=== PATIENT | female | born 1985 | race Caucasian/White ===

== ENCOUNTER 2019-12-29 05:48 | Emergency (ER) | payer SELFPAY ==
[2019-12-29] MEDS ORDERED: SUMAtriptan 6 MG/0.5 ML VIAL SUBQ STA (06:32)
[2019-12-29] MEDS ORDERED: PROMETHAZINE 25 MG/1 ML VIAL IM STA (06:32)
[2019-12-29] MEDS ORDERED: ACETAMINOPHEN/CODEINE 300 MG/30 MG TABLET PO STA (06:32)
--- NOTE | 2019-12-29 06:36 | ED Physician Documentation ---
History of Present Illness - Stated complaint Stated Complaint: SOA/COUGH/SORE THROAT - Chief complaint Chief Complaint: Resp - History obtained from History obtained from: Patient - Additonal information Additional information: Patient comes emergency department complaining of a cough for the last 3 days with a "lump like" soreness in her throat. Patient states she is also been sneezing a lot but she does have seasonal allergies. Patient states she does have a pain behind her right shoulder that is worse with cough and deep breath. Patient denies fevers. She states that she has had a throbbing headache for the last couple of days and has not been able to sleep very well. She states it involves her right eye and also her occipital area. She has had some mild photophobia and blurred vision.No other neurologic symptoms. No nausea or vomiting. No vertigo. Patient states she has not had the headache prior to 2 days ago. Patient does note some diarrhea which started yesterday. Patient is concerned that she may have coronavirus, and that she has children and a at home. She also states they had a friend of an aneurysm in the brain, and that he had an ongoing headache that he ignored. She states her was concerned about this and told her to come in. Patient states she has called the number for the acute respiratory clinic twice, and that she has not qualified for testing yet. She states she was thinking about trying again there. Patient does admit to smoking cigarettes and drinking alcohol regularly, but denies other underlying lung disorders. She states she is otherwise healthy. No other complaints at this time. Review of Systems Ten Systems: 10 systems reviewed and negative Constitutional: reports: Reviewed and negative Eyes: reports: Reviewed and negative Ears: reports: Reviewed and negative Nose: reports: Rhinorrhea / runny nose, Congestion Throat: reports: Sore throat Cardiac: reports: Reviewed and negative Respiratory: reports: Cough GI: reports: Diarrhea : reports: Reviewed and negative Skin: reports: Reviewed and negative Musculoskeletal: reports: Reviewed and negative Neurologic: reports: Headache Psychiatric: reports: Reviewed and negative Endocrine: reports: Reviewed and negative Immunocompromised: reports: Reviewed and negative PD PAST MEDICAL HISTORY - Past Medical History Past Medical History: Yes Cardiovascular: None Respiratory: None Endocrine/Autoimmune: None GI: None : None HEENT: None Psych: Anxiety, Other Musculoskeletal: Rheumatoid arthritis, Chronic back pain Derm: None - Past Surgical History Past Surgical History: Yes General: Other HEENT: Tonsil/Adenoidectomy - Present Medications Home Medications: Ambulatory Orders Medication Instructions Recorded Confirmed Carisoprodol [Soma] 06/10/15 06/10/15 traMADol [Ultram] 100 mg PO TID 06/10/15 06/10/15 Docusate Sodium 100Mg Capsule 100 mg PO BID PRN #30 capsule 09/11/15 [Colace] Oxycodone HCl/Acetaminophen 1 - 2 each PO Q6H PRN #20 tablet 09/11/15 [Percocet 5-325 mg Tablet] Acetaminophen/Cod 300/30 [Tylenol 1 each PO Q4-6H PRN 5 Days #20 12/29/19 #3] tablet - Allergies Allergies/Adverse Reactions: Allergies Allergy/AdvReac Type Severity Reaction Status Date / Time Sulfa (Sulfonamide Allergy Severe Edema Verified 12/29/19 06:00 Antibiotics) acetaminophen [From Vicodin] Allergy Intermediate Hives Verified 12/29/19 06:00 hydrocodone bitartrate * Allergy Intermediate Hives Verified 12/29/19 06:00 [From Vicodin] bupropion HCl * AdvReac Severe Unknown Verified 12/29/19 06:00 [From Wellbutrin] gabapentin AdvReac Severe seizure Verified 12/29/19 06:00 NSAIDS (Non-Steroidal AdvReac Intermediate Cramps Verified 12/29/19 06:00 Anti-Inflamma - Social History Does the pt smoke?: No Smoking Status: Current every day smoker Does the pt drink ETOH?: Yes ETOH Use: Liquor Does the pt have substance abuse?: No - Immunizations Immunizations are current?: Yes - POLST Patient has POLST: No PD ED PE NORMAL - Vitals Vital signs reviewed: Yes - General General: Alert and oriented X 3, No acute distress, Well developed/nourished, Other (Patient is bright, animated, and conversant.) - HEENT HEENT: Atraumatic, PERRL, EOMI, Moist mucous membranes, Pharynx benign - Neck Neck: Supple, no meningeal sign - Cardiac Cardiac: RRR, No murmur - Respiratory Respiratory: No respiratory distress, Clear bilaterally - Abdomen Abdomen: Soft, Non tender, Non distended - Back Back: Other (No limitation to range of motion.) - Derm Derm: Normal color, Warm and dry, No rash - Extremities Extremities: No deformity, Normal ROM s pain, No edema, No calf tenderness / cord - Neuro Neuro: Alert and oriented X 3, motor 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 I discussed with her that her symptoms are fairly mild at this point, and while this could represent a mild case of coronavirus, it could also very easily be any 1 of the many other viruses that go around this time of year and cause similar symptoms. Patient also has allergies and is a smoker, which further confounds the picture. I discussed with her that her family has already been exposed to what ever it is she has, and that quarantining from her family w ill not be helpful at this point. The patient does not meet criteria for testing at this time, as we are still under limited testing protocol, due to limited to number of tests available. I have explained this to the patient, and she does express understanding. We have obtained a chest x-ray due to the patient's cough and thoracic pain, and this is negative. I encouraged the patient to stop smoking. I have treated her headache today with Tylenol 3, Phenergan, and Imitrex. I have discussed with her that most likely, the headache is caused by combination of tension from coughing and lack of sleep. We have discussed that if the headache is ongoing after the illness subsides, then she may need to follow-up with her primary care physician to explore other potential causes. However, at this point in time, I feel that aneurysm or other serious pathology as a cause of her headache is unlikely.We have discussed home management of the symptoms, as well as the usual indications for return. In particular, should the patient develop fever, she should seek immediate reevaluation medically. Departure - Departure Disposition: 01 Home, Self Care Clinical Impression: Seasonal allergies Upper respiratory tract infection Qualifiers: URI type: unspecified viral URI Qualified Code(s): J06.9 - Acute upper respiratory infection, unspecified Condition: Fair Instructions: ED Viral Syndrome Prescriptions: Acetaminophen/Cod 300/30 [Tylenol #3] 1 each PO Q4-6H PRN 5 Days #20 tablet PRN Reason: Cough Comments: Your lungs are clear, your oxygen levels are good, and your chest x-ray is normal. Additionally, you do not have a fever at this time. You most likely have 1 of the many viral illnesses that go around this time of year. There is a possibility that you could have the coronavirus, but if this is the case, it is mild at this time. Please continue to follow the quarantine guidelines, at least until you are feeling better. Your family has certainly been exposed to what ever viruses causing your illness.They may or may not develop symptoms, but exposure will prompt an immune system response, causing immunity to future exposures to the virus. Please be sure to drink plenty of fluids and get plenty of rest. Please follow-up with your primary care physician if your symptoms are not improving in the next week, or if your headaches persist. You may always return for reevaluation, should your symptoms worsen. If you develop fever along with this illness, please contact our accessory Acute [facility] to discuss whether you are a candidate for testing for coronavirus.
[2019-12-29 07:49] VITALS: BP 116/97
--- NOTE | 2019-12-29 07:50 | XRAY Report ---
Reason: cough, SOA, dyspnea Procedure Date: 12/29/2019 Accession Number: [id number] / [id number] Procedure: XR - Chest 2 View X-Ray CPT Code: 33481 Final Report FULL RESULT: EXAM: CHEST RADIOGRAPHY EXAM DATE: 12/29/2019 07:16 AM. CLINICAL HISTORY: Cough, SOA, dyspnea. COMPARISON: None. TECHNIQUE: 2 views. FINDINGS: Lungs/Pleura: No focal opacities. Calcified pulmonary nodule over the right upper lobe, suspect sequela of prior granulomatous infection. No effusions. Mediastinum: Heart and mediastinal contours are unremarkable. Other: None. IMPRESSION: No acute radiographic cardiopulmonary process RADIA
== END 2019-12-29 07:50 | disposition home or self-care (01) ==
LOC: ED 05:48
DX: J06.9 Acute upper respiratory infection, unspecified (principal); J30.2 Other seasonal allergic rhinitis; F17.200 Nicotine dependence, unspecified, uncomplicated
CPT/HCPCS: 71046; 96372; 99283; 99284; A9270

== ENCOUNTER 2020-01-04 19:05 | Emergency (ER) | payer BC ==
[2020-01-04] MEDS ORDERED: cefTRIAXone 1 GM VIAL IM STA (19:51)
[2020-01-04] MEDS ORDERED: LIDOCAINE 1% 2 ML VIAL MC ONE (19:51)
[2020-01-04] MEDS ORDERED: oxyCODONE 5 MG TABLET PO STA (19:52)
--- NOTE | 2020-01-04 19:57 | ED Physician Documentation ---
History of Present Illness - Stated complaint Stated Complaint: DENTAL PX - Chief complaint Chief Complaint: Heent - History obtained from History obtained from: Patient - History of Present Illness Pain level max: 10 Pain level now: 10 - Additonal information Additional information: 34-year-old female states she has been having dental pain for the past year, and is slowly worsened over the past several weeks. She states she is scared to go the dentist. She has been chills. Recently seen with a negative chest x-ray. She states that her pain is not well controlled at home. No vomiting. Occasionally has diarrhea. Denies any blood in the stool. Worse with eating and drinking, nothing makes it better. Review of Systems Constitutional: reports: Chills Respiratory: denies: Cough GI: denies: Vomiting, Hematemesis, Bloody / black stool : denies: Dysuria Skin: denies: Rash Musculoskeletal: denies: Neck pain, Back pain Neurologic: denies: Headache PD PAST MEDICAL HISTORY - Past Medical History Past Medical History: Yes Cardiovascular: None Respiratory: None Endocrine/Autoimmune: None GI: None : None HEENT: None Psych: Anxiety, Other Musculoskeletal: Rheumatoid arthritis, Chronic back pain Derm: None - Past Surgical History Past Surgical History: Yes General: Other HEENT: Tonsil/Adenoidectomy - Present Medications Home Medications: Ambulatory Orders Medication Instructions Recorded Confirmed Carisoprodol [Soma] 06/10/15 06/10/15 traMADol [Ultram] 100 mg PO TID 06/10/15 06/10/15 Docusate Sodium 100Mg Capsule 100 mg PO BID PRN #30 capsule 09/11/15 [Colace] Oxycodone HCl/Acetaminophen 1 - 2 each PO Q6H PRN #20 tablet 09/11/15 [Percocet 5-325 mg Tablet] Acetaminophen/Cod 300/30 [Tylenol 1 each PO Q4-6H PRN 5 Days #20 12/29/19 #3] tablet Lisinopril/Hydrochlorothiazide 1 each PO DAILY #30 tablet 01/04/20 [Lisinopril-Hctz 20-12.5 mg Tab] Oxycodone HCl 5 mg PO Q6H PRN #7 tablet 01/04/20 Penicillin V Potassium 500 mg PO Q6HR #40 tablet 01/04/20 - Allergies Allergies/Adverse Reactions: Allergies Allergy/AdvReac Type Severity Reaction Status Date / Time Sulfa (Sulfonamide Allergy Severe Edema Verified 12/29/19 06:00 Antibiotics) acetaminophen [From Vicodin] Allergy Intermediate Hives Verified 12/29/19 06:00 hydrocodone bitartrate * Allergy Intermediate Hives Verified 12/29/19 06:00 [From Vicodin] bupropion HCl * AdvReac Severe Unknown Verified 12/29/19 06:00 [From Wellbutrin] gabapentin AdvReac Severe seizure Verified 12/29/19 06:00 NSAIDS (Non-Steroidal AdvReac Intermediate Cramps Verified 12/29/19 06:00 Anti-Inflamma - Social History Does the pt smoke?: No Smoking Status: Never smoker Does the pt drink ETOH?: Yes Does the pt have substance abuse?: No - Immunizations Immunizations are current?: Yes - POLST Patient has POLST: No PD ED PE NORMAL - Vitals Vital signs reviewed: Yes - General General: Alert and oriented X 3, No acute distress, Well developed/nourished - HEENT HEENT: PERRL, Moist mucous membranes, Other (Tender to palpation right upper molar, no drainage. No drainable abscess) - Neck Neck: Supple, no meningeal sign - Cardiac Cardiac: RRR, Strong equal pulses - Respiratory Respiratory: No respiratory distress, Clear bilaterally - Abdomen Abdomen: Soft, Non tender, Non distended - Derm Derm: Warm and dry - Neuro Neuro: Alert and oriented X 3 - Psych Psych: Normal mood, Normal affect Results - Vitals Vitals: Vital Signs - 24 hr 01/04/20 01/04/20 19:14 20:21 Temperature 37.1 C Heart Rate 91 86 Respiratory 18 16 Rate Blood Pressure 119/95 H 138/82 H O2 Saturation 96 99 Oxygen O2 Source Room air PD MEDICAL DECISION MAKING - ED course Complexity details: considered differential, d/w patient ED course: Patient with dental caries. Will place on antibiotics for home, she is well- appearing, nontoxic. No facial swelling. No cellulitis. No sepsis. Patient counseled regarding signs and symptoms for which I believe and urgent re-evaluation would be necessary. Patient with good understanding of and agreement to plan and is comfortable going home at this time This document was made in part using voice recognition software. While efforts are made to proofread this document, sound alike and grammatical errors may occur. No abscess Departure - Departure Disposition: 01 Home, Self Care Clinical Impression: Pain, dental Condition: Good Instructions: ED Tooth Pain Follow-Up: your,dentist within 1 week [Other] Prescriptions: Penicillin V Potassium 500 mg PO Q6HR #40 tablet Lisinopril/Hydrochlorothiazide [Lisinopril-Hctz 20-12.5 mg Tab] 1 each PO DAILY #30 tablet Oxycodone HCl 5 mg PO Q6H PRN #7 tablet PRN Reason: pain Comments: Take all antibiotics until gone. Return if you worsen. Do not drink alcohol or drive while on narcotic pain medicine. Note that many narcotic pain relievers also contain tylenol/acetaminophen. Please ensure that your total dose of acetaminophen from all sources does not exceed 3 grams (3000mg) per day. You may constipated on this medication, take a stool softener such as "Colace" twice a day while you are on it. Also recommend a [id number] laxative such as senna or MiraLAX any day that you do not have a bowel movement. If you received narcotic pain medication in the emergency department, do not drive or operate machinery for the next 24 hours. Discharge Date/Time: 01/04/20 20:19
[2020-01-04 20:22] VITALS: BP 138/82
== END 2020-01-04 20:19 | disposition home or self-care (01) ==
LOC: ED 19:05
DX: K02.9 Dental caries, unspecified (principal)
CPT/HCPCS: 96372; 99283; 99284; A9270

== ENCOUNTER 2020-01-05 10:29 | Observation (INO) | payer BC ==
--- NOTE | 2020-01-05 10:39 | ED Physician Documentation ---
PD HPI ABD PAIN - Stated complaint Stated Complaint: ABD PX - Chief complaint Chief Complaint: Abd Pain - History obtained from History obtained from: Patient - History of Present Illness Timing - onset: How many days ago (2) Timing - duration: Days (2) Timing - details: Abrupt onset (only mild pain the past 2 days and had considerable escalation of pain since yesterday.) Quality: Aching, Sharp, Pain Location: RUQ, Epigastric Radiation: Lower back Improved by: No: Laying still, Vomiting Worsened by: Eating, Breathing, Palpation Associated symptoms: Nausea, Vomiting, Diarrhea (some loose stool the past couple of days, with dark color 2 days ago (but had taken Pepto for stomach pain). No hematemesis.). No: Fever, Hematemesis Similar symptoms before: Diagnosis (pancreatitis at least once before.) Recently seen: Emergency Dept (Seen couple of days ago for dental pain and prescribed penicillin and ibuprofen. She had only had mild abd pain at that time.) Review of Systems Constitutional: reports: Myalgias. denies: Fever, Chills Nose: denies: Rhinorrhea / runny nose, Congestion Throat: denies: Sore throat Respiratory: denies: Cough GI: reports: Abdominal Pain, Nausea, Vomiting, Diarrhea, Bloody / black stool (dark colored after Pepto). denies: Constipation, Hematemesis : denies: Dysuria, Frequency Neurologic: reports: Generalized weakness. denies: Near syncope PD PAST MEDICAL HISTORY - Past Medical History Cardiovascular: None Respiratory: None Endocrine/Autoimmune: None GI: None : None HEENT: None Psych: Anxiety, Other Musculoskeletal: Rheumatoid arthritis, Chronic back pain Derm: None - Past Surgical History Past Surgical History: Yes General: Other HEENT: Tonsil/Adenoidectomy - Present Medications Home Medications: Ambulatory Orders Medication Instructions Recorded Confirmed Carisoprodol [Soma] 06/10/15 06/10/15 traMADol [Ultram] 100 mg PO TID 06/10/15 06/10/15 Docusate Sodium 100Mg Capsule 100 mg PO BID PRN #30 capsule 09/11/15 [Colace] Oxycodone HCl/Acetaminophen 1 - 2 each PO Q6H PRN #20 tablet 09/11/15 [Percocet 5-325 mg Tablet] Acetaminophen/Cod 300/30 [Tylenol 1 each PO Q4-6H PRN 5 Days #20 12/29/19 #3] tablet Lisinopril/Hydrochlorothiazide 1 each PO DAILY #30 tablet 01/04/20 [Lisinopril-Hctz 20-12.5 mg Tab] Oxycodone HCl 5 mg PO Q6H PRN #7 tablet 01/04/20 Penicillin V Potassium 500 mg PO Q6HR #40 tablet 01/04/20 - Allergies Allergies/Adverse Reactions: Allergies Allergy/AdvReac Type Severity Reaction Status Date / Time Sulfa (Sulfonamide Allergy Severe Edema Verified 12/29/19 06:00 Antibiotics) acetaminophen [From Vicodin] Allergy Intermediate Hives Verified 12/29/19 06:00 hydrocodone bitartrate * Allergy Intermediate Hives Verified 12/29/19 06:00 [From Vicodin] bupropion HCl * AdvReac Severe Unknown Verified 12/29/19 06:00 [From Wellbutrin] gabapentin AdvReac Severe seizure Verified 12/29/19 06:00 NSAIDS (Non-Steroidal AdvReac Intermediate Cramps Verified 12/29/19 06:00 Anti-Inflamma - Social History Does the pt smoke?: No Smoking Status: Never smoker Does the pt drink ETOH?: Yes Does the pt have substance abuse?: No - Immunizations Immunizations are current?: Yes - POLST Patient has POLST: No PD ED PE NORMAL - Vitals Vital signs reviewed: Yes - General General: Alert and oriented X 3, Well developed/nourished, Other (Appears in considerable distress both shaky nauseated and in pain.) - HEENT HEENT: PERRL (nonicteric), Pharynx benign - Neck Neck: Supple, no meningeal sign, No adenopathy - Cardiac Cardiac: RRR, No murmur - Respiratory Respiratory: Clear bilaterally - Abdomen Abdomen: Soft, No organomegaly, Other (Considerable tenderness in the epigastric area with guarding and percussion tenderness. Lower abdomen is minimally tender. There is no rebound in the lower abdomen. There is no CVA tenderness.). No: Normal bowel sounds (diminished) - Back Back: No CVA TTP - Derm Derm: Normal color, Warm and dry - Extremities Extremities: No deformity, No tenderness to palpate, Normal ROM s pain, No edema, No calf tenderness / cord - Neuro Neuro: Alert and oriented X 3, No motor deficit, Normal speech, Other (general shakiness/tremors) Eye Opening: Spontaneous Motor: Obeys Commands Verbal: Oriented GCS Score: 15 Results - Vitals Vitals: Vital Signs - 24 hr 01/05/20 01/05/20 01/05/20 10:35 11:19 11:30 Temperature 36.3 C L Heart Rate 78 67 66 Respiratory 16 19 18 Rate Blood Pressure 136/101 H 106/82 H 126/95 H O2 Saturation 97 100 97 01/05/20 01/05/20 12:00 12:30 Temperature Heart Rate 74 79 Respiratory 13 16 Rate Blood Pressure 132/104 H 143/101 H O2 Saturation 100 99 Oxygen O2 Source Room air - Labs Labs: Laboratory Tests 01/05/20 01/05/20 01/05/20 10:45 11:10 11:10 WBC 9.1 RBC 4.79 Hgb 15.7 Hct 45.9 MCV 95.8 MCH 32.8 H MCHC 34.2 RDW 12.7 Plt Count 290 MPV 8.5 Neut # (Auto) 3.7 Lymph # (Auto) 4.2 H [place] # (Auto) 1.0 Eos # (Auto) 0.1 Baso # (Auto) 0.1 Absolute Nucleated RBC 0.00 Nucleated RBC % 0.0 Sodium 136 Potassium 3.4 L Chloride 99 L Carbon Dioxide 22 Anion Gap 15.0 H BUN 8 Creatinine 0.8 Estimated GFR (MDRD) 82 L Glucose 115 H Calcium 8.5 Magnesium 2.0 Total Bilirubin 1.2 H AST 164 H ALT 125 H Alkaline Phosphatase 98 Total Protein 7.2 Albumin 4.0 Globulin 3.2 Albumin/Globulin Ratio 1.3 Lipase 693 H Salicylates < 6.0 Acetaminophen < 10 L Ethyl Alcohol 127.4 Blood Type O NEGATIVE Antibody Screen NEGATIVE PD MEDICAL DECISION MAKING - ED course Complexity details: re-evaluated patient (Taking repeated doses of medicines for both withdrawal and pain to have her more comfortable. Her lipase is quite elevated. I do not see her manageable outpatient.), considered differential (Likely pancreatitis versus ulcer versus gallbladder. Also having alcohol withdrawal.), d/w patient Departure - Departure Disposition: 66 [facility] DC/Xfer Clinical Impression: Upper abdominal pain, Alcoholism Acute pancreatitis Qualifiers: Pancreatitis type: alcohol induced Acute pancreatitis complication: unspecified Qualified Code(s): K85.20 - Alcohol induced acute pancreatitis without necrosis or infection Alcohol withdrawal Qualifiers: Complication of substance-induced condition: uncomplicated Qualified Code(s): F10.230 - Alcohol dependence with withdrawal, uncomplicated Condition: Stable Record reviewed to determine appropriate education?: Yes
[2020-01-05] MEDS ORDERED: LORazepam 2 MG/ML VIAL IVP STA ×3 (10:57→12:46)
[2020-01-05] MEDS ORDERED: FAMOTIDINE 20 MG/2 ML VIAL IVP STA (10:57)
[2020-01-05] MEDS ORDERED: SODIUM CHLORIDE 0.9% 1,000 ML IV ONE ×2 (10:57→13:29)
[2020-01-05] MEDS ORDERED: ONDANSETRON 4 MG/2 ML VIAL IVP STA (10:57)
[2020-01-05] MEDS ORDERED: HYDROmorphone 1 MG/ML CARPUJECT IVP STA ×4 (10:57→13:29)
[2020-01-05 11:03] LABS: BASOPHILS # (AUTO) 0.1 10^3/uL (0.0-0.1); BASOPHILS % (AUTO) 0.7 %; EOSINOPHILS # (AUTO) 0.1 10^3/uL (0.0-0.7); EOSINOPHILS % (AUTO) 1.2 %; HGB - HEMOGLOBIN 15.7 g/dL (12.0-16.0); LYMPHOCYTES # (AUTO) 4.2 10^3/uL (1.5-3.5); LYMPHOCYTES % (AUTO) 46.5 %; MEAN CORPUSCULAR HEMOGLOBIN 32.8 pg (27.0-31.0); MEAN CORPUSCULAR HGB CONC 34.2 g/dL (32.0-36.0); MEAN CORPUSCULAR VOLUME 95.8 fL (81.0-99.0); MEAN PLATELET VOLUME 8.5 fL (7.9-10.8); MONOCYTES % (AUTO) 10.6 %; NEUTROPHILS # (AUTO) 3.7 10^3/uL (1.5-6.6); NEUTROPHILS % (AUTO) 40.6 %; PLT - PLATELET COUNT 290 10^3/uL (130-450); RED BLOOD COUNT 4.79 10^6/uL (4.20-5.40); RED CELL DISTRIBUTION WIDTH 12.7 % (12.0-15.0); WHITE BLOOD COUNT 9.1 x10^3/uL (4.8-10.8)
[2020-01-05 11:53] LABS: ACETAMINOPHEN < 10 ug/mL (10-30); ALBUMIN/GLOBULIN RATIO 1.3 (1.0-2.2); ALKALINE PHOSPHATASE 98 IU/L (42-121); ALT ALANINE AMINOTRANSFERASE 125 IU/L (10-60); AST ASPARTATE AMINOTRANSFERASE 164 IU/L (10-42); BILIRUBIN,TOTAL 1.2 mg/dL (0.2-1.0); BUN - BLOOD UREA NITROGEN 8 mg/dL (6-20); CALCIUM 8.5 mg/dL (8.5-10.3); CARBON DIOXIDE - CO2 22 mmol/L (21-32); CHLORIDE 99 mmol/L (101-111); CREATININE 0.8 mg/dL (0.4-1.0); GLUCOSE 115 mg/dL (70-100); LIPASE 693 U/L (22-51); SALICYLATE < 6.0 mg/dL; SODIUM 136 mmol/L (135-145); TOTAL PROTEIN 7.2 g/dL (6.7-8.2)
[2020-01-05] MEDS ORDERED: cefTRIAXone 1 GM VIAL IVP STA (12:30)
[2020-01-05] MEDS ORDERED: LORazepam 2 MG/ML VIAL IVP PRN (13:24)
[2020-01-05] MEDS ORDERED: HYDROmorphone 0.5 MG/0.5 ML SYRINGE IVP PRN (13:24)
[2020-01-05] MEDS ORDERED: IBUPROFEN 400 MG TABLET PO PRN (13:24)
[2020-01-05] MEDS ORDERED: traMADol 50 MG TABLET PO SCH (14:00)
--- NOTE | 2020-01-05 14:11 | HISTORY & PHYSICAL EXAMINATION ---
Chief Complaint - Chief Complaint Chief Complaint: Abdoominal Pain History of Present Illness - Admitted From Admitted From:: ED - History Obtained From Records Reviewed: Current ED visit History obtained from: Patient and Dr Mason Exam Limitations: None - History of Present Illness HPI Comment/Other: Pt is a 34 yo female with past medical hx of fibromyalgia, chronic pain, and arthritis "in her ribs" who presents to ED with abdominal pain present since past few days, acutely worsening this am. She describes the pain as both LUQ and RUQ, sharp, constant, but worsens in a crampy nature. It's worsened with eating and drinking and not alleviated with anything. It was associated with few episodes of vomiting this am, and diarrhea a few days ago that has now resolved. She denies fever, sick contacts, recent travel, or hx of abdominal surgery. She is a recovering alcoholic who admits she has relapsed into drinking again for the past few months, no drinking every day, typically two vodka drinks and 2-4 beers per day, every day. Her last drink was last night. She recalls a similar episode of sx last year at which point she was admitted to [facility] and was diagnosed with pancreatitis. Per patient, she was evaluated and not found to have any biliary pathology at that time. In ED, U/S is pending. She self reports a hx of W/D during that same hospital stay, as well as at home with sx of "the shakes" when she wakes up after drinking less the day prior. In ED, her evaluation showed elevated LFT's, Lipase, and normal CBC. At time of admission, U/S has been ordered by Dr Mason, but not yet done. Of note, patient was in ED last night as well with CC of tooth pain, and started on PCN for tooth infection (has been needing to see dentist for known tooth problem) and reportedly had abdominal sx as well, but was not evaluated for this as sx were more mild. History - Past Medical History Cardiovascular: reports: None Respiratory: reports: None Neuro: reports: Other (Fibromyalgia) Endocrine/Autoimmune: reports: None GI: reports: None : reports: None HEENT: reports: None Psych: reports: Anxiety, Other Musculoskeletal: reports: Rheumatoid arthritis, Chronic back pain Derm: reports: None MRSA Hx?: No - Past Surgical History General: reports: Other HEENT: reports: Tonsil/Adenoidectomy - Family & Social History Family History Comment/Other: Family hx of alcoholism, mother has hx of poor tolerance to local anasthetics. Living arrangement: At home Living Situation: With spouse/s.o. Social History Notes: visiting from out of town, returning in a week or so - Substance History Use: Uses substance without health or social issues: Cannabis Abuse: Recurrent use of substance despite neg consequences: Alcohol - POLST Patient has POLST: No POLST Status: Full Code Meds/Allgy - Home Medications Home Medications: Ambulatory Orders Medication Instructions Recorded Confirmed Carisoprodol [Soma] 06/10/15 06/10/15 traMADol [Ultram] 100 mg PO TID 06/10/15 06/10/15 Docusate Sodium 100Mg Capsule 100 mg PO BID PRN #30 capsule 09/11/15 [Colace] Oxycodone HCl/Acetaminophen 1 - 2 each PO Q6H PRN #20 tablet 09/11/15 [Percocet 5-325 mg Tablet] Acetaminophen/Cod 300/30 [Tylenol 1 each PO Q4-6H PRN 5 Days #20 12/29/19 #3] tablet Lisinopril/Hydrochlorothiazide 1 each PO DAILY #30 tablet 01/04/20 [Lisinopril-Hctz 20-12.5 mg Tab] Oxycodone HCl 5 mg PO Q6H PRN #7 tablet 01/04/20 Penicillin V Potassium 500 mg PO Q6HR #40 tablet 01/04/20 - Allergies Allergies/Adverse Reactions: Allergies Allergy/AdvReac Type Severity Reaction Status Date / Time Sulfa (Sulfonamide Allergy Severe Edema Verified 12/29/19 06:00 Antibiotics) acetaminophen [From Vicodin] Allergy Intermediate Hives Verified 12/29/19 06:00 hydrocodone bitartrate * Allergy Intermediate Hives Verified 12/29/19 06:00 [From Vicodin] bupropion HCl * AdvReac Severe Unknown Verified 12/29/19 06:00 [From Wellbutrin] gabapentin AdvReac Severe seizure Verified 12/29/19 06:00 NSAIDS (Non-Steroidal AdvReac Intermediate Cramps Verified 12/29/19 06:00 Anti-Inflamma Review of Systems - Constitutional Constitutional: reports: Poor appetite. denies: Fatigue - Cardiovascular Cariovascular: denies: Chest pain - Respiratory Respiratory: denies: SOB at rest - Gastrointestinal Gastrointestinal: reports: Abdominal pain, Diarrhea, Change in bowel habits, Black stools (C/O dark tarry stools x 3 days, also has been using Pepto-bismol). denies: Constipation - Genitourinary Genitourinary: reports: Flank pain - Musculoskeletal Musculoskeletal: reports: Joint pain - Neurological Neurological: reports: General weakness Prior Level of Functionality: Fully ambulatory and healthy. Rasing 3 children. 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 Exam - Vital Signs Reviewed Vital Signs: Yes Vital Signs: Vital Signs x48h Temp Pulse Resp BP Pulse Ox 01/05/20 13:30 88 20 139/105 H 97 01/05/20 13:00 78 14 134/104 H 97 01/05/20 12:30 79 16 143/101 H 99 01/05/20 12:00 74 13 132/104 H 100 01/05/20 11:30 66 18 126/95 H 97 01/05/20 11:19 67 19 106/82 H 100 01/05/20 10:35 36.3 C L 78 16 136/101 H 97 - Physical Exam General Appearance: positive: Moderate distress, Anxious Eyes Bilateral: positive: Normal inspection, No scleral icterus Neck: positive: Nml inspection Respiratory: positive: Chest non-tender, No respiratory distress, Breath sounds nml Cardiovascular: positive: Regular rate & rhythm, No murmur, No gallop Abdomen: positive: Tenderness (RUQ, LUQ, Epigastric) Extremities: positive: Non-tender, Full ROM, Nml appearance Neurologic/Psychiatric: positive: Oriented x3 Conclusion/Plan - Problem List (1) Acute pancreatitis Conclusion/Plan: Elevated Lipase, abdominal pain, hx are c/w pancreatitis. Imaging is pending. Likely 2/2 to Etoh. Plan: * F/U U/S * IVF @ 150 ml/hr * Clearl liquid diet * Pain control * Dilaudid * PRN Zofran * Advance diet pending clinical Course Qualifiers: Pancreatitis type: alcohol induced Acute pancreatitis complication: unspecified Qualified Code(s): K85.20 - Alcohol induced acute pancreatitis without necrosis or infection (2) Alcohol withdrawal Conclusion/Plan: Pt showing signs of early EtOH W/D HR and BP are elevated Last drink was last night Plan: * CIWA protocol * Librium TID * Monitor for sx and increase as needed * Banana Bag * Consider adding gabapentin as this would help with fibromyalgia and w/d if improved in am * Fur Remodeler to quit etoh abuse * Social Work Consult Qualifiers: Complication of substance-induced condition: uncomplicated Qualified Code(s): F10.230 - Alcohol dependence with withdrawal, uncomplicated (3) Alcoholism Conclusion/Plan: As above, counseled to quit, social work consult for resourced (4) Pain, dental Conclusion/Plan: Cont PCN started in ED night prior. Monitor for signs of abscess (fever, wbc increase, worsening pain, exam findings, etc) and if appropriate consider sinus CT Otherwise, outpt f/u (5) Hypokalemia Conclusion/Plan: Likely 2/2 to GI loss, add to IVF - Lab Results Lab results reviewed: Yes Andrés Bones: 01/05/20 10:45 01/05/20 11:10 Core Measures - Anticipated LOS I expect patient to be DC'd or transferred within 96 hours.: Yes - DVT/VTE - Prophylaxis VTE/DVT Device ordered at admit?: Yes VTE/DVT Prophylaxis med ordered at admit?: Yes
[2020-01-05 14:30] LABS: BILIRUBIN,URINE NEGATIVE (NEGATIVE); CLARITY,URINE CLEAR (CLEAR); GLUCOSE, URINE (UA) NEGATIVE (NEGATIVE); KETONES,URINE (UA) NEGATIVE (NEGATIVE); LEUKOCYTE ESTERASE, URINE NEGATIVE (NEGATIVE); NITRITE,URINE NEGATIVE (NEGATIVE); OCCULT BLOOD,URINE NEGATIVE (NEGATIVE); PH,URINE 6.5 PH (5.0-7.5); PROTEIN,URINE NEGATIVE (NEGATIVE); UROBILINOGEN,URINE 0.2 (NORMAL) E.U./dL (NORMAL)
[2020-01-05] MEDS: NS W/20 MEQ KCL 1,000 ML IV SCH (14:32)
[2020-01-05] MEDS: ONDANSETRON 4 MG/2 ML VIAL IVP PRN ×2 (15:52→21:40)
[2020-01-05] MEDS: MULTIVITAMIN 10 ML, THIAMINE INJ 100 MG, FOLIC ACID INJ 1 MG in SODIUM CHLORIDE 0.9% 1,... IV SCH (15:52)
[2020-01-05] MEDS: PANTOPRAZOLE 40 MG VIAL IVP SCH (15:52)
[2020-01-05] MEDS: SODIUM CHLORIDE FLUSH 0.9% 10 ML SYRINGE IVP SCH (17:13)
--- NOTE | 2020-01-05 17:36 | PHARMACY PROGRESS NOTE ---
- Best Possible Medication History Admit Date and Time: 01/05/20 1324 Processed by: Pharmacy Medication History completed: Yes Patient Interview: Completed Secondary Source(s): Insurance records As the person ultimately responsible for medication therapy, providers are able to order a medication from an existing home medication list in [facility] via the "Reconcile Routine" prior to Confirmation of that medication by system support developer. Such practice is discouraged except when the physician, in their clinical judgment, deems that a medical need exists for a medication without regard to previous use.
[2020-01-05] MEDS: HYDROmorphone 0.5 MG/0.5 ML SYRINGE IVP PRN ×4 (17:40→23:47)
[2020-01-05] MEDS: METOCLOPRAMIDE 10 MG/2 ML VIAL IVP PRN ×2 (17:40→23:46)
[2020-01-05] MEDS: oxyCODONE 5 MG TABLET PO PRN (19:15)
[2020-01-05] MEDS ORDERED: POTASSIUM CHLOR 10 MEQ/100 ML 10 MEQ/100 ML BAG IV SCH (20:00)
[2020-01-05 21:02] LABS: HCG UR QUAL NEGATIVE
[2020-01-05] MEDS: chlordiazePOXIDE 25 MG CAPSULE PO SCH (21:41)
[2020-01-05] MEDS: PENICILLIN VK 250 MG TABLET PO SCH (21:41)
[2020-01-06] MEDS: SODIUM CHLORIDE FLUSH 0.9% 10 ML SYRINGE IVP SCH ×3 (00:15→22:32)
[2020-01-06] MEDS: oxyCODONE 5 MG TABLET PO PRN ×3 (01:03→20:54)
[2020-01-06] MEDS: SODIUM CHLORIDE FLUSH 0.9% 10 ML SYRINGE IVP PRN ×2 (02:09→06:21)
[2020-01-06] MEDS: HYDROmorphone 0.5 MG/0.5 ML SYRINGE IVP PRN ×3 (02:10→06:30)
--- NOTE | 2020-01-06 02:28 | Ultrasound Report ---
Reason: upper abd pain; elevated lipase/LFTs Procedure Date: 01/06/2020 Accession Number: [id number] / [id number] Procedure: US - Abdomen Limited CPT Code: Final Report FULL RESULT: EXAM: ABDOMEN ULTRASOUND LIMITED, RUQ EXAM DATE: 01/06/2020 01:48 AM CLINICAL HISTORY: Upper abdominal pain; elevated lipase/liver function tests. COMPARISON: None. TECHNIQUE: Real-time scanning was performed with static images obtained. FINDINGS: Liver: Echogenic without gross focal abnormality seen. Main portal vein flow: Hepatopetal. Gallbladder: No shadowing stones, wall thickening, or pericholecystic edema. Possible mild adenomyomatosis towards the fundus. Biliary System: CBD measures 5 mm. No intrahepatic or extrahepatic ductal dilatation. Other: No peripancreatic collection seen. IMPRESSION: 1. No cholelithiasis or evidence of cholecystitis. 2. Fatty liver. RADIA
[2020-01-06] MEDS: ONDANSETRON 4 MG/2 ML VIAL IVP PRN (04:04)
[2020-01-06 05:59] LABS: BASOPHILS % (AUTO) 0.1 %; HGB - HEMOGLOBIN 13.5 g/dL (12.0-16.0); LYMPHOCYTES # (AUTO) 0.7 10^3/uL (1.5-3.5); LYMPHOCYTES % (AUTO) 4.8 %; MEAN CORPUSCULAR HEMOGLOBIN 32.8 pg (27.0-31.0); MEAN CORPUSCULAR HGB CONC 34.4 g/dL (32.0-36.0); MEAN CORPUSCULAR VOLUME 95.4 fL (81.0-99.0); MEAN PLATELET VOLUME 8.5 fL (7.9-10.8); MONOCYTES # (AUTO) 0.7 10^3/uL (0.0-1.0); MONOCYTES % (AUTO) 5.3 %; NEUTROPHILS # (AUTO) 12.4 10^3/uL (1.5-6.6); NEUTROPHILS % (AUTO) 89.2 %; PLT - PLATELET COUNT 179 10^3/uL (130-450); RED BLOOD COUNT 4.12 10^6/uL (4.20-5.40); RED CELL DISTRIBUTION WIDTH 12.7 % (12.0-15.0); WHITE BLOOD COUNT 13.9 x10^3/uL (4.8-10.8)
[2020-01-06 06:12] LABS: ALBUMIN 3.6 g/dL (3.2-5.5); ALBUMIN/GLOBULIN RATIO 1.3 (1.0-2.2); BILIRUBIN,TOTAL 1.9 mg/dL (0.2-1.0); CALCIUM 7.7 mg/dL (8.5-10.3); CREATININE 0.6 mg/dL (0.4-1.0); TOTAL PROTEIN 6.4 g/dL (6.7-8.2)
[2020-01-06] MEDS: PANTOPRAZOLE 40 MG VIAL IVP SCH (06:21)
[2020-01-06] MEDS: METOCLOPRAMIDE 10 MG/2 ML VIAL IVP PRN (06:25)
[2020-01-06] MEDS: chlordiazePOXIDE 25 MG CAPSULE PO SCH ×3 (06:28→22:39)
[2020-01-06] MEDS: PENICILLIN VK 250 MG TABLET PO SCH ×3 (06:29→22:53)
[2020-01-06] MEDS ORDERED: HYDROmorphone 1 MG/ML CARPUJECT IVP PRN ×2 (06:45→09:12)
[2020-01-06] MEDS: ENOXAPARIN 40 MG/0.4 ML SYRINGE SUBQ SCH (08:35)
[2020-01-06] MEDS: NICOTINE 7 MG PATCH TOP SCH (08:35)
[2020-01-06] MEDS: DOCUSATE SODIUM 100 MG CAPSULE PO PRN (08:36)
[2020-01-06] MEDS ORDERED: hydroCHLOROthiazide 12.5 MG CAPSULE PO SCH (09:00)
[2020-01-06] MEDS ORDERED: THIAMINE 100 MG TABLET PO SCH (09:00)
[2020-01-06] MEDS ORDERED: lisinopriL 20 MG TABLET PO SCH (09:00)
[2020-01-06 09:24] LABS: MUDS CUTOFF CONCENTRATIONS CUTOFF CONC BELOW:
[2020-01-06 09:36] LABS: COCAINE SCREEN URINE NEGATIVE (NEGATIVE); METHAMPHETAMINES SCREEN, URINE NEGATIVE (NEGATIVE); OPIATE SCREEN, URINE POSITIVE (NEGATIVE)
[2020-01-06 09:37] LABS: AMPHETAMINE SCREEN,URINE NEGATIVE (NEGATIVE); BENZODIAZEPINES SCREEN, URINE NEGATIVE (NEGATIVE); METHADONE SCREEN, URINE NEGATIVE (NEGATIVE); OXYCODONE SCREEN, URINE POSITIVE (NEGATIVE); PROPOXYPHENE SCREEN, URINE NEGATIVE (NEGATIVE); TRICYCLIC ANTIDEPRESSANT,URINE NEGATIVE (NEGATIVE)
[2020-01-06] MEDS: NS W/20 MEQ KCL 1,000 ML IV SCH ×2 (10:49→22:32)
[2020-01-06] MEDS: HYDROmorphone PCA 20MG/100ML IV PRN (11:19)
--- NOTE | 2020-01-06 11:31 | PROVIDER PROGRESS NOTE ---
Subjective - Prog Note Date Prog Note Date: 01/06/20 Prog Note Time: 11:27 - Subjective Pt reports feeling: No change Subjective: Rosaura complains of epigastric pain in her bilateral upper abdomen and states that the pain wraps around to her bilateral flank areas. The pain is constant, sharp, stabbing and her IV dilaudid is wearing off too quickly. She states that leaning forward somewhat relieves the pain, denies chest pain, shortness of breath, or dizziness during this time. She is also found with belching while trying to speak during her exam, denies emesis. She states that after she has ice chips the pain becomes worse, so I advised that she completely avoid all PO intake. She state that is has been greater than 6 months since the last time she attempted to stop using alcohol on a daily basis and is rather forthcoming as to the details of her disease, but notes she has always been a "functional drinker". She states that she is finally thinking more seriously about rehabilitation, but since the COVID, some facilities have not been accepting new patients. Current Medications - Current Medications Current Medications: Active Medications: Chlordiazepoxide HCl (Librium) 25 mg PO TID SILVINA Docusate Sodium (Colace 100mg Capsule) 100 mg PO BID PRN Enoxaparin Sodium (Lovenox) 40 mg SUBQ DAILY SILVINA Hydromorphone HCl (Dilaudid Customer Services Supervisor 20mg/100ml) mg IV PRN PRN; Protocol Multivitamins 10 ml/ Thiamine HCl 100 mg/ Folic Acid 1 mg/Sodium Chloride 1,011.2 mls @ 100 mls/hr IV Q24H SILVINA Potassium Chloride/Sodium Chloride (Normal Saline 0.9% W/20 Meq Kcl) 1,000 mls @ 150 mls/hr IV .Q6H40M SILVINA Ibuprofen (Motrin) 400 mg PO Q4HR PRN Lorazepam (Ativan Inj (Vial)) 1 mg IVP Q30M PRN; Protocol Metoclopramide HCl (Reglan Inj) 5 mg IVP Q6HR PRN Nicotine (Nicoderm) 1 patch TOP DAILY SILVINA Ondansetron HCl (Zofran Inj) 4 mg IVP Q6HR PRN Oxycodone HCl (Roxicodone) 5 mg PO Q4HR PRN Pantoprazole Sodium (Protonix) 40 mg IVP QDAC SILVINA Penicillin V Potassium (Penicillin Vk) 500 mg PO TID [facility] Objective - Vital Signs/Intake & Output Reviewed Vital Signs: Yes Vital Signs: Vital Signs x48h Temp Pulse Resp BP Pulse Ox 01/06/20 11:16 37.8 C H 103 H 18 155/114 H 95 01/06/20 07:45 37.6 C H 119 H 18 163/127 H 95 01/06/20 04:00 37.4 C 110 H 16 141/112 H 98 Intake & Output: Intake & Output 01/03/20 01/04/20 01/05/20 01/06/20 23:59 23:59 23:59 23:59 Intake Total 2516.667 1194.533 Balance 2516.667 1194.533 - Objective General Appearance: positive: Alert, Moderate distress, Severe distress, Anxious Eyes Bilateral: positive: No lid inflammation Eyes: OU Conjunctivae pale ENT: positive: Pharyngeal erythema, Oral lesions (Right upper tooth, last one in the back of the oral cavity appears discolored with more erythema noted to the skin surrounding the tooth.), Dry mucous membranes Neck: positive: No JVD, Trachea midline, Stiff neck Respiratory: positive: Chest non-tender, No respiratory distress, Breath sounds nml Cardiovascular: positive: Regular rate & rhythm, Tachycardia, Systolic murmur (faint) Peripheral Pulses: 1+ Radial (R), 1+ Radial (L) Abdomen: positive: Tenderness, Guarding, Rebound, Hepatomegaly, Abnml bowel sounds (hyperactive) Back: positive: Nml inspection Skin: positive: No rash, Warm, Dry, Other (bronze toned skin) Extremities: positive: Non-tender, Full ROM, Nml appearance, No pedal edema Neurologic/Psychiatric: positive: Oriented x3, CN's nml (2-12), Motor nml, Sensation nml, Weakness, Other (baseline tremors, worse when extending arms) Reflexes: Bicep (R): 3+, Bicep (L): 3+ - Lab Results Fish Bones: 01/06/20 05:39 01/06/20 05:39 Other Labs: Lab Results x24hrs 01/06/20 01/06/20 01/05/20 Range/Units 05:39 05:39 14:22 WBC 13.9 H (4.8-10.8) x10^3/uL RBC 4.12 L (4.20-5.40) 10^6/uL Hgb 13.5 (12.0-16.0) g/dL Hct 39.3 (37.0-47.0) % MCV 95.4 (81.0-99.0) fL MCH 32.8 H (27.0-31.0) pg MCHC 34.4 (32.0-36.0) g/dL RDW 12.7 (12.0-15.0) % Plt Count 179 (130-450) 10^3/uL MPV 8.5 (7.9-10.8) fL Neut # (Auto) 12.4 H (1.5-6.6) 10^3/uL Lymph # (Auto) 0.7 L (1.5-3.5) 10^3/uL Maury # (Auto) 0.7 (0.0-1.0) 10^3/uL Eos # (Auto) 0.0 (0.0-0.7) 10^3/uL Baso # (Auto) 0.0 (0.0-0.1) 10^3/uL Absolute Nucleated RBC 0.00 x10^3/uL Nucleated RBC % 0.0 /100WBC Sodium 135 (135-145) mmol/L Potassium 3.2 L (3.5-5.0) mmol/L Chloride 105 (101-111) mmol/L Carbon Dioxide 23 (21-32) mmol/L Anion Gap 7.0 (6-13) BUN 6 (6-20) mg/dL Creatinine 0.6 (0.4-1.0) mg/dL Estimated GFR (MDRD) 114 (>89) Glucose 107 H (70-100) mg/dL Calcium 7.7 L (8.5-10.3) mg/dL Magnesium (1.7-2.8) mg/dL Total Bilirubin 1.9 H (0.2-1.0) mg/dL AST 94 H (10-42) IU/L ALT 84 H (10-60) IU/L Alkaline Phosphatase 85 (42-121) IU/L Total Protein 6.4 L (6.7-8.2) g/dL Albumin 3.6 (3.2-5.5) g/dL Globulin 2.8 (2.1-4.2) g/dL Albumin/Globulin Ratio 1.3 (1.0-2.2) Lipase (22-51) U/L Urine Color Urine Clarity (CLEAR) Urine pH (5.0-7.5) PH Ur Specific [place] 1.020 (1.002-1.030) Urine Protein (NEGATIVE) mg/dL Urine Glucose (UA) (NEGATIVE) mg/dL Urine Ketones (NEGATIVE) mg/dL Urine Occult Blood (NEGATIVE) Urine Nitrite (NEGATIVE) Urine Bilirubin (NEGATIVE) Urine Urobilinogen (NORMAL) E.U./dL Ur Leukocyte Esterase (NEGATIVE) Ur Microscopic Review Urine Culture Comments Urine HCG, Qual NEGATIVE Salicylates mg/dL Urine Opiates Screen (NEGATIVE) Ur Oxycodone Screen (NEGATIVE) Urine Methadone Screen (NEGATIVE) Ur Propoxyphene Screen (NEGATIVE) Acetaminophen (10-30) ug/mL Ur Barbiturates Screen (NEGATIVE) Ur Tricyclics Screen (NEGATIVE) Ur Phencyclidine Scrn (NEGATIVE) Ur Amphetamine Screen (NEGATIVE) U Methamphetamines Scrn (NEGATIVE) U Benzodiazepines Scrn (NEGATIVE) Urine Cocaine Screen (NEGATIVE) U Cannabinoids Screen (NEGATIVE) Ethyl Alcohol mg/dL Blood Type Antibody Screen 01/05/20 01/05/20 01/05/20 Range/Units 14:22 11:10 11:10 WBC (4.8-10.8) x10^3/uL RBC (4.20-5.40) 10^6/uL Hgb (12.0-16.0) g/dL Hct (37.0-47.0) % MCV (81.0-99.0) fL MCH (27.0-31.0) pg MCHC (32.0-36.0) g/dL RDW (12.0-15.0) % Plt Count (130-450) 10^3/uL MPV (7.9-10.8) fL Neut # (Auto) (1.5-6.6) 10^3/uL Lymph # (Auto) (1.5-3.5) 10^3/uL Maury # (Auto) (0.0-1.0) 10^3/uL Eos # (Auto) (0.0-0.7) 10^3/uL Baso # (Auto) (0.0-0.1) 10^3/uL Absolute Nucleated RBC x10^3/uL Nucleated RBC % /100WBC Sodium 136 (135-145) mmol/L Potassium 3.4 L (3.5-5.0) mmol/L Chloride 99 L (101-111) mmol/L Carbon Dioxide 22 (21-32) mmol/L Anion Gap 15.0 H (6-13) BUN 8 (6-20) mg/dL Creatinine 0.8 (0.4-1.0) mg/dL Estimated GFR (MDRD) 82 L (>89) Glucose 115 H (70-100) mg/dL Calcium 8.5 (8.5-10.3) mg/dL Magnesium 2.0 (1.7-2.8) mg/dL Total Bilirubin 1.2 H (0.2-1.0) mg/dL AST 164 H (10-42) IU/L ALT 125 H (10-60) IU/L Alkaline Phosphatase 98 (42-121) IU/L Total Protein 7.2 (6.7-8.2) g/dL Albumin 4.0 (3.2-5.5) g/dL Globulin 3.2 (2.1-4.2) g/dL Albumin/Globulin Ratio 1.3 (1.0-2.2) Lipase 693 H (22-51) U/L Urine Color DARK YELLOW Urine Clarity CLEAR (CLEAR) Urine pH 6.5 (5.0-7.5) PH Ur Specific [place] 1.020 (1.002-1.030) Urine Protein NEGATIVE (NEGATIVE) mg/dL Urine Glucose (UA) NEGATIVE (NEGATIVE) mg/dL Urine Ketones NEGATIVE (NEGATIVE) mg/dL Urine Occult Blood NEGATIVE (NEGATIVE) Urine Nitrite NEGATIVE (NEGATIVE) Urine Bilirubin NEGATIVE (NEGATIVE) Urine Urobilinogen 0.2 (NORMAL) (NORMAL) E.U./dL Ur Leukocyte Esterase NEGATIVE (NEGATIVE) Ur Microscopic Review NOT INDICATED Urine Culture Comments NOT INDICATED Urine HCG, Qual Salicylates < 6.0 mg/dL Urine Opiates Screen (NEGATIVE) Ur Oxycodone Screen (NEGATIVE) Urine Methadone Screen (NEGATIVE) Ur Propoxyphene Screen (NEGATIVE) Acetaminophen < 10 L (10-30) ug/mL Ur Barbiturates Screen (NEGATIVE) Ur Tricyclics Screen (NEGATIVE) Ur Phencyclidine Scrn (NEGATIVE) Ur Amphetamine Screen (NEGATIVE) U Methamphetamines Scrn (NEGATIVE) U Benzodiazepines Scrn (NEGATIVE) Urine Cocaine Screen (NEGATIVE) U Cannabinoids Screen (NEGATIVE) Ethyl Alcohol 127.4 mg/dL Blood Type O NEGATIVE Antibody Screen NEGATIVE 01/05/20 Range/Units 10:20 WBC (4.8-10.8) x10^3/uL RBC (4.20-5.40) 10^6/uL Hgb (12.0-16.0) g/dL Hct (37.0-47.0) % MCV (81.0-99.0) fL MCH (27.0-31.0) pg MCHC (32.0-36.0) g/dL RDW (12.0-15.0) % Plt Count (130-450) 10^3/uL MPV (7.9-10.8) fL Neut # (Auto) (1.5-6.6) 10^3/uL Lymph # (Auto) (1.5-3.5) 10^3/uL Maury # (Auto) (0.0-1.0) 10^3/uL Eos # (Auto) (0.0-0.7) 10^3/uL Baso # (Auto) (0.0-0.1) 10^3/uL Absolute Nucleated RBC x10^3/uL Nucleated RBC % /100WBC Sodium (135-145) mmol/L Potassium (3.5-5.0) mmol/L Chloride (101-111) mmol/L Carbon Dioxide (21-32) mmol/L Anion Gap (6-13) BUN (6-20) mg/dL Creatinine (0.4-1.0) mg/dL Estimated GFR (MDRD) (>89) Glucose (70-100) mg/dL Calcium (8.5-10.3) mg/dL Magnesium (1.7-2.8) mg/dL Total Bilirubin (0.2-1.0) mg/dL AST (10-42) IU/L ALT (10-60) IU/L Alkaline Phosphatase (42-121) IU/L Total Protein (6.7-8.2) g/dL Albumin (3.2-5.5) g/dL Globulin (2.1-4.2) g/dL Albumin/Globulin Ratio (1.0-2.2) Lipase (22-51) U/L Urine Color Urine Clarity (CLEAR) Urine pH (5.0-7.5) PH Ur Specific [place] (1.002-1.030) Urine Protein (NEGATIVE) mg/dL Urine Glucose (UA) (NEGATIVE) mg/dL Urine Ketones (NEGATIVE) mg/dL Urine Occult Blood (NEGATIVE) Urine Nitrite (NEGATIVE) Urine Bilirubin (NEGATIVE) Urine Urobilinogen (NORMAL) E.U./dL Ur Leukocyte Esterase (NEGATIVE) Ur Microscopic Review Urine Culture Comments Urine HCG, Qual Salicylates mg/dL Urine Opiates Screen POSITIVE H (NEGATIVE) Ur Oxycodone Screen POSITIVE H (NEGATIVE) Urine Methadone Screen NEGATIVE (NEGATIVE) Ur Propoxyphene Screen NEGATIVE (NEGATIVE) Acetaminophen (10-30) ug/mL Ur Barbiturates Screen NEGATIVE (NEGATIVE) Ur Tricyclics Screen NEGATIVE (NEGATIVE) Ur Phencyclidine Scrn NEGATIVE (NEGATIVE) Ur Amphetamine Screen NEGATIVE (NEGATIVE) U Methamphetamines Scrn NEGATIVE (NEGATIVE) U Benzodiazepines Scrn NEGATIVE (NEGATIVE) Urine Cocaine Screen NEGATIVE (NEGATIVE) U Cannabinoids Screen POSITIVE H (NEGATIVE) Ethyl Alcohol mg/dL Blood Type Antibody Screen ABX Reporting Has patient been on IV antibiotics over the past 48 hours?: Yes Assessment/Plan - Problem List (1) Acute pancreatitis Impression: -Elevated Lipase, abdominal pain, hx are c/w pancreatitis. -Imaging ruled out gallstones or common bile duct dysfunction -Etiology is due to heavy alcohol use -IVF @ 150 ml/hr -NPO -Pain control, changing from IV diluidid to EXPANDER MACHINE OPERATOR without a basal -PRN Zofran -Advance diet pending clinical Course Intractable abdominal pain -Epigastric, wraps around to her back, bilateral flank region -Slight improvement when leaning forward -Echo to rule out pericardial effusion, no rub noted on exam, but concerning position which slightly helps the pain -Starting dilaudid EXPANDER MACHINE OPERATOR, no basal rate, in addition to CIWA -Starting empiric colchicine as this is the alternate treatment in an effusion, since she has a hx of gastric ulcers and NSAIDs should be avoided -Offer tylenol PRN -Monitor for improvement Alcohol withdrawal -Pt showing signs of early EtOH W/D -HR and BP are remain elevated -Last drink was on 01/04, prior to admit, +ETOH level on tox screen -CIWA protocol to continue -Librium TID -Monitor for sx and increase as needed -Banana Bag -Consider adding gabapentin as this would help with fibromyalgia and w/d, but not tolerating much PO today -Gluing Machine Feeder to quit etoh abuse -Social Work is following to provide resources Alcoholism -As above, counseled to quit, social work consult for resourced -Patient explains that she is open to rehab Pain, dental -Cont PCN started in ED IV -Monitor for signs of abscess (fever, wbc increase, worsening pain, exam findings, etc) and if appropriate consider sinus CT -Otherwise, outpt f/u Hypokalemia -Likely due to GI loss -Continues on IVF with 20 Kcl -Monitor labs
[2020-01-06] MEDS ORDERED: LABETALOL 20 MG/4 ML SYRINGE IVP PRN (11:44)
[2020-01-06] MEDS ORDERED: hydrALAZINE INJ 20 MG/ML VIAL IVP PRN (11:46)
[2020-01-06] MEDS ORDERED: COLCHICINE 0.6 MG TABLET PO ONE (12:19)
[2020-01-06] MEDS: METOPROLOL SUCCINATE 25 MG TABLET PO SCH ×2 (12:27→16:28)
[2020-01-06] MEDS: MULTIVITAMIN 10 ML, THIAMINE INJ 100 MG, FOLIC ACID INJ 1 MG in SODIUM CHLORIDE 0.9% 1,... IV SCH (16:37)
[2020-01-07] MEDS: oxyCODONE 5 MG TABLET PO PRN ×5 (01:17→20:18)
[2020-01-07] MEDS: SODIUM CHLORIDE FLUSH 0.9% 10 ML SYRINGE IVP SCH ×3 (03:25→17:39)
[2020-01-07] MEDS: chlordiazePOXIDE 25 MG CAPSULE PO SCH ×3 (05:27→21:36)
[2020-01-07] MEDS: PENICILLIN VK 250 MG TABLET PO SCH (05:32)
[2020-01-07 05:42] LABS: BASOPHILS % (AUTO) 0.2 %; EOSINOPHILS % (AUTO) 0.2 %; HGB - HEMOGLOBIN 13.4 g/dL (12.0-16.0); MEAN CORPUSCULAR HEMOGLOBIN 32.1 pg (27.0-31.0); MEAN CORPUSCULAR HGB CONC 33.9 g/dL (32.0-36.0); MEAN CORPUSCULAR VOLUME 94.7 fL (81.0-99.0); MEAN PLATELET VOLUME 9.3 fL (7.9-10.8); MONOCYTES % (AUTO) 5.1 %; NEUTROPHILS % (AUTO) 88.6 %; PLT - PLATELET COUNT 145 10^3/uL (130-450); RED BLOOD COUNT 4.17 10^6/uL (4.20-5.40); RED CELL DISTRIBUTION WIDTH 12.6 % (12.0-15.0); WHITE BLOOD COUNT 21.5 x10^3/uL (4.8-10.8)
[2020-01-07 05:45] LABS: INR 1.2 (0.8-1.2); PT - PROTHROMBIN TIME 13.9 secs (9.9-12.6)
[2020-01-07 05:46] LABS: ABNORMAL LYMPHS % (MANUAL) 0 %
[2020-01-07 05:57] LABS: HB2 TOTAL 13.9 g/dL; HEMOGLOBIN A1C 0.41 g/dL; HEMOGLOBIN A1C % 4.9 % (4.6-6.2)
[2020-01-07 05:58] LABS: ALBUMIN 3.6 g/dL (3.2-5.5); ALBUMIN/GLOBULIN RATIO 1.2 (1.0-2.2); ALKALINE PHOSPHATASE 78 IU/L (42-121); ALT ALANINE AMINOTRANSFERASE 61 IU/L (10-60); AST ASPARTATE AMINOTRANSFERASE 57 IU/L (10-42); BILIRUBIN,TOTAL 2.4 mg/dL (0.2-1.0); BUN - BLOOD UREA NITROGEN < 5 mg/dL (6-20); CALCIUM 7.6 mg/dL (8.5-10.3); CARBON DIOXIDE - CO2 20 mmol/L (21-32); CHLORIDE 102 mmol/L (101-111); CREATININE 0.6 mg/dL (0.4-1.0); GAMMA GLUTAMYL TRANSPEPTIDASE 230 IU/L (8-38); GLUCOSE 77 mg/dL (70-100); LIPASE 182 U/L (22-51); MAGNESIUM 1.5 mg/dL (1.7-2.8); PHOSPHORUS 1.6 mg/dL (2.5-4.6); SODIUM 135 mmol/L (135-145); TOTAL PROTEIN 6.7 g/dL (6.7-8.2)
[2020-01-07 06:26] LABS: BAND NEUTROPHILS % (MANUAL) 1 %; DIFFERENTIAL COMMENT MANUAL DIFFERENTIAL; LYMPHOCYTES # (MANUAL) 0.9 10^3/uL (1.5-3.5); LYMPHOCYTES % (MANUAL) 4 %; MONOCYTES # (MANUAL) 0.9 10^3/uL (0.0-1.0); PLATELET ESTIMATE, MANUAL NORMAL (130-450,000) (NORMAL); RBC MORPHOLOGY (MULTIPLE) NORMAL APPEARANCE (NORMAL)
[2020-01-07] MEDS: PANTOPRAZOLE 40 MG VIAL IVP SCH (06:38)
[2020-01-07] MEDS: SODIUM CHLORIDE FLUSH 0.9% 10 ML SYRINGE IVP PRN (06:38)
[2020-01-07] MEDS: NS W/20 MEQ KCL 1,000 ML IV SCH ×3 (07:44→22:11)
[2020-01-07] MEDS: HYDROmorphone PCA 20MG/100ML IV PRN (08:00)
[2020-01-07] MEDS: ENOXAPARIN 40 MG/0.4 ML SYRINGE SUBQ SCH (08:12)
[2020-01-07] MEDS: polyethylene glycoL 3350 17 GM PACKET PO SCH (08:13)
[2020-01-07] MEDS: METOPROLOL SUCCINATE 25 MG TABLET PO SCH ×2 (08:14→16:04)
[2020-01-07] MEDS: DOCUSATE SODIUM 100 MG CAPSULE PO PRN ×2 (08:15→20:28)
[2020-01-07] MEDS ORDERED: COLCHICINE 0.6 MG TABLET PO SCH (09:00)
[2020-01-07] MEDS ORDERED: HYDROmorphone PCA 20MG/100ML IV PRN (09:41)
[2020-01-07] MEDS ORDERED: IOVERSOL 320 100 ML VIAL IVP ONE ×2 (09:44→14:16)
[2020-01-07] MEDS ORDERED: IOVERSOL 320 50 ML VIAL ONE (09:44)
--- NOTE | 2020-01-07 10:35 | PROVIDER PROGRESS NOTE ---
Subjective - Prog Note Date Prog Note Date: 01/07/20 Prog Note Time: 10:32 - Subjective Pt reports feeling: Improved Subjective: Rosaura complains of fevers, continued abdominal pain. She states that her tooth pain is gone. She denies bleeding, diarrhea, vomiting, dizziness, withdrawal symptoms, or a new rash. She continues to have unrelieved pain which wakes her up, so updated that a basal rate will be added. She is considered high risk given her RA and alcoholism, so abdominal imaging will be obtained to find the source of her fevers. Current Medications - Current Medications Current Medications: Active Medications: Chlordiazepoxide HCl (Librium) 25 mg PO TID SILVINA Docusate Sodium (Colace 100mg Capsule) 100 mg PO BID PRN Enoxaparin Sodium (Lovenox) 40 mg SUBQ DAILY SILVINA Hydralazine HCl (Apresoline Inj) 10 mg IVP Q6H PRN Hydromorphone HCl (Dilaudid Shipping Support 20mg/100ml) 1 mg IV Q6HR PRN; Taper; Protocol Multivitamins 10 ml/ Thiamine HCl 100 mg/ Folic Acid 1 mg/Sodium Chloride 1,011.2 mls @ 100 mls/hr IV Q24H SILIVNA Magnesium Sulfate (Magnesium Sulfate) 2 gm in 50 mls @ 50 mls/hr IV ONCE ONE Piperacillin Sod/Tazobactam (Sod 3.375 gm/ Sodium Chloride) 100 mls @ 200 mls/hr IV Q6H SILVINA Potassium Chloride/Sodium Chloride (Normal Saline 0.9% W/20 Meq Kcl) 1,000 mls @ 75 mls/hr IV .[id number] SILVINA Ibuprofen (Motrin) 400 mg PO Q4HR PRN Labetalol HCl (Trandate Syringe) 20 mg IVP Q3H PRN Lorazepam (Ativan Inj (Vial)) 1 mg IVP Q30M PRN; Protocol Metoclopramide HCl (Reglan Inj) 5 mg IVP Q6HR PRN Metoprolol Succinate (Toprol Xl) 25 mg PO BIDWM SILVINA Nicotine (Nicoderm) 1 patch TOP DAILY SILVINA Ondansetron HCl (Zofran Inj) 4 mg IVP Q6HR PRN Oxycodone HCl (Roxicodone) 5 mg PO Q4HR PRN Pantoprazole Sodium (Protonix) 40 mg IVP QDAC SILVINA Polyethylene Glycol (Miralax) 17 gm PO DAILY SILVINA Objective - Vital Signs/Intake & Output Reviewed Vital Signs: Yes Vital Signs: Vital Signs x48h Temp Pulse Resp BP Pulse Ox 01/07/20 07:55 37.5 C 117 H 16 125/95 H 94 01/07/20 06:49 18 01/07/20 06:40 38.0 C H 01/07/20 05:00 37.9 C H 107 H 18 139/99 H 94 Intake & Output: Intake & Output 01/04/20 01/05/20 01/06/20 01/07/20 23:59 23:59 23:59 23:59 Intake Total 2516.667 2194.533 1902.867 Balance 0866.667 2194.533 1902.867 - Objective General Appearance: positive: Alert, Moderate distress, Anxious Eyes Bilateral: positive: No lid inflammation Eyes: OU Conjunctivae pale ENT: positive: Pharynx nml, No signs of dehydration Neck: positive: No JVD, Trachea midline Respiratory: positive: Chest non-tender, No respiratory distress, Breath sounds nml Cardiovascular: positive: Regular rate & rhythm, No gallop, Tachycardia, Systol ic murmur Peripheral Pulses: 1+ Radial (R), 1+ Radial (L) Abdomen: positive: Tenderness, Guarding, Rebound (slight to RUQ), Hepatomegaly, Abnml bowel sounds Back: positive: Nml inspection Skin: positive: No rash, Warm, Dry, Other (slightly bronze, no jaundice) Extremities: positive: Non-tender, Full ROM, Nml appearance, No pedal edema Neurologic/Psychiatric: positive: Oriented x3, CN's nml (2-12), Motor nml, Sensation nml, Depressed mood/affect (flat, restless) Reflexes: Bicep (R): 3+ (scant tremors today), Bicep (L): 3+ - Lab Results Fish Bones: 01/07/20 05:15 01/07/20 05:15 Other Labs: Lab Results x24hrs 01/07/20 01/07/20 01/07/20 Range/Units 05:15 05:15 05:15 WBC (4.8-10.8) x10^3/uL RBC (4.20-5.40) 10^6/uL Hgb (12.0-16.0) g/dL Hct (37.0-47.0) % MCV (81.0-99.0) fL MCH (27.0-31.0) pg MCHC (32.0-36.0) g/dL RDW (12.0-15.0) % Plt Count (130-450) 10^3/uL MPV (7.9-10.8) fL Neut # (Auto) Lymph # (Auto) [place] # (Auto) Eos # (Auto) Baso # (Auto) Absolute Nucleated RBC Total Counted Band Neuts % (Manual) (0 - 10) % Abnorm Lymph % (Manual) % Nucleated RBC % Neutrophils # (Manual) (1.5-6.6) 10^3/uL Lymphocytes # (Manual) (1.5-3.5) 10^3/uL Monocytes # (Manual) (0.0-1.0) 10^3/uL Eosinophils # (Manual) (0-0.7) 10^3/uL Basophils # (Manual) (0-0.1) 10^3/uL Differential Comment Platelet Estimate (NORMAL) RBC Morph Micro Appear (NORMAL) PT 13.9 H (9.9-12.6) secs INR 1.2 (0.8-1.2) Sodium (135-145) mmol/L Potassium (3.5-5.0) mmol/L Chloride (101-111) mmol/L Carbon Dioxide (21-32) mmol/L Anion Gap (6-13) BUN (6-20) mg/dL Creatinine (0.4-1.0) mg/dL Estimated GFR (MDRD) (>89) Glucose (70-100) mg/dL Glycated Hemoglobin 4.9 (4.6-6.2) % Estim Average Glucose 94 (70-100) Calcium (8.5-10.3) mg/dL Phosphorus (2.5-4.6) mg/dL Magnesium (1.7-2.8) mg/dL Total Bilirubin (0.2-1.0) mg/dL GGT (8-38) IU/L AST (10-42) IU/L ALT (10-60) IU/L Alkaline Phosphatase (42-121) IU/L Total Protein (6.7-8.2) g/dL Albumin (3.2-5.5) g/dL Globulin (2.1-4.2) g/dL Albumin/Globulin Ratio (1.0-2.2) Lipase (22-51) U/L TSH 1.33 (0.34-5.60) uIU/mL 01/07/20 01/07/20 Range/Units 05:15 05:15 WBC 21.5 H (4.8-10.8) x10^3/uL RBC 4.17 L (4.20-5.40) 10^6/uL Hgb 13.4 (12.0-16.0) g/dL Hct 39.5 (37.0-47.0) % MCV 94.7 (81.0-99.0) fL MCH 32.1 H (27.0-31.0) pg MCHC 33.9 (32.0-36.0) g/dL RDW 12.6 (12.0-15.0) % Plt Count 145 (130-450) 10^3/uL MPV 9.3 (7.9-10.8) fL Neut # (Auto) Not Reportable Lymph # (Auto) Not Reportable [place] # (Auto) Not Reportable Eos # (Auto) Not Reportable Baso # (Auto) Not Reportable Absolute Nucleated RBC Not Reportable Total Counted 100 Band Neuts % (Manual) 1 (0 - 10) % Abnorm Lymph % (Manual) 0 % Nucleated RBC % Not Reportable Neutrophils # (Manual) 19.8 H (1.5-6.6) 10^3/uL Lymphocytes # (Manual) 0.9 L (1.5-3.5) 10^3/uL Monocytes # (Manual) 0.9 (0.0-1.0) 10^3/uL Eosinophils # (Manual) 0.0 (0-0.7) 10^3/uL Basophils # (Manual) 0.0 (0-0.1) 10^3/uL Differential Comment MANUAL DIFFERENTIAL Platelet Estimate NORMAL (130-450,000) (NORMAL) RBC Morph Micro Appear NORMAL APPEARANCE (NORMAL) PT (9.9-12.6) secs INR (0.8-1.2) Sodium 135 (135-145) mmol/L Potassium 3.3 L (3.5-5.0) mmol/L Chloride 102 (101-111) mmol/L Carbon Dioxide 20 L (21-32) mmol/L Anion Gap 13.0 (6-13) BUN < 5 L (6-20) mg/dL Creatinine 0.6 (0.4-1.0) mg/dL Estimated GFR (MDRD) 114 (>89) Glucose 77 (70-100) mg/dL Glycated Hemoglobin (4.6-6.2) % Estim Average Glucose (70-100) Calcium 7.6 L (8.5-10.3) mg/dL Phosphorus 1.6 L (2.5-4.6) mg/dL Magnesium 1.5 L (1.7-2.8) mg/dL Total Bilirubin 2.4 H (0.2-1.0) mg/dL GGT 230 H (8-38) IU/L AST 57 H (10-42) IU/L ALT 61 H (10-60) IU/L Alkaline Phosphatase 78 (42-121) IU/L Total Protein 6.7 (6.7-8.2) g/dL Albumin 3.6 (3.2-5.5) g/dL Globulin 3.1 (2.1-4.2) g/dL Albumin/Globulin Ratio 1.2 (1.0-2.2) Lipase 182 H (22-51) U/L TSH (0.34-5.60) uIU/mL ABX Reporting Has patient been on IV antibiotics over the past 48 hours?: Yes Assessment/Plan - Problem List (1) Acute pancreatitis Impression: -Elevated Lipase, abdominal pain, hx are c/w pancreatitis. -Imaging ruled out gallstones or common bile duct dysfunction -Etiology is due to heavy alcohol use -IVF @ 150 ml/hr -NPO -Pain control, changing from IV diluidid to NON DESTRUCTIVE TESTING SUPERVISOR without a basal -PRN Zofran -Advance diet pending clinical Course Fever -Continues with abdominal pain, no cough, no increased dental pain -100.4 F temp max this morning -WBC now up to 21.9 from 13 -IV PCN changed to IV Zosyn -Echo preliminary results exclude pericadial effusion, no noted vegetation -Abdominal tenderness with palpation -Also constipated -Abdominal/pelvis CT stat with oral and IV contrast today -Draw blood cultures for fever greater than 101.5 F -Monitor vital signs, treat acute illness -Routine labs Intractable abdominal pain -Epigastric, wraps around to her back, bilateral flank region, somewhat improved after starting NON DESTRUCTIVE TESTING SUPERVISOR -Echo to ruled out pericardial effusion, no rub noted on exam -EKG showed no evidence of pericardial effusion -Continues on dilaudid NON DESTRUCTIVE TESTING SUPERVISOR, added basal rate today, in addition to CIWA -Starting empiric colchicine, now stopped -Offer tylenol PRN, or oxycodone, PRN -CT abdomen/pelvis to find the source of infection today w/contrast -Monitor for improvement Alcohol withdrawal -Pt showing signs of early EtOH W/D -HR and BP are remain elevated -Last drink was on 01/04, prior to admit, +ETOH level on tox screen -CIWA protocol to continue -Librium TID -Monitor for sx and increase as needed -Banana Bag -Allergy to gabapentin, so this will not be added -Human Resources Technician to quit etoh abuse -Social Work is following to provide resources Alcoholism -As above, counseled to quit, social work consult for resourced -Patient explains that she is open to rehab Pain, dental -PCN started in ED IV, now changing to IV Zosyn due to fevers, pain, imaging is pending -Monitor for signs of abscess (fever, wbc increase, worsening pain, exam findings, etc) and if appropriate consider sinus CT -Otherwise, outpt f/u Hypokalemia -Likely due to GI loss, still low at 3.3 -Continues on IVF with 20 Kcl -K riders as tolerated -Monitor labs Hypertension -Prescribed lisinopril and HTCZ at home, contraindicated in pancreatitis -Started on metoprolol succinate yesterday, now increased for ongoing tachycardia and hypertension -Monitor VS, adjust as needed, will be starting spironolactone after IV fluids and prior to discharge to treat her pulmonary HTN Pulmonary HTN -Preliminary echo shows elevated RVSP at rest of 30 mmHg, tricuspid regurg -Long history of smoking -Recommend PCP to order a sleep study to rule out LOUISA as the cause, but likely due to smoking -Starting spironolactone prior to DC LVH -Preliminary echo shows a thickened left ventricle, likely due to long standing poor B/P control -EF normal -Continue with BB, will be her new B/P med at home to reduce the chance of this worsening -Also encouraged to stop smoking, which causes tachycardia Tobacco dependence -Longstanding history of this -Nicotine patch daily -Patient is encouraged that she will be able to stop smoking if she also stops drinking
[2020-01-07] MEDS ORDERED: PIPERACILLIN/TAZOBACTAM 3.375 GM in SODIUM CHLORIDE 0.9% MINIBAG 100 ML IV ONE (11:00)
[2020-01-07] MEDS ORDERED: MAGNESIUM SULFATE 2 GRAM 2 GM/50 ML BAG IV ONE (11:15)
--- NOTE | 2020-01-07 12:52 | CT Report ---
Reason: abdominal pain, fever, pancreatitis Procedure Date: 01/07/2020 Accession Number: [id number] / [id number] Procedure: CT - Abdomen/Pelvis W CPT Code: Final Report FULL RESULT: EXAM: CT ABDOMEN AND PELVIS EXAM DATE: 01/07/2020 11:43 AM. CLINICAL HISTORY: Abdominal pain, fever, pancreatitis. COMPARISONS: ABDOMEN LIMITED 01/06/2020 1:13 AM. TECHNIQUE: Routine helical CT imaging was performed through the abdomen and pelvis. IV contrast: 100 cc Optiray 320. Enteric contrast: Yes. Reconstructions: Coronal and sagittal. In accordance with CT protocol optimization, one or more of the following dose reduction techniques were utilized for this exam: automated exposure control, adjustment of mA and/or KV based on patient size, or use of iterative reconstructive technique. FINDINGS: Lung Bases: Unremarkable. Liver: There is diffuse low-attenuation of the liver. No masses. Gallbladder/Bile Ducts: Unremarkable. Spleen: Normal. Pancreas: There is diffuse pancreatic and peripancreatic edema. There is an ill-defined area of hypoattenuation within the body of the pancreas (series 3 image 31), which could represent an area of parenchymal necrosis. No pancreatic duct dilatation, calcification, or mass identified. Adrenal Glands: Normal. Kidneys: Normal. No masses or hydronephrosis. Peritoneal Cavity/Bowel: There is a small amount of free fluid in the upper abdomen adjacent to the pancreas, in the left paracolic gutter, and in the pelvis. No free air. No adenopathy. No dilated loops of bowel or abnormal colonic stool burden. The appendix is well visualized and normal. Pelvic Organs: Normal. The bladder and visualized pelvic organs are within normal limits. There is an IUD within the uterus. Vasculature: No aneurysms or other significant abnormality. Bones: No significant abnormality. Other: None. IMPRESSION: 1. There is diffuse pancreatic and peripancreatic edema, consistent with acute pancreatitis. There is an ill-defined area of hypoenhancement in the body of the pancreas, which may be a sign of parenchymal necrosis. 2. Small amount of free fluid in the abdomen and pelvis. No rim-enhancing contained fluid collection. 3. Diffuse hepatic steatosis. RADIA
[2020-01-07] MEDS: NICOTINE 7 MG PATCH TOP SCH (13:07)
[2020-01-07] MEDS ORDERED: LORazepam 2 MG/ML VIAL IVP PRN (13:45)
[2020-01-07] MEDS ORDERED: PIPERACILLIN/TAZOBACTAM 3.375 GM in SODIUM CHLORIDE 0.9% MINIBAG 100 ML IV SCH (14:00)
[2020-01-07] MEDS: CEFEPIME 2 GM in SODIUM CHLORIDE 0.9% MINIBAG 100 ML IV SCH ×2 (14:59→21:36)
[2020-01-07] MEDS: metroNIDAZOLE 500 MG/100 ML 500 MG/100 ML BAG IV SCH ×2 (15:00→22:07)
[2020-01-07] MEDS: PRENATAL VITAMIN TABLET PO SCH (16:04)
[2020-01-08] MEDS: oxyCODONE 5 MG TABLET PO PRN ×6 (00:23→20:02)
[2020-01-08] MEDS: chlordiazePOXIDE 25 MG CAPSULE PO SCH ×3 (05:45→21:47)
[2020-01-08] MEDS: PANTOPRAZOLE 40 MG VIAL IVP SCH (05:49)
[2020-01-08] MEDS: SODIUM CHLORIDE FLUSH 0.9% 10 ML SYRINGE IVP SCH ×3 (05:49→15:54)
[2020-01-08] MEDS: SODIUM CHLORIDE FLUSH 0.9% 10 ML SYRINGE IVP PRN (05:49)
[2020-01-08] MEDS: metroNIDAZOLE 500 MG/100 ML 500 MG/100 ML BAG IV SCH ×3 (05:56→21:45)
[2020-01-08] MEDS: PRENATAL VITAMIN TABLET PO SCH (08:11)
[2020-01-08] MEDS: SENNA 8.6 MG TABLET PO SCH (08:11)
[2020-01-08] MEDS: ENOXAPARIN 40 MG/0.4 ML SYRINGE SUBQ SCH (08:11)
[2020-01-08] MEDS: METOPROLOL SUCCINATE 25 MG TABLET PO SCH (08:11)
[2020-01-08] MEDS: NICOTINE 7 MG PATCH TOP SCH (08:12)
[2020-01-08] MEDS: CEFEPIME 2 GM in SODIUM CHLORIDE 0.9% MINIBAG 100 ML IV SCH ×2 (08:12→20:42)
[2020-01-08] MEDS: polyethylene glycoL 3350 17 GM PACKET PO SCH (08:13)
[2020-01-08] MEDS ORDERED: HYDROmorphone PCA 20MG/100ML IV PRN (08:48)
[2020-01-08] MEDS: SPIRONOLACTONE 25 MG TABLET PO SCH (11:20)
[2020-01-08] MEDS: SIMETHICONE CHEW 80 MG TABLET PO SCH ×4 (11:20→21:47)
--- NOTE | 2020-01-08 11:29 | PROVIDER PROGRESS NOTE ---
Subjective - Prog Note Date Prog Note Date: 01/08/20 Prog Note Time: 11:22 - Subjective Pt reports feeling: Improved Subjective: Rosaura complains of pain, but much less than when she first came to the hospital. She complains about not getting any sleep related to "bloating and gas" in her upper abdomen. Imaging did not show excessive stool burden. She is agreeable to simethacone scheduled. She denies any concerning symptoms of alcohol withdrawal and agrees that she is still not at her baseline with her abdominal pain, so will need to stay in the hospital one more night. Current Medications - Current Medications Current Medications: Active Medications: Chlordiazepoxide HCl (Librium) 25 mg PO TID SILVINA Docusate Sodium (Colace 100mg Capsule) 100 mg PO BID PRN Enoxaparin Sodium (Lovenox) 40 mg SUBQ DAILY SILVINA Hydromorphone HCl (Dilaudid Assembly Machine Feeder 20mg/100ml) 20 mg IV PRN PRN; Protocol Cefepime HCl 2 gm/ Sodium (Chloride) 100 mls @ 200 mls/hr IV BID SILVINA Metronidazole (Flagyl 500 Mg/100 Ml) 500 mg in 100 mls @ 100 mls/hr IV Q8H SILVINA Ibuprofen (Motrin) 400 mg PO Q4HR PRN Labetalol HCl (Trandate Syringe) 20 mg IVP Q3H PRN Lorazepam (Ativan Inj (Vial)) 1 mg IVP Q4H PRN Metoclopramide HCl (Reglan Inj) 5 mg IVP Q6HR PRN Metoprolol Succinate (Toprol Xl) 50 mg PO BIDWM [facility] Nicotine (Nicoderm) 1 patch TOP DAILY [facility] Ondansetron HCl (Zofran Inj) 4 mg IVP Q6HR PRN Oxycodone HCl (Roxicodone) 5 mg PO Q4HR PRN Pantoprazole Sodium (Protonix) 40 mg IVP QDAC [facility] Polyethylene Glycol (Miralax) 17 gm PO DAILY [facility] Multivit/Folic Acid/Iron (Trinatal Rx 1) 1 tab PO DAILYWM [facility] Senna (Senokot) 8.6 - 17.2 mg PO DAILY SILVINA Simethicone (Mylicon) 80 mg PO 0900,1300,1800,2100 SILVINA Spironolactone (Aldactone) 25 mg PO DAILY SILVINA Objective - Vital Signs/Intake & Output Reviewed Vital Signs: Yes Vital Signs: Vital Signs x48h Temp Pulse Resp BP Pulse Ox 01/08/20 08:02 37.2 C 99 16 129/97 H 98 01/08/20 05:00 37.5 C 95 16 128/95 H 96 Intake & Output: Intake & Output 01/05/20 01/06/20 01/07/20 01/08/20 23:59 23:59 23:59 23:59 Intake Total 2516.667 2194.533 4531.617 920 Balance 0196.667 2194.533 4531.617 920 - Objective General Appearance: positive: No acute distress, Alert, Anxious Eyes Bilateral: positive: PERRL, No lid inflammation Eyes: OU Conjunctivae pale ENT: positive: Pharynx nml, No signs of dehydration Neck: positive: Thyroid nml, No JVD, Trachea midline Respiratory: positive: Chest non-tender, No respiratory distress, Breath sounds nml Cardiovascular: positive: Regular rate & rhythm, No gallop, Tachycardia, Systolic murmur Peripheral Pulses: 1+ Radial (R), 1+ Radial (L) Abdomen: positive: Nml bowel sounds, Tenderness, Guarding, Other (rounded, full, soft) Back: positive: Nml inspection Skin: positive: No rash, Warm, Dry, Other (bronze toned skin) Extremities: positive: Non-tender, Pedal edema (trace, dependent to BLEs) Neurologic/Psychiatric: positive: Oriented x3, CN's nml (2-12), Motor nml, Sensation nml, Mood/affect nml Reflexes: Bicep (R): 3+, Bicep (L): 3+ - Lab Results Fish Bones: 01/07/20 05:15 01/07/20 05:15 Other Labs: Lab Results x24hrs 01/08/20 Range/Units 05:15 Lipase 53 H (22-51) U/L ABX Reporting Has patient been on IV antibiotics over the past 48 hours?: Yes Assessment/Plan - Problem List (1) Acute pancreatitis Impression: -Elevated Lipase, abdominal pain, hx are c/w pancreatitis. -Imaging ruled out gallstones or common bile duct dysfunction -Abdominal CT showed possible nectrotizing pancreatitis, but without free air, expected edema surrounding pancreas -Etiology is due to heavy alcohol use -IVF stopped since tolerating -Pain control, with diluidid AUDITING CLERK with a basal, AND requesting oxycodone Q4H, PRN -No nausea today -Tolerating a soft diet since last PM Fever -Continues with abdominal pain, but much improved, no cough, no increased dental pain -100.4 F temp max, last on 01/07/2020 -WBC up to 21.9 from 13 -IV Flagyl and Cefepime continue -Echo preliminary results exclude pericadial effusion, no noted vegetation -Abdominal tenderness with palpation -Also feeling increased bowel gas -Abdominal/pelvis CT showed possible early nectrotizing pancreatitis -Draw blood cultures for fever greater than 101.5 F -Monitor vital signs, treat acute illness -Routine labs Intractable abdominal pain -Epigastric, wraps around to her back, bilateral flank region, somewhat improved after starting AUDITING CLERK -Echo ruled out pericardial effusion, no rub noted on exam -EKG showed no evidence of pericardial effusion -Continues on dilaudid AUDITING CLERK, added basal rate, in addition to oxycodone PRN -Monitor for improvement Alcohol withdrawal -Pt showing signs of early EtOH W/D -HR and BP are remain elevated -Last drink was on 01/04, prior to admit, +ETOH level on tox screen -CIWA protocol to continue -Librium TID -Monitor for sx and increase as needed -Banana Bag, changed to vitamins -Allergy to gabapentin, so this will not be added -Operations Supervisor to quit etoh abuse -Social Work is following to provide resources Alcoholism -As above, counseled to quit, social work consult for resourced -Patient explains that she is open to rehab Pain, dental -PCN started in ED, now continues on IV flagyl with IV cefepime -Monitor for signs of abscess (fever, wbc increase, worsening pain, exam findings, etc) -Otherwise, outpatient f/u Hypokalemia -Likely due to GI loss -Now eating well, no diarrhea -Monitor labs Hypertension -Prescribed lisinopril and HTCZ at home, contraindicated in pancreatitis -Started on metoprolol succinate, now increased for ongoing tachycardia and hypertension -Monitor VS, adjust as needed, started on spironolactone, stopped IV fluids to treat her pulmonary HTN Pulmonary HTN -Preliminary echo shows elevated RVSP at rest of 30 mmHg, tricuspid regurg -Long history of smoking -Recommend PCP to order a sleep study to rule out LOUISA as the cause, but likely due to smoking -Starting spironolactone today LVH -Preliminary echo shows a thickened left ventricle, likely due to long standing poor B/P control -EF normal -Continue with BB, will be her new B/P med at home to reduce the chance of this worsening -Also encouraged to stop smoking, which causes tachycardia Tobacco dependence -Longstanding history of this -Nicotine patch daily -Patient is encouraged that she will be able to stop smoking if she also stops drinking
[2020-01-08] MEDS ORDERED: HYDROmorphone 2 MG/ML VIAL IVP ONE (14:46)
[2020-01-08] MEDS: DOCUSATE SODIUM 100 MG CAPSULE PO PRN (15:54)
[2020-01-08] MEDS: METOPROLOL SUCCINATE 50 MG TABLET PO SCH (17:45)
[2020-01-08] MEDS: FAMOTIDINE 20 MG TABLET PO SCH (20:02)
[2020-01-08] MEDS ORDERED: MAGNESIUM HYDROXIDE 2,400 MG/30 ML UDC PO ONE (20:56)
[2020-01-09] MEDS: oxyCODONE 5 MG TABLET PO PRN ×3 (00:06→08:49)
[2020-01-09] MEDS: SODIUM CHLORIDE FLUSH 0.9% 10 ML SYRINGE IVP SCH ×2 (00:07→08:50)
[2020-01-09] MEDS ORDERED: MORPHINE 2 MG/ML CARPUJECT IVP PRN (03:25)
[2020-01-09] MEDS: chlordiazePOXIDE 25 MG CAPSULE PO SCH (06:23)
[2020-01-09] MEDS: metroNIDAZOLE 500 MG/100 ML 500 MG/100 ML BAG IV SCH (06:23)
[2020-01-09 07:23] LABS: BASOPHILS % (AUTO) 0.4 %; EOSINOPHILS # (AUTO) 0.1 10^3/uL (0.0-0.7); EOSINOPHILS % (AUTO) 1.3 %; HGB - HEMOGLOBIN 10.8 g/dL (12.0-16.0); LYMPHOCYTES # (AUTO) 0.8 10^3/uL (1.5-3.5); LYMPHOCYTES % (AUTO) 14.2 %; MEAN CORPUSCULAR HEMOGLOBIN 33.2 pg (27.0-31.0); MEAN CORPUSCULAR HGB CONC 34.5 g/dL (32.0-36.0); MEAN CORPUSCULAR VOLUME 96.3 fL (81.0-99.0); MONOCYTES # (AUTO) 0.8 10^3/uL (0.0-1.0); NEUTROPHILS # (AUTO) 3.8 10^3/uL (1.5-6.6); NEUTROPHILS % (AUTO) 69.7 %; PLT - PLATELET COUNT 128 10^3/uL (130-450); RED BLOOD COUNT 3.25 10^6/uL (4.20-5.40); RED CELL DISTRIBUTION WIDTH 12.8 % (12.0-15.0); WHITE BLOOD COUNT 5.4 x10^3/uL (4.8-10.8)
[2020-01-09 07:43] LABS: ALKALINE PHOSPHATASE 81 IU/L (42-121); ALT ALANINE AMINOTRANSFERASE 39 IU/L (10-60); AST ASPARTATE AMINOTRANSFERASE 37 IU/L (10-42); BILIRUBIN,DIRECT 0.3 mg/dL (0.1-0.5); BILIRUBIN,TOTAL 1.1 mg/dL (0.2-1.0); BUN - BLOOD UREA NITROGEN < 5 mg/dL (6-20); CARBON DIOXIDE - CO2 24 mmol/L (21-32); CHLORIDE 109 mmol/L (101-111); CREATININE 0.4 mg/dL (0.4-1.0); GLUCOSE 123 mg/dL (70-100); MAGNESIUM 2.3 mg/dL (1.7-2.8); PHOSPHORUS 1.8 mg/dL (2.5-4.6); SODIUM 138 mmol/L (135-145)
[2020-01-09 07:52] VITALS: BP 145/106
[2020-01-09] MEDS: NICOTINE 7 MG PATCH TOP SCH (08:50)
[2020-01-09] MEDS: FAMOTIDINE 20 MG TABLET PO SCH (08:50)
[2020-01-09] MEDS: SIMETHICONE CHEW 80 MG TABLET PO SCH (08:50)
[2020-01-09] MEDS: METOPROLOL SUCCINATE 50 MG TABLET PO SCH (08:50)
[2020-01-09] MEDS: SPIRONOLACTONE 25 MG TABLET PO SCH (08:50)
[2020-01-09] MEDS: PRENATAL VITAMIN TABLET PO SCH (08:50)
[2020-01-09] MEDS: SENNA 8.6 MG TABLET PO SCH (08:50)
[2020-01-09] MEDS: ENOXAPARIN 40 MG/0.4 ML SYRINGE SUBQ SCH (08:51)
[2020-01-09] MEDS: polyethylene glycoL 3350 17 GM PACKET PO SCH (08:51)
[2020-01-09] MEDS: CEFEPIME 2 GM in SODIUM CHLORIDE 0.9% MINIBAG 100 ML IV SCH (08:51)
--- NOTE | 2020-01-09 11:06 | Discharge Plan ---
Discharge Plan Problem Reviewed?: Yes Disposition: Home, Self Care Condition: Good Prescriptions: oxyCODONE [Roxicodone] 10 mg PO Q4HR PRN #21 tablet PRN Reason: Pain 5 to 7 chlordiazePOXIDE [Librium] 25 mg PO TID #90 capsule Ciprofloxacin [Cipro] 250 mg PO Q12H #10 tablet Famotidine [Pepcid] 20 mg PO BID #60 tablet Lipase/Protease/Amylase [Zenpep Dr 5,000 Unit Capsule] 1 each PO TID #90 capsule. Metoprolol Succinate [Toprol Xl] 50 mg PO BIDWM #60 tablet metroNIDAZOLE [Flagyl] 500 mg PO BID #10 tablet Spironolactone [Aldactone] 25 mg PO DAILY #30 tablet Diet: Soft Activity Restrictions: Activity as Tolerated Shower Restrictions: No Driving Restrictions: No (Avoid driving while taking the oxycodone, and Librium) Instruction Topics: Chlordiazepoxide capsules Health Concerns: Alcoholism Acute pancreatitis with a potential of necrotizing Abdominal pain Bloating Pulmonary HTN Hypertension Tobacco dependence Plan of Treatment: Continue the antibiotics for the next 5 days See your new PCP within one week Attend a alcohol rehab program Take Librium 3 times per day, to take the place of the alcohol Care Goals: Prevent a relapse of alcohol use Prevent ED visits or hospital stays Maintain your independence Control your blood pressure See your regular provider Assessment: You were admitted to the hospital for pancreatitis which progressed to early nectrotizing as imaging noted a few spots in your pancreas which could resemble this. An echocardiogram of your heart showed evidence of longstanding lung disorder called pulmonary hypertension, which is being treated with spironolactone but you will also need a sleep study after this pancreatitis resolves. On the echo, an enlarged left ventricle was also noted, likely due to longstanding fast heart rate or uncontrolled blood pressure. The primary treatment for this is with a beta keo, which you were started on. After getting IV fluids, IV antibiotics and pain control, you began to have an improvement of your symptoms. All of your hospital issues need prompt follow up with a primary provider, which social work is working on prior to you leaving today. You are medically stable to return home today, and I have continued the oxycodone to use for pain at home. No Smoking: If you smoke, Please STOP! Call for help.
--- NOTE | 2020-01-09 11:25 | DISCHARGE SUMMARY ---
Discharge Summary Admit Date: 01/05/20 Discharge Date: 01/09/20 Discharging Provider: ESCOBAR Gaytan Primary Care Provider: Renea Baugh Code Status: Attempt Resuscitation Condition at Discharge: Good Discharge Disposition: 01 Home, Self Care - DIAGNOSES Discharge Diagnoses with Status of Each Condition: Acute pancreatitis-Present on admit, symptoms improved, stable Fever-Resolved, may have been caused by early pancreatitis Intractable abdominal pain-Present on admit, improved, intermittent, pain medications prescribed for home use Alcohol withdrawal-No issues, stable Alcoholism-Chronic, patient was given several resources for home, stable Pain, dental-Present on exam, chronic, stable Hypokalemia-Resolved HTN (hypertension)-Chronic, new meds, stable Pulmonary hypertension-New on this admit, recommend an outpatient sleep study, continue spironolactone, stable, encourage smoking cessation LVH (left ventricular hypertrophy)-Found on echo, continue on BB, stable Tobacco abuse-Chronic, may or may not stop, stable - HPI History of Present Illness: HPI per Dr. Sanz: Rosaura Witt is a 34 yo female with past medical hx of fibromyalgia, chronic pain, and arthritis "in her ribs" who presents to ED with abdominal pain present since past few days, acutely worsening this am. She describes the pain as both LUQ and RUQ, sharp, constant, but worsens in a crampy nature. It's worsened with eating and drinking and not alleviated with anything. It was associated with few episodes of vomiting this am, and diarrhea a few days ago that has now resolved. She denies fever, sick contacts, recent travel, or hx of abdominal surgery. She is a recovering alcoholic who admits she has relapsed into drinking again for the past few months, no drinking every day, typically two vodka drinks and 2-4 beers per day, every day. Her last drink was last night. She recalls a similar episode of sx last year at which point she was admitted to [facility] and was diagnosed with pancreatitis. Per patient, she was evaluated and not found to have any biliary pathology at that time. In ED, U/S is pending. She self reports a hx of W/D during that same hospital stay, as well as at home with sx of "the shakes" when she wakes up after drinking less the day prior. In ED, her evaluation showed elevated LFT's, Lipase, and normal CBC. At time of admission, U/S has been ordered by Dr Mason, but not yet done. Of note, patient was in ED last night as well with CC of tooth pain, and started on PCN for tooth infection (has been needing to see dentist for known tooth problem) and reportedly had abdominal sx as well, but was not evaluated for this as sx were more mild. - HOSPITAL COURSE Hospital Course: The patient was admitted to the hospital for pancreatitis which progressed to early nectrotizing as imaging noted a few spots in the pancreas which could resemble this. An echocardiogram showed evidence of longstanding lung disorder with elevated RV pressures, pulmonary hypertension, which she was started on spironolactone, but will also need a sleep study after this pancreatitis resolves. On the echo, LVH was also noted, likely due to longstanding fast heart rate or uncontrolled blood pressure. The primary treatment for this is with a beta keo, which you were started on. After getting IV fluids, IV antibiotics and pain control, she began to have an improvement of her symptoms and was tolerating meals and PO intake. She continued to complain of abdominal pain and bloating which was initially treated with a diluadid CREDIT COUNSELOR. During the CREDIT COUNSELOR course, she still requested PO oxycodone so a basal rate was added. After adding the basal rate, she still continued to ask for PO oxycodone, so the CREDIT COUNSELOR was stopped. During this stay, she did not undergo any withdrawal symptoms, but was given scheduled Librium, which is continued for home use. Luckily, our social work team set up a PCP appointment to ensure prompt follow up. She is medically stable to return home today. The patient has been counseled on the importance of taking all medications the way they are prescribed, but stayed longer than neede d so she could have another oxycodone dose while in the hospital. - ALLERGIES Allergies/Adverse Reactions: Allergies Allergy/AdvReac Type Severity Reaction Status Date / Time Sulfa (Sulfonamide Allergy Severe Edema Verified 12/29/19 06:00 Antibiotics) hydrocodone bitartrate * Allergy Intermediate Hives Verified 12/29/19 06:00 [From Vicodin] bupropion HCl * AdvReac Severe Unknown Verified 12/29/19 06:00 [From Wellbutrin] gabapentin AdvReac Severe seizure Verified 12/29/19 06:00 NSAIDS (Non-Steroidal AdvReac Intermediate Cramps Verified 12/29/19 06:00 Anti-Inflamma - MEDICATIONS Home Medications: Ambulatory Orders Medication Instructions Recorded Confirmed Docusate Sodium 100Mg Capsule 100 mg PO BID PRN #30 capsule 09/11/15 01/05/20 [Colace] Ciprofloxacin [Cipro] 250 mg PO Q12H #10 tablet 01/09/20 Famotidine [Pepcid] 20 mg PO BID #60 tablet 01/09/20 Lipase/Protease/Amylase [Zenpep Dr 1 each PO TID #90 capsule. 01/09/20 5,000 Unit Capsule] Metoprolol Succinate [Toprol Xl] 50 mg PO BIDWM #60 tablet 01/09/20 Spironolactone [Aldactone] 25 mg PO DAILY #30 tablet 01/09/20 chlordiazePOXIDE [Librium] 25 mg PO TID #90 capsule 01/09/20 metroNIDAZOLE [Flagyl] 500 mg PO BID #10 tablet 01/09/20 oxyCODONE [Roxicodone] 10 mg PO Q4HR PRN #21 tablet 01/09/20 - PHYSICAL EXAM AT DISCHARGE General Appearance: positive: No acute distress, Alert Eyes Bilateral: positive: PERRL ENT: positive: Pharynx nml, No signs of dehydration Neck: positive: Thyroid nml, No JVD, Trachea midline Respiratory: positive: Chest non-tender, No respiratory distress, Breath sounds nml Cardiovascular: positive: Regular rate & rhythm, No gallop, Systolic murmur Peripheral Pulses: positive: 2+ Abdomen: positive: Nml bowel sounds, Guarding, Hepatomegaly (rounded, soft) Back: positive: Nml inspection Skin: positive: Color nml, No rash, Warm, Dry Extremities: positive: Non-tender, Full ROM, Nml appearance, No pedal edema Neurologic/Psychiatric: positive: Oriented x3, CN's nml (2-12), Motor nml, Sensation nml, Depressed mood/affect (flat affect, restless, anxious) Reflexes: Bicep (R): 3+, Bicep (L): 3+ - LABS Result Diagrams: 01/09/20 07:15 01/09/20 07:15 - FOLLOW UP Follow Up: Continue the antibiotics for the next 5 days See your new PCP within one week Attend a alcohol rehab program Take Librium 3 times per day, to take the place of the alcohol - TIME SPENT Time Spent in Discharge (Minutes): 60
[2020-01-09] MEDS ORDERED: LIPASE/PROTEASE/AMYLASE CAPSULE PO SCH (12:00)
[2020-01-09] MEDS ORDERED: NEUTRA-PHOS 250 MG TABLET PO SCH (12:00)
[2020-01-09] MEDS ORDERED: POTASSIUM CHLORIDE 20 MEQ TABLET PO ONE (12:00)
== END 2020-01-09 12:15 | disposition home or self-care (01) ==
LOC: ED 10:29 → MS2 13:24
PROVIDERS: ADMIT Family Medicine Sports Medicine; ATTEND Nurse Practitioner
DX: K85.20 Alcohol induced acute pancreatitis without necrosis or infection (principal); F10.239 Alcohol dependence with withdrawal, unspecified; K04.7 Periapical abscess without sinus; E87.6 Hypokalemia; I11.9 Hypertensive heart disease without heart failure; I27.20 Pulmonary hypertension, unspecified; M79.7 Fibromyalgia; M06.9 Rheumatoid arthritis, unspecified; K76.0 Fatty (change of) liver, not elsewhere classified; F17.200 Nicotine dependence, unspecified, uncomplicated
CPT/HCPCS: 36415; 74177; 76705; 80048; 80053; 80076; 80320; 80329; 81003; 81025; 82977; 83036; 83690; 83735; 84100; 85025; 85610; 86850; 86900; 86901; 93005; 93306; 96361; 96365; 96366; 96367; 96368; 96372; 96375; 96376; 99284; 99285; A9270; G0378; J1170; J1650; J2060; J2765; J3411; Q9967; 80306; 80307; 81001; 84443; 87086

== ENCOUNTER 2020-03-29 18:12 | Emergency (ER) | payer BC ==
[2020-03-29 18:49] LABS: BASOPHILS % (AUTO) 0.4 %; HGB - HEMOGLOBIN 14.5 g/dL (12.0-16.0); LYMPHOCYTES # (AUTO) 1.5 10^3/uL (1.5-3.5); LYMPHOCYTES % (AUTO) 18.8 %; MEAN CORPUSCULAR HEMOGLOBIN 31.2 pg (27.0-31.0); MEAN PLATELET VOLUME 8.9 fL (7.9-10.8); MONOCYTES # (AUTO) 0.5 10^3/uL (0.0-1.0); MONOCYTES % (AUTO) 6.6 %; NEUTROPHILS % (AUTO) 73.8 %; PLT - PLATELET COUNT 229 10^3/uL (130-450); RED BLOOD COUNT 4.65 10^6/uL (4.20-5.40); RED CELL DISTRIBUTION WIDTH 13.3 % (12.0-15.0); WHITE BLOOD COUNT 8.1 x10^3/uL (4.8-10.8)
--- NOTE | 2020-03-29 18:56 | XRAY Report ---
PROCEDURE: Chest 1 View X-Ray INDICATIONS: Chest pain TECHNIQUE: One view of the chest was acquired. COMPARISON: X-ray chest, 2 view, 12/29/2019 FINDINGS: Surgical changes and devices: None. Lungs and pleura: No pleural effusions or pneumothorax. Lungs are clear. Mediastinum: Mediastinal contours appear normal. Heart size is normal. Bones and chest wall: No suspicious bony lesions. Overlying soft tissues appear unremarkable. IMPRESSION: No acute cardiopulmonary disease. Reviewed by: Maryana Hugo MD on 03/29/2020 6:55 PM PDT Approved by: Maryana Hugo MD on 03/29/2020 6:55 PM PDT Station ID: [id number]
[2020-03-29 19:03] LABS: ALBUMIN 4.3 g/dL (3.2-5.5); ALBUMIN/GLOBULIN RATIO 1.3 (1.0-2.2); BILIRUBIN,TOTAL 0.9 mg/dL (0.2-1.0); CALCIUM 9.1 mg/dL (8.5-10.3); CREATININE 0.7 mg/dL (0.4-1.0); TOTAL PROTEIN 7.7 g/dL (6.7-8.2)
[2020-03-29] MEDS ORDERED: PROMETHAZINE INJ 12.5 MG in SODIUM CHLORIDE 0.9% 50 ML IV STA (19:54)
[2020-03-29] MEDS ORDERED: KETOROLAC 30 MG/ML VIAL IVP STA (19:54)
[2020-03-29] MEDS ORDERED: SODIUM CHLORIDE 0.9% 1,000 ML IV STA (19:54)
[2020-03-29] MEDS ORDERED: LORazepam 2 MG/ML VIAL IVP STA (19:54)
[2020-03-29] MEDS ORDERED: THIAMINE INJ 100 MG in SODIUM CHLORIDE 0.9% 50 ML IV STA (19:54)
--- NOTE | 2020-03-29 19:56 | ED Physician Documentation ---
History of Present Illness - Stated complaint Stated Complaint: ABD PX, DIARRHEA, ANGEL - Chief complaint Chief Complaint: Cardiac - History obtained from History obtained from: Patient - Additonal information Additional information: 34-year-old woman with history of alcoholism and pancreatitis related to same in the past. She was hanging out with family on Sunday and drank heavily that day. Subsequently the next day she felt very restless and developed vomiting and diarrhea. No blood from either end. She continues to feel ill with stomach turning, nausea, diarrhea, posterior headache, not the worst of her life nor sudden in onset. No fevers or chills. Initially admitted to having "1 bloody Gabi for the symptoms today but after confronted with her alcohol admits that it was more like 3. Review of Systems Ten Systems: 10 systems reviewed and negative Constitutional: denies: Fever, Chills Nose: reports: Rhinorrhea / runny nose (A few days ago, now gone) Cardiac: reports: Palpitations Respiratory: denies: Dyspnea, Cough PD PAST MEDICAL HISTORY - Past Medical History Past Medical History: Yes Cardiovascular: Hypertension Respiratory: None Neuro: Other Endocrine/Autoimmune: None GI: Pancreatitis : None HEENT: None Psych: Anxiety, Other Musculoskeletal: Rheumatoid arthritis, Chronic back pain Derm: None - Past Surgical History Past Surgical History: Yes General: Other HEENT: Tonsil/Adenoidectomy - Present Medications Home Medications: Ambulatory Orders Medication Instructions Recorded Confirmed Docusate Sodium 100Mg Capsule 100 mg PO BID PRN #30 capsule 09/11/15 01/05/20 [Colace] Ciprofloxacin [Cipro] 250 mg PO Q12H #10 tablet 01/09/20 Famotidine [Pepcid] 20 mg PO BID #60 tablet 01/09/20 Lipase/Protease/Amylase [Zenpep Dr 1 each PO TID #90 capsule. 01/09/20 5,000 Unit Capsule] Metoprolol Succinate [Toprol Xl] 50 mg PO BIDWM #60 tablet 01/09/20 Spironolactone [Aldactone] 25 mg PO DAILY #30 tablet 01/09/20 chlordiazePOXIDE [Librium] 25 mg PO TID #90 capsule 01/09/20 metroNIDAZOLE [Flagyl] 500 mg PO BID #10 tablet 01/09/20 oxyCODONE [Roxicodone] 5 mg PO Q4H PRN #21 tablet 01/09/20 oxyCODONE [Roxicodone] 10 mg PO Q4HR PRN #21 tablet 01/09/20 Famotidine [Pepcid] 20 mg PO BID #60 tablet 03/29/20 Ondansetron Odt [Zofran] 4 mg TL Q6H PRN #10 tablet 03/29/20 - Allergies Allergies/Adverse Reactions: Allergies Allergy/AdvReac Type Severity Reaction Status Date / Time Sulfa (Sulfonamide Allergy Severe Edema Verified 12/29/19 06:00 Antibiotics) hydrocodone bitartrate * Allergy Intermediate Hives Verified 12/29/19 06:00 [From Vicodin] bupropion HCl * AdvReac Severe Unknown Verified 12/29/19 06:00 [From Wellbutrin] gabapentin AdvReac Severe seizure Verified 12/29/19 06:00 NSAIDS (Non-Steroidal AdvReac Intermediate Cramps Verified 12/29/19 06:00 Anti-Inflamma - Social History Does the pt smoke?: No Smoking Status: Never smoker Does the pt drink ETOH?: Yes Does the pt have substance abuse?: No - Immunizations Immunizations are current?: Yes - POLST Patient has POLST: No POLST Status: Full Code PD ED PE NORMAL - Vitals Vital signs reviewed: Yes - General General: Alert and oriented X 3, No acute distress, Other (Somewhat tremulous) - HEENT HEENT: PERRL, EOMI - Neck Neck: Supple, no meningeal sign, No bony TTP - Cardiac Cardiac: Other (Mild tachycardia but regular without murmur) - Respiratory Respiratory: No respiratory distress, Clear bilaterally - Abdomen Abdomen: Non tender - Back Back: No CVA TTP, No spinal TTP - Derm Derm: Normal color, Warm and dry - Extremities Extremities: No edema, No calf tenderness / cord - Neuro Neuro: Alert and oriented X 3, Normal speech Results - Vitals Vitals: Vital Signs - 24 hr 03/29/20 03/29/20 03/29/20 18:19 19:40 20:38 Temperature 36.5 C Heart Rate 145 H 105 H 83 Respiratory 18 15 18 Rate Blood Pressure 154/104 H 139/110 H 173/126 H O2 Saturation 97 98 94 03/29/20 03/29/20 03/29/20 21:00 21:30 22:00 Temperature Heart Rate 69 70 68 Respiratory 16 16 16 Rate Blood Pressure 179/112 H 157/110 H 157/108 H O2 Saturation 100 98 98 Oxygen O2 Source Room air - EKG (time done) 1833 Rate: Rate (enter#) (116) Rhythm: Sinus tachycardia [place]: Normal Intervals: Normal MO Ischemia: Non specific changes Computer interpretation: Agree with computer - Labs Labs: Laboratory Tests 03/29/20 03/29/20 03/29/20 18:24 18:24 18:24 WBC 8.1 RBC 4.65 Hgb 14.5 Hct 41.4 MCV 89.0 MCH 31.2 H MCHC 35.0 RDW 13.3 Plt Count 229 MPV 8.9 Neut # (Auto) 6.0 Lymph # (Auto) 1.5 Parker # (Auto) 0.5 Eos # (Auto) 0.0 Baso # (Auto) 0.0 Absolute Nucleated RBC 0.00 Nucleated RBC % 0.0 Sodium 135 Potassium 2.8 L Chloride 101 Carbon Dioxide 21 Anion Gap 13.0 BUN 6 Creatinine 0.7 Estimated GFR (MDRD) 96 Glucose 134 H Calcium 9.1 Total Bilirubin 0.9 AST 56 H ALT 43 Alkaline Phosphatase 88 Troponin I High Sens 2.8 Total Protein 7.7 Albumin 4.3 Globulin 3.4 Albumin/Globulin Ratio 1.3 Lipase 24 Urine Color Urine Clarity Urine pH Ur Specific Golden Urine Protein Urine Glucose (UA) Urine Ketones Urine Occult Blood Urine Nitrite Urine Bilirubin Urine Urobilinogen Ur Leukocyte Esterase Ur Microscopic Review Urine Culture Comments Urine HCG, Qual Urine Opiates Screen Ur Oxycodone Screen Urine Methadone Screen Ur Propoxyphene Screen Ur Barbiturates Screen Ur Tricyclics Screen Ur Phencyclidine Scrn Ur Amphetamine Screen U Methamphetamines Scrn U Benzodiazepines Scrn Urine Cocaine Screen U Cannabinoids Screen Ethyl Alcohol 90.6 03/29/20 03/29/20 20:00 20:25 WBC RBC Hgb Hct MCV MCH MCHC RDW Plt Count MPV Neut # (Auto) Lymph # (Auto) Parker # (Auto) Eos # (Auto) Baso # (Auto) Absolute Nucleated RBC Nucleated RBC % Sodium Potassium Chloride Carbon Dioxide Anion Gap BUN Creatinine Estimated GFR (MDRD) Glucose Calcium Total Bilirubin AST ALT Alkaline Phosphatase Troponin I High Sens Total Protein Albumin Globulin Albumin/Globulin Ratio Lipase Urine Color YELLOW Urine Clarity CLEAR Urine pH 7.0 Ur Specific Golden <=1.005 <=1.005 Urine Protein NEGATIVE Urine Glucose (UA) NEGATIVE Urine Ketones NEGATIVE Urine Occult Blood TRACE-LYSE Urine Nitrite NEGATIVE Urine Bilirubin NEGATIVE Urine Urobilinogen 0.2 (NORMAL) Ur Leukocyte Esterase NEGATIVE Ur Microscopic Review NOT INDICATED Urine Culture Comments NOT INDICATED Urine HCG, Qual NEGATIVE Urine Opiates Screen NEGATIVE Ur Oxycodone Screen NEGATIVE Urine Methadone Screen NEGATIVE Ur Propoxyphene Screen NEGATIVE Ur Barbiturates Screen NEGATIVE Ur Tricyclics Screen NEGATIVE Ur Phencyclidine Scrn NEGATIVE Ur Amphetamine Screen NEGATIVE U Methamphetamines Scrn NEGATIVE U Benzodiazepines Scrn POSITIVE H Urine Cocaine Screen NEGATIVE U Cannabinoids Screen POSITIVE H Ethyl Alcohol PD MEDICAL DECISION MAKING - ED course ED course: 34-year-old woman presents with complaints of headache, abdominal pain and vomiting and diarrhea consistent with gastroenteritis/gastritis. She appears to be in very mild alcohol withdrawal despite still having a significantly elevated alcohol level. She was treated stepwise with medications and fluids with improvement and passed an oral challenge. Departure - Departure Disposition: 01 Home, Self Care Clinical Impression: Alcoholism Gastritis Qualifiers: Gastritis type: alcoholic Chronicity: acute Gastritis bleeding: without bleeding Qualified Code(s): K29.20 - Alcoholic gastritis without bleeding Condition: Good Record reviewed to determine appropriate education?: Yes Instructions: ED Gastritis Prescriptions: Famotidine [Pepcid] 20 mg PO BID #60 tablet Ondansetron Odt [Zofran] 4 mg TL Q6H PRN #10 tablet PRN Reason: Nausea / Vomiting Comments: You were seen today for headache, abdominal pain, vomiting and diarrhea. It seems like most of this is related to alcoholism, but she could have a viral infection known is gastroenteritis 2. You are given IV fluids, some potassium for a slightly low potassium and IV vitamins that are often low in alcoholics. Return for new or worsening symptoms and you need to abstain from alcohol completely. Follow-up with your doctor, next available appointment.
[2020-03-29 20:33] LABS: BILIRUBIN,URINE NEGATIVE (NEGATIVE); GLUCOSE, URINE (UA) NEGATIVE (NEGATIVE); KETONES,URINE (UA) NEGATIVE (NEGATIVE); LEUKOCYTE ESTERASE, URINE NEGATIVE (NEGATIVE); MUDS CUTOFF CONCENTRATIONS CUTOFF CONC BELOW:; NITRITE,URINE NEGATIVE (NEGATIVE); OCCULT BLOOD,URINE TRACE-LYSE (NEGATIVE); PROTEIN,URINE NEGATIVE (NEGATIVE); UROBILINOGEN,URINE 0.2 (NORMAL) E.U./dL (NORMAL)
[2020-03-29 20:35] LABS: CLARITY,URINE CLEAR (CLEAR)
[2020-03-29 20:44] LABS: AMPHETAMINE SCREEN,URINE NEGATIVE (NEGATIVE); BENZODIAZEPINES SCREEN, URINE POSITIVE (NEGATIVE); COCAINE SCREEN URINE NEGATIVE (NEGATIVE); METHADONE SCREEN, URINE NEGATIVE (NEGATIVE); METHAMPHETAMINES SCREEN, URINE NEGATIVE (NEGATIVE); OPIATE SCREEN, URINE NEGATIVE (NEGATIVE); OXYCODONE SCREEN, URINE NEGATIVE (NEGATIVE); PROPOXYPHENE SCREEN, URINE NEGATIVE (NEGATIVE); TRICYCLIC ANTIDEPRESSANT,URINE NEGATIVE (NEGATIVE)
[2020-03-29] MEDS ORDERED: MAG HYDROX/AL HYDROX/SIMETH 30 ML UDC PO STA (21:17)
[2020-03-29] MEDS ORDERED: LIDOCAINE VISCOUS 2% 15 ML UDC MM STA (21:17)
[2020-03-29] MEDS ORDERED: METOCLOPRAMIDE 10 MG/2 ML VIAL IVP STA (21:17)
[2020-03-29] MEDS ORDERED: LACTATED RINGERS 1,000 ML IV ONE (21:18)
[2020-03-29] MEDS ORDERED: POTASSIUM CHLOR 10 MEQ/100 ML 10 MEQ/100 ML BAG IV ONE (21:18)
[2020-03-29 21:43] LABS: HCG UR QUAL NEGATIVE
[2020-03-29 22:35] VITALS: BP 173/111
== END 2020-03-29 22:51 | disposition home or self-care (01) ==
LOC: ED 18:12
DX: K29.20 Alcoholic gastritis without bleeding (principal); F10.229 Alcohol dependence with intoxication, unspecified; R00.0 Tachycardia, unspecified; I10 Essential (primary) hypertension; Z87.19 Personal history of other diseases of the digestive system
CPT/HCPCS: 36415; 71045; 80053; 80306; 80320; 81003; 81025; 83690; 84484; 85025; 93005; 96365; 96367; 96368; 96375; 99284; A9270; J2060; J2765; J3411; J7040; J7120; 81001; 87086

== ENCOUNTER 2020-03-30 16:22 | Emergency (ER) | payer BC ==
[2020-03-30 17:16] LABS: BASOPHILS % (AUTO) 0.3 %; EOSINOPHILS % (AUTO) 0.2 %; HGB - HEMOGLOBIN 15.3 g/dL (12.0-16.0); LYMPHOCYTES # (AUTO) 1.4 10^3/uL (1.5-3.5); LYMPHOCYTES % (AUTO) 14.5 %; MEAN CORPUSCULAR HEMOGLOBIN 32.4 pg (27.0-31.0); MEAN CORPUSCULAR HGB CONC 36.1 g/dL (32.0-36.0); MEAN CORPUSCULAR VOLUME 89.8 fL (81.0-99.0); MEAN PLATELET VOLUME 9.1 fL (7.9-10.8); MONOCYTES # (AUTO) 0.7 10^3/uL (0.0-1.0); NEUTROPHILS # (AUTO) 7.6 10^3/uL (1.5-6.6); NEUTROPHILS % (AUTO) 77.5 %; PLT - PLATELET COUNT 255 10^3/uL (130-450); RED BLOOD COUNT 4.72 10^6/uL (4.20-5.40); RED CELL DISTRIBUTION WIDTH 13.3 % (12.0-15.0); WHITE BLOOD COUNT 9.8 x10^3/uL (4.8-10.8)
[2020-03-30 17:27] LABS: ALBUMIN 4.5 g/dL (3.2-5.5); ALBUMIN/GLOBULIN RATIO 1.3 (1.0-2.2); BILIRUBIN,TOTAL 1.2 mg/dL (0.2-1.0); CALCIUM 9.4 mg/dL (8.5-10.3); CREATININE 0.7 mg/dL (0.4-1.0)
[2020-03-30] MEDS ORDERED: FOLIC ACID INJ 1 MG, THIAMINE INJ 100 MG, MAGNESIUM SULFATE 2 GM, MULTIVITAMIN 10 ML in... IV STA ×5 (17:31)
[2020-03-30] MEDS ORDERED: DEXAMETHASONE 10 MG/ML VIAL IVP STA (17:31)
[2020-03-30] MEDS ORDERED: LORazepam 2 MG/ML VIAL IVP STA (17:32)
--- NOTE | 2020-03-30 17:34 | ED Physician Documentation ---
History of Present Illness - Stated complaint Stated Complaint: HIGH BP, HEART PALPITATIONS - Chief complaint Chief Complaint: Cardiac - History obtained from History obtained from: Patient - History of Present Illness Timing: How many days ago (4) - Additonal information Additional information: 34-year-old alcoholic female admits that she has been sober for more than a year and about 5 days ago she began to drink again and she is experienced withdrawal symptoms each day. She states that she has noted a rapid heart rate pounding in her chest and elevated blood pressure all have been improved by the use of alcohol. She has stopped each day and she is come to the emergency department last night for hydration she had some Ativan and felt much improved at the time she left when she got home her symptoms started up again and she had some beer last night and today to improve her symptoms. She wants to be able to stop drinking and she has called [facility]. She did not have any Ativan when she left the emergency department last night. Review of Systems Constitutional: denies: Fever Eyes: denies: Decreased vision Ears: denies: Ear pain Nose: denies: Rhinorrhea / runny nose, Congestion Throat: denies: Sore throat Cardiac: reports: Chest pain / pressure, Palpitations Respiratory: denies: Dyspnea, Cough GI: reports: Nausea, Diarrhea. denies: Abdominal Pain, Vomiting : denies: Dysuria, Frequency PD PAST MEDICAL HISTORY - Past Medical History Cardiovascular: Hypertension Respiratory: None Neuro: Other Endocrine/Autoimmune: None GI: Pancreatitis : None HEENT: None Psych: Anxiety, Other Musculoskeletal: Rheumatoid arthritis, Chronic back pain Derm: None - Past Surgical History Past Surgical History: Yes General: Other HEENT: Tonsil/Adenoidectomy - Present Medications Home Medications: Ambulatory Orders Medication Instructions Recorded Confirmed Docusate Sodium 100Mg Capsule 100 mg PO BID PRN #30 capsule 09/11/15 01/05/20 [Colace] Ciprofloxacin [Cipro] 250 mg PO Q12H #10 tablet 01/09/20 Famotidine [Pepcid] 20 mg PO BID #60 tablet 01/09/20 Lipase/Protease/Amylase [Zenpep Dr 1 each PO TID #90 capsule. 01/09/20 5,000 Unit Capsule] Metoprolol Succinate [Toprol Xl] 50 mg PO BIDWM #60 tablet 01/09/20 Spironolactone [Aldactone] 25 mg PO DAILY #30 tablet 01/09/20 chlordiazePOXIDE [Librium] 25 mg PO TID #90 capsule 01/09/20 metroNIDAZOLE [Flagyl] 500 mg PO BID #10 tablet 01/09/20 oxyCODONE [Roxicodone] 5 mg PO Q4H PRN #21 tablet 01/09/20 oxyCODONE [Roxicodone] 10 mg PO Q4HR PRN #21 tablet 01/09/20 Famotidine [Pepcid] 20 mg PO BID #60 tablet 03/29/20 Ondansetron Odt [Zofran] 4 mg TL Q6H PRN #10 tablet 03/29/20 Lorazepam [Ativan] 1 - 2 mg PO Q6HR PRN #20 tablet 03/30/20 - Allergies Allergies/Adverse Reactions: Allergies Allergy/AdvReac Type Severity Reaction Status Date / Time Sulfa (Sulfonamide Allergy Severe Edema Verified 03/30/20 16:47 Antibiotics) hydrocodone bitartrate * Allergy Intermediate Hives Verified 03/30/20 16:47 [From Vicodin] bupropion HCl * AdvReac Severe Unknown Verified 03/30/20 16:47 [From Wellbutrin] gabapentin AdvReac Severe seizure Verified 03/30/20 16:47 NSAIDS (Non-Steroidal AdvReac Intermediate Cramps Verified 03/30/20 16:47 Anti-Inflamma - Social History Does the pt smoke?: No Smoking Status: Never smoker Does the pt drink ETOH?: Yes Does the pt have substance abuse?: No - Immunizations Immunizations are current?: Yes - POLST Patient has POLST: No POLST Status: Full Code PD ED PE NORMAL - Vitals Vital signs reviewed: Yes (tachy and hypertensive ) - General General: Alert and oriented X 3, No acute distress, Well developed/nourished - HEENT HEENT: Atraumatic, PERRL, EOMI - Neck Neck: Supple, no meningeal sign, No bony TTP - Cardiac Cardiac: No murmur, Other (tachy to 100) - Respiratory Respiratory: No respiratory distress, Clear bilaterally - Abdomen Abdomen: Soft, Non tender - Back Back: No CVA TTP, No spinal TTP - Derm Derm: Normal color, Warm and dry, No rash - Extremities Extremities: No deformity, No edema, No calf tenderness / cord - Neuro Neuro: Alert and oriented X 3, chief engineer waterworks 2-12 intact, No motor deficit, No sensory deficit, Normal speech Eye Opening: Spontaneous Motor: Obeys Commands Verbal: Oriented GCS Score: 15 - Psych Psych: Normal mood, Normal affect Results - Vitals Vitals: Vital Signs - 24 hr 03/30/20 03/30/20 03/30/20 16:47 17:11 18:14 Temperature 36.6 C Heart Rate 112 H 89 76 Respiratory 20 18 21 Rate Blood Pressure 172/123 H 152/114 H 167/114 H O2 Saturation 97 98 99 Oxygen O2 Source Room air - EKG (time done) 1629 Rate: Rate (enter#) (110) Rhythm: Sinus tachycardia, LAE Ischemia: ST depression (borderline diffuse) Compare to prior EKG: Changed from prior EKG ([facility] 03-29-2020 no sig change) Computer interpretation: Agree with computer - Labs Labs: Laboratory Tests 03/30/20 03/30/20 03/30/20 16:05 16:05 16:05 WBC 9.8 RBC 4.72 Hgb 15.3 Hct 42.4 MCV 89.8 MCH 32.4 H MCHC 36.1 H RDW 13.3 Plt Count 255 MPV 9.1 Neut # (Auto) 7.6 H Lymph # (Auto) 1.4 L [place] # (Auto) 0.7 Eos # (Auto) 0.0 Baso # (Auto) 0.0 Absolute Nucleated RBC 0.00 Nucleated RBC % 0.0 Sodium 138 Potassium 3.0 L Chloride 102 Carbon Dioxide 22 Anion Gap 14.0 H BUN 5 L Creatinine 0.7 Estimated GFR (MDRD) 96 Glucose 113 H Calcium 9.4 Total Bilirubin 1.2 H AST 60 H ALT 42 Alkaline Phosphatase 91 Troponin I High Sens 5.2 Total Protein 8.0 Albumin 4.5 Globulin 3.5 Albumin/Globulin Ratio 1.3 Lipase 21 L Ethyl Alcohol 03/30/20 16:05 WBC RBC Hgb Hct MCV MCH MCHC RDW Plt Count MPV Neut # (Auto) Lymph # (Auto) [place] # (Auto) Eos # (Auto) Baso # (Auto) Absolute Nucleated RBC Nucleated RBC % Sodium Potassium Chloride Carbon Dioxide Anion Gap BUN Creatinine Estimated GFR (MDRD) Glucose Calcium Total Bilirubin AST ALT Alkaline Phosphatase Troponin I High Sens Total Protein Albumin Globulin Albumin/Globulin Ratio Lipase Ethyl Alcohol < 5.0 - Rads (name of study) chest Radiology: Prelim report reviewed (Pression: No acute cardiopulmonary process.), EMP read indepedently, See rad report PD MEDICAL DECISION MAKING - ED course Complexity details: reviewed old records, reviewed results, re-evaluated patient, considered differential, d/w patient ED course: 34-year-old alcoholic female is having trouble with alcohol withdrawal symptoms and she is medicating these with alcohol and continue to have symptoms of wi thdrawal. She wants to stop drinking. She is administered a banana bag intravenously as well as 10 mg of dexamethasone and 2 mg of Ativan intravenously. We will provide her some Ativan for detoxing from the alcohol and she will follow-up with [facility] as planned. Departure - Departure Disposition: 01 Home, Self Care Clinical Impression: Alcohol withdrawal Qualifiers: Complication of substance-induced condition: uncomplicated Qualified Code(s): F 10.230 - Alcohol dependence with withdrawal, uncomplicated Condition: Stable Instructions: ED Withdrawal Alcohol Follow-Up: [facility] [Provider Group] Prescriptions: Lorazepam [Ativan] 1 - 2 mg PO Q6HR PRN #20 tablet PRN Reason: withdrawal symptoms
--- NOTE | 2020-03-30 17:47 | XRAY Report ---
PROCEDURE: Chest 1 View X-Ray INDICATIONS: Chest Pain TECHNIQUE: One view of the chest was acquired. COMPARISON: 03/29/2020 FINDINGS: Surgical changes and devices: None. Lungs and pleura: No pleural effusions or pneumothorax. Lungs are clear. Mediastinum: Mediastinal contours appear normal. Heart size is normal. Bones and chest wall: No suspicious bony lesions. Overlying soft tissues appear unremarkable. IMPRESSION: No acute cardiopulmonary disease process. Reviewed by: Roxy Martinez MD, PhD on 03/30/2020 5:45 PM PDT Approved by: Roxy Martinez MD, PhD on 03/30/2020 5:45 PM PDT Station ID: [id number]
[2020-03-30] MEDS ORDERED: POTASSIUM CHLORIDE 20 MEQ TABLET PO STA (17:56)
[2020-03-30] MEDS ORDERED: KETOROLAC 30 MG/ML VIAL IVP STA (18:24)
[2020-03-30 19:25] VITALS: BP 158/112
== END 2020-03-30 19:33 | disposition home or self-care (01) ==
LOC: ED 16:22
DX: F10.230 Alcohol dependence with withdrawal, uncomplicated (principal); R00.0 Tachycardia, unspecified; I10 Essential (primary) hypertension
CPT/HCPCS: 36415; 71045; 80053; 80320; 83690; 84484; 85025; 93005; 96365; 96375; 99284; A9270; J2060; J3411

== ENCOUNTER 2020-10-31 13:52 | Emergency (ER) | payer SELFPAY ==
[2020-10-31] MEDS ORDERED: ONDANSETRON 4 MG/2 ML VIAL IVP STA ×2 (14:11→15:43)
[2020-10-31] MEDS ORDERED: SODIUM CHLORIDE 0.9% 1,000 ML IV STA (14:11)
--- NOTE | 2020-10-31 14:14 | ED Physician Documentation ---
History of Present Illness - Stated complaint Stated Complaint: CHEST PX - Chief complaint Chief Complaint: General - Additonal information Additional information: 35-year-old female presents to the emergency department for evaluation of abdo chuy and leg swelling, shortness of breath, vomiting and diarrhea. She reports that a few weeks ago she began to notice that her abdomen was bloated and since then she has noticed swelling from her mid abdomen to just above her knees. For the last 3 days she has been having intermittent vomiting throughout the day as well as diarrhea; all nonbloody. 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 She also has a history of alcohol abuse. She states that she had quit drinking for about 3 months before resuming drinking again a few months ago. Reports that she is typically drinking 2-3 beers only 2 or 3 times a week. Last drink yesterday evening. Review of Systems Constitutional: denies: Fever, Chills Eyes: reports: Reviewed and negative Ears: reports: Reviewed and negative Nose: reports: Reviewed and negative Throat: reports: Reviewed and negative Cardiac: reports: Chest pain / pressure, Palpitations, Pedal edema. denies: Calf pain Respiratory: reports: Dyspnea. denies: Cough, Hemoptysis, Wheezing GI: reports: Abdominal Pain, Abdominal Swelling, Nausea, Vomiting, Diarrhea. denies: Hematemesis, Bloody / black stool : denies: Dysuria, Frequency, Hesitancy Skin: denies: Rash, Lesions Musculoskeletal: denies: Neck pain, Back pain Neurologic: reports: Reviewed and negative Psychiatric: reports: Reviewed and negative Endocrine: reports: Reviewed and negative PD PAST MEDICAL HISTORY - Past Medical History Cardiovascular: Hypertension Respiratory: None Neuro: Other Endocrine/Autoimmune: None GI: Pancreatitis : None HEENT: None Psych: Anxiety, Other Musculoskeletal: Rheumatoid arthritis, Chronic back pain Derm: None - Past Surgical History Past Surgical History: Yes General: Other HEENT: Tonsil/Adenoidectomy - Present Medications Home Medications: Ambulatory Orders Medication Instructions Recorded Confirmed Docusate Sodium 100Mg Capsule 100 mg PO BID PRN #30 capsule 09/11/15 01/05/20 [Colace] Ciprofloxacin [Cipro] 250 mg PO Q12H #10 tablet 01/09/20 Famotidine [Pepcid] 20 mg PO BID #60 tablet 01/09/20 Lipase/Protease/Amylase [Zenpep Dr 1 each PO TID #90 capsule. 01/09/20 5,000 Unit Capsule] Metoprolol Succinate [Toprol Xl] 50 mg PO BIDWM #60 tablet 01/09/20 Spironolactone [Aldactone] 25 mg PO DAILY #30 tablet 01/09/20 chlordiazePOXIDE [Librium] 25 mg PO TID #90 capsule 01/09/20 metroNIDAZOLE [Flagyl] 500 mg PO BID #10 tablet 01/09/20 oxyCODONE [Roxicodone] 5 mg PO Q4H PRN #21 tablet 01/09/20 oxyCODONE [Roxicodone] 10 mg PO Q4HR PRN #21 tablet 01/09/20 Famotidine [Pepcid] 20 mg PO BID #60 tablet 03/29/20 Ondansetron Odt [Zofran] 4 mg TL Q6H PRN #10 tablet 03/29/20 Lorazepam [Ativan] 1 - 2 mg PO Q6HR PRN #20 tablet 03/30/20 Metoprolol Succinate 50 mg PO BID #40 tab.er.24h 03/30/20 Omeprazole 40 mg PO DAILY #30 capsule. 10/31/20 Spironolactone [Aldactone] 50 mg PO BID #14 tablet 10/31/20 - Allergies Allergies/Adverse Reactions: Allergies Allergy/AdvReac Type Severity Reaction Status Date / Time Sulfa (Sulfonamide Allergy Severe Edema Verified 10/31/20 14:01 Antibiotics) hydrocodone bitartrate * Allergy Intermediate Hives Verified 10/31/20 14:01 [From Vicodin] bupropion HCl * AdvReac Severe Unknown Verified 10/31/20 14:01 [From Wellbutrin] gabapentin AdvReac Severe seizure Verified 10/31/20 14:01 NSAIDS (Non-Steroidal AdvReac Intermediate Cramps Verified 10/31/20 14:01 Anti-Inflamma - Social History Does the pt smoke?: No Smoking Status: Never smoker Does the pt drink ETOH?: Yes Does the pt have substance abuse?: No - Immunizations Immunizations are current?: Yes - POLST Patient has POLST: No POLST Status: Full Code PD ED PE EXPANDED - General General: Alert, Well developed/nourished, Anxious - Neck Neck: Supple w/out meningeal sx. No: Adenopathy - Cardiac Cardiac: Tachy, Radial strong equal, Pedal strong equal, Cap refill < 2 sec. No: Murmur Present - Respiratory Respiratory: Clear to ausultation loco. No: Distress, Labored - Abdomen Abdomen: Normal Bowel sounds, Distended, Other (Palpable ascites). No: Tender to palpation - Extremities Extremities: Normal, Other (BLE swelling without pitting to mid thigh). No: Deformity, Tenderness - Neuro Neuro: Alert and Oriented X 3, CNII-XII intact. No: Confused, Disoriented - GCS Eye Opening: Spontaneous Motor: Obeys Commands Verbal: Oriented Total: 15 Results - Vitals Vitals: Vital Signs - 24 hr 10/31/20 10/31/20 10/31/20 13:58 15:30 16:43 Temperature 36.1 C L Heart Rate 132 H 91 96 Respiratory 20 16 18 Rate Blood Pressure 131/106 H 143/97 H 145/96 H O2 Saturation 98 99 98 Oxygen O2 Source Room air - EKG (time done) 1357 Rate: Rate (enter#) (123) Rhythm: Sinus tachycardia [place]: Normal Intervals: Normal [place] QRS: Normal Ischemia: Other (twave flattening diffuse) Compare to prior EKG: Changed from prior EKG Computer interpretation: Agree with computer - Labs Labs: Laboratory Tests 10/31/20 10/31/20 10/31/20 14:20 14:20 14:20 WBC 10.8 RBC 4.22 Hgb 14.7 Hct 42.3 MCV 100.2 H MCH 34.8 H MCHC 34.8 RDW 12.5 Plt Count 344 MPV 9.1 Neut # (Auto) 8.4 H Lymph # (Auto) 1.2 L [place] # (Auto) 1.0 Eos # (Auto) 0.1 Baso # (Auto) 0.0 Absolute Nucleated RBC 0.00 Nucleated RBC % 0.0 PT INR Sodium 137 Potassium Chloride 99 L Carbon Dioxide 20 L Anion Gap 18.0 H BUN < 5 L Creatinine 0.6 Estimated GFR (MDRD) 114 Glucose 106 H Calcium 9.0 Total Bilirubin 1.3 H AST 107 H ALT 35 Alkaline Phosphatase 254 H Troponin I High Sens 5.1 B-Natriuretic Peptide Total Protein 6.7 Albumin 3.3 Globulin 3.4 Albumin/Globulin Ratio 1.0 Lipase 30 HCG, Quant Urine Color Urine Clarity Urine pH Ur Specific [place] Urine Protein Urine Glucose (UA) Urine Ketones Urine Occult Blood Urine Nitrite Urine Bilirubin Urine Urobilinogen Ur Leukocyte Esterase Urine RBC Urine WBC Urine WBC Clumps Ur Epithelial Cells Ur Squamous Epith Cells Urine Bacteria Ur Microscopic Review Urine Culture Comments Ethyl Alcohol < 5.0 10/31/20 10/31/20 10/31/20 14:20 14:20 14:20 WBC RBC Hgb Hct MCV MCH MCHC RDW Plt Count MPV Neut # (Auto) Lymph # (Auto) [place] # (Auto) Eos # (Auto) Baso # (Auto) Absolute Nucleated RBC Nucleated RBC % PT 14.4 H INR 1.3 H Sodium Potassium Chloride Carbon Dioxide Anion Gap BUN Creatinine Estimated GFR (MDRD) Glucose Calcium Total Bilirubin AST ALT Alkaline Phosphatase Troponin I High Sens B-Natriuretic Peptide 201 H Total Protein Albumin Globulin Albumin/Globulin Ratio Lipase HCG, Quant < 0.60 Urine Color Urine Clarity Urine pH Ur Specific [place] Urine Protein Urine Glucose (UA) Urine Ketones Urine Occult Blood Urine Nitrite Urine Bilirubin Urine Urobilinogen Ur Leukocyte Esterase Urine RBC Urine WBC Urine WBC Clumps Ur Epithelial Cells Ur Squamous Epith Cells Urine Bacteria Ur Microscopic Review Urine Culture Comments Ethyl Alcohol 10/31/20 14:57 WBC RBC Hgb Hct MCV MCH MCHC RDW Plt Count MPV Neut # (Auto) Lymph # (Auto) [place] # (Auto) Eos # (Auto) Baso # (Auto) Absolute Nucleated RBC Nucleated RBC % PT INR Sodium Potassium Chloride Carbon Dioxide Anion Gap BUN Creatinine Estimated GFR (MDRD) Glucose Calcium Total Bilirubin AST ALT Alkaline Phosphatase Troponin I High Sens B-Natriuretic Peptide Total Protein Albumin Globulin Albumin/Globulin Ratio Lipase HCG, Quant Urine Color YELLOW Urine Clarity HAZY Urine pH 6.5 Ur Specific [place] 1.010 Urine Protein TRACE Urine Glucose (UA) NEGATIVE Urine Ketones NEGATIVE Urine Occult Blood TRACE-LYSE Urine Nitrite NEGATIVE Urine Bilirubin SMALL H Urine Urobilinogen 0.2 (NORMAL) Ur Leukocyte Esterase TRACE H Urine RBC 6-10 H Urine WBC 4-5 Urine WBC Clumps PRESENT Ur Epithelial Cells RARE Transitional Ur Squamous Epith Cells MANY Squamous H Urine Bacteria Few Ur Microscopic Review INDICATED Urine Culture Comments NOT INDICATED Ethyl Alcohol - Rads (name of study) CT abd Radiology: Final report received (Enlarged fatty liver.) CXR Radiology: Final report received (Normal portable chest. Stable from prior.) PD MEDICAL DECISION MAKING - ED course Complexity details: reviewed results, re-evaluated patient, considered differential, d/w patient ED course: 35-year-old female who has a history of heavy alcohol abuse presents to the emergency department with generalized abdominal bloating and swelling of her legs that has been progressively worse over the last 3 months. She also reported vomiting and diarrhea over the last 3 days. She is trying to stop drinking but reports that she has been feeling short of breath and not well. Here in the emergency department her CBC is evaluated. No significant thrombocytopenia. No anemia. She is had no black or bloody stools. Chest x- ray does not reveal cardiomegaly or findings of congestive heart failure. Her BNP is noted to be mildly elevated at 200. EKG was nonischemic and high- sensitivity troponin is negative. Her liver function tests are consistent with alcohol abuse. A CT scan of the abdomen did not reveal ascites but does show a diffusely fatty liver. I discussed with patient her lab results and CT findings. It is important that she follow-up with the gastroenterology [facility] as an outpatient for longer-term evaluation of her likely early cirrhosis. We discussed that the leg swelling and abdominal bloating may be related to her Drinking but she does have a mildly elevated BNP here. She was advised that she should see a director of event marketing as an outpatient for an echocardiogram or a stress test. I will place her on a diuretic for 1 week. She will follow-up with [facility]. Patient was advised to avoid NSAID use. I will place her on omeprazole as she does report gastric ulcers. Emergent return precautions discussed. Departure - Departure Disposition: 01 Home, Self Care Clinical Impression: Abdominal bloating, Leg swelling, Alcohol abuse Condition: Stable Record reviewed to determine appropriate education?: Yes Follow-Up: [facility] [Provider Group] Prescriptions: Spironolactone [Aldactone] 50 mg PO BID #14 tablet Omeprazole 40 mg PO DAILY #30 capsule. Comments: Isabel hope that you are feeling better soon. Your abdominal bloating and leg swelling is likely related to alcohol abuse and fluid retention. I have prescribed a medication called Aldactone. This will make you pee more frequently but should help with the swelling. Your labs today are consistent with alcohol abuse especially your liver function tests. The CT of your abdomen did not show a large volume of fluid collection in your abdomen. This is called ascites. However it does show that the liver is beginning to develop signs of cirrhosis. Stopping drinking is going to be very important in the long-term. However if you experience shakes, tremors with alcohol cessation do not stop suddenly. I have also prescribed omeprazole, this is a medication to help with acid production. Take it every day. Avoid any further NSAID use such as naproxen or ibuprofen. You may take a small amount of Tylenol 3 times a day 500 mg as needed for discomfort. It is important that you follow-up with a primary doctor in 7 to 10 days. If your symptoms are not improving, you have fevers uncontrolled vomiting black or bloody stools please return immediately to the emergency department. In the long-term you likely will also need referral to a director of event marketing to have an outpatient echocardiogram completed.
[2020-10-31 14:30] LABS: BASOPHILS % (AUTO) 0.2 %; EOSINOPHILS # (AUTO) 0.1 10^3/uL (0.0-0.7); EOSINOPHILS % (AUTO) 0.7 %; HGB - HEMOGLOBIN 14.7 g/dL (12.0-16.0); LYMPHOCYTES # (AUTO) 1.2 10^3/uL (1.5-3.5); LYMPHOCYTES % (AUTO) 11.4 %; MEAN CORPUSCULAR HEMOGLOBIN 34.8 pg (27.0-31.0); MEAN CORPUSCULAR HGB CONC 34.8 g/dL (32.0-36.0); MEAN CORPUSCULAR VOLUME 100.2 fL (81.0-99.0); MEAN PLATELET VOLUME 9.1 fL (7.9-10.8); MONOCYTES % (AUTO) 9.6 %; NEUTROPHILS # (AUTO) 8.4 10^3/uL (1.5-6.6); NEUTROPHILS % (AUTO) 77.6 %; PLT - PLATELET COUNT 344 10^3/uL (130-450); RED BLOOD COUNT 4.22 10^6/uL (4.20-5.40); RED CELL DISTRIBUTION WIDTH 12.5 % (12.0-15.0); WHITE BLOOD COUNT 10.8 x10^3/uL (4.8-10.8)
--- NOTE | 2020-10-31 14:35 | XRAY Report ---
PROCEDURE: Chest 1 View X-Ray INDICATIONS: Chest Pain TECHNIQUE: One view of the chest was acquired. COMPARISON: 10/30/2019, 10/29/2019 FINDINGS: Surgical changes and devices: None. Lungs and pleura: No pleural effusions or pneumothorax. Lungs are clear. Mediastinum: Mediastinal contours appear normal. Heart size is normal. Bones and chest wall: No suspicious bony lesions. Overlying soft tissues appear unremarkable. IMPRESSION: Normal portable chest. Stable from prior. Reviewed by: Leon Ahuja MD on 10/31/2020 1:34 PM [place] Approved by: Leon Ahuja MD on 10/31/2020 1:34 PM [facility] Station ID: [id number]
[2020-10-31 14:52] LABS: ALBUMIN 3.3 g/dL (3.2-5.5); ALKALINE PHOSPHATASE 254 IU/L (42-121); ALT ALANINE AMINOTRANSFERASE 35 IU/L (10-60); AST ASPARTATE AMINOTRANSFERASE 107 IU/L (10-42); BILIRUBIN,TOTAL 1.3 mg/dL (0.2-1.0); BUN - BLOOD UREA NITROGEN < 5 mg/dL (6-20); CARBON DIOXIDE - CO2 20 mmol/L (21-32); CHLORIDE 99 mmol/L (101-111); CREATININE 0.6 mg/dL (0.4-1.0); GLUCOSE 106 mg/dL (70-100); LIPASE 30 U/L (22-51); TOTAL PROTEIN 6.7 g/dL (6.7-8.2)
[2020-10-31 15:11] LABS: GLUCOSE, URINE (UA) NEGATIVE (NEGATIVE); KETONES,URINE (UA) NEGATIVE (NEGATIVE); LEUKOCYTE ESTERASE, URINE TRACE (NEGATIVE); NITRITE,URINE NEGATIVE (NEGATIVE); OCCULT BLOOD,URINE TRACE-LYSE (NEGATIVE); PH,URINE 6.5 PH (5.0-7.5); PROTEIN,URINE TRACE mg/dL (NEGATIVE); UROBILINOGEN,URINE 0.2 (NORMAL) E.U./dL (NORMAL)
[2020-10-31 15:21] LABS: BILIRUBIN,URINE SMALL (NEGATIVE); ICTOTEST,URINE POSITIVE
[2020-10-31 15:22] LABS: CLARITY,URINE HAZY (CLEAR)
[2020-10-31] MEDS ORDERED: HYDROmorphone 1 MG/ML CARPUJECT IVP STA ×2 (15:23→16:30)
[2020-10-31 15:38] LABS: EPITHELIAL CELLS,UR RARE Transitional /HPF (<= Few); SQUAMOUS EPITHELIAL CELL,UR MANY Squamous (<= Few); WBC CLUMPS,URINE PRESENT
[2020-10-31 15:39] LABS: BACTERIA,URINE Few /HPF (None Seen)
[2020-10-31] MEDS ORDERED: ONDANSETRON 4 MG/2 ML VIAL ONE (15:50)
[2020-10-31] MEDS ORDERED: IOVERSOL 320 100 ML VIAL IVP ONE ×2 (16:19→16:34)
[2020-10-31 16:42] LABS: INR 1.3 (0.8-1.2); PT - PROTHROMBIN TIME 14.4 secs (9.9-12.6)
--- NOTE | 2020-10-31 17:21 | CT Report ---
PROCEDURE: Abdomen/Pelvis W INDICATIONS: swelling, ascites CONTRAST: IV CONTRAST: Optiray 320 ml: 1400 PO CONTRAST: *NO PO CONTRAST TECHNIQUE: After the administration of nonionic IV contrast, 5 mm thick sections acquired from the diaphragms to the symphysis. 5 mm thick coronal and sagittal reformats were acquired. For radiation dose reducti on, the following was used: automated exposure control, adjustment of mA and/or kV according to francis ent size. COMPARISON: 01/07/2020 FINDINGS: Image quality: Excellent. ABDOMEN: Lung bases: Lung bases are clear. Heart size is normal. Solid organs: The liver is enlarged and demonstrates no focal lesions. Diffuse fatty liver infiltrat ion can be seen. Gallbladder wall does not appear thickened. Biliary system is non dilated. Pa ncreas enhances normally. No peripancreatic inflammatory change can be seen. No focal splenic abnorm ality is seen. No adrenal nodules. Kidneys demonstrate normal size and enhancement, without hydronep hrosis. Peritoneum and bowel: Bowel loops demonstrate normal wall thickness and caliber. No free fluid or a ir. No appendix can be seen, either normal or abnormal. No focal right lower quadrant inflammatory c hanges are seen. Nodes and vessels: No retroperitoneal or mesenteric adenopathy by size criteria. Aorta and inferior vena cava are normal in size. Miscellaneous: No ventral hernias. PELVIS: Genitourinary: Bladder wall thickness is normal. An IUD is seen at the expected location. Miscellaneous: No inguinal hernias or adenopathy. Bones: No suspicious bony lesions. No vertebral body compression fractures. IMPRESSION: No imaging explanation is found for the patient's presenting symptoms. No CT findings of recurrent pancreatitis can be seen. Incidental note is made of: Enlarged, fatty liver IUD Reviewed by: Leon Ahuja MD on 10/31/2020 4:20 PM [place] Approved by: Leon Ahuja MD on 10/31/2020 4:20 PM [place] Station ID: [id number]
[2020-10-31 17:42] VITALS: BP 146/100
== END 2020-10-31 17:59 | disposition home or self-care (01) ==
LOC: ED 13:52
DX: R14.0 Abdominal distension (gaseous) (principal); R60.0 Localized edema; F10.10 Alcohol abuse, uncomplicated; K76.0 Fatty (change of) liver, not elsewhere classified; R07.9 Chest pain, unspecified; R06.02 Shortness of breath; R00.0 Tachycardia, unspecified; R79.89 Other specified abnormal findings of blood chemistry; I10 Essential (primary) hypertension; Z87.11 Personal history of peptic ulcer disease; Z87.19 Personal history of other diseases of the digestive system
CPT/HCPCS: 36415; 71045; 74177; 80053; 80320; 81001; 83690; 83880; 84484; 84702; 85025; 85610; 93005; 96374; 96375; 96376; 99284; J1170; Q9967; 81003; 87086

== ENCOUNTER 2020-11-01 16:27 | Emergency (ER) | payer MEDICAID ==
[2020-11-01] MEDS ORDERED: FUROSEMIDE 20 MG/2 ML VIAL IVP STA ×2 (16:54→19:24)
[2020-11-01] MEDS ORDERED: ONDANSETRON 4 MG/2 ML VIAL IVP STA (16:54)
[2020-11-01] MEDS ORDERED: LORazepam 2 MG/ML VIAL IVP STA (16:54)
--- NOTE | 2020-11-01 16:56 | ED Physician Documentation ---
PD HPI ABD PAIN - Stated complaint Stated Complaint: VOMITING,DIARRHEA,BODY PX - Chief complaint Chief Complaint: Abd Pain - History obtained from History obtained from: Patient - Additional information Additional information: 35-year-old woman has a history of alcoholism and pancreatitis related to same. She was seen yesterday for aches, vomiting and diarrhea, and bloating. Her work-up here found her to have high MCV, low BUN, albumin was normal. No alcohol on board. She had a CT showing a fatty liver. She was given prescriptions for omeprazole and Aldactone but last night despite trying to drink beer to calm her nerves she continued to have vomiting and could not keep the pills down. She denies hallucinations. Review of Systems Constitutional: denies: Chills Ears: reports: Reviewed and negative Nose: reports: Reviewed and negative Throat: reports: Reviewed and negative Cardiac: reports: Reviewed and negative PD PAST MEDICAL HISTORY - Past Medical History Cardiovascular: Hypertension Respiratory: None Neuro: Other Endocrine/Autoimmune: None GI: Pancreatitis : None HEENT: None Psych: Anxiety, Other Musculoskeletal: Rheumatoid arthritis, Chronic back pain Derm: None - Past Surgical History Past Surgical History: Yes General: Other HEENT: Tonsil/Adenoidectomy - Present Medications Home Medications: Ambulatory Orders Medication Instructions Recorded Confirmed Ondansetron Odt [Zofran] 4 mg TL Q6H PRN #10 tablet 11/01/20 - Allergies Allergies/Adverse Reactions: Allergies Allergy/AdvReac Type Severity Reaction Status Date / Time Sulfa (Sulfonamide Allergy Severe Edema Verified 11/01/20 16:33 Antibiotics) hydrocodone bitartrate * Allergy Intermediate Hives Verified 11/01/20 16:33 [From Vicodin] bupropion HCl * AdvReac Severe Unknown Verified 11/01/20 16:33 [From Wellbutrin] gabapentin AdvReac Severe seizure Verified 11/01/20 16:33 NSAIDS (Non-Steroidal AdvReac Intermediate Cramps Verified 11/01/20 16:33 Anti-Inflamma - Social History Does the pt smoke?: No Smoking Status: Never smoker Does the pt drink ETOH?: Yes Does the pt have substance abuse?: No - Immunizations Immunizations are current?: Yes - POLST Patient has POLST: No POLST Status: Full Code PD ED PE NORMAL - Vitals Vital signs reviewed: Yes - General General: Alert and oriented X 3, Other (She actually does not look particularly shaky but she is tachycardic and hypertensive. Mental status is normal. She is anicteric.) - HEENT HEENT: PERRL, EOMI - Neck Neck: Supple, no meningeal sign, No bony TTP - Cardiac Cardiac: Other (Tachycardic, regular, no murmur) - Respiratory Respiratory: No respiratory distress, Clear bilaterally - Abdomen Abdomen: Normal bowel sounds, Soft, Non tender - Extremities Extremities: Other (Minimal lower extremity pedal edema) - Neuro Neuro: Alert and oriented X 3, Normal speech Results - Vitals Vitals: Vital Signs - 24 hr 11/01/20 11/01/20 11/01/20 16:34 16:49 17:08 Temperature 36.8 C Heart Rate 130 H 136 H 110 H Respiratory 22 11 L 18 Rate Blood Pressure 180/104 H 166/109 H 194/124 H O2 Saturation 100 100 100 11/01/20 11/01/20 11/01/20 18:07 18:33 19:00 Temperature Heart Rate 107 H 111 H 109 H Respiratory 21 13 18 Rate Blood Pressure 143/91 H 138/93 H O2 Saturation 100 98 100 Oxygen O2 Source Room air - EKG (time done) 1643 Rate: Rate (enter#) (116) Rhythm: Sinus tachycardia, LAE [place]: Normal Intervals: Normal [place] QRS: Normal Ischemia: Non specific changes. No: ST elevation c/w ischemia, ST depression Computer interpretation: Agree with computer - Labs Labs: Laboratory Tests 11/01/20 11/01/20 11/01/20 16:59 16:59 16:59 WBC 11.3 H RBC 4.38 Hgb 15.4 Hct 44.0 MCV 100.5 H MCH 35.2 H MCHC 35.0 RDW 12.7 Plt Count 364 MPV 8.8 Neut # (Auto) 9.3 H Lymph # (Auto) 1.2 L [place] # (Auto) 0.7 Eos # (Auto) 0.0 Baso # (Auto) 0.0 Absolute Nucleated RBC 0.00 Nucleated RBC % 0.0 PT 14.3 H INR 1.3 H Sodium 137 Potassium 3.5 Chloride 98 L Carbon Dioxide 21 Anion Gap 18.0 H BUN 5 L Creatinine 0.8 Estimated GFR (MDRD) 82 L Glucose 120 H Calcium 9.2 Magnesium 1.5 L Total Bilirubin 1.6 H AST 91 H ALT 31 Alkaline Phosphatase 252 H Total Protein 7.6 Albumin 3.7 Globulin 3.9 Albumin/Globulin Ratio 0.9 L Lipase 27 Nasal Adenovirus (PCR) Nasal B. parapertussis DNA (PCR) Nasal Coronavir 229E PCR Nasal Coronavir HKU1 PCR Nasal Coronavir NL63 PCR Nasal Coronavir OC43 PCR Nasal Enterovir/Rhinovir PCR Nasal Influenza B PCR Nasal Influenza A PCR Nasal Parainfluen 1 PCR Nasal Parainfluen 2 PCR Nasal Parainfluen 3 PCR Nasal Parainfluen 4 PCR Nasal RSV (PCR) Nasal B.pertussis DNA PCR Nasal C.pneumoniae (PCR) Jose Human Metapneumo PCR Nasal M.pneumoniae (PCR) Nasal SARS-CoV-2 (PCR) Ethyl Alcohol < 5.0 11/01/20 17:10 WBC RBC Hgb Hct MCV MCH MCHC RDW Plt Count MPV Neut # (Auto) Lymph # (Auto) [place] # (Auto) Eos # (Auto) Baso # (Auto) Absolute Nucleated RBC Nucleated RBC % PT INR Sodium Potassium Chloride Carbon Dioxide Anion Gap BUN Creatinine Estimated GFR (MDRD) Glucose Calcium Magnesium Total Bilirubin AST ALT Alkaline Phosphatase Total Protein Albumin Globulin Albumin/Globulin Ratio Lipase Nasal Adenovirus (PCR) NOT DETECTED Nasal B. parapertussis DNA (PCR) NOT DETECTED Nasal Coronavir 229E PCR NOT DETECTED Nasal Coronavir HKU1 PCR NOT DETECTED Nasal Coronavir NL63 PCR NOT DETECTED Nasal Coronavir OC43 PCR NOT DETECTED Nasal Enterovir/Rhinovir PCR NOT DETECTED Nasal Influenza B PCR NOT DETECTED Nasal Influenza A PCR NOT DETECTED Nasal Parainfluen 1 PCR NOT DETECTED Nasal Parainfluen 2 PCR NOT DETECTED Nasal Parainfluen 3 PCR NOT DETECTED Nasal Parainfluen 4 PCR NOT DETECTED Nasal RSV (PCR) NOT DETECTED Nasal B.pertussis DNA PCR NOT DETECTED Nasal C.pneumoniae (PCR) NOT DETECTED Jose Human Metapneumo PCR NOT DETECTED Nasal M.pneumoniae (PCR) NOT DETECTED Nasal SARS-CoV-2 (PCR) NOT DETECTED Ethyl Alcohol PD MEDICAL DECISION MAKING - ED course ED course: 35-year-old woman with myalgias, mild fluid overload, vomiting and diarrhea and some signs of mild alcohol withdrawal. The myalgias were prominent and therefore coronavirus was also considered but [employer] panel to test for this was negative. Labs are stable from yesterday. She was administered some IV morphine, Lasix, Ativan, Zofran, and subsequently magnesium sulfate noting hypomagnesemia. She claims no improvement after these interventions, although she looks visibly better and she was less tachycardic. At that juncture she requested Dilaudid by name. After the milligram of Dilaudid she was feeling a little better. This was repeated at her request. She requested more pain medications and may be Ativan to go home with. I discussed with her that I was willing to give her a prepack but given her history of addiction and noting that she was here for an overdose a few years ago no prescription would be forthcoming. The Lasix was repeated since she only had a little bit of urine output after the first dose. Departure - Departure Disposition: 01 Home, Self Care Clinical Impression: Fibromyalgia Alcohol withdrawal Qualifiers: Complication of substance-induced condition: uncomplicated Qualified Code(s): F10.230 - Alcohol dependence with withdrawal, uncomplicated Condition: Good Record reviewed to determine appropriate education?: Yes Instructions: ED Chronic Pain Management, ED Withdrawal Alcohol Prescriptions: Ondansetron Odt [Zofran] 4 mg TL Q6H PRN #10 tablet PRN Reason: Nausea / Vomiting Comments: Follow-up with your primary care physician. Return if worsening. Abstain from alcohol.
[2020-11-01 17:05] LABS: BASOPHILS % (AUTO) 0.3 %; EOSINOPHILS % (AUTO) 0.3 %; HGB - HEMOGLOBIN 15.4 g/dL (12.0-16.0); LYMPHOCYTES # (AUTO) 1.2 10^3/uL (1.5-3.5); LYMPHOCYTES % (AUTO) 10.3 %; MEAN CORPUSCULAR HEMOGLOBIN 35.2 pg (27.0-31.0); MEAN CORPUSCULAR VOLUME 100.5 fL (81.0-99.0); MEAN PLATELET VOLUME 8.8 fL (7.9-10.8); MONOCYTES # (AUTO) 0.7 10^3/uL (0.0-1.0); MONOCYTES % (AUTO) 6.4 %; NEUTROPHILS # (AUTO) 9.3 10^3/uL (1.5-6.6); NEUTROPHILS % (AUTO) 82.3 %; PLT - PLATELET COUNT 364 10^3/uL (130-450); RED BLOOD COUNT 4.38 10^6/uL (4.20-5.40); RED CELL DISTRIBUTION WIDTH 12.7 % (12.0-15.0); WHITE BLOOD COUNT 11.3 x10^3/uL (4.8-10.8)
[2020-11-01 17:11] LABS: INR 1.3 (0.8-1.2); PT - PROTHROMBIN TIME 14.3 secs (9.9-12.6)
[2020-11-01 17:20] LABS: ALBUMIN 3.7 g/dL (3.2-5.5); ALBUMIN/GLOBULIN RATIO 0.9 (1.0-2.2); ALKALINE PHOSPHATASE 252 IU/L (42-121); ALT ALANINE AMINOTRANSFERASE 31 IU/L (10-60); AST ASPARTATE AMINOTRANSFERASE 91 IU/L (10-42); BILIRUBIN,TOTAL 1.6 mg/dL (0.2-1.0); BUN - BLOOD UREA NITROGEN 5 mg/dL (6-20); CALCIUM 9.2 mg/dL (8.5-10.3); CARBON DIOXIDE - CO2 21 mmol/L (21-32); CHLORIDE 98 mmol/L (101-111); CREATININE 0.8 mg/dL (0.4-1.0); GLUCOSE 120 mg/dL (70-100); LIPASE 27 U/L (22-51); MAGNESIUM 1.5 mg/dL (1.7-2.8); TOTAL PROTEIN 7.6 g/dL (6.7-8.2)
[2020-11-01] MEDS ORDERED: MORPHINE 2 MG/ML CARPUJECT IVP STA (17:53)
[2020-11-01] MEDS ORDERED: MAGNESIUM SULFATE 2 GRAM 2 GM/50 ML BAG IV ONE (18:02)
[2020-11-01 18:17] LABS: C. PNEUMONIAE- RESP PCR PANEL NOT DETECTED
[2020-11-01] MEDS ORDERED: HYDROmorphone 1 MG/ML CARPUJECT IVP STA ×2 (18:25→19:24)
[2020-11-01] MEDS ORDERED: oxyCODONE/ACET 5/325 Prepack 4 PO STA (19:24)
[2020-11-01 20:09] VITALS: BP 139/95
== END 2020-11-01 20:11 | disposition home or self-care (01) ==
LOC: ED 16:27
DX: F10.230 Alcohol dependence with withdrawal, uncomplicated (principal); R11.10 Vomiting, unspecified; E83.42 Hypomagnesemia; M79.7 Fibromyalgia; Z20.822 Contact with and (suspected) exposure to COVID-19; I10 Essential (primary) hypertension; R00.0 Tachycardia, unspecified
CPT/HCPCS: 0202U; 36415; 80053; 80320; 83690; 83735; 85025; 85610; 93005; 96365; 96375; 96376; 99283; J1170; J2060; 81001; 87086

== ENCOUNTER 2020-11-02 22:40 | Emergency (ER) | payer MEDICAID ==
--- NOTE | 2020-11-02 22:54 | ED Physician Documentation ---
History of Present Illness - Stated complaint Stated Complaint: SWELLING, BODY PX - Chief complaint Chief Complaint: General - History obtained from History obtained from: Patient - History of Present Illness Timing: How many weeks ago (1) Pain level now: 10 Improved by: nothing Worsened by: movement (extremity pain) Associated symptoms: extremity swelling and pain, abdominal pain, n/v/d - Additonal information Additional information: third [facility] ED visit in 3 days. chief complaint is "major swelling in my legs which is causing a lot of pain" (per patient). She c/o 10 days of generalized swelling, predominantly in BUE and BLE causing pain (legs more than arms). She also c/o nausea, vomiting, and diarrhea, abdominal cramping pain predominantly across upper abdomen. also c/o dyspnea on exertion with pleuritic chest pain. she says she does not currently have a PMD but applied for state insurance recently and has appointment to be seen in outpatient setting a week from Sunday (ie-to be seen 11/12). She says she has been trying to take tylenol at home but she is worried how this will affect her liver; also, she says she tried to take the percocet that was provided after d/c yesterday but vomited up the medication. Review of Systems Constitutional: reports: Myalgias, Fatigue. denies: Fever, Chills, Sweats Cardiac: reports: Chest pain / pressure, Pedal edema. denies: Palpitations, Calf pain Respiratory: reports: Dyspnea. denies: Cough, Hemoptysis, Wheezing GI: reports: Abdominal Pain, Abdominal Swelling, Nausea, Vomiting, Diarrhea. denies: Constipation, Hematemesis, Bloody / black stool : denies: Dysuria, Now EGA Skin: reports: Reviewed and negative Musculoskeletal: reports: Extremity pain, Extremity swelling Neurologic: reports: Generalized weakness. denies: Focal weakness, Numbness, Headache PD PAST MEDICAL HISTORY - Past Medical History Cardiovascular: Hypertension Respiratory: None Neuro: Other Endocrine/Autoimmune: None GI: Pancreatitis : None HEENT: None Psych: Anxiety, Other Musculoskeletal: Rheumatoid arthritis, Chronic back pain Derm: None - Past Surgical History Past Surgical History: Yes General: Other HEENT: Tonsil/Adenoidectomy - Present Medications Home Medications: Ambulatory Orders Medication Instructions Recorded Confirmed Ondansetron Odt [Zofran] 4 mg TL Q6H PRN #10 tablet 11/01/20 LORazepam [Ativan] 0.5 mg PO Q8HR PRN #8 tablet 11/03/20 Oxycodone HCl/Acetaminophen 1 - 2 each PO Q6H PRN #10 tablet 11/03/20 [Percocet 5-325 mg Tablet] Spironolactone [Aldactone] 50 mg PO 11/03/20 - Allergies Allergies/Adverse Reactions: Allergies Allergy/AdvReac Type Severity Reaction Status Date / Time Sulfa (Sulfonamide Allergy Severe Edema Verified 11/01/20 16:33 Antibiotics) hydrocodone bitartrate * Allergy Intermediate Hives Verified 11/01/20 16:33 [From Vicodin] ketorolac [From Toradol] Allergy Mild Hives Verified 11/03/20 01:45 bupropion HCl * AdvReac Severe Unknown Verified 11/01/20 16:33 [From Wellbutrin] gabapentin AdvReac Severe seizure Verified 11/01/20 16:33 NSAIDS (Non-Steroidal AdvReac Intermediate Cramps Verified 11/01/20 16:33 Anti-Inflamma - Social History Does the pt smoke?: No Smoking Status: Never smoker Does the pt drink ETOH?: Yes Does the pt have substance abuse?: No - Immunizations Immunizations are current?: Yes - POLST Patient has POLST: No POLST Status: Full Code PD ED PE NORMAL - Vitals Vital signs reviewed: Yes - General General: Alert and oriented X 3, Well developed/nourished, Other (appears anxious, slightly tremulous) - HEENT HEENT: Moist mucous membranes - Neck Neck: Supple, no meningeal sign, No JVD - Cardiac Cardiac: No murmur - Respiratory Respiratory: No respiratory distress, Clear bilaterally - Abdomen Abdomen: Normal bowel sounds, Soft, Non distended, Other (mild TTP across upper abdomen without guarding or rebound) - Back Back: No CVA TTP - Derm Derm: Normal color, Warm and dry - Extremities Extremities: No tenderness to palpate - Neuro Neuro: Alert and oriented X 3, No sensory deficit PD ED PE EXPANDED - Cardiac Cardiac: Tachy, Regular Rhythm - Extremities Extremities: Pedal Pulses Present, Other (trace BLE edema as indicated by superficial indentation where the tops of her socks and the bottom of her sweatpants are, but does not noticably, rapidly pit) Results - Vitals Vitals: Vital Signs - 24 hr 11/02/20 11/02/20 11/03/20 22:41 23:19 02:00 Temperature 36.4 C L 36.6 C Heart Rate 130 H 109 H 126 H Respiratory 20 13 15 Rate Blood Pressure 175/107 H 150/102 H 140/100 H O2 Saturation 98 100 98 11/03/20 11/03/20 04:22 05:19 Temperature 36.5 C Heart Rate 111 H 116 H Respiratory 16 14 Rate Blood Pressure 133/92 H 137/92 H O2 Saturation 100 99 Oxygen O2 Source Room air - EKG (time done) No standard instances Rate: Rate (enter#) (114) Rhythm: Sinus tachycardia Rose: Normal Intervals: Normal HI QRS: Normal Ischemia: Normal ST segments, Other (flat T II, III, aVF) - Labs Labs: Laboratory Tests 11/02/20 11/02/20 11/02/20 00:11 00:11 00:11 WBC 11.6 H RBC 4.00 L Hgb 13.8 Hct 40.7 MCV 101.8 H MCH 34.5 H MCHC 33.9 RDW 12.6 Plt Count 332 MPV 8.8 Neut # (Auto) 9.4 H Lymph # (Auto) 1.2 L [place] # (Auto) 0.9 Eos # (Auto) 0.0 Baso # (Auto) 0.0 Absolute Nucleated RBC 0.00 Nucleated RBC % 0.0 Sodium 134 L Potassium 3.3 L Chloride 99 L Carbon Dioxide 20 L Anion Gap 15.0 H BUN 7 Creatinine 0.9 Estimated GFR (MDRD) 71 L Glucose 108 H Calcium 8.7 Magnesium Total Bilirubin 1.5 H AST 78 H ALT 25 Alkaline Phosphatase 212 H B-Natriuretic Peptide 147 H Total Protein 6.7 Albumin 3.4 Globulin 3.3 Albumin/Globulin Ratio 1.0 Ethyl Alcohol < 5.0 11/03/20 00:11 WBC RBC Hgb Hct MCV MCH MCHC RDW Plt Count MPV Neut # (Auto) Lymph # (Auto) [place] # (Auto) Eos # (Auto) Baso # (Auto) Absolute Nucleated RBC Nucleated RBC % Sodium Potassium Chloride Carbon Dioxide Anion Gap BUN Creatinine Estimated GFR (MDRD) Glucose Calcium Magnesium 1.7 Total Bilirubin AST ALT Alkaline Phosphatase B-Natriuretic Peptide Total Protein Albumin Globulin Albumin/Globulin Ratio Ethyl Alcohol - Rads (name of study) BLE venous doppler Radiology: Prelim report reviewed, See rad report RUQ US Radiology: Prelim report reviewed, See rad report CT chest angio (PE study) Radiology: Prelim report reviewed, See rad report PD MEDICAL DECISION MAKING - ED course Complexity details: reviewed old records, reviewed results, re-evaluated patient, considered differential, d/w patient ED course: test results tonight do not reveal nor suggest etiology of patient's symptoms. her abnormalities are nonspecific and would not explain her symptoms (mild leukocytosis, mild hypokalemia, mild LFT abnormalities although normal albumin). no DVT on BLE US, RUQ US shows "hydropic gallbladder without stigmata of acute cholecystitis, small adherent non-shadowing stone versus polyp is see in the gallbladder fundus"; fatty liver again noted on tonight's studies, as previously noted on previous ED visits. Patient indicates to me she was under the impression that she has fluid in her abdomen, but I explained to her that the recent CT A/P specifically notes that there is no fluid in the abdomen (including retroperitoneal space). CT chest angio (PE study) performed tonight due to patient's c/o pleuritic chest pain and her sinus tachycardia. This study has no acute/emergent findings (incidental note of "A calcified granulomas present in the right upper lobe" per radiologist's reading). Patient given IV zofran, ativan, and fluid bolus. She requests pain medication, noting that she says she can't take NSAIDs due to h/o PUD, that she has not had relief with tylenol and is worried about the effect tylenol will have on her liver, that she states allergy to hydrocodone, and that when she was given morphine on recent visit it caused generalized pruritis and redness at injection site (per patient). She is given dilaudid 1mg IV with repeat doses. Her tachycardia improved during ED stay when at rest, at times elevating when being reevaluated and engaged in discussion about her test results and her symptoms. She did not vomit during ED stay. She says she still has zofran at home. At time of discharge, she was in NAD and ambulated without assistance or apparent difficulty. Departure - Departure Disposition: 01 Home, Self Care Clinical Impression: Vomiting Qualifiers: Vomiting type: unspecified Vomiting Intractability: non-intractable Nausea presence: with nausea Qualified Code(s): R11.2 - Nausea with vomiting, unspecified Abdominal pain Qualifiers: Abdominal location: upper abdomen, unspecified Qualified Code(s): R10.10 - Upper abdominal pain, unspecified Condition: Good Instructions: ED Abdominal Pain Unkn Cause, ED Diet Vomiting Diarrhea, ED Naus ea Vomiting Follow-Up: [facility] [Provider Group] Prescriptions: LORazepam [Ativan] 0.5 mg PO Q8HR PRN #8 tablet PRN Reason: Anxiety Oxycodone HCl/Acetaminophen [Percocet 5-325 mg Tablet] 1 - 2 each PO Q6H PRN #10 tablet PRN Reason: pain Discharge Date/Time: 11/03/20 05:31
[2020-11-02] MEDS ORDERED: HYDROmorphone 1 MG/ML CARPUJECT IVP STA (23:40)
[2020-11-02] MEDS ORDERED: SODIUM CHLORIDE 0.9% 500 ML IV STA (23:40)
[2020-11-02] MEDS ORDERED: LORazepam 2 MG/ML VIAL IVP STA (23:40)
[2020-11-02] MEDS ORDERED: ONDANSETRON 4 MG/2 ML VIAL IVP STA (23:41)
[2020-11-03 00:18] LABS: BASOPHILS % (AUTO) 0.3 %; EOSINOPHILS % (AUTO) 0.3 %; HGB - HEMOGLOBIN 13.8 g/dL (12.0-16.0); LYMPHOCYTES # (AUTO) 1.2 10^3/uL (1.5-3.5); LYMPHOCYTES % (AUTO) 10.4 %; MEAN CORPUSCULAR HEMOGLOBIN 34.5 pg (27.0-31.0); MEAN CORPUSCULAR HGB CONC 33.9 g/dL (32.0-36.0); MEAN CORPUSCULAR VOLUME 101.8 fL (81.0-99.0); MEAN PLATELET VOLUME 8.8 fL (7.9-10.8); MONOCYTES # (AUTO) 0.9 10^3/uL (0.0-1.0); NEUTROPHILS # (AUTO) 9.4 10^3/uL (1.5-6.6); NEUTROPHILS % (AUTO) 80.7 %; PLT - PLATELET COUNT 332 10^3/uL (130-450); RED CELL DISTRIBUTION WIDTH 12.6 % (12.0-15.0); WHITE BLOOD COUNT 11.6 x10^3/uL (4.8-10.8)
[2020-11-03 00:30] LABS: ALBUMIN 3.4 g/dL (3.2-5.5); ALKALINE PHOSPHATASE 212 IU/L (42-121); ALT ALANINE AMINOTRANSFERASE 25 IU/L (10-60); AST ASPARTATE AMINOTRANSFERASE 78 IU/L (10-42); BILIRUBIN,TOTAL 1.5 mg/dL (0.2-1.0); BUN - BLOOD UREA NITROGEN 7 mg/dL (6-20); CALCIUM 8.7 mg/dL (8.5-10.3); CARBON DIOXIDE - CO2 20 mmol/L (21-32); CHLORIDE 99 mmol/L (101-111); CREATININE 0.9 mg/dL (0.4-1.0); GLUCOSE 108 mg/dL (70-100); TOTAL PROTEIN 6.7 g/dL (6.7-8.2)
[2020-11-03] MEDS ORDERED: HYDROmorphone 1 MG/ML CARPUJECT IVP STA ×2 (01:50→05:03)
[2020-11-03] MEDS ORDERED: LORazepam 2 MG/ML VIAL IVP STA (02:49)
[2020-11-03] MEDS ORDERED: IOVERSOL 320 100 ML VIAL IVP ONE ×2 (03:51→04:21)
[2020-11-03 05:19] VITALS: BP 137/92
--- NOTE | 2020-11-03 07:32 | CT Report ---
PROCEDURE: ANGIO CHEST W/WO INDICATIONS: pleuritic CP, tachycardia, dyspnea CONTRAST: IV CONTRAST: Optiray 320 ml: 80 PO CONTRAST: *NO PO CONTRAST TECHNIQUE: After the administration of intravenous contrast, 2 mm thick sections acquired from the pulmonary api briana to the posterior costophrenic angles. 3-dimensional maximum intensity projection (MIP) coronal a nd sagittal reformats were then acquired through the thorax. For radiation dose reduction, the follow ing was used: automated exposure control, adjustment of mA and/or kV according to patient size. COMPARISON: 10/31/2020 chest x-ray FINDINGS: Image quality: Excellent. Pulmonary arteries: Pulmonary arteries are normal in size, and demonstrate no intraluminal filling d efects to suggest central pulmonary embolism. Lungs and pleura: Lungs are clear. No pleural effusions or pneumothorax. Central and peripheral ai rways are patent. Mediastinum: Heart size is normal, without pericardial effusion. No mediastinal or hilar adenopathy . Thoracic aorta is normal in caliber and enhancement. Esophagus is normal in caliber, without hiat al hernia. Bones and chest wall: No suspicious bony lesions. Ribs and thoracic spine appear intact throughout. The thyroid is normal. No axillary or supraclavicular adenopathy. Abdomen: Diffuse fatty infiltration of the visualized liver. Liver is enlarged. Visualized upper abdominal solid organs otherwise appear normal in the early arter ial phase of enhancement. IMPRESSION: 1. No pulmonary embolus. 2. No lung consolidation or pleural effusions. 3. Hepatomegaly with steatosis. Reviewed by: Roxy Martinez MD, PhD on 11/03/2020 7:30 AM PST Approved by: Roxy Martinez MD, PhD on 11/03/2020 7:30 AM PST Station ID: [id number]
--- NOTE | 2020-11-03 07:34 | Ultrasound Report ---
PROCEDURE: Duplex Ext Veins Bilateral INDICATIONS: Lower extremity swelling TECHNIQUE: Real-time imaging, as well as color and pulse Doppler interrogation, were performed of the deep veins of both legs from the inguinal ligament to the popliteal fossa. COMPARISON: None FINDINGS: The deep veins are normally compressible, and free of intraluminal thrombus. Color and pu lse Doppler demonstrate normal phasic intravascular flow. There is normal augmentation response to d istal compression maneuver. IMPRESSION: No evidence of deep vein thrombosis involving either the right or left lower extremities. Reviewed by: Roxy Martinez MD, PhD on 11/03/2020 7:32 AM PST Approved by: Roxy Martinez MD, PhD on 11/03/2020 7:32 AM PST Station ID: [id number]
--- NOTE | 2020-11-03 08:13 | Ultrasound Report ---
PROCEDURE: Abdomen Limited INDICATIONS: Right upper quadrant abdominal pain; elevated bilirubin TECHNIQUE: Real-time focused scanning was performed of the abdomen, with image documentation. COMPARISON: CT abdomen and pelvis 10/31/2020 FINDINGS: The liver is enlarged measuring up to 24 cm maximum transverse diameter. Very increased hepatic paren chymal echogenicity and coarsening of the echotexture, findings which are nonspecific but suggest dif fuse hepatic steatosis or other diffuse hepatocellular disease. No definite evidence of a focal mass, although sensitivity is limited due to the degree of increased parenchymal echogenicity. No intrahepatic biliary ductal dilatation. The common duct measures approximately 6 mm at the macario h epatis. The gallbladder is hydropic without evidence of distention. There is an approximately 4 mm focus of i ncreased echogenicity in the fundus which appears nonmobile and likely represents either a gallbladde r polyp or less likely a small gallstone. There is no wall thickening or pericholecystic fluid. Pancreas is nonvisualized due to obscuration by overlying bowel gas. The right kidney is within normal limits. IMPRESSION: Marked hepatomegaly with moderate to severe hepatic steatosis. Steatohepatitis would need clinical ex clusion. Another diffuse hepatocellular process could also be present. Hydropic gallbladder without findings of acute cholecystitis. Small adherent nonshadowing gallstone versus polyp at the gallbladder fundus. No significant change from pulmonary report. Reviewed by: Evin Craig MD on 11/03/2020 8:12 AM PST Approved by: Evin Craig MD on 11/03/2020 8:12 AM PST Station ID: [id number]
== END 2020-11-03 05:31 | disposition home or self-care (01) ==
LOC: ED 22:40
DX: R10.10 Upper abdominal pain, unspecified (principal); R11.2 Nausea with vomiting, unspecified; I10 Essential (primary) hypertension; R00.0 Tachycardia, unspecified
CPT/HCPCS: 71275; 76705; 80053; 80320; 83735; 83880; 85025; 93005; 93970; 96374; 96375; 96376; 99284; J1170; J2060; Q9967

== ENCOUNTER 2020-11-07 20:17 | Emergency (ER) | payer MEDICAID ==
--- NOTE | 2020-11-07 20:54 | ED Physician Documentation ---
History of Present Illness - Stated complaint Stated Complaint: BODY PX/SWELLING - Chief complaint Chief Complaint: General - History obtained from History obtained from: Patient - Additonal information Additional information: This is a 35-year-old woman who was having issues with alcohol and subsequently developed some alcohol-related liver disease. She was seen here first on 31 October and this was her fourth visit since. Her major complaints are a feeling of body swelling mostly of the legs. Her work-ups have been thorough and complete and have demonstrated evidence of alcoholic liver disease both radiographically and on labs, but no evidence of DVT in either leg, no PE, no free fluid in the abdomen. She is on diuretics and presents tonight complaining of body pain especially of the legs and a feeling of swelling there. Review of Systems Constitutional: reports: Reviewed and negative Nose: reports: Reviewed and negative Throat: reports: Reviewed and negative Cardiac: reports: Reviewed and negative Respiratory: reports: Reviewed and negative PD PAST MEDICAL HISTORY - Past Medical History Cardiovascular: Hypertension Respiratory: None Neuro: Other Endocrine/Autoimmune: None GI: Pancreatitis : None HEENT: None Psych: Anxiety, Other Musculoskeletal: Rheumatoid arthritis, Chronic back pain Derm: None - Past Surgical History Past Surgical History: Yes General: Other HEENT: Tonsil/Adenoidectomy - Present Medications Home Medications: Ambulatory Orders Medication Instructions Recorded Confirmed Ondansetron Odt [Zofran] 4 mg TL Q6H PRN #10 tablet 11/01/20 LORazepam [Ativan] 0.5 mg PO Q8HR PRN #8 tablet 11/03/20 Oxycodone HCl/Acetaminophen 1 - 2 each PO Q6H PRN #10 tablet 11/03/20 [Percocet 5-325 mg Tablet] Spironolactone [Aldactone] 50 mg PO 11/03/20 - Allergies Allergies/Adverse Reactions: Allergies Allergy/AdvReac Type Severity Reaction Status Date / Time Sulfa (Sulfonamide Allergy Severe Edema Verified 11/07/20 20:20 Antibiotics) hydrocodone bitartrate * Allergy Intermediate Hives Verified 11/07/20 20:20 [From Vicodin] ketorolac [From Toradol] Allergy Mild Hives Verified 11/07/20 20:20 bupropion HCl * AdvReac Severe Unknown Verified 11/07/20 20:20 [From Wellbutrin] gabapentin AdvReac Severe seizure Verified 11/07/20 20:20 NSAIDS (Non-Steroidal AdvReac Intermediate Cramps Verified 11/07/20 20:20 Anti-Inflamma - Social History Does the pt smoke?: No Smoking Status: Never smoker Does the pt drink ETOH?: Yes Does the pt have substance abuse?: No - Immunizations Immunizations are current?: Yes - POLST Patient has POLST: No POLST Status: Full Code PD ED PE NORMAL - Vitals Vital signs reviewed: Yes - General General: Alert and oriented X 3, No acute distress - HEENT HEENT: PERRL, EOMI - Neck Neck: Supple, no meningeal sign, No bony TTP - Cardiac Cardiac: RRR, No murmur - Respiratory Respiratory: No respiratory distress, Clear bilaterally - Abdomen Abdomen: Normal bowel sounds, Soft, Non tender - Back Back: No CVA TTP, No spinal TTP - Derm Derm: Normal color, Warm and dry - Extremities Extremities: No edema, No calf tenderness / cord - Neuro Neuro: Alert and oriented X 3, Normal speech Eye Opening: Spontaneous Motor: Obeys Commands Verbal: Oriented GCS Score: 15 - Psych Psych: Normal mood, Normal affect Results - Vitals Vitals: Vital Signs - 24 hr 11/07/20 20:20 Temperature 36.6 C Heart Rate 96 Respiratory 16 Rate Blood Pressure 180/100 H O2 Saturation 100 Oxygen O2 Source Room air PD MEDICAL DECISION MAKING - ED course ED course: This is a 35-year-old woman with relatively recent diagnosis about a week ago of alcoholic liver disease with mild fluid overload. She appears to be appropriately diuresed at this point with minimal to no physical findings of fluid overload. She is here mostly for pain. Dr. Santana did an excellent work- up 3 nights ago which showed a normal abdominal ultrasound with the exception of evidence of alcoholic liver disease, CT angiograph of the chest was negative for PE, lower extremity ultrasounds on both sides were negative for DVT. I discussed with her that I was not comfortable giving her any further narcotic pain medication, I did discuss with her that I was happy to check labs to assess the status of her diuresis and electrolyte balance. After finding out that she was not receiving any pain medications tonight she requested to leave without further work-up. Departure - Departure Disposition: 01 Home, Self Care Clinical Impression: Leg swelling, Fibromyalgia Chronic pain Qualifiers: Chronic pain type: other chronic pain Qualified Code(s): G89.29 - Other chronic pain Condition: Good Record reviewed to determine appropriate education?: Yes Instructions: ED Chronic Pain Management Comments: Followup with your doctor as scheduled for further evaluation and treatment. As discussed I do not think it is appropriate for the emergency department to continue to treat your current conditions with pain medication other than Tylenol etc. Return for new or worsening symptoms though.
[2020-11-07 21:04] VITALS: BP 150/96
== END 2020-11-07 21:10 | disposition home or self-care (01) ==
LOC: ED 20:17
DX: M79.604 Pain in right leg (principal); M79.605 Pain in left leg; G89.29 Other chronic pain; R22.43 Localized swelling, mass and lump, lower limb, bilateral; M79.7 Fibromyalgia; K70.9 Alcoholic liver disease, unspecified; I10 Essential (primary) hypertension
CPT/HCPCS: 80053; 80320; 83690; 83735; 99282; 99283

== ENCOUNTER 2022-01-09 16:34 | Outpatient (CLI) | payer MEDICAID ==
--- NOTE | 2022-01-09 17:24 | XRAY Report ---
PROCEDURE: Foot 3 View BILAT INDICATIONS: BILATERAL FOOT PAIN TECHNIQUE: 3 views of the foot were acquired. COMPARISON: None. FINDINGS: Bones: No fractures or dislocations. No suspicious bony lesions. Soft tissues: No tibiotalar joint effusion. Achilles tendon appears normal. IMPRESSION: Source of foot pain is not identified. Consider further evaluation with three-phase bone scan or MRI. Reviewed by: Abelino Degroot MD on 01/09/2022 5:23 PM PDT Approved by: Abelino Degroot MD on 01/09/2022 5:23 PM PDT Station ID: [id number]
== END 2022-01-09 16:35 | disposition home or self-care (01) ==
LOC: DI 16:34
PROVIDERS: ATTEND Podiatrist
DX: M79.671 Pain in right foot (principal); M79.672 Pain in left foot

== ENCOUNTER 2022-03-14 20:13 | Emergency (ER) | payer BC, MEDICAID ==
[2022-03-14 20:29] VITALS: BP 142/98
[2022-03-14] MEDS ORDERED: HYDROmorphone 1 MG/ML CARPUJECT IM STA ×2 (21:17→23:21)
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
--- NOTE | 2022-03-14 23:06 | XRAY Report ---
PROCEDURE: Chest 1 View X-Ray INDICATIONS: chest pain TECHNIQUE: One view of the chest was acquired. COMPARISON: 10/31/2020. FINDINGS: Surgical changes and devices: None. Lungs and pleura: No pleural effusions or pneumothorax. Lungs are clear. Mediastinum: Mediastinal contours appear normal. Heart size is normal. Bones and chest wall: No suspicious bony lesions. Overlying soft tissues appear unremarkable. IMPRESSION: 1. No acute cardiopulmonary disease. Reviewed by: Humberto Pérez MD on 03/14/2022 11:05 PM PDT Approved by: Humberto Pérez MD on 03/14/2022 11:05 PM PDT Station ID: [id number]
[2022-03-14] MEDS ORDERED: oxyCODONE/ACET 5/325 Prepack 4 PO STA (23:21)
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
== END 2022-03-14 23:46 | disposition home or self-care (01) ==
LOC: ED 20:13
DX: S40.011A Contusion of right shoulder, initial encounter (principal); Y04.2XXA Assault by strike against or bumped into by another person, initial encounter; I10 Essential (primary) hypertension
CPT/HCPCS: 71045; 72131; 73030; 96372; 99283; J1170

== ENCOUNTER 2022-10-04 03:57 | Outpatient (CLI) | payer BC | END 2022-10-04 03:58 | disposition critical access hospital (66) | LOC: EMS 03:57 | DX: K92.0 Hematemesis (principal) | CPT/HCPCS: A0425; A0427 ==

== ENCOUNTER 2022-10-04 04:20 | Emergency (ER) | payer BC ==
--- OUTSIDE RECORDS SUMMARY | 2022-10-04 04:30 | EXTERNAL MEDICAL SUMMARY RPT | Continuity of Care Document ---
:1985 Author Organization [place] Address [address] [place] [address] Phone Allergies and Intolerances date description facility type (no date) Sulfa (Sulfonamide Antibiotics) [facility] (unknown) (no date) bupropion [facility] (unknown) (no date) hydrocodone [facility] (unknown) (no date) ketorolac [facility] (unknown) (no date) morphine [facility] (unknown) (no date) tramadol [facility] (unknown) Encounters No information. Functional Status No information. Immunizations No information. Medications No information. Problems No information. Procedures No information. Results/Labs test date author facility value unit interpret ation Result panel 1 (unknown) (no date) (unknown) (unknown) 2.0 (units unknown) (unknown) (unknown) (no date) (unknown) (unknown) 22.8 seconds (unkn own) Result panel 2 (unknown) (no date) (unknown) (unknown) > 60 ml/min (unkn own) (unknown) (no date) (unknown) (unknown) > 60 ml/min (unkn own) (unknown) (no date) (unknown) (unknown) 0.54 mg/dl (unkn own) (unknown) (no date) (unknown) (unknown) 1.1 (units unknown) (unknown) (unknown) (no date) (unknown) (unknown) 106 mmol/l (unkn own) (unknown) (no date) (unknown) (unknown) 123 mg/dl (unkn own) (unknown) (no date) (unknown) (unknown) 123 mg/dl (unkn own) (unknown) (no date) (unknown) (unknown) 140 mmol/l (unkn own) (unknown) (no date) (unknown) (unknown) 150 u/l (unkn own) (unknown) (no date) (unknown) (unknown) 16.7 (units unknown) (unknown) (unknown) (no date) (unknown) (unknown) 160 u/l (unkn own) (unknown) (no date) (unknown) (unknown) 23 mmol/l (unkn own) (unknown) (no date) (unknown) (unknown) 3.0 mmol/l (unkn own) (unknown) (no date) (unknown) (unknown) 3.4 g/dl (unkn own) (unknown) (no date) (unknown) (unknown) 3.7 g/dl (unkn own) (unknown) (no date) (unknown) (unknown) 42 iu/l (unkn own) (unknown) (no date) (unknown) (unknown) 69 iu/l (unkn own) (unknown) (no date) (unknown) (unknown) 7.1 g/dl (unkn own) (unknown) (no date) (unknown) (unknown) 7.3 mg/dl (unkn own) (unknown) (no date) (unknown) (unknown) 8.9 mg/dl (unkn own) (unknown) (no date) (unknown) (unknown) 9 mg/dl (unkn own) Result panel 3 (unknown) (no date) (unknown) (unknown) 0 /ul (unkn own) (unknown) (no date) (unknown) (unknown) 0.2 % (unkn own) (unknown) (no date) (unknown) (unknown) 0.7 % (unkn own) (unknown) (no date) (unknown) (unknown) 100 /ul (unkn own) (unknown) (no date) (unknown) (unknown) 1200 /ul (unkn own) (unknown) (no date) (unknown) (unknown) 14.4 % (unkn own) (unknown) (no date) (unknown) (unknown) 1500 /ul (unkn own) (unknown) (no date) (unknown) (unknown) 18.4 % (unkn own) (unknown) (no date) (unknown) (unknown) 18.7 % (unkn own) (unknown) (no date) (unknown) (unknown) 2.87 x10 6/ul (unkn own) (unknown) (no date) (unknown) (unknown) 27.2 % (unkn own) (unknown) (no date) (unknown) (unknown) 32.0 pg (unkn own) (unknown) (no date) (unknown) (unknown) 33.7 % (unkn own) (unknown) (no date) (unknown) (unknown) 5500 /ul (unkn own) (unknown) (no date) (unknown) (unknown) 66.3 % (unkn own) (unknown) (no date) (unknown) (unknown) 8.3 x10 3/ul (unkn own) (unknown) (no date) (unknown) (unknown) 9.2 g/dl (unkn own) (unknown) (no date) (unknown) (unknown) 94.8 fl (unkn own) Result panel 4 (unknown) (no date) (unknown) (unknown) 0 /ul (unkn own) (unknown) (no date) (unknown) (unknown) 0.2 % (unkn own) (unknown) (no date) (unknown) (unknown) 0.7 % (unkn own) (unknown) (no date) (unknown) (unknown) 100 /ul (unkn own) (unknown) (no date) (unknown) (unknown) 1200 /ul (unkn own) (unknown) (no date) (unknown) (unknown) 14.4 % (unkn own) (unknown) (no date) (unknown) (unknown) 145 x10 3/ul (unkn own) (unknown) (no date) (unknown) (unknown) 1500 /ul (unkn own) (unknown) (no date) (unknown) (unknown) 18.4 % (unkn own) (unknown) (no date) (unknown) (unknown) 18.7 % (unkn own) (unknown) (no date) (unknown) (unknown) 2.87 x10 6/ul (unkn own) (unknown) (no date) (unknown) (unknown) 27.2 % (unkn own) (unknown) (no date) (unknown) (unknown) 32.0 pg (unkn own) (unknown) (no date) (unknown) (unknown) 33.7 % (unkn own) (unknown) (no date) (unknown) (unknown) 5500 /ul (unkn own) (unknown) (no date) (unknown) (unknown) 66.3 % (unkn own) (unknown) (no date) (unknown) (unknown) 8.3 x10 3/ul (unkn own) (unknown) (no date) (unknown) (unknown) 9.2 g/dl (unkn own) (unknown) (no date) (unknown) (unknown) 94.8 fl (unkn own) Result panel 5 (unknown) (no (unknown) (unknown) (no value) (units (unk nown) date) unknown) (unknown) (no (unknown) (unknown) #14 tabs (units (unkno wn) date) unknown) (unknown) (no (unknown) (unknown) (Tylenol Extra (units (unknown) date) Strength) #30 tabs unknown) (unknown) (no (unknown) (unknown) [id number] (units (unkn own) date) unknown) (unknown) (no (unknown) (unknown) 1 g PO ACHS Qty: (units (unknown) date) 120 2RF unknown) (unknown) (no (unknown) (unknown) 1 mg PO DAILY (units ( unknown) date) Qty: 30 2RF unknown) (unknown) (no (unknown) (unknown) 1 patch topical (units (unknown) date) DAILY PRN (Reason: unknown) pain) Qty: 15 0RF (unknown) (no (unknown) (unknown) 1 tab PO DAILY (units (unknown) date) Qty: 30 2RF unknown) (unknown) (no (unknown) (unknown) 10 mg PO BEDTIME (units (unknown) date) PRN (Reason: unknown) anxiety/sleep) Qty: 14 0RF (unknown) (no (unknown) (unknown) 07/08/22 07/08/22 (units (unknown) date) 07/08/22 unknown) Range/Units (unknown) (no (unknown) (unknown) 07/08/22 20:38 (units (unknown) date) unknown) (unknown) (no (unknown) (unknown) 07/08/22 20:45 (units (unknown) date) unknown) (unknown) (no (unknown) (unknown) 07/08/22 (units (unkno wn) date) unknown) (unknown) (no (unknown) (unknown) 100 mg PO DAILY (units (unknown) date) Qty: 30 2RF unknown) (unknown) (no (unknown) (unknown) 20:33 (units (unkno wn) date) unknown) (unknown) (no (unknown) (unknown) 20:45 20:45 20:45 (units (unknown) date) unknown) (unknown) (no (unknown) (unknown) 25 mg PO TID PRN (units (unknown) date) (Reason: unknown) anxiety/nausea/vom iting) Qty: 20 0RF (unknown) (no (unknown) (unknown) 4 mg PO Q8H PRN (units (unknown) date) (Reason: nausea unknown) and vomiting) Qty: 14 0RF (unknown) (no (unknown) (unknown) 40 mg PO (units (unkno wn) date) 0700,2100 Qty: 60 unknown) 2RF (unknown) (no (unknown) (unknown) 5 mg PO BEDTIME (units (unknown) date) Qty: 30 2RF unknown) (unknown) (no (unknown) (unknown) 500 mg PO Q8HR (units (unknown) date) PRN (Reason: fever unknown) or pain) Qty: 30 0RF (unknown) (no (unknown) (unknown) ALT 42 H (<35) (units (unknown) date) IU/L unknown) (unknown) (no (unknown) (unknown) AST 69 H (14-36) (units (unknown) date) IU/L unknown) (unknown) (no (unknown) (unknown) Age/Sex: 36 / F (units (unknown) date) unknown) (unknown) (no (unknown) (unknown) Albumin 3.7 (units (un known) date) (3.5-5.0) g/dL unknown) (unknown) (no (unknown) (unknown) Albumin/Globulin (units (unknown) date) Ratio 1.1 unknown) (1.0-2.8) (unknown) (no (unknown) (unknown) Alcohol abuse (units ( unknown) date) unknown) (unknown) (no (unknown) (unknown) Alcohol type: (units ( unknown) date) beer and wine unknown) (unknown) (no (unknown) (unknown) Alcoholic liver (units (unknown) date) disease unknown) (unknown) (no (unknown) (unknown) Alkaline (units (unkno wn) date) Phosphatase 150 H unknown) (38-126) U/L (unknown) (no (unknown) (unknown) Allergies (units (unkn own) date) unknown) (unknown) (no (unknown) (unknown) Allergy/AdvReac (units (unknown) date) Type Severity unknown) Reaction Status Date / Time (unknown) (no (unknown) (unknown) Antibiotics) (units (u nknown) date) unknown) (unknown) (no (unknown) (unknown) BUN 9 (7-17) (units (u nknown) date) mg/dL unknown) (unknown) (no (unknown) (unknown) BUN/Creatinine (units (unknown) date) Ratio 16.7 (6-22) unknown) (unknown) (no (unknown) (unknown) Baso # (Auto) 0 (units (unknown) date) (0-100) /uL unknown) (unknown) (no (unknown) (unknown) Baso % (Auto) 0.2 (units (unknown) date) (0-2) % unknown) (unknown) (no (unknown) (unknown) Blood Pressure (units (unknown) date) 163/84 H 07/08/22 unknown) 20:33 (unknown) (no (unknown) (unknown) Blood Pressure (units (unknown) date) 163/84 H unknown) (unknown) (no (unknown) (unknown) Calcium 8.9 (units (un known) date) (8.4-10.2) mg/dL unknown) (unknown) (no (unknown) (unknown) Carbon Dioxide 23 (units (unknown) date) (22-32) mmol/L unknown) (unknown) (no (unknown) (unknown) Chief complaint: (units (unknown) date) Abdominal Pain unknown) (unknown) (no (unknown) (unknown) Chloride 106 (units (u nknown) date) (98-107) mmol/L unknown) (unknown) (no (unknown) (unknown) Cholecystitis (units ( unknown) date) unknown) (unknown) (no (unknown) (unknown) Chronic low back (units (unknown) date) pain unknown) (unknown) (no (unknown) (unknown) Complete Blood (units (unknown) date) Count AUTO DIFF unknown) Stat (unknown) (no (unknown) (unknown) Comprehensive (units ( unknown) date) Metabolic Panel unknown) Stat (unknown) (no (unknown) (unknown) Course (units (unkno wn) date) unknown) (unknown) (no (unknown) (unknown) Creatinine 0.54 (units (unknown) date) (0.52-1.04) mg/dL unknown) (unknown) (no (unknown) (unknown) : 1985 (units (unknown) date) Acct:[id number] unknown) (unknown) (no (unknown) (unknown) Date of Service: (units (unknown) date) 07/08/22 unknown) (unknown) (no (unknown) (unknown) Departure (units (unkn own) date) unknown) (unknown) (no (unknown) (unknown) Diabetes mellitus (units (unknown) date) unknown) (unknown) (no (unknown) (unknown) Discharge Plan (units (unknown) date) unknown) (unknown) (no (unknown) (unknown) Discontinued (units (u nknown) date) Medications unknown) (unknown) (no (unknown) (unknown) Documented By: AT (units (unknown) date) unknown) (unknown) (no (unknown) (unknown) ED Orders (units (unkn own) date) unknown) (unknown) (no (unknown) (unknown) EKG-12 Lead Stat (units (unknown) date) unknown) (unknown) (no (unknown) (unknown) ER Physician: (units ( unknown) date) Logan Mcneal D.O. unknown) (unknown) (no (unknown) (unknown) Emergency Report (units (unknown) date) unknown) (unknown) (no (unknown) (unknown) Eos # (Auto) 100 (units (unknown) date) (0-450) /uL unknown) (unknown) (no (unknown) (unknown) Eos % (Auto) 0.7 (units (unknown) date) L (2-4) % unknown) (unknown) (no (unknown) (unknown) Estimated GFR > (units (unknown) date) 60 (>60) mL/min unknown) (unknown) (no (unknown) (unknown) Exam (units (unkno wn) date) unknown) (unknown) (no (unknown) (unknown) Family History (units (unknown) date) (Reviewed 06/28/22 unknown) @ 17:02 by Jackie Delacruz [facility]) (unknown) (no (unknown) (unknown) Father (units (unkno wn) date) Hypertension unknown) (unknown) (no (unknown) (unknown) Fibromyalgia (units (u nknown) date) unknown) (unknown) (no (unknown) (unknown) General (units (unkno wn) date) unknown) (unknown) (no (unknown) (unknown) Globulin 3.4 (units (u nknown) date) (1.7-4.1) g/dL unknown) (unknown) (no (unknown) (unknown) Glucose 123 H (units ( unknown) date) (70-100) mg/dL unknown) (unknown) (no (unknown) (unknown) HPI - GI Bleed (units (unknown) date) unknown) (unknown) (no (unknown) (unknown) Hct 27.2 L (units (unk nown) date) (36-46) % unknown) (unknown) (no (unknown) (unknown) Hgb 9.2 L (units (unkn own) date) (12.0-16.0) g/dL unknown) (unknown) (no (unknown) (unknown) History of (units (unk nown) date) tonsillectomy and unknown) adenoidectomy (unknown) (no (unknown) (unknown) Hypercoagulable (units (unknown) date) state unknown) (unknown) (no (unknown) (unknown) Hypertension (units (u nknown) date) unknown) (unknown) (no (unknown) (unknown) INR 2.0 H (units (unkn own) date) (0.9-1.3) unknown) (unknown) (no (unknown) (unknown) IUD (intrauterine (units (unknown) date) device) in place unknown) (unknown) (no (unknown) (unknown) Initial Vital (units ( unknown) date) Signs unknown) (unknown) (no (unknown) (unknown) Initial Vital (units ( unknown) date) Signs: unknown) (unknown) (no (unknown) (unknown) [facility] (units (unknown) date) [address] unknown) [place] [address] (unknown) (no (unknown) (unknown) Lab Data (units (unkno wn) date) unknown) (unknown) (no (unknown) (unknown) Lab Results (units (un known) date) unknown) (unknown) (no (unknown) (unknown) Labs: (units (unkno wn) date) unknown) (unknown) (no (unknown) (unknown) Last Admin: (units (un known) date) 07/08/22 21:46 unknown) Dose: 40 mg (unknown) (no (unknown) (unknown) Lipase 160 (units (unk nown) date) (23-300) U/L unknown) (unknown) (no (unknown) (unknown) Lipase Stat (units (un known) date) unknown) (unknown) (no (unknown) (unknown) Lymph # (Auto) (units (unknown) date) 1200 (0721-3585) unknown) /uL (unknown) (no (unknown) (unknown) Lymph % (Auto) (units (unknown) date) 14.4 L (25-40) % unknown) (unknown) (no (unknown) (unknown) MCH 32.0 (26-34) (units (unknown) date) PG unknown) (unknown) (no (unknown) (unknown) MCHC 33.7 (30-36) (units (unknown) date) % unknown) (unknown) (no (unknown) (unknown) MCV 94.8 (80-100) (units (unknown) date) fL unknown) (unknown) (no (unknown) (unknown) MDM - GI Bleed (units (unknown) date) unknown) (unknown) (no (unknown) (unknown) Medical History (units (unknown) date) (Reviewed 06/28/22 unknown) @ 17:02 by Jackie Delacruz [facility]) (unknown) (no (unknown) (unknown) Medication (units (unk nown) date) Instructions unknown) Recorded (unknown) (no (unknown) (unknown) Mode of arrival: (units (unknown) date) Ambulatory unknown) (unknown) (no (unknown) (unknown) Pope # (Auto) (units ( unknown) date) 1500 H (0-900) /uL unknown) (unknown) (no (unknown) (unknown) Pope % (Auto) (units ( unknown) date) 18.4 H (3-14) % unknown) (unknown) (no (unknown) (unknown) Mother Hepatic (units (unknown) date) disease unknown) (unknown) (no (unknown) (unknown) Neut # (Auto) (units ( unknown) date) 5500 (3262-0206) unknown) /uL (unknown) (no (unknown) (unknown) Neut % (Auto) (units ( unknown) date) 66.3 (50-75) % unknown) (unknown) (no (unknown) (unknown) No Action (units (unkn own) date) unknown) (unknown) (no (unknown) (unknown) Ordered: (units (unkno wn) date) unknown) (unknown) (no (unknown) (unknown) Orders (units (unkno wn) date) unknown) (unknown) (no (unknown) (unknown) Oxygen Delivery (units (unknown) date) Method 07/08/22 unknown) 20:33 (unknown) (no (unknown) (unknown) Oxygen Delivery (units (unknown) date) Method Room Air unknown) (unknown) (no (unknown) (unknown) PT 22.8 H (units (unkn own) date) (10.1-12.7) unknown) SECONDS (unknown) (no (unknown) (unknown) Pancreatitis (units (u nknown) date) unknown) (unknown) (no (unknown) (unknown) Pantoprazole (units (u nknown) date) Sodium unknown) (Pantoprazole 40 Mg Vial) 40 mg IV NOW ONE (unknown) (no (unknown) (unknown) Patient History (units (unknown) date) unknown) (unknown) (no (unknown) (unknown) Patient: (units (unkno wn) date) Rosaura Witt unknown) MR#: M (unknown) (no (unknown) (unknown) Plt Count 145 L (units (unknown) date) (150-400) X103/uL unknown) (unknown) (no (unknown) (unknown) Potassium 3.0 L (units (unknown) date) (3.4-5.1) mmol/L unknown) (unknown) (no (unknown) (unknown) Prescriptions: (units (unknown) date) unknown) (unknown) (no (unknown) (unknown) Previous Rx's (units ( unknown) date) unknown) (unknown) (no (unknown) (unknown) Primary biliary (units (unknown) date) cirrhosis unknown) (unknown) (no (unknown) (unknown) Prothrombin Time (units (unknown) date) INR Stat unknown) (unknown) (no (unknown) (unknown) Pulse Oximetry 97 (units (unknown) date) 07/08/22 20:33 unknown) (unknown) (no (unknown) (unknown) Pulse Oximetry 97 (units (unknown) date) unknown) (unknown) (no (unknown) (unknown) Pulse Rate 71 (units ( unknown) date) 07/08/22 20:33 unknown) (unknown) (no (unknown) (unknown) Pulse Rate 71 (units ( unknown) date) unknown) (unknown) (no (unknown) (unknown) RBC 2.87 L (units (unk nown) date) (4.0-5.2) X106/uL unknown) (unknown) (no (unknown) (unknown) RDW 18.7 H (units (unk nown) date) (11.6-14.8) % unknown) (unknown) (no (unknown) (unknown) Related Data (units (u nknown) date) unknown) (unknown) (no (unknown) (unknown) Respiratory Rate (units (unknown) date) 18 07/08/22 20:33 unknown) (unknown) (no (unknown) (unknown) Respiratory Rate (units (unknown) date) 18 unknown) (unknown) (no (unknown) (unknown) Result diagrams: (units (unknown) date) unknown) (unknown) (no (unknown) (unknown) Rheumatoid (units (unk nown) date) arthritis unknown) (unknown) (no (unknown) (unknown) Rx Instructions: (units (unknown) date) unknown) (unknown) (no (unknown) (unknown) Signed By: (units (unk nown) date) unknown) (unknown) (no (unknown) (unknown) Smoking Status: (units (unknown) date) Current every day unknown) smoker (unknown) (no (unknown) (unknown) Social History (units (unknown) date) (Reviewed 06/28/22 unknown) @ 17:02 by ESCOBAR Lucas) (unknown) (no (unknown) (unknown) Sodium 140 (units (unk nown) date) (137-145) mmol/L unknown) (unknown) (no (unknown) (unknown) Source: patient (units (unknown) date) unknown) (unknown) (no (unknown) (unknown) Stated complaint: (units (unknown) date) Blood in vomit, unknown) Pain (unknown) (no (unknown) (unknown) Stop: 07/08/22 (units (unknown) date) 21:12 unknown) (unknown) (no (unknown) (unknown) Substance Use (units ( unknown) date) Type: marijuana unknown) (unknown) (no (unknown) (unknown) Sulfa (units (unkno wn) date) (Sulfonamide unknown) Allergy Intermediate Hives Verified 06/28/22 09:21 (unknown) (no (unknown) (unknown) Surgical History (units (unknown) date) (Reviewed 06/28/22 unknown) @ 17:02 by Jackie Delacruz [facility]) (unknown) (no (unknown) (unknown) Temperature 97.8 (units (unknown) date) F 07/08/22 20:33 unknown) (unknown) (no (unknown) (unknown) Temperature 97.8 (units (unknown) date) F unknown) (unknown) (no (unknown) (unknown) Time Seen by (units (u nknown) date) Provider: 07/08/22 unknown) 21:05 (unknown) (no (unknown) (unknown) Total Bilirubin (units (unknown) date) 7.3 H (0.2-1.3) unknown) mg/dL (unknown) (no (unknown) (unknown) Total Protein 7.1 (units (unknown) date) (6.3-8.2) g/dL unknown) (unknown) (no (unknown) (unknown) Vital Signs - 8 (units (unknown) date) hr unknown) (unknown) (no (unknown) (unknown) Vital Signs (units (un known) date) unknown) (unknown) (no (unknown) (unknown) Vital signs: (units (u nknown) date) unknown) (unknown) (no (unknown) (unknown) WBC 8.3 (units (unkno wn) date) (4.5-11.0) X103/uL unknown) (unknown) (no (unknown) (unknown) [Embedded Image (units (unknown) date) Not Available] unknown) (unknown) (no (unknown) (unknown) acetaminophen 500 (units (unknown) date) mg tablet 500 mg unknown) PO Q8HR PRN fever or pain 06/28/22 (unknown) (no (unknown) (unknown) acetaminophen (units ( unknown) date) [Tylenol Extra unknown) Strength] 500 mg tablet (unknown) (no (unknown) (unknown) alcohol intake (units (unknown) date) frequency: 0-2 unknown) drinks per day (unknown) (no (unknown) (unknown) alcohol intake: (units (unknown) date) current unknown) (unknown) (no (unknown) (unknown) anxiety/nausea/vo (units (unknown) date) miting #20 tabs unknown) (unknown) (no (unknown) (unknown) bupropion [From (units (unknown) date) Wellbutrin] unknown) AdvReac Severe Seizure Verified 07/08/22 20:37 (unknown) (no (unknown) (unknown) diazepam 10 mg (units (unknown) date) tablet 10 mg PO unknown) BEDTIME PRN anxiety/sleep 06/28/22 (unknown) (no (unknown) (unknown) diazepam 10 mg (units (unknown) date) tablet unknown) (unknown) (no (unknown) (unknown) ea (units (unkno wn) date) unknown) (unknown) (no (unknown) (unknown) folic acid 1 mg (units (unknown) date) Tablet unknown) (unknown) (no (unknown) (unknown) folic acid 1 mg (units (unknown) date) tablet 1 mg PO unknown) DAILY #30 tabs 02/17/22 (unknown) (no (unknown) (unknown) household (units (unkn own) date) members: spouse unknown) and children (unknown) (no (unknown) (unknown) hydrocodone (units (un known) date) Allergy Severe unknown) Hives Verified 07/08/22 20:37 (unknown) (no (unknown) (unknown) hydroxyzine HCl (units (unknown) date) 25 mg tablet 25 mg unknown) PO TID PRN 06/28/22 (unknown) (no (unknown) (unknown) hydroxyzine HCl (units (unknown) date) 25 mg tablet unknown) (unknown) (no (unknown) (unknown) ketorolac [From (units (unknown) date) Toradol] Allergy unknown) Severe Hives Verified 07/08/22 20:37 (unknown) (no (unknown) (unknown) leave on most (units ( unknown) date) painful area for unknown) up to 12 hrs (unknown) (no (unknown) (unknown) lidocaine 5 % (units ( unknown) date) adhesive unknown) patch,medicated (unknown) (no (unknown) (unknown) lidocaine 5 % (units ( unknown) date) topical patch 1 unknown) patch topical DAILY PRN pain #15 03/23/22 (unknown) (no (unknown) (unknown) mcg tablet (units (unk nown) date) (Tab-A-Erendira) unknown) (unknown) (no (unknown) (unknown) melatonin 5 mg (units (unknown) date) tablet 5 mg PO unknown) BEDTIME sleep #30 tabs 02/17/22 (unknown) (no (unknown) (unknown) melatonin 5 mg (units (unknown) date) tablet unknown) (unknown) (no (unknown) (unknown) mg tablet (units (unkn own) date) unknown) (unknown) (no (unknown) (unknown) morphine Allergy (units (unknown) date) Intermediate Rash unknown) Verified 07/08/22 20:37 (unknown) (no (unknown) (unknown) multivitamin with (units (unknown) date) folic acid 400 1 unknown) tab PO DAILY #30 tabs 02/17/22 (unknown) (no (unknown) (unknown) multivitamin with (units (unknown) date) folic acid unknown) [Tab-A-Erendira] 400 mcg Tablet (unknown) (no (unknown) (unknown) ondansetron 4 mg (units (unknown) date) disintegrating 4 unknown) mg PO Q8H PRN nausea and 06/28/22 (unknown) (no (unknown) (unknown) ondansetron 4 mg (units (unknown) date) tablet,disintegrat unknown) ing (unknown) (no (unknown) (unknown) pantoprazole 40 (units (unknown) date) mg Tablet,Delayed unknown) Release (Dr/Ec) (unknown) (no (unknown) (unknown) pantoprazole 40 (units (unknown) date) mg tablet,delayed unknown) 40 mg PO 0700,2100 #60 tabs 02/17/22 (unknown) (no (unknown) (unknown) release (units (unkno wn) date) unknown) (unknown) (no (unknown) (unknown) sucralfate 1 gram (units (unknown) date) Tablet unknown) (unknown) (no (unknown) (unknown) sucralfate 1 gram (units (unknown) date) tablet 1 g PO ACHS unknown) #120 tabs 02/17/22 (unknown) (no (unknown) (unknown) tablet vomiting (units (unknown) date) #14 tabs unknown) (unknown) (no (unknown) (unknown) thiamine (units (unkno wn) date) mononitrate (vit unknown) B1) 100 100 mg PO DAILY #30 tabs 02/17/22 (unknown) (no (unknown) (unknown) thiamine (units (unkno wn) date) mononitrate (vit unknown) B1) 100 mg Tablet (unknown) (no (unknown) (unknown) tobacco type: (units ( unknown) date) cigarettes unknown) (unknown) (no (unknown) (unknown) tramadol Allergy (units (unknown) date) Intermediate unknown) Headache Verified 07/08/22 20:37 Result panel 6 (unknown) (no date) (unknown) (unknown) 0 /ul (unkn own) (unknown) (no date) (unknown) (unknown) 0.2 % (unkn own) (unknown) (no date) (unknown) (unknown) 0.7 % (unkn own) (unknown) (no date) (unknown) (unknown) 100 /ul (unkn own) (unknown) (no date) (unknown) (unknown) 1200 /ul (unkn own) (unknown) (no date) (unknown) (unknown) 14.4 % (unkn own) (unknown) (no date) (unknown) (unknown) 145 x10 3/ul (unkn own) (unknown) (no date) (unknown) (unknown) 1500 /ul (unkn own) (unknown) (no date) (unknown) (unknown) 18.4 % (unkn own) (unknown) (no date) (unknown) (unknown) 18.7 % (unkn own) (unknown) (no date) (unknown) (unknown) 2 (units (unkn own) unknown) (unknown) (no date) (unknown) (unknown) 2.87 x10 6/ul (unkn own) (unknown) (no date) (unknown) (unknown) 27.2 % (unkn own) (unknown) (no date) (unknown) (unknown) 32.0 pg (unkn own) (unknown) (no date) (unknown) (unknown) 33.7 % (unkn own) (unknown) (no date) (unknown) (unknown) 5500 /ul (unkn own) (unknown) (no date) (unknown) (unknown) 66.3 % (unkn own) (unknown) (no date) (unknown) (unknown) 8.3 x10 3/ul (unkn own) (unknown) (no date) (unknown) (unknown) 9.2 g/dl (unkn own) (unknown) (no date) (unknown) (unknown) 94.8 fl (unkn own) (unknown) (no date) (unknown) (unknown) See Below (units (unk nown) unknown) Result panel 7 (unknown) (no (unknown) (unknown) (no value) (units (unk nown) date) unknown) (unknown) (no (unknown) (unknown) 07/08/22 (units (unkno wn) date) unknown) (unknown) (no (unknown) (unknown) [address] [place] [address] (units (unknown) date) unknown) (unknown) (no (unknown) (unknown) ABDOMEN: (units (unkno wn) date) unknown) (unknown) (no (unknown) (unknown) Abdominal Nodes: (units (unknown) date) No retroperitoneal unknown) or mesenteric adenopathy by size criteria. (unknown) (no (unknown) (unknown) Accession Number: (units (unknown) date) [id number] unknown) (unknown) (no (unknown) (unknown) Adrenal Glands: (units (unknown) date) Unremarkable. unknown) (unknown) (no (unknown) (unknown) After the (units (unkn own) date) administration of unknown) intravenous contrast, axial sections acquired from (unknown) (no (unknown) (unknown) Age/Sex: 36 / F (units (unknown) date) Date of Service: unknown) (unknown) (no (unknown) (unknown) CIARA Joseph (units ( unknown) date) [id number] unknown) (unknown) (no (unknown) (unknown) Approved by: (units (u nknown) date) amador Melgoza M.D. on 07/09/2022 at 0:06 (unknown) (no (unknown) (unknown) Biliary ducts: (units (unknown) date) Unremarkable. unknown) (unknown) (no (unknown) (unknown) Bladder: (units (unkno wn) date) Unremarkable. unknown) (unknown) (no (unknown) (unknown) Bones: (units (unkno wn) date) Unremarkable. unknown) (unknown) (no (unknown) (unknown) COMPARISON: (units (un known) date) [facility], unknown) CT, CT ABDOMEN PELVIS W CON, 04/26/2022, 20:50. (unknown) (no (unknown) (unknown) CT Scan Report (units (unknown) date) unknown) (unknown) (no (unknown) (unknown) : 1985 (units (unknown) date) Acct:[id number] unknown) (unknown) (no (unknown) (unknown) Dictated by: (units (u nknown) date) Jose Raymond unknown) Fern on 07/09/2022 at 0:01 (unknown) (no (unknown) (unknown) FINDINGS: (units (unkn own) date) unknown) (unknown) (no (unknown) (unknown) For (units (unkno wn) date) unknown) (unknown) (no (unknown) (unknown) Gallbladder: (units (u nknown) date) Partially unknown) contracted (unknown) (no (unknown) (unknown) Heart: No (units (unkn own) date) significant unknown) findings. (unknown) (no (unknown) (unknown) Hospital, CT, CT (units (unknown) date) ABDOMEN PELVIS W unknown) CON, 02/15/2022, 22:32. 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 unknown) (unknown) (no (unknown) (unknown) [facility] (units (unknown) date) unknown) (unknown) (no (unknown) (unknown) [facility] (units (unkno wn) date) unknown) (unknown) (no (unknown) (unknown) Kidneys and (units (un known) date) Ureters: unknown) Unremarkable. (unknown) (no (unknown) (unknown) Liver: Mildly (units ( unknown) date) heterogeneous unknown) enhancement pattern, and there is a subtle nodular (unknown) (no (unknown) (unknown) Loc: ED (units (unkno wn) date) unknown) (unknown) (no (unknown) (unknown) Lung bases: (units (un known) date) Unremarkable. unknown) (unknown) (no (unknown) (unknown) [id number] (units (unk nown) date) unknown) (unknown) (no (unknown) (unknown) Miscellaneous: No (units (unknown) date) hernias are seen. unknown) (unknown) (no (unknown) (unknown) Ordering (units (unkno wn) date) Provider: unknown) Logan Mcneal D.O. (unknown) (no (unknown) (unknown) PELVIS: (units (unkno wn) date) unknown) (unknown) (no (unknown) (unknown) PROCEDURE: CT (units ( unknown) date) ABDOMEN PELVIS W unknown) CON (unknown) (no (unknown) (unknown) Pancreas: (units (unkn own) date) Unremarkable. unknown) (unknown) (no (unknown) (unknown) Patient: (units (unkno wn) date) Rosaura Witt G unknown) MR#: (unknown) (no (unknown) (unknown) Pelvic Nodes: No (units (unknown) date) enlarged lymph unknown) nodes. (unknown) (no (unknown) (unknown) Pelvic Organs: (units (unknown) date) Unremarkable. unknown) (unknown) (no (unknown) (unknown) Peritoneum: There (units (unknown) date) is mild to unknown) moderate abnormal intraperitoneal free fluid and (unknown) (no (unknown) (unknown) Procedure: CT (units ( unknown) date) abdomen pelvis w unknown) con (unknown) (no (unknown) (unknown) Signed (units (unkno wn) date) unknown) (unknown) (no (unknown) (unknown) Spleen: Globally (units (unknown) date) enlarged.. unknown) (unknown) (no (unknown) (unknown) Stomach and (units (un known) date) Bowel: Stomach, unknown) small bowel loops, and colon are unremarkable. (unknown) (no (unknown) (unknown) TECHNIQUE: (units (unk nown) date) unknown) (unknown) (no (unknown) (unknown) Varices are (units (un known) date) unknown) (unknown) (no (unknown) (unknown) Ventral Wall: No (units (unknown) date) hernias. unknown) (unknown) (no (unknown) (unknown) Vessels: Aorta (units (unknown) date) and inferior vena unknown) cava are normal in size. (unknown) (no (unknown) (unknown) adjustment (units (unk nown) date) unknown) (unknown) (no (unknown) (unknown) also (units (unkno wn) date) unknown) (unknown) (no (unknown) (unknown) bases to the (units (u nknown) date) pubic symphysis. unknown) Coronal and sagittal reformats were performed. (unknown) (no (unknown) (unknown) caudad from (units (un known) date) unknown) (unknown) (no (unknown) (unknown) change and (units (unk nown) date) unknown) (unknown) (no (unknown) (unknown) decompress (units (unk nown) date) unknown) (unknown) (no (unknown) (unknown) edema. Prominent (units (unknown) date) varices at the unknown) splenic hilum and directed both cephalad and (unknown) (no (unknown) (unknown) hepatic lobe (units (u nknown) date) unknown) (unknown) (no (unknown) (unknown) is no sign (units (unk nown) date) unknown) (unknown) (no (unknown) (unknown) margination along (units (unknown) date) the capsular unknown) border of the liver best seen at the left (unknown) (no (unknown) (unknown) mesenteric (units (unk nown) date) unknown) (unknown) (no (unknown) (unknown) of hepatic (units (unk nown) date) neoplasm or portal unknown) vein thrombosis. Also, no evidence of superior (unknown) (no (unknown) (unknown) of mA and/or kV (units (unknown) date) according to unknown) patient size. (unknown) (no (unknown) (unknown) prominent at and (units (unknown) date) adjacent to the unknown) splenic hilum and also tracking inferiorly to (unknown) (no (unknown) (unknown) radiation dose (units (unknown) date) reduction, the unknown) following was used: automated exposure control, (unknown) (no (unknown) (unknown) retroperitoneal (units (unknown) date) mild edema.. No unknown) free air. (unknown) (no (unknown) (unknown) retroperitoneal (units (unknown) date) unknown) (unknown) (no (unknown) (unknown) that area. The (units (unknown) date) appearance is unknown) likely related to portal hypertension, and there (unknown) (no (unknown) (unknown) the lung (units (unkno wn) date) unknown) (unknown) (no (unknown) (unknown) the spleen is (units ( unknown) date) enlarged having a unknown) maximal craniocaudad length of 16.7 cm. (unknown) (no (unknown) (unknown) through the left (units (unknown) date) renal vein. . unknown) (unknown) (no (unknown) (unknown) vein thrombus. (units (unknown) date) unknown) (unknown) (no (unknown) (unknown) which is (units (unkno wn) date) asymmetrically unknown) enlarged. The appearance is consistent with cirrhotic Result panel 8 (unknown) (no (unknown) (unknown) (no value) (units (unk nown) date) unknown) (unknown) (no (unknown) (unknown) #14 tabs (units (unkno wn) date) unknown) (unknown) (no (unknown) (unknown) (Tylenol Extra (units (unknown) date) Strength) #30 tabs unknown) (unknown) (no (unknown) (unknown) [id number] (units (unkn own) date) unknown) (unknown) (no (unknown) (unknown) 1 g PO ACHS Qty: (units (unknown) date) 120 2RF unknown) (unknown) (no (unknown) (unknown) 1 mg PO DAILY Qty: (units (unknown) date) 30 2RF unknown) (unknown) (no (unknown) (unknown) 1 patch topical (units (unknown) date) DAILY PRN (Reason: unknown) pain) Qty: 15 0RF (unknown) (no (unknown) (unknown) 1 tab PO DAILY (units (unknown) date) Qty: 30 2RF unknown) (unknown) (no (unknown) (unknown) 10 mg PO BEDTIME (units (unknown) date) PRN (Reason: unknown) anxiety/sleep) Qty: 14 0RF (unknown) (no (unknown) (unknown) 07/08/22 07/08/22 (units (unknown) date) 07/08/22 unknown) Range/Units (unknown) (no (unknown) (unknown) 07/08/22 20:38 (units (unknown) date) unknown) (unknown) (no (unknown) (unknown) 07/08/22 20:45 (units (unknown) date) unknown) (unknown) (no (unknown) (unknown) 07/08/22 23:04 (units (unknown) date) unknown) (unknown) (no (unknown) (unknown) 07/08/22 (units (unkno wn) date) unknown) (unknown) (no (unknown) (unknown) 100 mg PO DAILY (units (unknown) date) Qty: 30 2RF unknown) (unknown) (no (unknown) (unknown) 12 point review of (units (unknown) date) systems is negative unknown) except for those stated above (unknown) (no (unknown) (unknown) 20:33 (units (unkno wn) date) unknown) (unknown) (no (unknown) (unknown) 20:45 20:45 20:45 (units (unknown) date) unknown) (unknown) (no (unknown) (unknown) 25 mg PO TID PRN (units (unknown) date) (Reason: unknown) anxiety/nausea/vomi ting) Qty: 20 0RF (unknown) (no (unknown) (unknown) 36-year-old female (units (unknown) date) daily smoker with unknown) history of significant alcohol abuse (unknown) (no (unknown) (unknown) 4 mg PO Q8H PRN (units (unknown) date) (Reason: nausea and unknown) vomiting) Qty: 14 0RF (unknown) (no (unknown) (unknown) 40 mg PO 0700,2100 (units (unknown) date) Qty: 60 2RF unknown) (unknown) (no (unknown) (unknown) 5 mg PO BEDTIME (units (unknown) date) Qty: 30 2RF unknown) (unknown) (no (unknown) (unknown) 500 mg PO Q8HR PRN (units (unknown) date) (Reason: fever or unknown) pain) Qty: 30 0RF (unknown) (no (unknown) (unknown) ALT 42 H (<35) (units (unknown) date) IU/L unknown) (unknown) (no (unknown) (unknown) AST 52, ALT 23, (units (unknown) date) bilirubin 8.5, INR unknown) 2.1. She is had no fever or chills. She (unknown) (no (unknown) (unknown) AST 69 H (14-36) (units (unknown) date) IU/L unknown) (unknown) (no (unknown) (unknown) Acanthocytes (units (u nknown) date) (Spur) 2+ H unknown) (unknown) (no (unknown) (unknown) Age/Sex: 36 / F (units (unknown) date) unknown) (unknown) (no (unknown) (unknown) Albumin 3.7 (units (un known) date) (3.5-5.0) g/dL unknown) (unknown) (no (unknown) (unknown) Albumin/Globulin (units (unknown) date) Ratio 1.1 (1.0-2.8) unknown) (unknown) (no (unknown) (unknown) Alcohol abuse (units ( unknown) date) unknown) (unknown) (no (unknown) (unknown) Alcohol type: beer (units (unknown) date) and wine unknown) (unknown) (no (unknown) (unknown) Alcoholic liver (units (unknown) date) disease unknown) (unknown) (no (unknown) (unknown) Alkaline (units (unkno wn) date) Phosphatase 150 H unknown) (38-126) U/L (unknown) (no (unknown) (unknown) Allergies (units (unkn own) date) unknown) (unknown) (no (unknown) (unknown) Allergy/AdvReac (units (unknown) date) Type Severity unknown) Reaction Status Date / Time (unknown) (no (unknown) (unknown) Anisocytosis 2+ H (units (unknown) date) unknown) (unknown) (no (unknown) (unknown) Antibiotics) (units (u nknown) date) unknown) (unknown) (no (unknown) (unknown) BACK: Nontender (units (unknown) date) without deformity unknown) or crepitance. No flank tenderness. (unknown) (no (unknown) (unknown) BUN 9 (7-17) mg/dL (units (unknown) date) unknown) (unknown) (no (unknown) (unknown) BUN/Creatinine (units (unknown) date) Ratio 16.7 (6-22) unknown) (unknown) (no (unknown) (unknown) Baso # (Auto) 0 (units (unknown) date) (0-100) /uL unknown) (unknown) (no (unknown) (unknown) Baso % (Auto) 0.2 (units (unknown) date) (0-2) % unknown) (unknown) (no (unknown) (unknown) Blood Pressure (units (unknown) date) 163/84 H 07/08/22 unknown) 20:33 (unknown) (no (unknown) (unknown) Blood Pressure (units (unknown) date) 163/84 H unknown) (unknown) (no (unknown) (unknown) CARDIOVASCULAR: (units (unknown) date) Denies chest pain, unknown) palpitations, orthopnea, edema, (unknown) (no (unknown) (unknown) CARDIOVASCULAR: (units (unknown) date) Regular rate and unknown) rhythm without murmurs, gallops, or rubs. (unknown) (no (unknown) (unknown) CT abdomen pelvis (units (unknown) date) w con Stat unknown) (unknown) (no (unknown) (unknown) Calcium 8.9 (units (un known) date) (8.4-10.2) mg/dL unknown) (unknown) (no (unknown) (unknown) Carbon Dioxide 23 (units (unknown) date) (22-32) mmol/L unknown) (unknown) (no (unknown) (unknown) Chief complaint: (units (unknown) date) Abdominal Pain unknown) (unknown) (no (unknown) (unknown) Chloride 106 (units (u nknown) date) (98-107) mmol/L unknown) (unknown) (no (unknown) (unknown) Cholecystitis (units ( unknown) date) unknown) (unknown) (no (unknown) (unknown) Chronic low back (units (unknown) date) pain unknown) (unknown) (no (unknown) (unknown) Complete Blood (units (unknown) date) Count AUTO DIFF unknown) Stat (unknown) (no (unknown) (unknown) Comprehensive (units ( unknown) date) Metabolic Panel unknown) Stat (unknown) (no (unknown) (unknown) Course (units (unkno wn) date) unknown) (unknown) (no (unknown) (unknown) Creatinine 0.54 (units (unknown) date) (0.52-1.04) mg/dL unknown) (unknown) (no (unknown) (unknown) : 1985 (units (unknown) date) Acct:[id number] unknown) (unknown) (no (unknown) (unknown) Date of Service: (units (unknown) date) 07/08/22 unknown) (unknown) (no (unknown) (unknown) Departure (units (unkn own) date) unknown) (unknown) (no (unknown) (unknown) Diabetes mellitus (units (unknown) date) unknown) (unknown) (no (unknown) (unknown) Discharge Plan (units (unknown) date) unknown) (unknown) (no (unknown) (unknown) Discontinued (units (u nknown) date) Medications unknown) (unknown) (no (unknown) (unknown) Documented By: AT (units (unknown) date) unknown) (unknown) (no (unknown) (unknown) Documented By: RL (units (unknown) date) unknown) (unknown) (no (unknown) (unknown) ED Orders (units (unkn own) date) unknown) (unknown) (no (unknown) (unknown) EKG-12 Lead Stat (units (unknown) date) unknown) (unknown) (no (unknown) (unknown) ENT: Nose without (units (unknown) date) bleeding, purulent unknown) drainage. Throat without erythema, (unknown) (no (unknown) (unknown) ER Physician: (units ( unknown) date) Logan Mcneal D.O. unknown) (unknown) (no (unknown) (unknown) EXTREMITIES: No (units (unknown) date) edema or joint unknown) tenderness. (unknown) (no (unknown) (unknown) EYES: Pupils equal (units (unknown) date) round and reactive. unknown) Extraocular motions intact. Scleral (unknown) (no (unknown) (unknown) Emergency Report (units (unknown) date) unknown) (unknown) (no (unknown) (unknown) Eos # (Auto) 100 (units (unknown) date) (0-450) /uL unknown) (unknown) (no (unknown) (unknown) Eos % (Auto) 0.7 L (units (unknown) date) (2-4) % unknown) (unknown) (no (unknown) (unknown) Estimated GFR > 60 (units (unknown) date) (>60) mL/min unknown) (unknown) (no (unknown) (unknown) Exam Narrative: (units (unknown) date) unknown) (unknown) (no (unknown) (unknown) Exam (units (unkno wn) date) unknown) (unknown) (no (unknown) (unknown) Family History (units (unknown) date) (Reviewed 07/08/22 unknown) @ 23:09 by Logan Mcneal DO) (unknown) (no (unknown) (unknown) Father (units (unkno wn) date) Hypertension unknown) (unknown) (no (unknown) (unknown) Fibromyalgia (units (u nknown) date) unknown) (unknown) (no (unknown) (unknown) GASTROINTESTINAL: (units (unknown) date) Abdomen soft, unknown) tender in the epigastrium, nondistended. (unknown) (no (unknown) (unknown) GASTROINTESTINAL: (units (unknown) date) See HPI unknown) (unknown) (no (unknown) (unknown) GENERAL: See HPI (units (unknown) date) unknown) (unknown) (no (unknown) (unknown) GENERAL: [36] year (units (unknown) date) old patient appears unknown) stated age. Well-developed patient, in (unknown) (no (unknown) (unknown) : Denies (units (unk nown) date) dysuria, frequency, unknown) incontinence, hematuria, urinary retention. (unknown) (no (unknown) (unknown) General (units (unkno wn) date) unknown) (unknown) (no (unknown) (unknown) Globulin 3.4 (units (u nknown) date) (1.7-4.1) g/dL unknown) (unknown) (no (unknown) (unknown) Glucose 123 H (units ( unknown) date) (70-100) mg/dL unknown) (unknown) (no (unknown) (unknown) HEAD: Atraumatic. (units (unknown) date) Normocephalic. unknown) (unknown) (no (unknown) (unknown) HEENT: Denies (units ( unknown) date) sinus pain, ear unknown) pain, sore throat, difficulty swallowing, (unknown) (no (unknown) (unknown) HPI - GI Bleed (units (unknown) date) unknown) (unknown) (no (unknown) (unknown) HPI Narrative: (units (unknown) date) unknown) (unknown) (no (unknown) (unknown) Haloperidol (units (un known) date) (Haloperidol 5 unknown) Mg/Ml Vial) 5 mg IV NOW ONE (unknown) (no (unknown) (unknown) Hct 27.2 L (36-46) (units (unknown) date) % unknown) (unknown) (no (unknown) (unknown) Hgb 9.2 L (units (unkn own) date) (12.0-16.0) g/dL unknown) (unknown) (no (unknown) (unknown) History of Present (units (unknown) date) Illness unknown) (unknown) (no (unknown) (unknown) History of (units (unk nown) date) tonsillectomy and unknown) adenoidectomy (unknown) (no (unknown) (unknown) Hypercoagulable (units (unknown) date) state unknown) (unknown) (no (unknown) (unknown) Hypertension (units (u nknown) date) unknown) (unknown) (no (unknown) (unknown) INR 2.0 H (units (unkn own) date) (0.9-1.3) unknown) (unknown) (no (unknown) (unknown) IUD (intrauterine (units (unknown) date) device) in place unknown) (unknown) (no (unknown) (unknown) Initial Vital (units ( unknown) date) Signs unknown) (unknown) (no (unknown) (unknown) Initial Vital (units ( unknown) date) Signs: unknown) (unknown) (no (unknown) (unknown) [facility] (units (unknown) date) [address] unknown) [place] [address] (unknown) (no (unknown) (unknown) Lab Data (units (unkno wn) date) unknown) (unknown) (no (unknown) (unknown) Lab Results (units (un known) date) unknown) (unknown) (no (unknown) (unknown) Labs: (units (unkno wn) date) unknown) (unknown) (no (unknown) (unknown) Last Admin: (units (un known) date) 07/08/22 21:46 unknown) Dose: 40 mg (unknown) (no (unknown) (unknown) Last Admin: (units (un known) date) 07/08/22 22:38 unknown) Dose: 1,000 mls/hr (unknown) (no (unknown) (unknown) Last Admin: (units (un known) date) 07/08/22 22:38 unknown) Dose: 5 mg (unknown) (no (unknown) (unknown) Lipase 160 (units (unk nown) date) (23-300) U/L unknown) (unknown) (no (unknown) (unknown) Lipase Stat (units (un known) date) unknown) (unknown) (no (unknown) (unknown) Lymph # (Auto) (units (unknown) date) 1200 (3514-0300) unknown) /uL (unknown) (no (unknown) (unknown) Lymph % (Auto) (units (unknown) date) 14.4 L (25-40) % unknown) (unknown) (no (unknown) (unknown) MCH 32.0 (26-34) (units (unknown) date) PG unknown) (unknown) (no (unknown) (unknown) MCHC 33.7 (30-36) (units (unknown) date) % unknown) (unknown) (no (unknown) (unknown) MCV 94.8 (80-100) (units (unknown) date) fL unknown) (unknown) (no (unknown) (unknown) MDM - GI Bleed (units (unknown) date) unknown) (unknown) (no (unknown) (unknown) MUSCULOSKELETAL: (units (unknown) date) denies weakness, unknown) joint pain, or bony pain (unknown) (no (unknown) (unknown) Medical History (units (unknown) date) (Reviewed 07/08/22 unknown) @ 23:09 by Logan Mcneal DO) (unknown) (no (unknown) (unknown) Medication (units (unk nown) date) Instructions unknown) Recorded (unknown) (no (unknown) (unknown) Mode of arrival: (units (unknown) date) Ambulatory unknown) (unknown) (no (unknown) (unknown) Pope # (Auto) 1500 (units (unknown) date) H (0-900) /uL unknown) (unknown) (no (unknown) (unknown) Pope % (Auto) 18.4 (units (unknown) date) H (3-14) % unknown) (unknown) (no (unknown) (unknown) Mother Hepatic (units (unknown) date) disease unknown) (unknown) (no (unknown) (unknown) NECK: Trachea (units ( unknown) date) midline. Non tender unknown) (unknown) (no (unknown) (unknown) NEURO: AOx3. (units (u nknown) date) unknown) (unknown) (no (unknown) (unknown) NEUROLOGIC: Denies (units (unknown) date) weakness, headache, unknown) numbness, change in speech, confusion, (unknown) (no (unknown) (unknown) Narrative (units (unkn own) date) unknown) (unknown) (no (unknown) (unknown) Narrative: (units (unk nown) date) unknown) (unknown) (no (unknown) (unknown) Neut # (Auto) 5500 (units (unknown) date) (1975-6728) /uL unknown) (unknown) (no (unknown) (unknown) Neut % (Auto) 66.3 (units (unknown) date) (50-75) % unknown) (unknown) (no (unknown) (unknown) No Action (units (unkn own) date) unknown) (unknown) (no (unknown) (unknown) Ordered: (units (unkno wn) date) unknown) (unknown) (no (unknown) (unknown) Orders (units (unkno wn) date) unknown) (unknown) (no (unknown) (unknown) Oxygen Delivery (units (unknown) date) Method 07/08/22 unknown) 20:33 (unknown) (no (unknown) (unknown) Oxygen Delivery (units (unknown) date) Method Room Air unknown) (unknown) (no (unknown) (unknown) PSYCHIATRIC: No (units (unknown) date) concerning unknown) psychosocial issues. (unknown) (no (unknown) (unknown) PT 22.8 H (units (unkn own) date) (10.1-12.7) SECONDS unknown) (unknown) (no (unknown) (unknown) Pancreatitis (units (u nknown) date) unknown) (unknown) (no (unknown) (unknown) Pantoprazole (units (u nknown) date) Sodium unknown) (Pantoprazole 40 Mg Vial) 40 mg IV NOW ONE (unknown) (no (unknown) (unknown) Patient History (units (unknown) date) unknown) (unknown) (no (unknown) (unknown) Patient reporting (units (unknown) date) little improvement unknown) in symptoms after above-stated therapies, (unknown) (no (unknown) (unknown) Patient: (units (unkno wn) date) Rosaura Witt unknown) MR#: M (unknown) (no (unknown) (unknown) Plt Count 145 L (units (unknown) date) (150-400) X103/uL unknown) (unknown) (no (unknown) (unknown) Potassium 3.0 L (units (unknown) date) (3.4-5.1) mmol/L unknown) (unknown) (no (unknown) (unknown) Prescriptions: (units (unknown) date) unknown) (unknown) (no (unknown) (unknown) Previous Rx's (units ( unknown) date) unknown) (unknown) (no (unknown) (unknown) Primary biliary (units (unknown) date) cirrhosis unknown) (unknown) (no (unknown) (unknown) Prothrombin Time (units (unknown) date) INR Stat unknown) (unknown) (no (unknown) (unknown) Pulse Oximetry 97 (units (unknown) date) 07/08/22 20:33 unknown) (unknown) (no (unknown) (unknown) Pulse Oximetry 97 (units (unknown) date) unknown) (unknown) (no (unknown) (unknown) Pulse Rate 71 (units ( unknown) date) 07/08/22 20:33 unknown) (unknown) (no (unknown) (unknown) Pulse Rate 71 (units ( unknown) date) unknown) (unknown) (no (unknown) (unknown) RBC 2.87 L (units (unk nown) date) (4.0-5.2) X106/uL unknown) (unknown) (no (unknown) (unknown) RBC Morphology See (units (unknown) date) below unknown) (unknown) (no (unknown) (unknown) RDW 18.7 H (units (unk nown) date) (11.6-14.8) % unknown) (unknown) (no (unknown) (unknown) RESPIRATORY: Clear (units (unknown) date) to auscultation. unknown) Breath sounds equal bilaterally. No wheezes, (unknown) (no (unknown) (unknown) RESPIRATORY: (units (u nknown) date) Denies dyspnea, unknown) cough, wheezing, hemoptysis, sputum. (unknown) (no (unknown) (unknown) Reevaluation #1: (units (unknown) date) unknown) (unknown) (no (unknown) (unknown) Reevaluation(s) (units (unknown) date) unknown) (unknown) (no (unknown) (unknown) Reglan as well as (units (unknown) date) another L of fluid unknown) and a CT of her abdomen and pelvis. Still (unknown) (no (unknown) (unknown) Related Data (units (u nknown) date) unknown) (unknown) (no (unknown) (unknown) Respiratory Rate (units (unknown) date) 18 07/08/22 20:33 unknown) (unknown) (no (unknown) (unknown) Respiratory Rate (units (unknown) date) 18 unknown) (unknown) (no (unknown) (unknown) Result diagrams: (units (unknown) date) unknown) (unknown) (no (unknown) (unknown) Review of Systems (units (unknown) date) unknown) (unknown) (no (unknown) (unknown) Rheumatoid (units (unk nown) date) arthritis unknown) (unknown) (no (unknown) (unknown) Rx Instructions: (units (unknown) date) unknown) (unknown) (no (unknown) (unknown) SKIN: Denies rash, (units (unknown) date) skin lesions, or unknown) other (unknown) (no (unknown) (unknown) SKIN: Mild (units (unk nown) date) jaundice unknown) (unknown) (no (unknown) (unknown) June 29 that (units (unknown) date) noted trace unknown) esophageal varices and type 1 gastroesophageal (unknown) (no (unknown) (unknown) Signed By: (units (unk nown) date) unknown) (unknown) (no (unknown) (unknown) Smoking Status: (units (unknown) date) Current every day unknown) smoker (unknown) (no (unknown) (unknown) Social History (units (unknown) date) (Reviewed 07/08/22 unknown) @ 23:09 by Logan Mcneal DO) (unknown) (no (unknown) (unknown) Sodium 140 (units (unk nown) date) (137-145) mmol/L unknown) (unknown) (no (unknown) (unknown) Sodium Chloride (units (unknown) date) (Normal Saline unknown) 0.9%) 1,000 mls @ 1,000 mls/hr IV BOLUS ONE (unknown) (no (unknown) (unknown) Source: patient (units (unknown) date) unknown) (unknown) (no (unknown) (unknown) Stated complaint: (units (unknown) date) Blood in vomit, unknown) Pain (unknown) (no (unknown) (unknown) Stop: 07/08/22 (units (unknown) date) 21:12 unknown) (unknown) (no (unknown) (unknown) Stop: 07/08/22 (units (unknown) date) 22:31 unknown) (unknown) (no (unknown) (unknown) Stop: 07/08/22 (units (unknown) date) 23:29 unknown) (unknown) (no (unknown) (unknown) Substance Use (units ( unknown) date) Type: marijuana unknown) (unknown) (no (unknown) (unknown) Sulfa (Sulfonamide (units (unknown) date) Allergy unknown) Intermediate Hives Verified 06/28/22 09:21 (unknown) (no (unknown) (unknown) Surgical History (units (unknown) date) (Reviewed 07/08/22 unknown) @ 23:09 by Logan Mcneal DO) (unknown) (no (unknown) (unknown) Temperature 97.8 F (units (unknown) date) 07/08/22 20:33 unknown) (unknown) (no (unknown) (unknown) Temperature 97.8 F (units (unknown) date) unknown) (unknown) (no (unknown) (unknown) Time Seen by (units (u nknown) date) Provider: 07/08/22 unknown) 21:05 (unknown) (no (unknown) (unknown) Time: 23:06 (units (un known) date) unknown) (unknown) (no (unknown) (unknown) Total Bilirubin (units (unknown) date) 7.3 H (0.2-1.3) unknown) mg/dL (unknown) (no (unknown) (unknown) Total Protein 7.1 (units (unknown) date) (6.3-8.2) g/dL unknown) (unknown) (no (unknown) (unknown) Vital Signs - 8 hr (units (unknown) date) unknown) (unknown) (no (unknown) (unknown) Vital Signs (units (un known) date) unknown) (unknown) (no (unknown) (unknown) Vital signs: (units (u nknown) date) unknown) (unknown) (no (unknown) (unknown) WBC 8.3 (4.5-11.0) (units (unknown) date) X103/uL unknown) (unknown) (no (unknown) (unknown) [Embedded Image (units (unknown) date) Not Available] unknown) (unknown) (no (unknown) (unknown) acetaminophen 500 (units (unknown) date) mg tablet 500 mg PO unknown) Q8HR PRN fever or pain 06/28/22 (unknown) (no (unknown) (unknown) acetaminophen (units ( unknown) date) [Tylenol Extra unknown) Strength] 500 mg tablet (unknown) (no (unknown) (unknown) alcohol intake (units (unknown) date) frequency: 0-2 unknown) drinks per day (unknown) (no (unknown) (unknown) alcohol intake: (units (unknown) date) current unknown) (unknown) (no (unknown) (unknown) and received 1 (units (unknown) date) transfusing unknown) including 2 units of packed red cells. On the date (unknown) (no (unknown) (unknown) anxiety/nausea/vom (units (unknown) date) iting #20 tabs unknown) (unknown) (no (unknown) (unknown) appearance. She (units (unknown) date) was just discharged unknown) from [facility] on Sunday after having (unknown) (no (unknown) (unknown) been admitted for (units (unknown) date) the prior 5 days. unknown) Her admission diagnosis includes alcoholic (unknown) (no (unknown) (unknown) bupropion [From (units (unknown) date) Wellbutrin] AdvReac unknown) Severe Seizure Verified 07/08/22 20:37 (unknown) (no (unknown) (unknown) complaint (units (unkn own) date) increasing upper unknown) abdominal pain with persistent nausea and vomiting (unknown) (no (unknown) (unknown) denies any chest (units (unknown) date) pain or shortness unknown) of breath (unknown) (no (unknown) (unknown) diazepam 10 mg (units (unknown) date) tablet 10 mg PO unknown) BEDTIME PRN anxiety/sleep 06/28/22 (unknown) (no (unknown) (unknown) diazepam 10 mg (units (unknown) date) tablet unknown) (unknown) (no (unknown) (unknown) dizziness. (units (unk nown) date) unknown) (unknown) (no (unknown) (unknown) ea (units (unkno wn) date) unknown) (unknown) (no (unknown) (unknown) eating and (units (unk nown) date) drinking. She had a unknown) small amount of blood and a few of the episodes (unknown) (no (unknown) (unknown) folic acid 1 mg (units (unknown) date) Tablet unknown) (unknown) (no (unknown) (unknown) folic acid 1 mg (units (unknown) date) tablet 1 mg PO unknown) DAILY #30 tabs 02/17/22 (unknown) (no (unknown) (unknown) for the past few (units (unknown) date) days. She states unknown) that her pain is worsened by motion and (unknown) (no (unknown) (unknown) hepatitis, (units (unk nown) date) hematemesis with unknown) persistent nausea, coagulopathy. She had an EEG on (unknown) (no (unknown) (unknown) household members: (units (unknown) date) spouse and children unknown) (unknown) (no (unknown) (unknown) hydrocodone (units (un known) date) Allergy Severe unknown) Hives Verified 07/08/22 20:37 (unknown) (no (unknown) (unknown) hydroxyzine HCl 25 (units (unknown) date) mg tablet 25 mg PO unknown) TID PRN 06/28/22 (unknown) (no (unknown) (unknown) hydroxyzine HCl 25 (units (unknown) date) mg tablet unknown) (unknown) (no (unknown) (unknown) icterus is noted, (units (unknown) date) she states this has unknown) been present for quite some time and is no (unknown) (no (unknown) (unknown) ketorolac [From (units (unknown) date) Toradol] Allergy unknown) Severe Hives Verified 07/08/22 20:37 (unknown) (no (unknown) (unknown) leave on most (units ( unknown) date) painful area for up unknown) to 12 hrs (unknown) (no (unknown) (unknown) lidocaine 5 % (units ( unknown) date) adhesive unknown) patch,medicated (unknown) (no (unknown) (unknown) lidocaine 5 % (units ( unknown) date) topical patch 1 unknown) patch topical DAILY PRN pain #15 03/23/22 (unknown) (no (unknown) (unknown) mcg tablet (units (unk nown) date) (Tab-A-Erendira) unknown) (unknown) (no (unknown) (unknown) melatonin 5 mg (units (unknown) date) tablet 5 mg PO unknown) BEDTIME sleep #30 tabs 02/17/22 (unknown) (no (unknown) (unknown) melatonin 5 mg (units (unknown) date) tablet unknown) (unknown) (no (unknown) (unknown) mg tablet (units (unkn own) date) unknown) (unknown) (no (unknown) (unknown) mild distress. (units (unknown) date) Tearful, holding an unknown) emesis bag (unknown) (no (unknown) (unknown) morphine Allergy (units (unknown) date) Intermediate Rash unknown) Verified 07/08/22 20:37 (unknown) (no (unknown) (unknown) multivitamin with (units (unknown) date) folic acid 400 1 unknown) tab PO DAILY #30 tabs 02/17/22 (unknown) (no (unknown) (unknown) multivitamin with (units (unknown) date) folic acid unknown) [Tab-A-Erendira] 400 mcg Tablet (unknown) (no (unknown) (unknown) no records from (units (unknown) date) [facility] unknown) (unknown) (no (unknown) (unknown) of her discharge (units (unknown) date) lab abnormalities, unknown) which had improved, include alk-phos 142, (unknown) (no (unknown) (unknown) of her emesis but (units (unknown) date) denies any unknown) significant bright red emesis or coffee-ground (unknown) (no (unknown) (unknown) ondansetron 4 mg (units (unknown) date) disintegrating 4 mg unknown) PO Q8H PRN nausea and 06/28/22 (unknown) (no (unknown) (unknown) ondansetron 4 mg (units (unknown) date) tablet,disintegrati unknown) ng (unknown) (no (unknown) (unknown) pantoprazole 40 mg (units (unknown) date) Tablet,Delayed unknown) Release (Dr/Ec) (unknown) (no (unknown) (unknown) pantoprazole 40 mg (units (unknown) date) tablet,delayed 40 unknown) mg PO 0700,2100 #60 tabs 02/17/22 (unknown) (no (unknown) (unknown) rales, or rhonchi. (units (unknown) date) unknown) (unknown) (no (unknown) (unknown) release (units (unkno wn) date) unknown) (unknown) (no (unknown) (unknown) requesting (units (unk nown) date) something else for unknown) pain and nausea. 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 unknown) (unknown) (no (unknown) (unknown) sucralfate 1 gram (units (unknown) date) Tablet unknown) (unknown) (no (unknown) (unknown) sucralfate 1 gram (units (unknown) date) tablet 1 g PO ACHS unknown) #120 tabs 02/17/22 (unknown) (no (unknown) (unknown) tablet vomiting (units (unknown) date) #14 tabs unknown) (unknown) (no (unknown) (unknown) thiamine (units (unkno wn) date) mononitrate (vit unknown) B1) 100 100 mg PO DAILY #30 tabs 02/17/22 (unknown) (no (unknown) (unknown) thiamine (units (unkno wn) date) mononitrate (vit unknown) B1) 100 mg Tablet (unknown) (no (unknown) (unknown) tobacco type: (units ( unknown) date) cigarettes unknown) (unknown) (no (unknown) (unknown) tonsillar (units (unkn own) date) hypertrophy or unknown) exudate. Airway patent. 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 She had been on Cipro empirically (unknown) (no (unknown) (unknown) worse than normal. (units (unknown) date) No injection or unknown) drainage. Result panel 9 (unknown) (no date) (unknown) (unknown) 23.0 % (unkn own) (unknown) (no date) (unknown) (unknown) 7.7 g/dl (unkn own) Result panel 10 (unknown) (no date) (unknown) (unknown) < 10 mg/dl (unkn own) (unknown) (no date) (unknown) (unknown) < 10 mg/dl (unkn own) (unknown) (no date) (unknown) (unknown) 15 umol/l (unkn own) Result panel 11 (unknown) (no date) (unknown) (unknown) 22.9 % (unkn own) (unknown) (no date) (unknown) (unknown) 7.7 g/dl (unkn own) Result panel 12 (unknown) (no date) (unknown) (unknown) > 60 ml/min (unkn own) (unknown) (no date) (unknown) (unknown) > 60 ml/min (unkn own) (unknown) (no date) (unknown) (unknown) 0.53 mg/dl (unkn own) (unknown) (no date) (unknown) (unknown) 107 mmol/l (unkn own) (unknown) (no date) (unknown) (unknown) 136 mg/dl (unkn own) (unknown) (no date) (unknown) (unknown) 136 mg/dl (unkn own) (unknown) (no date) (unknown) (unknown) 138 mmol/l (unkn own) (unknown) (no date) (unknown) (unknown) 15.1 (units unknown) (unknown) (unknown) (no date) (unknown) (unknown) 24 mmol/l (unkn own) (unknown) (no date) (unknown) (unknown) 4.0 mmol/l (unkn own) (unknown) (no date) (unknown) (unknown) 8 mg/dl (unkn own) (unknown) (no date) (unknown) (unknown) 8.0 mg/dl (unkn own) Result panel 13 (unknown) (no (unknown) (unknown) (no value) (units (unk nown) date) unknown) (unknown) (no (unknown) (unknown) #14 tabs (units (unkno wn) date) unknown) (unknown) (no (unknown) (unknown) (Tylenol Extra (units (unknown) date) Strength) #30 tabs unknown) (unknown) (no (unknown) (unknown) [id number] (units (unkn own) date) unknown) (unknown) (no (unknown) (unknown) 00:47 (units (unkno wn) date) unknown) (unknown) (no (unknown) (unknown) 01:00 07/09/22 (units (unknown) date) unknown) (unknown) (no (unknown) (unknown) 01:30 07/09/22 (units (unknown) date) unknown) (unknown) (no (unknown) (unknown) 02:00 (units (unkno wn) date) unknown) (unknown) (no (unknown) (unknown) 02:16 07/09/22 (units (unknown) date) unknown) (unknown) (no (unknown) (unknown) 02:16 (units (unkno wn) date) unknown) (unknown) (no (unknown) (unknown) 02:59 02:59 (units (un known) date) unknown) (unknown) (no (unknown) (unknown) 1 g PO ACHS Qty: (units (unknown) date) 120 2RF unknown) (unknown) (no (unknown) (unknown) 1 mg PO DAILY Qty: (units (unknown) date) 30 2RF unknown) (unknown) (no (unknown) (unknown) 1 patch topical (units (unknown) date) DAILY PRN (Reason: unknown) pain) Qty: 15 0RF (unknown) (no (unknown) (unknown) 1 tab PO DAILY (units (unknown) date) Qty: 30 2RF unknown) (unknown) (no (unknown) (unknown) 10 mg PO BEDTIME (units (unknown) date) PRN (Reason: unknown) anxiety/sleep) Qty: 14 0RF (unknown) (no (unknown) (unknown) 07/08/22 07/08/22 (units (unknown) date) 07/08/22 unknown) Range/Units (unknown) (no (unknown) (unknown) 07/08/22 20:38 (units (unknown) date) unknown) (unknown) (no (unknown) (unknown) 07/08/22 20:45 (units (unknown) date) unknown) (unknown) (no (unknown) (unknown) 07/08/22 23:04 (units (unknown) date) unknown) (unknown) (no (unknown) (unknown) 07/08/22 23:54 (units (unknown) date) unknown) (unknown) (no (unknown) (unknown) 07/08/22 (units (unkno wn) date) unknown) (unknown) (no (unknown) (unknown) 07/09/22 02:59 (units (unknown) date) unknown) (unknown) (no (unknown) (unknown) 07/09/22 03:00 (units (unknown) date) unknown) (unknown) (no (unknown) (unknown) 07/09/22 07/09/22 (units (unknown) date) Range/Units unknown) (unknown) (no (unknown) (unknown) 07/09/22 (units (unkno wn) date) unknown) (unknown) (no (unknown) (unknown) 100 mg PO DAILY (units (unknown) date) Qty: 30 2RF unknown) (unknown) (no (unknown) (unknown) 12 point review of (units (unknown) date) systems is negative unknown) except for those stated above (unknown) (no (unknown) (unknown) 20:33 07/08/22 (units (unknown) date) unknown) (unknown) (no (unknown) (unknown) 20:45 20:45 20:45 (units (unknown) date) unknown) (unknown) (no (unknown) (unknown) 21:45 07/08/22 (units (unknown) date) unknown) (unknown) (no (unknown) (unknown) 22:00 (units (unkno wn) date) unknown) (unknown) (no (unknown) (unknown) 22:30 07/08/22 (units (unknown) date) unknown) (unknown) (no (unknown) (unknown) 23:00 07/09/22 (units (unknown) date) unknown) (unknown) (no (unknown) (unknown) 23:54 23:54 23:54 (units (unknown) date) unknown) (unknown) (no (unknown) (unknown) 25 mg PO TID PRN (units (unknown) date) (Reason: unknown) anxiety/nausea/vomi ting) Qty: 20 0RF (unknown) (no (unknown) (unknown) 36-year-old female (units (unknown) date) daily smoker with unknown) history of significant alcohol abuse (unknown) (no (unknown) (unknown) 4 mg PO Q8H PRN (units (unknown) date) (Reason: nausea and unknown) vomiting) Qty: 14 0RF (unknown) (no (unknown) (unknown) 40 mg PO 0700,2100 (units (unknown) date) Qty: 60 2RF unknown) (unknown) (no (unknown) (unknown) 5 mg PO BEDTIME (units (unknown) date) Qty: 30 2RF unknown) (unknown) (no (unknown) (unknown) 500 mg PO Q8HR PRN (units (unknown) date) (Reason: fever or unknown) pain) Qty: 30 0RF (unknown) (no (unknown) (unknown) @ 100 mls/hr IV (units (unknown) date) Q1H SILVINA unknown) (unknown) (no (unknown) (unknown) ALT (<35) IU/L (units (unknown) date) unknown) (unknown) (no (unknown) (unknown) ALT 42 H (<35) (units (unknown) date) IU/L unknown) (unknown) (no (unknown) (unknown) AST (14-36) IU/L (units (unknown) date) unknown) (unknown) (no (unknown) (unknown) AST 52, ALT 23, (units (unknown) date) bilirubin 8.5, INR unknown) 2.1. She is had no fever or chills. She (unknown) (no (unknown) (unknown) AST 69 H (14-36) (units (unknown) date) IU/L unknown) (unknown) (no (unknown) (unknown) Acanthocytes (units (u nknown) date) (Spur) 2+ H unknown) (unknown) (no (unknown) (unknown) Acanthocytes (units (u nknown) date) (Spur) unknown) (unknown) (no (unknown) (unknown) Admin: 07/08/22 (units (unknown) date) 22:38 Dose: 1,000 unknown) mls/hr (unknown) (no (unknown) (unknown) Admin: 07/08/22 (units (unknown) date) 23:47 Dose: 100 unknown) mls/hr (unknown) (no (unknown) (unknown) Admin: 07/09/22 (units (unknown) date) 01:10 Dose: 100 unknown) mls/hr (unknown) (no (unknown) (unknown) Age/Sex: 36 / F (units (unknown) date) unknown) (unknown) (no (unknown) (unknown) Albumin (3.5-5.0) (units (unknown) date) g/dL unknown) (unknown) (no (unknown) (unknown) Albumin 3.7 (units (un known) date) (3.5-5.0) g/dL unknown) (unknown) (no (unknown) (unknown) Albumin/Globulin (units (unknown) date) Ratio (1.0-2.8) unknown) (unknown) (no (unknown) (unknown) Albumin/Globulin (units (unknown) date) Ratio 1.1 (1.0-2.8) unknown) (unknown) (no (unknown) (unknown) Alcohol abuse (units ( unknown) date) unknown) (unknown) (no (unknown) (unknown) Alcohol type: beer (units (unknown) date) and wine unknown) (unknown) (no (unknown) (unknown) Alcoholic liver (units (unknown) date) disease unknown) (unknown) (no (unknown) (unknown) Alkaline (units (unkno wn) date) Phosphatase unknown) (38-126) U/L (unknown) (no (unknown) (unknown) Alkaline (units (unkno wn) date) Phosphatase 150 H unknown) (38-126) U/L (unknown) (no (unknown) (unknown) Allergies (units (unkn own) date) unknown) (unknown) (no (unknown) (unknown) Allergy/AdvReac (units (unknown) date) Type Severity unknown) Reaction Status Date / Time (unknown) (no (unknown) (unknown) Ammonia (9-30) (units (unknown) date) umol/L unknown) (unknown) (no (unknown) (unknown) Ammonia (NH3) Stat (units (unknown) date) unknown) (unknown) (no (unknown) (unknown) Ammonia 15 (9-30) (units (unknown) date) umol/L unknown) (unknown) (no (unknown) (unknown) Anisocytosis 2+ H (units (unknown) date) unknown) (unknown) (no (unknown) (unknown) Anisocytosis (units (u nknown) date) unknown) (unknown) (no (unknown) (unknown) Antibiotics) (units (u nknown) date) unknown) (unknown) (no (unknown) (unknown) BACK: Nontender (units (unknown) date) without deformity unknown) or crepitance. No flank tenderness. (unknown) (no (unknown) (unknown) BMP [Basic (units (unk nown) date) Metabolic Panel] unknown) Stat (unknown) (no (unknown) (unknown) BUN (7-17) mg/dL (units (unknown) date) unknown) (unknown) (no (unknown) (unknown) BUN 8 (7-17) mg/dL (units (unknown) date) unknown) (unknown) (no (unknown) (unknown) BUN 9 (7-17) mg/dL (units (unknown) date) unknown) (unknown) (no (unknown) (unknown) BUN/Creatinine (units (unknown) date) Ratio (6-22) unknown) (unknown) (no (unknown) (unknown) BUN/Creatinine (units (unknown) date) Ratio 15.1 (6-22) unknown) (unknown) (no (unknown) (unknown) BUN/Creatinine (units (unknown) date) Ratio 16.7 (6-22) unknown) (unknown) (no (unknown) (unknown) Baso # (Auto) (units ( unknown) date) (0-100) /uL unknown) (unknown) (no (unknown) (unknown) Baso # (Auto) 0 (units (unknown) date) (0-100) /uL unknown) (unknown) (no (unknown) (unknown) Baso % (Auto) (units ( unknown) date) (0-2) % unknown) (unknown) (no (unknown) (unknown) Baso % (Auto) 0.2 (units (unknown) date) (0-2) % unknown) (unknown) (no (unknown) (unknown) Blood Pressure (units (unknown) date) 135/60 unknown) (unknown) (no (unknown) (unknown) Blood Pressure (units (unknown) date) 158/79 H 156/91 H unknown) (unknown) (no (unknown) (unknown) Blood Pressure (units (unknown) date) 163/84 H 07/08/22 unknown) 20:33 (unknown) (no (unknown) (unknown) Blood Pressure (units (unknown) date) 163/84 H 169/103 H unknown) 150/82 H (unknown) (no (unknown) (unknown) Blood Pressure (units (unknown) date) unknown) (unknown) (no (unknown) (unknown) CARDIOVASCULAR: (units (unknown) date) Denies chest pain, unknown) palpitations, orthopnea, edema, (unknown) (no (unknown) (unknown) CARDIOVASCULAR: (units (unknown) date) Regular rate and unknown) rhythm without murmurs, gallops, or rubs. (unknown) (no (unknown) (unknown) CT abdomen pelvis (units (unknown) date) w con Stat unknown) (unknown) (no (unknown) (unknown) Calcium (8.4-10.2) (units (unknown) date) mg/dL unknown) (unknown) (no (unknown) (unknown) Calcium 8.0 L (units ( unknown) date) (8.4-10.2) mg/dL unknown) (unknown) (no (unknown) (unknown) Calcium 8.9 (units (un known) date) (8.4-10.2) mg/dL unknown) (unknown) (no (unknown) (unknown) Carbon Dioxide (units (unknown) date) (22-32) mmol/L unknown) (unknown) (no (unknown) (unknown) Carbon Dioxide 23 (units (unknown) date) (22-32) mmol/L unknown) (unknown) (no (unknown) (unknown) Carbon Dioxide 24 (units (unknown) date) (22-32) mmol/L unknown) (unknown) (no (unknown) (unknown) Chief complaint: (units (unknown) date) Abdominal Pain unknown) (unknown) (no (unknown) (unknown) Chloride (98-107) (units (unknown) date) mmol/L unknown) (unknown) (no (unknown) (unknown) Chloride 106 (units (u nknown) date) (98-107) mmol/L unknown) (unknown) (no (unknown) (unknown) Chloride 107 (units (u nknown) date) (98-107) mmol/L unknown) (unknown) (no (unknown) (unknown) Cholecystitis (units ( unknown) date) unknown) (unknown) (no (unknown) (unknown) Chronic low back (units (unknown) date) pain unknown) (unknown) (no (unknown) (unknown) Complete Blood (units (unknown) date) Count AUTO DIFF unknown) Stat (unknown) (no (unknown) (unknown) Comprehensive (units ( unknown) date) Metabolic Panel unknown) Stat (unknown) (no (unknown) (unknown) Course (units (unkno wn) date) unknown) (unknown) (no (unknown) (unknown) Creatinine (units (unk nown) date) (0.52-1.04) mg/dL unknown) (unknown) (no (unknown) (unknown) Creatinine 0.53 (units (unknown) date) (0.52-1.04) mg/dL unknown) (unknown) (no (unknown) (unknown) Creatinine 0.54 (units (unknown) date) (0.52-1.04) mg/dL unknown) (unknown) (no (unknown) (unknown) : 1985 (units (unknown) date) Acct:[id number] unknown) (unknown) (no (unknown) (unknown) Date of Service: (units (unknown) date) 07/08/22 unknown) (unknown) (no (unknown) (unknown) Departure (units (unkn own) date) unknown) (unknown) (no (unknown) (unknown) Diabetes mellitus (units (unknown) date) unknown) (unknown) (no (unknown) (unknown) Discharge Plan (units (unknown) date) unknown) (unknown) (no (unknown) (unknown) Discontinued (units (u nknown) date) Medications unknown) (unknown) (no (unknown) (unknown) Documented By: AT (units (unknown) date) unknown) (unknown) (no (unknown) (unknown) Documented By: EB (units (unknown) date) unknown) (unknown) (no (unknown) (unknown) Documented By: RL (units (unknown) date) unknown) (unknown) (no (unknown) (unknown) ED Orders (units (unkn own) date) unknown) (unknown) (no (unknown) (unknown) EKG-12 Lead Stat (units (unknown) date) unknown) (unknown) (no (unknown) (unknown) ENT: Nose without (units (unknown) date) bleeding, purulent unknown) drainage. Throat without erythema, (unknown) (no (unknown) (unknown) ER Physician: (units ( unknown) date) Logan Mcneal D.O. unknown) (unknown) (no (unknown) (unknown) EXTREMITIES: No (units (unknown) date) edema or joint unknown) tenderness. (unknown) (no (unknown) (unknown) EYES: Pupils equal (units (unknown) date) round and reactive. unknown) Extraocular motions intact. Scleral (unknown) (no (unknown) (unknown) Emergency Report (units (unknown) date) unknown) (unknown) (no (unknown) (unknown) Eos # (Auto) (units (u nknown) date) (0-450) /uL unknown) (unknown) (no (unknown) (unknown) Eos # (Auto) 100 (units (unknown) date) (0-450) /uL unknown) (unknown) (no (unknown) (unknown) Eos % (Auto) (2-4) (units (unknown) date) % unknown) (unknown) (no (unknown) (unknown) Eos % (Auto) 0.7 L (units (unknown) date) (2-4) % unknown) (unknown) (no (unknown) (unknown) Estimated GFR > 60 (units (unknown) date) (>60) mL/min unknown) (unknown) (no (unknown) (unknown) Estimated GFR (units ( unknown) date) (>60) mL/min unknown) (unknown) (no (unknown) (unknown) Ethanol (ETOH) (units (unknown) date) Stat unknown) (unknown) (no (unknown) (unknown) Ethyl Alcohol < 10 (units (unknown) date) ( - 10) mg/dL unknown) (unknown) (no (unknown) (unknown) Ethyl Alcohol ( - (units (unknown) date) 10) mg/dL unknown) (unknown) (no (unknown) (unknown) Exam Narrative: (units (unknown) date) unknown) (unknown) (no (unknown) (unknown) Exam (units (unkno wn) date) unknown) (unknown) (no (unknown) (unknown) Family History (units (unknown) date) (Reviewed 07/08/22 unknown) @ 23:09 by Logan Mcneal DO) (unknown) (no (unknown) (unknown) Father (units (unkno wn) date) Hypertension unknown) (unknown) (no (unknown) (unknown) Fibromyalgia (units (u nknown) date) unknown) (unknown) (no (unknown) (unknown) GASTROINTESTINAL: (units (unknown) date) Abdomen soft, unknown) tender in the epigastrium, nondistended. (unknown) (no (unknown) (unknown) GASTROINTESTINAL: (units (unknown) date) See HPI unknown) (unknown) (no (unknown) (unknown) GENERAL: See HPI (units (unknown) date) unknown) (unknown) (no (unknown) (unknown) GENERAL: [36] year (units (unknown) date) old patient appears unknown) stated age. Well-developed patient, in (unknown) (no (unknown) (unknown) : Denies (units (unk nown) date) dysuria, frequency, unknown) incontinence, hematuria, urinary retention. (unknown) (no (unknown) (unknown) General (units (unkno wn) date) unknown) (unknown) (no (unknown) (unknown) Globulin (1.7-4.1) (units (unknown) date) g/dL unknown) (unknown) (no (unknown) (unknown) Globulin 3.4 (units (u nknown) date) (1.7-4.1) g/dL unknown) (unknown) (no (unknown) (unknown) Glucose (70-100) (units (unknown) date) mg/dL unknown) (unknown) (no (unknown) (unknown) Glucose 123 H (units ( unknown) date) (70-100) mg/dL unknown) (unknown) (no (unknown) (unknown) Glucose 136 H (units ( unknown) date) (70-100) mg/dL unknown) (unknown) (no (unknown) (unknown) HEAD: Atraumatic. (units (unknown) date) Normocephalic. unknown) (unknown) (no (unknown) (unknown) HEENT: Denies (units ( unknown) date) sinus pain, ear unknown) pain, sore throat, difficulty swallowing, (unknown) (no (unknown) (unknown) HH [Hemoglobin and (units (unknown) date) Hematocrit] Stat unknown) (unknown) (no (unknown) (unknown) HPI - GI Bleed (units (unknown) date) unknown) (unknown) (no (unknown) (unknown) HPI Narrative: (units (unknown) date) unknown) (unknown) (no (unknown) (unknown) Haloperidol (units (un known) date) (Haloperidol 5 unknown) Mg/Ml Vial) 5 mg IV NOW ONE (unknown) (no (unknown) (unknown) Hct 22.9 L (36-46) (units (unknown) date) % unknown) (unknown) (no (unknown) (unknown) Hct 23.0 L (36-46) (units (unknown) date) % unknown) (unknown) (no (unknown) (unknown) Hct 27.2 L (36-46) (units (unknown) date) % unknown) (unknown) (no (unknown) (unknown) Hgb 7.7 L (units (unkn own) date) (12.0-16.0) g/dL unknown) (unknown) (no (unknown) (unknown) Hgb 9.2 L (units (unkn own) date) (12.0-16.0) g/dL unknown) (unknown) (no (unknown) (unknown) History of Present (units (unknown) date) Illness unknown) (unknown) (no (unknown) (unknown) History of (units (unk nown) date) tonsillectomy and unknown) adenoidectomy (unknown) (no (unknown) (unknown) Hydromorphone HCl (units (unknown) date) (Hydromorphone 1 Mg unknown) Inj) 1 mg IV NOW ONE (unknown) (no (unknown) (unknown) Hydromorphone HCl (units (unknown) date) (Hydromorphone 1 Mg unknown) Inj) 1 mg IV Q2HR PRN (unknown) (no (unknown) (unknown) Hypercoagulable (units (unknown) date) state unknown) (unknown) (no (unknown) (unknown) Hypertension (units (u nknown) date) unknown) (unknown) (no (unknown) (unknown) INR (0.9-1.3) (units ( unknown) date) unknown) (unknown) (no (unknown) (unknown) INR 2.0 H (units (unkn own) date) (0.9-1.3) unknown) (unknown) (no (unknown) (unknown) IUD (intrauterine (units (unknown) date) device) in place unknown) (unknown) (no (unknown) (unknown) Infusion: 07/09/22 (units (unknown) date) 01:05 Dose: 0 unknown) mls/hr (unknown) (no (unknown) (unknown) Infusion: 07/09/22 (units (unknown) date) 02:15 Dose: 0 unknown) mls/hr (unknown) (no (unknown) (unknown) Initial Vital (units ( unknown) date) Signs unknown) (unknown) (no (unknown) (unknown) Initial Vital (units ( unknown) date) Signs: unknown) (unknown) (no (unknown) (unknown) [facility] (units (unknown) date) [address] unknown) [place] [address] (unknown) (no (unknown) (unknown) Lab Data (units (unkno wn) date) unknown) (unknown) (no (unknown) (unknown) Lab Results (units (un known) date) unknown) (unknown) (no (unknown) (unknown) Labs: (units (unkno wn) date) unknown) (unknown) (no (unknown) (unknown) Last Admin: (units (un known) date) 07/08/22 21:46 unknown) Dose: 40 mg (unknown) (no (unknown) (unknown) Last Admin: (units (un known) date) 07/08/22 22:38 unknown) Dose: 5 mg (unknown) (no (unknown) (unknown) Last Admin: (units (un known) date) 07/08/22 23:09 unknown) Dose: 1 mg (unknown) (no (unknown) (unknown) Last Admin: (units (un known) date) 07/08/22 23:09 unknown) Dose: 10 mg (unknown) (no (unknown) (unknown) Last Admin: (units (un known) date) 07/08/22 23:47 unknown) Dose: 1,000 mls/hr (unknown) (no (unknown) (unknown) Last Admin: (units (un known) date) 07/09/22 00:33 unknown) Dose: 1 mg (unknown) (no (unknown) (unknown) Last Admin: (units (un known) date) 07/09/22 00:33 unknown) Dose: 50 mcg (unknown) (no (unknown) (unknown) Last Admin: (units (un known) date) 07/09/22 00:34 unknown) Dose: 25 mcg/hr, 5.05 mls/hr (unknown) (no (unknown) (unknown) Last Admin: (units (un known) date) 07/09/22 02:16 unknown) Dose: 100 mls/hr (unknown) (no (unknown) (unknown) Last Admin: (units (un known) date) 07/09/22 02:28 unknown) Dose: 1 mg (unknown) (no (unknown) (unknown) Last Infusion: (units (unknown) date) 07/09/22 00:30 unknown) Dose: 0 mls/hr (unknown) (no (unknown) (unknown) Lipase (23-300) (units (unknown) date) U/L unknown) (unknown) (no (unknown) (unknown) Lipase 160 (units (unk nown) date) (23-300) U/L unknown) (unknown) (no (unknown) (unknown) Lipase Stat (units (un known) date) unknown) (unknown) (no (unknown) (unknown) Lymph # (Auto) (units (unknown) date) (4751-4911) /uL unknown) (unknown) (no (unknown) (unknown) Lymph # (Auto) (units (unknown) date) 1200 (4715-2316) unknown) /uL (unknown) (no (unknown) (unknown) Lymph % (Auto) (units (unknown) date) (25-40) % unknown) (unknown) (no (unknown) (unknown) Lymph % (Auto) (units (unknown) date) 14.4 L (25-40) % unknown) (unknown) (no (unknown) (unknown) MCH (26-34) PG (units (unknown) date) unknown) (unknown) (no (unknown) (unknown) MCH 32.0 (26-34) (units (unknown) date) PG unknown) (unknown) (no (unknown) (unknown) MCHC (30-36) % (units (unknown) date) unknown) (unknown) (no (unknown) (unknown) MCHC 33.7 (30-36) (units (unknown) date) % unknown) (unknown) (no (unknown) (unknown) MCV (80-100) fL (units (unknown) date) unknown) (unknown) (no (unknown) (unknown) MCV 94.8 (80-100) (units (unknown) date) fL unknown) (unknown) (no (unknown) (unknown) MDM - GI Bleed (units (unknown) date) unknown) (unknown) (no (unknown) (unknown) MUSCULOSKELETAL: (units (unknown) date) denies weakness, unknown) joint pain, or bony pain (unknown) (no (unknown) (unknown) Medical History (units (unknown) date) (Reviewed 07/08/22 unknown) @ 23:09 by Logan Mcneal DO) (unknown) (no (unknown) (unknown) Medication (units (unk nown) date) Instructions unknown) Recorded (unknown) (no (unknown) (unknown) Metoclopramide HCl (units (unknown) date) (Metoclopramide 10 unknown) Mg/2 Ml Inj) 10 mg IV NOW ONE (unknown) (no (unknown) (unknown) Mode of arrival: (units (unknown) date) Ambulatory unknown) (unknown) (no (unknown) (unknown) Pope # (Auto) (units ( unknown) date) (0-900) /uL unknown) (unknown) (no (unknown) (unknown) Pope # (Auto) 1500 (units (unknown) date) H (0-900) /uL unknown) (unknown) (no (unknown) (unknown) Pope % (Auto) (units ( unknown) date) (3-14) % unknown) (unknown) (no (unknown) (unknown) Pope % (Auto) 18.4 (units (unknown) date) H (3-14) % unknown) (unknown) (no (unknown) (unknown) Mother Hepatic (units (unknown) date) disease unknown) (unknown) (no (unknown) (unknown) NECK: Trachea (units ( unknown) date) midline. Non tender unknown) (unknown) (no (unknown) (unknown) NEURO: AOx3. (units (u nknown) date) unknown) (unknown) (no (unknown) (unknown) NEUROLOGIC: Denies (units (unknown) date) weakness, headache, unknown) numbness, change in speech, confusion, (unknown) (no (unknown) (unknown) Narrative (units (unkn own) date) unknown) (unknown) (no (unknown) (unknown) Narrative: (units (unk nown) date) unknown) (unknown) (no (unknown) (unknown) Neut # (Auto) (units ( unknown) date) (9174-8672) /uL unknown) (unknown) (no (unknown) (unknown) Neut # (Auto) 5500 (units (unknown) date) (8936-6156) /uL unknown) (unknown) (no (unknown) (unknown) Neut % (Auto) (units ( unknown) date) (50-75) % unknown) (unknown) (no (unknown) (unknown) Neut % (Auto) 66.3 (units (unknown) date) (50-75) % unknown) (unknown) (no (unknown) (unknown) No Action (units (unkn own) date) unknown) (unknown) (no (unknown) (unknown) Octreotide Acetate (units (unknown) date) (Octreotide 100 unknown) Mcg/Ml Vial) 50 mcg IV NOW ONE (unknown) (no (unknown) (unknown) Octreotide Acetate (units (unknown) date) 500 mcg/ (Sodium unknown) Chloride) 101 mls @ 5.05 mls/hr IV CONT (unknown) (no (unknown) (unknown) Ordered: (units (unkno wn) date) unknown) (unknown) (no (unknown) (unknown) Orders (units (unkno wn) date) unknown) (unknown) (no (unknown) (unknown) Oxygen Delivery (units (unknown) date) Method 07/08/22 unknown) 20:33 (unknown) (no (unknown) (unknown) Oxygen Delivery (units (unknown) date) Method Room Air unknown) Room Air Room Air (unknown) (no (unknown) (unknown) Oxygen Delivery (units (unknown) date) Method Room Air unknown) Room Air (unknown) (no (unknown) (unknown) Oxygen Delivery (units (unknown) date) Method unknown) (unknown) (no (unknown) (unknown) POTASSIUM CHLORIDE (units (unknown) date) IN WATER (Potassium unknown) Cl 10 Meq/100 Ml Evangelina) 10 meq in 100 mls (unknown) (no (unknown) (unknown) PRN Reason: Pain, (units (unknown) date) Severe (7-10) unknown) (unknown) (no (unknown) (unknown) PSYCHIATRIC: No (units (unknown) date) concerning unknown) psychosocial issues. (unknown) (no (unknown) (unknown) PT (10.1-12.7) (units (unknown) date) SECONDS unknown) (unknown) (no (unknown) (unknown) PT 22.8 H (units (unkn own) date) (10.1-12.7) SECONDS unknown) (unknown) (no (unknown) (unknown) Pancreatitis (units (u nknown) date) unknown) (unknown) (no (unknown) (unknown) Pantoprazole (units (u nknown) date) Sodium unknown) (Pantoprazole 40 Mg Vial) 40 mg IV NOW ONE (unknown) (no (unknown) (unknown) Patient History (units (unknown) date) unknown) (unknown) (no (unknown) (unknown) Patient reporting (units (unknown) date) little improvement unknown) in symptoms after above-stated therapies, (unknown) (no (unknown) (unknown) Patient: (units (unkno wn) date) MiryamRosaura Pierre unknown) MR#: M (unknown) (no (unknown) (unknown) Plt Count (units (unkn own) date) (150-400) X103/uL unknown) (unknown) (no (unknown) (unknown) Plt Count 145 L (units (unknown) date) (150-400) X103/uL unknown) (unknown) (no (unknown) (unknown) Potassium (units (unkn own) date) (3.4-5.1) mmol/L unknown) (unknown) (no (unknown) (unknown) Potassium 3.0 L (units (unknown) date) (3.4-5.1) mmol/L unknown) (unknown) (no (unknown) (unknown) Potassium 4.0 (units ( unknown) date) (3.4-5.1) mmol/L unknown) (unknown) (no (unknown) (unknown) Prescriptions: (units (unknown) date) unknown) (unknown) (no (unknown) (unknown) Previous Rx's (units ( unknown) date) unknown) (unknown) (no (unknown) (unknown) Primary biliary (units (unknown) date) cirrhosis unknown) (unknown) (no (unknown) (unknown) Prothrombin Time (units (unknown) date) INR Stat unknown) (unknown) (no (unknown) (unknown) Pulse Oximetry 96 (units (unknown) date) 98 99 unknown) (unknown) (no (unknown) (unknown) Pulse Oximetry 97 (units (unknown) date) 07/08/22 20:33 unknown) (unknown) (no (unknown) (unknown) Pulse Oximetry 97 (units (unknown) date) 100 99 unknown) (unknown) (no (unknown) (unknown) Pulse Oximetry 98 (units (unknown) date) unknown) (unknown) (no (unknown) (unknown) Pulse Oximetry 99 (units (unknown) date) 100 99 unknown) (unknown) (no (unknown) (unknown) Pulse Rate 70 (units ( unknown) date) unknown) (unknown) (no (unknown) (unknown) Pulse Rate 71 (units ( unknown) date) 07/08/22 20:33 unknown) (unknown) (no (unknown) (unknown) Pulse Rate 71 71 (units (unknown) date) 96 H unknown) (unknown) (no (unknown) (unknown) Pulse Rate 73 74 (units (unknown) date) 81 unknown) (unknown) (no (unknown) (unknown) Pulse Rate 76 88 (units (unknown) date) 55 L unknown) (unknown) (no (unknown) (unknown) RBC (4.0-5.2) (units ( unknown) date) X106/uL unknown) (unknown) (no (unknown) (unknown) RBC 2.87 L (units (unk nown) date) (4.0-5.2) X106/uL unknown) (unknown) (no (unknown) (unknown) RBC Morphology See (units (unknown) date) below unknown) (unknown) (no (unknown) (unknown) RBC Morphology (units (unknown) date) unknown) (unknown) (no (unknown) (unknown) RDW (11.6-14.8) % (units (unknown) date) unknown) (unknown) (no (unknown) (unknown) RDW 18.7 H (units (unk nown) date) (11.6-14.8) % unknown) (unknown) (no (unknown) (unknown) RESPIRATORY: Clear (units (unknown) date) to auscultation. unknown) Breath sounds equal bilaterally. No wheezes, (unknown) (no (unknown) (unknown) RESPIRATORY: (units (u nknown) date) Denies dyspnea, unknown) cough, wheezing, hemoptysis, sputum. (unknown) (no (unknown) (unknown) Reevaluation #1: (units (unknown) date) unknown) (unknown) (no (unknown) (unknown) Reevaluation(s) (units (unknown) date) unknown) (unknown) (no (unknown) (unknown) Reglan as well as (units (unknown) date) another L of fluid unknown) and a CT of her abdomen and pelvis. Still (unknown) (no (unknown) (unknown) Related Data (units (u nknown) date) unknown) (unknown) (no (unknown) (unknown) Respiratory Rate (units (unknown) date) 18 07/08/22 20:33 unknown) (unknown) (no (unknown) (unknown) Respiratory Rate (units (unknown) date) 18 18 18 unknown) (unknown) (no (unknown) (unknown) Respiratory Rate (units (unknown) date) 18 18 unknown) (unknown) (no (unknown) (unknown) Respiratory Rate (units (unknown) date) unknown) (unknown) (no (unknown) (unknown) Result diagrams: (units (unknown) date) unknown) (unknown) (no (unknown) (unknown) Review of Systems (units (unknown) date) unknown) (unknown) (no (unknown) (unknown) Rheumatoid (units (unk nown) date) arthritis unknown) (unknown) (no (unknown) (unknown) Rx Instructions: (units (unknown) date) unknown) (unknown) (no (unknown) (unknown) SILVINA; Protocol (units ( unknown) date) unknown) (unknown) (no (unknown) (unknown) SKIN: Denies rash, (units (unknown) date) skin lesions, or unknown) other (unknown) (no (unknown) (unknown) SKIN: Mild (units (unk nown) date) jaundice unknown) (unknown) (no (unknown) (unknown) June 29 that (units (unknown) date) noted trace unknown) esophageal varices and type 1 gastroesophageal (unknown) (no (unknown) (unknown) Signed By: (units (unk nown) date) unknown) (unknown) (no (unknown) (unknown) Smoking Status: (units (unknown) date) Current every day unknown) smoker (unknown) (no (unknown) (unknown) Social History (units (unknown) date) (Reviewed 07/08/22 unknown) @ 23:09 by Logan Mcneal DO) (unknown) (no (unknown) (unknown) Sodium (137-145) (units (unknown) date) mmol/L unknown) (unknown) (no (unknown) (unknown) Sodium 138 (units (unk nown) date) (137-145) mmol/L unknown) (unknown) (no (unknown) (unknown) Sodium 140 (units (unk nown) date) (137-145) mmol/L unknown) (unknown) (no (unknown) (unknown) Sodium Chloride (units (unknown) date) (Normal Saline unknown) 0.9%) 1,000 mls @ 1,000 mls/hr IV BOLUS ONE (unknown) (no (unknown) (unknown) Source: patient (units (unknown) date) unknown) (unknown) (no (unknown) (unknown) Stated complaint: (units (unknown) date) Blood in vomit, unknown) Pain (unknown) (no (unknown) (unknown) Stop: 07/08/22 (units (unknown) date) 21:12 unknown) (unknown) (no (unknown) (unknown) Stop: 07/08/22 (units (unknown) date) 22:31 unknown) (unknown) (no (unknown) (unknown) Stop: 07/08/22 (units (unknown) date) 23:05 unknown) (unknown) (no (unknown) (unknown) Stop: 07/08/22 (units (unknown) date) 23:29 unknown) (unknown) (no (unknown) (unknown) Stop: 07/09/22 (units (unknown) date) 00:03 unknown) (unknown) (no (unknown) (unknown) Stop: 07/09/22 (units (unknown) date) 00:17 unknown) (unknown) (no (unknown) (unknown) Stop: 07/09/22 (units (unknown) date) 03:14 unknown) (unknown) (no (unknown) (unknown) Substance Use (units ( unknown) date) Type: marijuana unknown) (unknown) (no (unknown) (unknown) Sulfa (Sulfonamide (units (unknown) date) Allergy unknown) Intermediate Hives Verified 06/28/22 09:21 (unknown) (no (unknown) (unknown) Surgical History (units (unknown) date) (Reviewed 07/08/22 unknown) @ 23:09 by Logan Mcneal DO) (unknown) (no (unknown) (unknown) Temperature 97.8 F (units (unknown) date) 07/08/22 20:33 unknown) (unknown) (no (unknown) (unknown) Temperature 97.8 F (units (unknown) date) unknown) (unknown) (no (unknown) (unknown) Temperature (units (un known) date) unknown) (unknown) (no (unknown) (unknown) Time Seen by (units (u nknown) date) Provider: 07/08/22 unknown) 21:05 (unknown) (no (unknown) (unknown) Time: 23:06 (units (un known) date) unknown) (unknown) (no (unknown) (unknown) Total Bilirubin (units (unknown) date) (0.2-1.3) mg/dL unknown) (unknown) (no (unknown) (unknown) Total Bilirubin (units (unknown) date) 7.3 H (0.2-1.3) unknown) mg/dL (unknown) (no (unknown) (unknown) Total Protein (units ( unknown) date) (6.3-8.2) g/dL unknown) (unknown) (no (unknown) (unknown) Total Protein 7.1 (units (unknown) date) (6.3-8.2) g/dL unknown) (unknown) (no (unknown) (unknown) Vital Signs - 8 hr (units (unknown) date) unknown) (unknown) (no (unknown) (unknown) Vital Signs (units (un known) date) unknown) (unknown) (no (unknown) (unknown) Vital signs: (units (u nknown) date) unknown) (unknown) (no (unknown) (unknown) WBC (4.5-11.0) (units (unknown) date) X103/uL unknown) (unknown) (no (unknown) (unknown) WBC 8.3 (4.5-11.0) (units (unknown) date) X103/uL unknown) (unknown) (no (unknown) (unknown) [Embedded Image (units (unknown) date) Not Available] unknown) (unknown) (no (unknown) (unknown) acetaminophen 500 (units (unknown) date) mg tablet 500 mg PO unknown) Q8HR PRN fever or pain 06/28/22 (unknown) (no (unknown) (unknown) acetaminophen (units ( unknown) date) [Tylenol Extra unknown) Strength] 500 mg tablet (unknown) (no (unknown) (unknown) alcohol intake (units (unknown) date) frequency: 0-2 unknown) drinks per day (unknown) (no (unknown) (unknown) alcohol intake: (units (unknown) date) current unknown) (unknown) (no (unknown) (unknown) and received 1 (units (unknown) date) transfusing unknown) including 2 units of packed red cells. On the date (unknown) (no (unknown) (unknown) anxiety/nausea/vom (units (unknown) date) iting #20 tabs unknown) (unknown) (no (unknown) (unknown) appearance. She (units (unknown) date) was just discharged unknown) from [facility] on Sunday after having (unknown) (no (unknown) (unknown) been admitted for (units (unknown) date) the prior 5 days. unknown) Her admission diagnosis includes alcoholic (unknown) (no (unknown) (unknown) bupropion [From (units (unknown) date) Wellbutrin] AdvReac unknown) Severe Seizure Verified 07/08/22 20:37 (unknown) (no (unknown) (unknown) complaint (units (unkn own) date) increasing upper unknown) abdominal pain with persistent nausea and vomiting (unknown) (no (unknown) (unknown) denies any chest (units (unknown) date) pain or shortness unknown) of breath (unknown) (no (unknown) (unknown) diazepam 10 mg (units (unknown) date) tablet 10 mg PO unknown) BEDTIME PRN anxiety/sleep 06/28/22 (unknown) (no (unknown) (unknown) diazepam 10 mg (units (unknown) date) tablet unknown) (unknown) (no (unknown) (unknown) dizziness. (units (unk nown) date) unknown) (unknown) (no (unknown) (unknown) ea (units (unkno wn) date) unknown) (unknown) (no (unknown) (unknown) eating and (units (unk nown) date) drinking. She had a unknown) small amount of blood and a few of the episodes (unknown) (no (unknown) (unknown) folic acid 1 mg (units (unknown) date) Tablet unknown) (unknown) (no (unknown) (unknown) folic acid 1 mg (units (unknown) date) tablet 1 mg PO unknown) DAILY #30 tabs 02/17/22 (unknown) (no (unknown) (unknown) for the past few (units (unknown) date) days. She states unknown) that her pain is worsened by motion and (unknown) (no (unknown) (unknown) hepatitis, (units (unk nown) date) hematemesis with unknown) persistent nausea, coagulopathy. She had an EEG on (unknown) (no (unknown) (unknown) household members: (units (unknown) date) spouse and children unknown) (unknown) (no (unknown) (unknown) hydrocodone (units (un known) date) Allergy Severe unknown) Hives Verified 07/08/22 20:37 (unknown) (no (unknown) (unknown) hydroxyzine HCl 25 (units (unknown) date) mg tablet 25 mg PO unknown) TID PRN 06/28/22 (unknown) (no (unknown) (unknown) hydroxyzine HCl 25 (units (unknown) date) mg tablet unknown) (unknown) (no (unknown) (unknown) icterus is noted, (units (unknown) date) she states this has unknown) been present for quite some time and is no (unknown) (no (unknown) (unknown) ketorolac [From (units (unknown) date) Toradol] Allergy unknown) Severe Hives Verified 07/08/22 20:37 (unknown) (no (unknown) (unknown) leave on most (units ( unknown) date) painful area for up unknown) to 12 hrs (unknown) (no (unknown) (unknown) lidocaine 5 % (units ( unknown) date) adhesive unknown) patch,medicated (unknown) (no (unknown) (unknown) lidocaine 5 % (units ( unknown) date) topical patch 1 unknown) patch topical DAILY PRN pain #15 03/23/22 (unknown) (no (unknown) (unknown) mcg tablet (units (unk nown) date) (Tab-A-Erendira) unknown) (unknown) (no (unknown) (unknown) melatonin 5 mg (units (unknown) date) tablet 5 mg PO unknown) BEDTIME sleep #30 tabs 02/17/22 (unknown) (no (unknown) (unknown) melatonin 5 mg (units (unknown) date) tablet unknown) (unknown) (no (unknown) (unknown) mg tablet (units (unkn own) date) unknown) (unknown) (no (unknown) (unknown) mild distress. (units (unknown) date) Tearful, holding an unknown) emesis bag (unknown) (no (unknown) (unknown) morphine Allergy (units (unknown) date) Intermediate Rash unknown) Verified 07/08/22 20:37 (unknown) (no (unknown) (unknown) multivitamin with (units (unknown) date) folic acid 400 1 unknown) tab PO DAILY #30 tabs 02/17/22 (unknown) (no (unknown) (unknown) multivitamin with (units (unknown) date) folic acid unknown) [Tab-A-Erendira] 400 mcg Tablet (unknown) (no (unknown) (unknown) no records from (units (unknown) date) [facility] unknown) (unknown) (no (unknown) (unknown) of her discharge (units (unknown) date) lab abnormalities, unknown) which had improved, include alk-phos 142, (unknown) (no (unknown) (unknown) of her emesis but (units (unknown) date) denies any unknown) significant bright red emesis or coffee-ground (unknown) (no (unknown) (unknown) ondansetron 4 mg (units (unknown) date) disintegrating 4 mg unknown) PO Q8H PRN nausea and 06/28/22 (unknown) (no (unknown) (unknown) ondansetron 4 mg (units (unknown) date) tablet,disintegrati unknown) ng (unknown) (no (unknown) (unknown) pantoprazole 40 mg (units (unknown) date) Tablet,Delayed unknown) Release (Dr/Ec) (unknown) (no (unknown) (unknown) pantoprazole 40 mg (units (unknown) date) tablet,delayed 40 unknown) mg PO 0700,2100 #60 tabs 02/17/22 (unknown) (no (unknown) (unknown) rales, or rhonchi. (units (unknown) date) unknown) (unknown) (no (unknown) (unknown) release (units (unkno wn) date) unknown) (unknown) (no (unknown) (unknown) requesting (units (unk nown) date) something else for unknown) pain and nausea. 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 unknown) (unknown) (no (unknown) (unknown) sucralfate 1 gram (units (unknown) date) Tablet unknown) (unknown) (no (unknown) (unknown) sucralfate 1 gram (units (unknown) date) tablet 1 g PO ACHS unknown) #120 tabs 02/17/22 (unknown) (no (unknown) (unknown) tablet vomiting (units (unknown) date) #14 tabs unknown) (unknown) (no (unknown) (unknown) thiamine (units (unkno wn) date) mononitrate (vit unknown) B1) 100 100 mg PO DAILY #30 tabs 02/17/22 (unknown) (no (unknown) (unknown) thiamine (units (unkno wn) date) mononitrate (vit unknown) B1) 100 mg Tablet (unknown) (no (unknown) (unknown) tobacco type: (units ( unknown) date) cigarettes unknown) (unknown) (no (unknown) (unknown) tonsillar (units (unkn own) date) hypertrophy or unknown) exudate. Airway patent. 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 She had been on Cipro empirically (unknown) (no (unknown) (unknown) worse than normal. (units (unknown) date) No injection or unknown) drainage. Result panel 14 (unknown) (no (unknown) (unknown) (no value) (units (unk nown) date) unknown) (unknown) (no (unknown) (unknown) #14 tabs (units (unkno wn) date) unknown) (unknown) (no (unknown) (unknown) (Tylenol Extra (units (unknown) date) Strength) #30 tabs unknown) (unknown) (no (unknown) (unknown) [id number] (units (unkn own) date) unknown) (unknown) (no (unknown) (unknown) 00:47 (units (unkno wn) date) unknown) (unknown) (no (unknown) (unknown) 01:00 07/09/22 (units (unknown) date) unknown) (unknown) (no (unknown) (unknown) 01:30 07/09/22 (units (unknown) date) unknown) (unknown) (no (unknown) (unknown) 02:00 (units (unkno wn) date) unknown) (unknown) (no (unknown) (unknown) 02:16 07/09/22 (units (unknown) date) unknown) (unknown) (no (unknown) (unknown) 02:16 (units (unkno wn) date) unknown) (unknown) (no (unknown) (unknown) 02:59 02:59 (units (un known) date) unknown) (unknown) (no (unknown) (unknown) 1 g PO ACHS Qty: (units (unknown) date) 120 2RF unknown) (unknown) (no (unknown) (unknown) 1 mg PO DAILY Qty: (units (unknown) date) 30 2RF unknown) (unknown) (no (unknown) (unknown) 1 patch topical (units (unknown) date) DAILY PRN (Reason: unknown) pain) Qty: 15 0RF (unknown) (no (unknown) (unknown) 1 tab PO DAILY (units (unknown) date) Qty: 30 2RF unknown) (unknown) (no (unknown) (unknown) 10 mg PO BEDTIME (units (unknown) date) PRN (Reason: unknown) anxiety/sleep) Qty: 14 0RF (unknown) (no (unknown) (unknown) 07/08/22 07/08/22 (units (unknown) date) 07/08/22 unknown) Range/Units (unknown) (no (unknown) (unknown) 07/08/22 20:38 (units (unknown) date) unknown) (unknown) (no (unknown) (unknown) 07/08/22 20:45 (units (unknown) date) unknown) (unknown) (no (unknown) (unknown) 07/08/22 23:04 (units (unknown) date) unknown) (unknown) (no (unknown) (unknown) 07/08/22 23:54 (units (unknown) date) unknown) (unknown) (no (unknown) (unknown) 07/08/22 (units (unkno wn) date) unknown) (unknown) (no (unknown) (unknown) 07/09/22 02:59 (units (unknown) date) unknown) (unknown) (no (unknown) (unknown) 07/09/22 07/09/22 (units (unknown) date) Range/Units unknown) (unknown) (no (unknown) (unknown) 07/09/22 (units (unkno wn) date) unknown) (unknown) (no (unknown) (unknown) 100 mg PO DAILY (units (unknown) date) Qty: 30 2RF unknown) (unknown) (no (unknown) (unknown) 12 point review of (units (unknown) date) systems is negative unknown) except for those stated above (unknown) (no (unknown) (unknown) 20:33 07/08/22 (units (unknown) date) unknown) (unknown) (no (unknown) (unknown) 20:45 20:45 20:45 (units (unknown) date) unknown) (unknown) (no (unknown) (unknown) 21:45 07/08/22 (units (unknown) date) unknown) (unknown) (no (unknown) (unknown) 22:00 (units (unkno wn) date) unknown) (unknown) (no (unknown) (unknown) 22:30 07/08/22 (units (unknown) date) unknown) (unknown) (no (unknown) (unknown) 23:00 07/09/22 (units (unknown) date) unknown) (unknown) (no (unknown) (unknown) 23:54 23:54 23:54 (units (unknown) date) unknown) (unknown) (no (unknown) (unknown) 25 mg PO TID PRN (units (unknown) date) (Reason: unknown) anxiety/nausea/vomi ting) Qty: 20 0RF (unknown) (no (unknown) (unknown) 36-year-old female (units (unknown) date) daily smoker with unknown) history of significant alcohol abuse (unknown) (no (unknown) (unknown) 4 mg PO Q8H PRN (units (unknown) date) (Reason: nausea and unknown) vomiting) Qty: 14 0RF (unknown) (no (unknown) (unknown) 40 mg PO 0700,2100 (units (unknown) date) Qty: 60 2RF unknown) (unknown) (no (unknown) (unknown) 5 mg PO BEDTIME (units (unknown) date) Qty: 30 2RF unknown) (unknown) (no (unknown) (unknown) 500 mg PO Q8HR PRN (units (unknown) date) (Reason: fever or unknown) pain) Qty: 30 0RF (unknown) (no (unknown) (unknown) @ 100 mls/hr IV (units (unknown) date) Q1H SILVINA unknown) (unknown) (no (unknown) (unknown) ALT (<35) IU/L (units (unknown) date) unknown) (unknown) (no (unknown) (unknown) ALT 42 H (<35) (units (unknown) date) IU/L unknown) (unknown) (no (unknown) (unknown) AST (14-36) IU/L (units (unknown) date) unknown) (unknown) (no (unknown) (unknown) AST 52, ALT 23, (units (unknown) date) bilirubin 8.5, INR unknown) 2.1. She is had no fever or chills. She (unknown) (no (unknown) (unknown) AST 69 H (14-36) (units (unknown) date) IU/L unknown) (unknown) (no (unknown) (unknown) Acanthocytes (units (u nknown) date) (Spur) 2+ H unknown) (unknown) (no (unknown) (unknown) Acanthocytes (units (u nknown) date) (Spur) unknown) (unknown) (no (unknown) (unknown) Admin: 07/08/22 (units (unknown) date) 22:38 Dose: 1,000 unknown) mls/hr (unknown) (no (unknown) (unknown) Admin: 07/08/22 (units (unknown) date) 23:47 Dose: 100 unknown) mls/hr (unknown) (no (unknown) (unknown) Admin: 07/09/22 (units (unknown) date) 01:10 Dose: 100 unknown) mls/hr (unknown) (no (unknown) (unknown) Age/Sex: 36 / F (units (unknown) date) unknown) (unknown) (no (unknown) (unknown) Albumin (3.5-5.0) (units (unknown) date) g/dL unknown) (unknown) (no (unknown) (unknown) Albumin 3.7 (units (un known) date) (3.5-5.0) g/dL unknown) (unknown) (no (unknown) (unknown) Albumin/Globulin (units (unknown) date) Ratio (1.0-2.8) unknown) (unknown) (no (unknown) (unknown) Albumin/Globulin (units (unknown) date) Ratio 1.1 (1.0-2.8) unknown) (unknown) (no (unknown) (unknown) Alcohol abuse (units ( unknown) date) unknown) (unknown) (no (unknown) (unknown) Alcohol type: beer (units (unknown) date) and wine unknown) (unknown) (no (unknown) (unknown) Alcoholic liver (units (unknown) date) disease unknown) (unknown) (no (unknown) (unknown) Alkaline (units (unkno wn) date) Phosphatase unknown) (38-126) U/L (unknown) (no (unknown) (unknown) Alkaline (units (unkno wn) date) Phosphatase 150 H unknown) (38-126) U/L (unknown) (no (unknown) (unknown) Allergies (units (unkn own) date) unknown) (unknown) (no (unknown) (unknown) Allergy/AdvReac (units (unknown) date) Type Severity unknown) Reaction Status Date / Time (unknown) (no (unknown) (unknown) Ammonia (9-30) (units (unknown) date) umol/L unknown) (unknown) (no (unknown) (unknown) Ammonia (NH3) Stat (units (unknown) date) unknown) (unknown) (no (unknown) (unknown) Ammonia 15 (9-30) (units (unknown) date) umol/L unknown) (unknown) (no (unknown) (unknown) Anisocytosis 2+ H (units (unknown) date) unknown) (unknown) (no (unknown) (unknown) Anisocytosis (units (u nknown) date) unknown) (unknown) (no (unknown) (unknown) Antibiotics) (units (u nknown) date) unknown) (unknown) (no (unknown) (unknown) BACK: Nontender (units (unknown) date) without deformity unknown) or crepitance. No flank tenderness. (unknown) (no (unknown) (unknown) BMP [Basic (units (unk nown) date) Metabolic Panel] unknown) Stat (unknown) (no (unknown) (unknown) BUN (7-17) mg/dL (units (unknown) date) unknown) (unknown) (no (unknown) (unknown) BUN 8 (7-17) mg/dL (units (unknown) date) unknown) (unknown) (no (unknown) (unknown) BUN 9 (7-17) mg/dL (units (unknown) date) unknown) (unknown) (no (unknown) (unknown) BUN/Creatinine (units (unknown) date) Ratio (6-22) unknown) (unknown) (no (unknown) (unknown) BUN/Creatinine (units (unknown) date) Ratio 15.1 (6-22) unknown) (unknown) (no (unknown) (unknown) BUN/Creatinine (units (unknown) date) Ratio 16.7 (6-22) unknown) (unknown) (no (unknown) (unknown) Baso # (Auto) (units ( unknown) date) (0-100) /uL unknown) (unknown) (no (unknown) (unknown) Baso # (Auto) 0 (units (unknown) date) (0-100) /uL unknown) (unknown) (no (unknown) (unknown) Baso % (Auto) (units ( unknown) date) (0-2) % unknown) (unknown) (no (unknown) (unknown) Baso % (Auto) 0.2 (units (unknown) date) (0-2) % unknown) (unknown) (no (unknown) (unknown) Blood Pressure (units (unknown) date) 135/60 unknown) (unknown) (no (unknown) (unknown) Blood Pressure (units (unknown) date) 158/79 H 156/91 H unknown) (unknown) (no (unknown) (unknown) Blood Pressure (units (unknown) date) 163/84 H 07/08/22 unknown) 20:33 (unknown) (no (unknown) (unknown) Blood Pressure (units (unknown) date) 163/84 H 169/103 H unknown) 150/82 H (unknown) (no (unknown) (unknown) Blood Pressure (units (unknown) date) unknown) (unknown) (no (unknown) (unknown) CARDIOVASCULAR: (units (unknown) date) Denies chest pain, unknown) palpitations, orthopnea, edema, (unknown) (no (unknown) (unknown) CARDIOVASCULAR: (units (unknown) date) Regular rate and unknown) rhythm without murmurs, gallops, or rubs. (unknown) (no (unknown) (unknown) CT abdomen pelvis (units (unknown) date) w con Stat unknown) (unknown) (no (unknown) (unknown) Calcium (8.4-10.2) (units (unknown) date) mg/dL unknown) (unknown) (no (unknown) (unknown) Calcium 8.0 L (units ( unknown) date) (8.4-10.2) mg/dL unknown) (unknown) (no (unknown) (unknown) Calcium 8.9 (units (un known) date) (8.4-10.2) mg/dL unknown) (unknown) (no (unknown) (unknown) Carbon Dioxide (units (unknown) date) (22-32) mmol/L unknown) (unknown) (no (unknown) (unknown) Carbon Dioxide 23 (units (unknown) date) (22-32) mmol/L unknown) (unknown) (no (unknown) (unknown) Carbon Dioxide 24 (units (unknown) date) (22-32) mmol/L unknown) (unknown) (no (unknown) (unknown) Ceftriaxone Sodium (units (unknown) date) 2,000 mg/ (Sodium unknown) Chloride) 100 mls @ 200 mls/hr IV NOW ONE (unknown) (no (unknown) (unknown) Chief complaint: (units (unknown) date) Abdominal Pain unknown) (unknown) (no (unknown) (unknown) Chloride (98-107) (units (unknown) date) mmol/L unknown) (unknown) (no (unknown) (unknown) Chloride 106 (units (u nknown) date) (98-107) mmol/L unknown) (unknown) (no (unknown) (unknown) Chloride 107 (units (u nknown) date) (98-107) mmol/L unknown) (unknown) (no (unknown) (unknown) Cholecystitis (units ( unknown) date) unknown) (unknown) (no (unknown) (unknown) Chronic low back (units (unknown) date) pain unknown) (unknown) (no (unknown) (unknown) Complete Blood (units (unknown) date) Count AUTO DIFF unknown) Stat (unknown) (no (unknown) (unknown) Comprehensive (units ( unknown) date) Metabolic Panel unknown) Stat (unknown) (no (unknown) (unknown) Course (units (unkno wn) date) unknown) (unknown) (no (unknown) (unknown) Creatinine (units (unk nown) date) (0.52-1.04) mg/dL unknown) (unknown) (no (unknown) (unknown) Creatinine 0.53 (units (unknown) date) (0.52-1.04) mg/dL unknown) (unknown) (no (unknown) (unknown) Creatinine 0.54 (units (unknown) date) (0.52-1.04) mg/dL unknown) (unknown) (no (unknown) (unknown) : 1985 (units (unknown) date) Acct:[id number] unknown) (unknown) (no (unknown) (unknown) Date of Service: (units (unknown) date) 07/08/22 unknown) (unknown) (no (unknown) (unknown) Departure (units (unkn own) date) unknown) (unknown) (no (unknown) (unknown) Diabetes mellitus (units (unknown) date) unknown) (unknown) (no (unknown) (unknown) Discharge Plan (units (unknown) date) unknown) (unknown) (no (unknown) (unknown) Discontinued (units (u nknown) date) Medications unknown) (unknown) (no (unknown) (unknown) Documented By: AT (units (unknown) date) unknown) (unknown) (no (unknown) (unknown) Documented By: EB (units (unknown) date) unknown) (unknown) (no (unknown) (unknown) Documented By: RL (units (unknown) date) unknown) (unknown) (no (unknown) (unknown) ED Orders (units (unkn own) date) unknown) (unknown) (no (unknown) (unknown) EKG-12 Lead Stat (units (unknown) date) unknown) (unknown) (no (unknown) (unknown) ENT: Nose without (units (unknown) date) bleeding, purulent unknown) drainage. Throat without erythema, (unknown) (no (unknown) (unknown) ER Physician: (units ( unknown) date) Logan Mcneal D.O. unknown) (unknown) (no (unknown) (unknown) EXTREMITIES: No (units (unknown) date) edema or joint unknown) tenderness. (unknown) (no (unknown) (unknown) EYES: Pupils equal (units (unknown) date) round and reactive. unknown) Extraocular motions intact. Scleral (unknown) (no (unknown) (unknown) Emergency Report (units (unknown) date) unknown) (unknown) (no (unknown) (unknown) Eos # (Auto) (units (u nknown) date) (0-450) /uL unknown) (unknown) (no (unknown) (unknown) Eos # (Auto) 100 (units (unknown) date) (0-450) /uL unknown) (unknown) (no (unknown) (unknown) Eos % (Auto) (2-4) (units (unknown) date) % unknown) (unknown) (no (unknown) (unknown) Eos % (Auto) 0.7 L (units (unknown) date) (2-4) % unknown) (unknown) (no (unknown) (unknown) Estimated GFR > 60 (units (unknown) date) (>60) mL/min unknown) (unknown) (no (unknown) (unknown) Estimated GFR (units ( unknown) date) (>60) mL/min unknown) (unknown) (no (unknown) (unknown) Ethanol (ETOH) (units (unknown) date) Stat unknown) (unknown) (no (unknown) (unknown) Ethyl Alcohol < 10 (units (unknown) date) ( - 10) mg/dL unknown) (unknown) (no (unknown) (unknown) Ethyl Alcohol ( - (units (unknown) date) 10) mg/dL unknown) (unknown) (no (unknown) (unknown) Exam Narrative: (units (unknown) date) unknown) (unknown) (no (unknown) (unknown) Exam (units (unkno wn) date) unknown) (unknown) (no (unknown) (unknown) Family History (units (unknown) date) (Reviewed 07/08/22 unknown) @ 23:09 by Logan Mcneal DO) (unknown) (no (unknown) (unknown) Father (units (unkno wn) date) Hypertension unknown) (unknown) (no (unknown) (unknown) Fibromyalgia (units (u nknown) date) unknown) (unknown) (no (unknown) (unknown) GASTROINTESTINAL: (units (unknown) date) Abdomen soft, unknown) tender in the epigastrium, nondistended. (unknown) (no (unknown) (unknown) GASTROINTESTINAL: (units (unknown) date) See HPI unknown) (unknown) (no (unknown) (unknown) GENERAL: See HPI (units (unknown) date) unknown) (unknown) (no (unknown) (unknown) GENERAL: [36] year (units (unknown) date) old patient appears unknown) stated age. Well-developed patient, in (unknown) (no (unknown) (unknown) : Denies (units (unk nown) date) dysuria, frequency, unknown) incontinence, hematuria, urinary retention. (unknown) (no (unknown) (unknown) General (units (unkno wn) date) unknown) (unknown) (no (unknown) (unknown) Globulin (1.7-4.1) (units (unknown) date) g/dL unknown) (unknown) (no (unknown) (unknown) Globulin 3.4 (units (u nknown) date) (1.7-4.1) g/dL unknown) (unknown) (no (unknown) (unknown) Glucose (70-100) (units (unknown) date) mg/dL unknown) (unknown) (no (unknown) (unknown) Glucose 123 H (units ( unknown) date) (70-100) mg/dL unknown) (unknown) (no (unknown) (unknown) Glucose 136 H (units ( unknown) date) (70-100) mg/dL unknown) (unknown) (no (unknown) (unknown) HEAD: Atraumatic. (units (unknown) date) Normocephalic. unknown) (unknown) (no (unknown) (unknown) HEENT: Denies (units ( unknown) date) sinus pain, ear unknown) pain, sore throat, difficulty swallowing, (unknown) (no (unknown) (unknown) HH [Hemoglobin and (units (unknown) date) Hematocrit] Stat unknown) (unknown) (no (unknown) (unknown) HPI - GI Bleed (units (unknown) date) unknown) (unknown) (no (unknown) (unknown) HPI Narrative: (units (unknown) date) unknown) (unknown) (no (unknown) (unknown) Haloperidol (units (un known) date) (Haloperidol 5 unknown) Mg/Ml Vial) 5 mg IV NOW ONE (unknown) (no (unknown) (unknown) Hct 22.9 L (36-46) (units (unknown) date) % unknown) (unknown) (no (unknown) (unknown) Hct 23.0 L (36-46) (units (unknown) date) % unknown) (unknown) (no (unknown) (unknown) Hct 27.2 L (36-46) (units (unknown) date) % unknown) (unknown) (no (unknown) (unknown) Hgb 7.7 L (units (unkn own) date) (12.0-16.0) g/dL unknown) (unknown) (no (unknown) (unknown) Hgb 9.2 L (units (unkn own) date) (12.0-16.0) g/dL unknown) (unknown) (no (unknown) (unknown) History of Present (units (unknown) date) Illness unknown) (unknown) (no (unknown) (unknown) History of (units (unk nown) date) tonsillectomy and unknown) adenoidectomy (unknown) (no (unknown) (unknown) Hydromorphone HCl (units (unknown) date) (Hydromorphone 1 Mg unknown) Inj) 1 mg IV NOW ONE (unknown) (no (unknown) (unknown) Hydromorphone HCl (units (unknown) date) (Hydromorphone 1 Mg unknown) Inj) 1 mg IV Q2HR PRN (unknown) (no (unknown) (unknown) Hypercoagulable (units (unknown) date) state unknown) (unknown) (no (unknown) (unknown) Hypertension (units (u nknown) date) unknown) (unknown) (no (unknown) (unknown) INR (0.9-1.3) (units ( unknown) date) unknown) (unknown) (no (unknown) (unknown) INR 2.0 H (units (unkn own) date) (0.9-1.3) unknown) (unknown) (no (unknown) (unknown) IUD (intrauterine (units (unknown) date) device) in place unknown) (unknown) (no (unknown) (unknown) Infusion: 07/09/22 (units (unknown) date) 01:05 Dose: 0 unknown) mls/hr (unknown) (no (unknown) (unknown) Infusion: 07/09/22 (units (unknown) date) 02:15 Dose: 0 unknown) mls/hr (unknown) (no (unknown) (unknown) Initial Vital (units ( unknown) date) Signs unknown) (unknown) (no (unknown) (unknown) Initial Vital (units ( unknown) date) Signs: unknown) (unknown) (no (unknown) (unknown) [facility] (units (unknown) date) [address] unknown) [place] [address] (unknown) (no (unknown) (unknown) Lab Data (units (unkno wn) date) unknown) (unknown) (no (unknown) (unknown) Lab Results (units (un known) date) unknown) (unknown) (no (unknown) (unknown) Labs: (units (unkno wn) date) unknown) (unknown) (no (unknown) (unknown) Last Admin: (units (un known) date) 07/08/22 21:46 unknown) Dose: 40 mg (unknown) (no (unknown) (unknown) Last Admin: (units (un known) date) 07/08/22 22:38 unknown) Dose: 5 mg (unknown) (no (unknown) (unknown) Last Admin: (units (un known) date) 07/08/22 23:09 unknown) Dose: 1 mg (unknown) (no (unknown) (unknown) Last Admin: (units (un known) date) 07/08/22 23:09 unknown) Dose: 10 mg (unknown) (no (unknown) (unknown) Last Admin: (units (un known) date) 07/08/22 23:47 unknown) Dose: 1,000 mls/hr (unknown) (no (unknown) (unknown) Last Admin: (units (un known) date) 07/09/22 00:33 unknown) Dose: 1 mg (unknown) (no (unknown) (unknown) Last Admin: (units (un known) date) 07/09/22 00:33 unknown) Dose: 50 mcg (unknown) (no (unknown) (unknown) Last Admin: (units (un known) date) 07/09/22 00:34 unknown) Dose: 25 mcg/hr, 5.05 mls/hr (unknown) (no (unknown) (unknown) Last Admin: (units (un known) date) 07/09/22 02:16 unknown) Dose: 100 mls/hr (unknown) (no (unknown) (unknown) Last Admin: (units (un known) date) 07/09/22 02:28 unknown) Dose: 1 mg (unknown) (no (unknown) (unknown) Last Infusion: (units (unknown) date) 07/09/22 00:30 unknown) Dose: 0 mls/hr (unknown) (no (unknown) (unknown) Lipase (23-300) (units (unknown) date) U/L unknown) (unknown) (no (unknown) (unknown) Lipase 160 (units (unk nown) date) (23-300) U/L unknown) (unknown) (no (unknown) (unknown) Lipase Stat (units (un known) date) unknown) (unknown) (no (unknown) (unknown) Lymph # (Auto) (units (unknown) date) (2395-3714) /uL unknown) (unknown) (no (unknown) (unknown) Lymph # (Auto) (units (unknown) date) 1200 (0427-8557) unknown) /uL (unknown) (no (unknown) (unknown) Lymph % (Auto) (units (unknown) date) (25-40) % unknown) (unknown) (no (unknown) (unknown) Lymph % (Auto) (units (unknown) date) 14.4 L (25-40) % unknown) (unknown) (no (unknown) (unknown) MCH (26-34) PG (units (unknown) date) unknown) (unknown) (no (unknown) (unknown) MCH 32.0 (26-34) (units (unknown) date) PG unknown) (unknown) (no (unknown) (unknown) MCHC (30-36) % (units (unknown) date) unknown) (unknown) (no (unknown) (unknown) MCHC 33.7 (30-36) (units (unknown) date) % unknown) (unknown) (no (unknown) (unknown) MCV (80-100) fL (units (unknown) date) unknown) (unknown) (no (unknown) (unknown) MCV 94.8 (80-100) (units (unknown) date) fL unknown) (unknown) (no (unknown) (unknown) MDM - GI Bleed (units (unknown) date) unknown) (unknown) (no (unknown) (unknown) MUSCULOSKELETAL: (units (unknown) date) denies weakness, unknown) joint pain, or bony pain (unknown) (no (unknown) (unknown) Medical History (units (unknown) date) (Reviewed 07/08/22 unknown) @ 23:09 by Logan Mcneal DO) (unknown) (no (unknown) (unknown) Medication (units (unk nown) date) Instructions unknown) Recorded (unknown) (no (unknown) (unknown) Metoclopramide HCl (units (unknown) date) (Metoclopramide 10 unknown) Mg/2 Ml Inj) 10 mg IV NOW ONE (unknown) (no (unknown) (unknown) Mode of arrival: (units (unknown) date) Ambulatory unknown) (unknown) (no (unknown) (unknown) Pope # (Auto) (units ( unknown) date) (0-900) /uL unknown) (unknown) (no (unknown) (unknown) Pope # (Auto) 1500 (units (unknown) date) H (0-900) /uL unknown) (unknown) (no (unknown) (unknown) Pope % (Auto) (units ( unknown) date) (3-14) % unknown) (unknown) (no (unknown) (unknown) Pope % (Auto) 18.4 (units (unknown) date) H (3-14) % unknown) (unknown) (no (unknown) (unknown) Mother Hepatic (units (unknown) date) disease unknown) (unknown) (no (unknown) (unknown) NECK: Trachea (units ( unknown) date) midline. Non tender unknown) (unknown) (no (unknown) (unknown) NEURO: AOx3. (units (u nknown) date) unknown) (unknown) (no (unknown) (unknown) NEUROLOGIC: Denies (units (unknown) date) weakness, headache, unknown) numbness, change in speech, confusion, (unknown) (no (unknown) (unknown) Narrative (units (unkn own) date) unknown) (unknown) (no (unknown) (unknown) Narrative: (units (unk nown) date) unknown) (unknown) (no (unknown) (unknown) Neut # (Auto) (units ( unknown) date) (6489-2257) /uL unknown) (unknown) (no (unknown) (unknown) Neut # (Auto) 5500 (units (unknown) date) (4098-3574) /uL unknown) (unknown) (no (unknown) (unknown) Neut % (Auto) (units ( unknown) date) (50-75) % unknown) (unknown) (no (unknown) (unknown) Neut % (Auto) 66.3 (units (unknown) date) (50-75) % unknown) (unknown) (no (unknown) (unknown) No Action (units (unkn own) date) unknown) (unknown) (no (unknown) (unknown) Octreotide Acetate (units (unknown) date) (Octreotide 100 unknown) Mcg/Ml Vial) 50 mcg IV NOW ONE (unknown) (no (unknown) (unknown) Octreotide Acetate (units (unknown) date) 500 mcg/ (Sodium unknown) Chloride) 101 mls @ 5.05 mls/hr IV CONT (unknown) (no (unknown) (unknown) Ordered: (units (unkno wn) date) unknown) (unknown) (no (unknown) (unknown) Orders (units (unkno wn) date) unknown) (unknown) (no (unknown) (unknown) Oxygen Delivery (units (unknown) date) Method 07/08/22 unknown) 20:33 (unknown) (no (unknown) (unknown) Oxygen Delivery (units (unknown) date) Method Room Air unknown) Room Air Room Air (unknown) (no (unknown) (unknown) Oxygen Delivery (units (unknown) date) Method Room Air unknown) Room Air (unknown) (no (unknown) (unknown) Oxygen Delivery (units (unknown) date) Method unknown) (unknown) (no (unknown) (unknown) POTASSIUM CHLORIDE (units (unknown) date) IN WATER (Potassium unknown) Cl 10 Meq/100 Ml [facility]) 10 meq in 100 mls (unknown) (no (unknown) (unknown) PRN Reason: Pain, (units (unknown) date) Severe (7-10) unknown) (unknown) (no (unknown) (unknown) PSYCHIATRIC: No (units (unknown) date) concerning unknown) psychosocial issues. (unknown) (no (unknown) (unknown) PT (10.1-12.7) (units (unknown) date) SECONDS unknown) (unknown) (no (unknown) (unknown) PT 22.8 H (units (unkn own) date) (10.1-12.7) SECONDS unknown) (unknown) (no (unknown) (unknown) Pancreatitis (units (u nknown) date) unknown) (unknown) (no (unknown) (unknown) Pantoprazole (units (u nknown) date) Sodium unknown) (Pantoprazole 40 Mg Vial) 40 mg IV NOW ONE (unknown) (no (unknown) (unknown) Patient History (units (unknown) date) unknown) (unknown) (no (unknown) (unknown) Patient reporting (units (unknown) date) little improvement unknown) in symptoms after above-stated therapies, (unknown) (no (unknown) (unknown) Patient: (units (unkno wn) date) Rosaura Witt unknown) MR#: M (unknown) (no (unknown) (unknown) Plt Count (units (unkn own) date) (150-400) X103/uL unknown) (unknown) (no (unknown) (unknown) Plt Count 145 L (units (unknown) date) (150-400) X103/uL unknown) (unknown) (no (unknown) (unknown) Potassium (units (unkn own) date) (3.4-5.1) mmol/L unknown) (unknown) (no (unknown) (unknown) Potassium 3.0 L (units (unknown) date) (3.4-5.1) mmol/L unknown) (unknown) (no (unknown) (unknown) Potassium 4.0 (units ( unknown) date) (3.4-5.1) mmol/L unknown) (unknown) (no (unknown) (unknown) Prescriptions: (units (unknown) date) unknown) (unknown) (no (unknown) (unknown) Previous Rx's (units ( unknown) date) unknown) (unknown) (no (unknown) (unknown) Primary biliary (units (unknown) date) cirrhosis unknown) (unknown) (no (unknown) (unknown) Prothrombin Time (units (unknown) date) INR Stat unknown) (unknown) (no (unknown) (unknown) Pulse Oximetry 96 (units (unknown) date) 98 99 unknown) (unknown) (no (unknown) (unknown) Pulse Oximetry 97 (units (unknown) date) 07/08/22 20:33 unknown) (unknown) (no (unknown) (unknown) Pulse Oximetry 97 (units (unknown) date) 100 99 unknown) (unknown) (no (unknown) (unknown) Pulse Oximetry 98 (units (unknown) date) unknown) (unknown) (no (unknown) (unknown) Pulse Oximetry 99 (units (unknown) date) 100 99 unknown) (unknown) (no (unknown) (unknown) Pulse Rate 70 (units ( unknown) date) unknown) (unknown) (no (unknown) (unknown) Pulse Rate 71 (units ( unknown) date) 07/08/22 20:33 unknown) (unknown) (no (unknown) (unknown) Pulse Rate 71 71 (units (unknown) date) 96 H unknown) (unknown) (no (unknown) (unknown) Pulse Rate 73 74 (units (unknown) date) 81 unknown) (unknown) (no (unknown) (unknown) Pulse Rate 76 88 (units (unknown) date) 55 L unknown) (unknown) (no (unknown) (unknown) RBC (4.0-5.2) (units ( unknown) date) X106/uL unknown) (unknown) (no (unknown) (unknown) RBC 2.87 L (units (unk nown) date) (4.0-5.2) X106/uL unknown) (unknown) (no (unknown) (unknown) RBC Morphology See (units (unknown) date) below unknown) (unknown) (no (unknown) (unknown) RBC Morphology (units (unknown) date) unknown) (unknown) (no (unknown) (unknown) RDW (11.6-14.8) % (units (unknown) date) unknown) (unknown) (no (unknown) (unknown) RDW 18.7 H (units (unk nown) date) (11.6-14.8) % unknown) (unknown) (no (unknown) (unknown) RESPIRATORY: Clear (units (unknown) date) to auscultation. unknown) Breath sounds equal bilaterally. No wheezes, (unknown) (no (unknown) (unknown) RESPIRATORY: (units (u nknown) date) Denies dyspnea, unknown) cough, wheezing, hemoptysis, sputum. (unknown) (no (unknown) (unknown) Reevaluation #1: (units (unknown) date) unknown) (unknown) (no (unknown) (unknown) Reevaluation(s) (units (unknown) date) unknown) (unknown) (no (unknown) (unknown) Reglan as well as (units (unknown) date) another L of fluid unknown) and a CT of her abdomen and pelvis. Still (unknown) (no (unknown) (unknown) Related Data (units (u nknown) date) unknown) (unknown) (no (unknown) (unknown) Respiratory Rate (units (unknown) date) 18 07/08/22 20:33 unknown) (unknown) (no (unknown) (unknown) Respiratory Rate (units (unknown) date) 18 18 18 unknown) (unknown) (no (unknown) (unknown) Respiratory Rate (units (unknown) date) 18 18 unknown) (unknown) (no (unknown) (unknown) Respiratory Rate (units (unknown) date) unknown) (unknown) (no (unknown) (unknown) Result diagrams: (units (unknown) date) unknown) (unknown) (no (unknown) (unknown) Review of Systems (units (unknown) date) unknown) (unknown) (no (unknown) (unknown) Rheumatoid (units (unk nown) date) arthritis unknown) (unknown) (no (unknown) (unknown) Rx Instructions: (units (unknown) date) unknown) (unknown) (no (unknown) (unknown) SILVINA; Protocol (units ( unknown) date) unknown) (unknown) (no (unknown) (unknown) SKIN: Denies rash, (units (unknown) date) skin lesions, or unknown) other (unknown) (no (unknown) (unknown) SKIN: Mild (units (unk nown) date) jaundice unknown) (unknown) (no (unknown) (unknown) June 29 that (units (unknown) date) noted trace unknown) esophageal varices and type 1 gastroesophageal (unknown) (no (unknown) (unknown) Signed By: (units (unk nown) date) unknown) (unknown) (no (unknown) (unknown) Smoking Status: (units (unknown) date) Current every day unknown) smoker (unknown) (no (unknown) (unknown) Social History (units (unknown) date) (Reviewed 07/08/22 unknown) @ 23:09 by Logan Mcneal DO) (unknown) (no (unknown) (unknown) Sodium (137-145) (units (unknown) date) mmol/L unknown) (unknown) (no (unknown) (unknown) Sodium 138 (units (unk nown) date) (137-145) mmol/L unknown) (unknown) (no (unknown) (unknown) Sodium 140 (units (unk nown) date) (137-145) mmol/L unknown) (unknown) (no (unknown) (unknown) Sodium Chloride (units (unknown) date) (Normal Saline unknown) 0.9%) 1,000 mls @ 1,000 mls/hr IV BOLUS ONE (unknown) (no (unknown) (unknown) Source: patient (units (unknown) date) unknown) (unknown) (no (unknown) (unknown) Stated complaint: (units (unknown) date) Blood in vomit, unknown) Pain (unknown) (no (unknown) (unknown) Stop: 07/08/22 (units (unknown) date) 21:12 unknown) (unknown) (no (unknown) (unknown) Stop: 07/08/22 (units (unknown) date) 22:31 unknown) (unknown) (no (unknown) (unknown) Stop: 07/08/22 (units (unknown) date) 23:05 unknown) (unknown) (no (unknown) (unknown) Stop: 07/08/22 (units (unknown) date) 23:29 unknown) (unknown) (no (unknown) (unknown) Stop: 07/09/22 (units (unknown) date) 00:03 unknown) (unknown) (no (unknown) (unknown) Stop: 07/09/22 (units (unknown) date) 00:17 unknown) (unknown) (no (unknown) (unknown) Stop: 07/09/22 (units (unknown) date) 03:14 unknown) (unknown) (no (unknown) (unknown) Stop: 07/09/22 (units (unknown) date) 03:26 unknown) (unknown) (no (unknown) (unknown) Substance Use (units ( unknown) date) Type: marijuana unknown) (unknown) (no (unknown) (unknown) Sulfa (Sulfonamide (units (unknown) date) Allergy unknown) Intermediate Hives Verified 06/28/22 09:21 (unknown) (no (unknown) (unknown) Surgical History (units (unknown) date) (Reviewed 07/08/22 unknown) @ 23:09 by Logan Mcneal DO) (unknown) (no (unknown) (unknown) Temperature 97.8 F (units (unknown) date) 07/08/22 20:33 unknown) (unknown) (no (unknown) (unknown) Temperature 97.8 F (units (unknown) date) unknown) (unknown) (no (unknown) (unknown) Temperature (units (un known) date) unknown) (unknown) (no (unknown) (unknown) Time Seen by (units (u nknown) date) Provider: 07/08/22 unknown) 21:05 (unknown) (no (unknown) (unknown) Time: 23:06 (units (un known) date) unknown) (unknown) (no (unknown) (unknown) Total Bilirubin (units (unknown) date) (0.2-1.3) mg/dL unknown) (unknown) (no (unknown) (unknown) Total Bilirubin (units (unknown) date) 7.3 H (0.2-1.3) unknown) mg/dL (unknown) (no (unknown) (unknown) Total Protein (units ( unknown) date) (6.3-8.2) g/dL unknown) (unknown) (no (unknown) (unknown) Total Protein 7.1 (units (unknown) date) (6.3-8.2) g/dL unknown) (unknown) (no (unknown) (unknown) Vital Signs - 8 hr (units (unknown) date) unknown) (unknown) (no (unknown) (unknown) Vital Signs (units (un known) date) unknown) (unknown) (no (unknown) (unknown) Vital signs: (units (u nknown) date) unknown) (unknown) (no (unknown) (unknown) WBC (4.5-11.0) (units (unknown) date) X103/uL unknown) (unknown) (no (unknown) (unknown) WBC 8.3 (4.5-11.0) (units (unknown) date) X103/uL unknown) (unknown) (no (unknown) (unknown) [Embedded Image (units (unknown) date) Not Available] unknown) (unknown) (no (unknown) (unknown) acetaminophen 500 (units (unknown) date) mg tablet 500 mg PO unknown) Q8HR PRN fever or pain 06/28/22 (unknown) (no (unknown) (unknown) acetaminophen (units ( unknown) date) [Tylenol Extra unknown) Strength] 500 mg tablet (unknown) (no (unknown) (unknown) alcohol intake (units (unknown) date) frequency: 0-2 unknown) drinks per day (unknown) (no (unknown) (unknown) alcohol intake: (units (unknown) date) current unknown) (unknown) (no (unknown) (unknown) and received 1 (units (unknown) date) transfusing unknown) including 2 units of packed red cells. On the date (unknown) (no (unknown) (unknown) anxiety/nausea/vom (units (unknown) date) iting #20 tabs unknown) (unknown) (no (unknown) (unknown) appearance. She (units (unknown) date) was just discharged unknown) from [facility] on Sunday after having (unknown) (no (unknown) (unknown) been admitted for (units (unknown) date) the prior 5 days. unknown) Her admission diagnosis includes alcoholic (unknown) (no (unknown) (unknown) bupropion [From (units (unknown) date) Wellbutrin] AdvReac unknown) Severe Seizure Verified 07/08/22 20:37 (unknown) (no (unknown) (unknown) complaint (units (unkn own) date) increasing upper unknown) abdominal pain with persistent nausea and vomiting (unknown) (no (unknown) (unknown) denies any chest (units (unknown) date) pain or shortness unknown) of breath (unknown) (no (unknown) (unknown) diazepam 10 mg (units (unknown) date) tablet 10 mg PO unknown) BEDTIME PRN anxiety/sleep 06/28/22 (unknown) (no (unknown) (unknown) diazepam 10 mg (units (unknown) date) tablet unknown) (unknown) (no (unknown) (unknown) dizziness. (units (unk nown) date) unknown) (unknown) (no (unknown) (unknown) ea (units (unkno wn) date) unknown) (unknown) (no (unknown) (unknown) eating and (units (unk nown) date) drinking. She had a unknown) small amount of blood and a few of the episodes (unknown) (no (unknown) (unknown) folic acid 1 mg (units (unknown) date) Tablet unknown) (unknown) (no (unknown) (unknown) folic acid 1 mg (units (unknown) date) tablet 1 mg PO unknown) DAILY #30 tabs 02/17/22 (unknown) (no (unknown) (unknown) for the past few (units (unknown) date) days. She states unknown) that her pain is worsened by motion and (unknown) (no (unknown) (unknown) hepatitis, (units (unk nown) date) hematemesis with unknown) persistent nausea, coagulopathy. She had an EEG on (unknown) (no (unknown) (unknown) household members: (units (unknown) date) spouse and children unknown) (unknown) (no (unknown) (unknown) hydrocodone (units (un known) date) Allergy Severe unknown) Hives Verified 07/08/22 20:37 (unknown) (no (unknown) (unknown) hydroxyzine HCl 25 (units (unknown) date) mg tablet 25 mg PO unknown) TID PRN 06/28/22 (unknown) (no (unknown) (unknown) hydroxyzine HCl 25 (units (unknown) date) mg tablet unknown) (unknown) (no (unknown) (unknown) icterus is noted, (units (unknown) date) she states this has unknown) been present for quite some time and is no (unknown) (no (unknown) (unknown) ketorolac [From (units (unknown) date) Toradol] Allergy unknown) Severe Hives Verified 07/08/22 20:37 (unknown) (no (unknown) (unknown) leave on most (units ( unknown) date) painful area for up unknown) to 12 hrs (unknown) (no (unknown) (unknown) lidocaine 5 % (units ( unknown) date) adhesive unknown) patch,medicated (unknown) (no (unknown) (unknown) lidocaine 5 % (units ( unknown) date) topical patch 1 unknown) patch topical DAILY PRN pain #15 03/23/22 (unknown) (no (unknown) (unknown) mcg tablet (units (unk nown) date) (Tab-A-Erendira) unknown) (unknown) (no (unknown) (unknown) melatonin 5 mg (units (unknown) date) tablet 5 mg PO unknown) BEDTIME sleep #30 tabs 02/17/22 (unknown) (no (unknown) (unknown) melatonin 5 mg (units (unknown) date) tablet unknown) (unknown) (no (unknown) (unknown) mg tablet (units (unkn own) date) unknown) (unknown) (no (unknown) (unknown) mild distress. (units (unknown) date) Tearful, holding an unknown) emesis bag (unknown) (no (unknown) (unknown) morphine Allergy (units (unknown) date) Intermediate Rash unknown) Verified 07/08/22 20:37 (unknown) (no (unknown) (unknown) multivitamin with (units (unknown) date) folic acid 400 1 unknown) tab PO DAILY #30 tabs 02/17/22 (unknown) (no (unknown) (unknown) multivitamin with (units (unknown) date) folic acid unknown) [Tab-A-Erendira] 400 mcg Tablet (unknown) (no (unknown) (unknown) no records from (units (unknown) date) [facility] unknown) (unknown) (no (unknown) (unknown) of her discharge (units (unknown) date) lab abnormalities, unknown) which had improved, include alk-phos 142, (unknown) (no (unknown) (unknown) of her emesis but (units (unknown) date) denies any unknown) significant bright red emesis or coffee-ground (unknown) (no (unknown) (unknown) ondansetron 4 mg (units (unknown) date) disintegrating 4 mg unknown) PO Q8H PRN nausea and 06/28/22 (unknown) (no (unknown) (unknown) ondansetron 4 mg (units (unknown) date) tablet,disintegrati unknown) ng (unknown) (no (unknown) (unknown) pantoprazole 40 mg (units (unknown) date) Tablet,Delayed unknown) Release (Dr/Ec) (unknown) (no (unknown) (unknown) pantoprazole 40 mg (units (unknown) date) tablet,delayed 40 unknown) mg PO 0700,2100 #60 tabs 02/17/22 (unknown) (no (unknown) (unknown) rales, or rhonchi. (units (unknown) date) unknown) (unknown) (no (unknown) (unknown) release (units (unkno wn) date) unknown) (unknown) (no (unknown) (unknown) requesting (units (unk nown) date) something else for unknown) pain and nausea. 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 unknown) (unknown) (no (unknown) (unknown) sucralfate 1 gram (units (unknown) date) Tablet unknown) (unknown) (no (unknown) (unknown) sucralfate 1 gram (units (unknown) date) tablet 1 g PO ACHS unknown) #120 tabs 02/17/22 (unknown) (no (unknown) (unknown) tablet vomiting (units (unknown) date) #14 tabs unknown) (unknown) (no (unknown) (unknown) thiamine (units (unkno wn) date) mononitrate (vit unknown) B1) 100 100 mg PO DAILY #30 tabs 02/17/22 (unknown) (no (unknown) (unknown) thiamine (units (unkno wn) date) mononitrate (vit unknown) B1) 100 mg Tablet (unknown) (no (unknown) (unknown) tobacco type: (units ( unknown) date) cigarettes unknown) (unknown) (no (unknown) (unknown) tonsillar (units (unkn own) date) hypertrophy or unknown) exudate. Airway patent. 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 She had been on Cipro empirically (unknown) (no (unknown) (unknown) worse than normal. (units (unknown) date) No injection or unknown) drainage. Result panel 15 (unknown) (no (unknown) (unknown) (no value) (units (unk nown) date) unknown) (unknown) (no (unknown) (unknown) #14 tabs (units (unkno wn) date) unknown) (unknown) (no (unknown) (unknown) (Tylenol Extra (units (unknown) date) Strength) #30 tabs unknown) (unknown) (no (unknown) (unknown) All (units (unkno wn) date) calculations should unknown) be rechecked by clinician prior to use (unknown) (no (unknown) (unknown) [id number] (units (unkn own) date) unknown) (unknown) (no (unknown) (unknown) 00:47 (units (unkno wn) date) unknown) (unknown) (no (unknown) (unknown) 01:00 07/09/22 (units (unknown) date) unknown) (unknown) (no (unknown) (unknown) 01:30 07/09/22 (units (unknown) date) unknown) (unknown) (no (unknown) (unknown) 02:00 (units (unkno wn) date) unknown) (unknown) (no (unknown) (unknown) 02:16 07/09/22 (units (unknown) date) unknown) (unknown) (no (unknown) (unknown) 02:16 (units (unkno wn) date) unknown) (unknown) (no (unknown) (unknown) 02:59 02:59 (units (un known) date) unknown) (unknown) (no (unknown) (unknown) 0330 - call to (units (unknown) date) Prov. Images unknown) pushed. GI paged. Faxed facesheet. (unknown) (no (unknown) (unknown) 1 g PO ACHS Qty: (units (unknown) date) 120 2RF unknown) (unknown) (no (unknown) (unknown) 1 mg PO DAILY Qty: (units (unknown) date) 30 2RF unknown) (unknown) (no (unknown) (unknown) 1 patch topical (units (unknown) date) DAILY PRN (Reason: unknown) pain) Qty: 15 0RF (unknown) (no (unknown) (unknown) 1 tab PO DAILY (units (unknown) date) Qty: 30 2RF unknown) (unknown) (no (unknown) (unknown) 10 mg PO BEDTIME (units (unknown) date) PRN (Reason: unknown) anxiety/sleep) Qty: 14 0RF (unknown) (no (unknown) (unknown) 07/08/22 07/08/22 (units (unknown) date) 07/08/22 unknown) Range/Units (unknown) (no (unknown) (unknown) 07/08/22 20:38 (units (unknown) date) unknown) (unknown) (no (unknown) (unknown) 07/08/22 20:45 (units (unknown) date) unknown) (unknown) (no (unknown) (unknown) 07/08/22 23:04 (units (unknown) date) unknown) (unknown) (no (unknown) (unknown) 07/08/22 23:54 (units (unknown) date) unknown) (unknown) (no (unknown) (unknown) 07/08/22 (units (unkno wn) date) unknown) (unknown) (no (unknown) (unknown) 07/09/22 02:59 (units (unknown) date) unknown) (unknown) (no (unknown) (unknown) 07/09/22 07/09/22 (units (unknown) date) Range/Units unknown) (unknown) (no (unknown) (unknown) 07/09/22 (units (unkno wn) date) unknown) (unknown) (no (unknown) (unknown) 100 mg PO DAILY (units (unknown) date) Qty: 30 2RF unknown) (unknown) (no (unknown) (unknown) 12 point review of (units (unknown) date) systems is negative unknown) except for those stated above (unknown) (no (unknown) (unknown) 19.6% (units (unkno wn) date) unknown) (unknown) (no (unknown) (unknown) 20:33 07/08/22 (units (unknown) date) unknown) (unknown) (no (unknown) (unknown) 20:45 20:45 20:45 (units (unknown) date) unknown) (unknown) (no (unknown) (unknown) 21:45 07/08/22 (units (unknown) date) unknown) (unknown) (no (unknown) (unknown) 22 points (units (unkn own) date) unknown) (unknown) (no (unknown) (unknown) 22:00 (units (unkno wn) date) unknown) (unknown) (no (unknown) (unknown) 22:30 07/08/22 (units (unknown) date) unknown) (unknown) (no (unknown) (unknown) 23:00 07/09/22 (units (unknown) date) unknown) (unknown) (no (unknown) (unknown) 23:54 23:54 23:54 (units (unknown) date) unknown) (unknown) (no (unknown) (unknown) 25 mg PO TID PRN (units (unknown) date) (Reason: unknown) anxiety/nausea/vomi ting) Qty: 20 0RF (unknown) (no (unknown) (unknown) 36-year-old female (units (unknown) date) daily smoker with unknown) history of significant alcohol abuse (unknown) (no (unknown) (unknown) 4 mg PO Q8H PRN (units (unknown) date) (Reason: nausea and unknown) vomiting) Qty: 14 0RF (unknown) (no (unknown) (unknown) 40 mg PO 0700,2100 (units (unknown) date) Qty: 60 2RF unknown) (unknown) (no (unknown) (unknown) 5 mg PO BEDTIME (units (unknown) date) Qty: 30 2RF unknown) (unknown) (no (unknown) (unknown) 500 mg PO Q8HR PRN (units (unknown) date) (Reason: fever or unknown) pain) Qty: 30 0RF (unknown) (no (unknown) (unknown) @ 100 mls/hr IV (units (unknown) date) Q1H SILVINA unknown) (unknown) (no (unknown) (unknown) ALT (<35) IU/L (units (unknown) date) unknown) (unknown) (no (unknown) (unknown) ALT 42 H (<35) (units (unknown) date) IU/L unknown) (unknown) (no (unknown) (unknown) AST (14-36) IU/L (units (unknown) date) unknown) (unknown) (no (unknown) (unknown) AST 52, ALT 23, (units (unknown) date) bilirubin 8.5, INR unknown) 2.1. She is had no fever or chills. She (unknown) (no (unknown) (unknown) AST 69 H (14-36) (units (unknown) date) IU/L unknown) (unknown) (no (unknown) (unknown) Acanthocytes (units (u nknown) date) (Spur) 2+ H unknown) (unknown) (no (unknown) (unknown) Acanthocytes (units (u nknown) date) (Spur) unknown) (unknown) (no (unknown) (unknown) Admin: 07/08/22 (units (unknown) date) 22:38 Dose: 1,000 unknown) mls/hr (unknown) (no (unknown) (unknown) Admin: 07/08/22 (units (unknown) date) 23:47 Dose: 100 unknown) mls/hr (unknown) (no (unknown) (unknown) Admin: 07/09/22 (units (unknown) date) 01:10 Dose: 100 unknown) mls/hr (unknown) (no (unknown) (unknown) Age/Sex: 36 / F (units (unknown) date) unknown) (unknown) (no (unknown) (unknown) Albumin (3.5-5.0) (units (unknown) date) g/dL unknown) (unknown) (no (unknown) (unknown) Albumin 3.7 (units (un known) date) (3.5-5.0) g/dL unknown) (unknown) (no (unknown) (unknown) Albumin/Globulin (units (unknown) date) Ratio (1.0-2.8) unknown) (unknown) (no (unknown) (unknown) Albumin/Globulin (units (unknown) date) Ratio 1.1 (1.0-2.8) unknown) (unknown) (no (unknown) (unknown) Alcohol abuse (units ( unknown) date) unknown) (unknown) (no (unknown) (unknown) Alcohol type: beer (units (unknown) date) and wine unknown) (unknown) (no (unknown) (unknown) Alcoholic liver (units (unknown) date) disease unknown) (unknown) (no (unknown) (unknown) Alkaline (units (unkno wn) date) Phosphatase unknown) (38-126) U/L (unknown) (no (unknown) (unknown) Alkaline (units (unkno wn) date) Phosphatase 150 H unknown) (38-126) U/L (unknown) (no (unknown) (unknown) Allergies (units (unkn own) date) unknown) (unknown) (no (unknown) (unknown) Allergy/AdvReac (units (unknown) date) Type Severity unknown) Reaction Status Date / Time (unknown) (no (unknown) (unknown) Ammonia (9-30) (units (unknown) date) umol/L unknown) (unknown) (no (unknown) (unknown) Ammonia (NH3) Stat (units (unknown) date) unknown) (unknown) (no (unknown) (unknown) Ammonia 15 (9-30) (units (unknown) date) umol/L unknown) (unknown) (no (unknown) (unknown) Anisocytosis 2+ H (units (unknown) date) unknown) (unknown) (no (unknown) (unknown) Anisocytosis (units (u nknown) date) unknown) (unknown) (no (unknown) (unknown) Antibiotics) (units (u nknown) date) unknown) (unknown) (no (unknown) (unknown) BACK: Nontender (units (unknown) date) without deformity unknown) or crepitance. No flank tenderness. (unknown) (no (unknown) (unknown) BMP [Basic (units (unk nown) date) Metabolic Panel] unknown) Stat (unknown) (no (unknown) (unknown) BUN (7-17) mg/dL (units (unknown) date) unknown) (unknown) (no (unknown) (unknown) BUN 8 (7-17) mg/dL (units (unknown) date) unknown) (unknown) (no (unknown) (unknown) BUN 9 (7-17) mg/dL (units (unknown) date) unknown) (unknown) (no (unknown) (unknown) BUN/Creatinine (units (unknown) date) Ratio (6-22) unknown) (unknown) (no (unknown) (unknown) BUN/Creatinine (units (unknown) date) Ratio 15.1 (6-22) unknown) (unknown) (no (unknown) (unknown) BUN/Creatinine (units (unknown) date) Ratio 16.7 (6-22) unknown) (unknown) (no (unknown) (unknown) Baso # (Auto) (units ( unknown) date) (0-100) /uL unknown) (unknown) (no (unknown) (unknown) Baso # (Auto) 0 (units (unknown) date) (0-100) /uL unknown) (unknown) (no (unknown) (unknown) Baso % (Auto) (units ( unknown) date) (0-2) % unknown) (unknown) (no (unknown) (unknown) Baso % (Auto) 0.2 (units (unknown) date) (0-2) % unknown) (unknown) (no (unknown) (unknown) Bilirubin ?> 7.3 (units (unknown) date) mg/dL unknown) (unknown) (no (unknown) (unknown) Blood Pressure (units (unknown) date) 135/60 unknown) (unknown) (no (unknown) (unknown) Blood Pressure (units (unknown) date) 158/79 H 156/91 H unknown) (unknown) (no (unknown) (unknown) Blood Pressure (units (unknown) date) 163/84 H 07/08/22 unknown) 20:33 (unknown) (no (unknown) (unknown) Blood Pressure (units (unknown) date) 163/84 H 169/103 H unknown) 150/82 H (unknown) (no (unknown) (unknown) Blood Pressure (units (unknown) date) unknown) (unknown) (no (unknown) (unknown) CARDIOVASCULAR: (units (unknown) date) Denies chest pain, unknown) palpitations, orthopnea, edema, (unknown) (no (unknown) (unknown) CARDIOVASCULAR: (units (unknown) date) Regular rate and unknown) rhythm without murmurs, gallops, or rubs. (unknown) (no (unknown) (unknown) CT abdomen pelvis (units (unknown) date) w con Stat unknown) (unknown) (no (unknown) (unknown) Calcium (8.4-10.2) (units (unknown) date) mg/dL unknown) (unknown) (no (unknown) (unknown) Calcium 8.0 L (units ( unknown) date) (8.4-10.2) mg/dL unknown) (unknown) (no (unknown) (unknown) Calcium 8.9 (units (un known) date) (8.4-10.2) mg/dL unknown) (unknown) (no (unknown) (unknown) Carbon Dioxide (units (unknown) date) (22-32) mmol/L unknown) (unknown) (no (unknown) (unknown) Carbon Dioxide 23 (units (unknown) date) (22-32) mmol/L unknown) (unknown) (no (unknown) (unknown) Carbon Dioxide 24 (units (unknown) date) (22-32) mmol/L unknown) (unknown) (no (unknown) (unknown) Ceftriaxone Sodium (units (unknown) date) 2,000 mg/ (Sodium unknown) Chloride) 100 mls @ 200 mls/hr IV NOW ONE (unknown) (no (unknown) (unknown) Chief complaint: (units (unknown) date) Abdominal Pain unknown) (unknown) (no (unknown) (unknown) Chloride (98-107) (units (unknown) date) mmol/L unknown) (unknown) (no (unknown) (unknown) Chloride 106 (units (u nknown) date) (98-107) mmol/L unknown) (unknown) (no (unknown) (unknown) Chloride 107 (units (u nknown) date) (98-107) mmol/L unknown) (unknown) (no (unknown) (unknown) Cholecystitis (units ( unknown) date) unknown) (unknown) (no (unknown) (unknown) Chronic low back (units (unknown) date) pain unknown) (unknown) (no (unknown) (unknown) Complete Blood (units (unknown) date) Count AUTO DIFF unknown) Stat (unknown) (no (unknown) (unknown) Comprehensive (units ( unknown) date) Metabolic Panel unknown) Stat (unknown) (no (unknown) (unknown) Consultation #1: (units (unknown) date) unknown) (unknown) (no (unknown) (unknown) Consultations (units ( unknown) date) unknown) (unknown) (no (unknown) (unknown) Course Narrative: (units (unknown) date) unknown) (unknown) (no (unknown) (unknown) Course (units (unkno wn) date) unknown) (unknown) (no (unknown) (unknown) Creatinine (units (unk nown) date) (0.52-1.04) mg/dL unknown) (unknown) (no (unknown) (unknown) Creatinine 0.53 (units (unknown) date) (0.52-1.04) mg/dL unknown) (unknown) (no (unknown) (unknown) Creatinine 0.54 (units (unknown) date) (0.52-1.04) mg/dL unknown) (unknown) (no (unknown) (unknown) Creatinine ?> 0.53 (units (unknown) date) mg/dL unknown) (unknown) (no (unknown) (unknown) : 1985 (units (unknown) date) Acct:[id number] unknown) (unknown) (no (unknown) (unknown) Date of Service: (units (unknown) date) 07/08/22 unknown) (unknown) (no (unknown) (unknown) Departure (units (unkn own) date) unknown) (unknown) (no (unknown) (unknown) Diabetes mellitus (units (unknown) date) unknown) (unknown) (no (unknown) (unknown) Dialysis at least (units (unknown) date) twice in the past unknown) week ?> 0 = No (unknown) (no (unknown) (unknown) Discharge Plan (units (unknown) date) unknown) (unknown) (no (unknown) (unknown) Discontinued (units (u nknown) date) Medications unknown) (unknown) (no (unknown) (unknown) Documented By: AT (units (unknown) date) unknown) (unknown) (no (unknown) (unknown) Documented By: EB (units (unknown) date) unknown) (unknown) (no (unknown) (unknown) Documented By: RL (units (unknown) date) unknown) (unknown) (no (unknown) (unknown) ED Orders (units (unkn own) date) unknown) (unknown) (no (unknown) (unknown) EKG-12 Lead Stat (units (unknown) date) unknown) (unknown) (no (unknown) (unknown) ENT: Nose without (units (unknown) date) bleeding, purulent unknown) drainage. Throat without erythema, (unknown) (no (unknown) (unknown) ER Physician: (units ( unknown) date) Logan Mcneal D.O. unknown) (unknown) (no (unknown) (unknown) EXTREMITIES: No (units (unknown) date) edema or joint unknown) tenderness. (unknown) (no (unknown) (unknown) EYES: Pupils equal (units (unknown) date) round and reactive. unknown) Extraocular motions intact. Scleral (unknown) (no (unknown) (unknown) Emergency Report (units (unknown) date) unknown) (unknown) (no (unknown) (unknown) Eos # (Auto) (units (u nknown) date) (0-450) /uL unknown) (unknown) (no (unknown) (unknown) Eos # (Auto) 100 (units (unknown) date) (0-450) /uL unknown) (unknown) (no (unknown) (unknown) Eos % (Auto) (2-4) (units (unknown) date) % unknown) (unknown) (no (unknown) (unknown) Eos % (Auto) 0.7 L (units (unknown) date) (2-4) % unknown) (unknown) (no (unknown) (unknown) Estimated 3-Month (units (unknown) date) Mortality unknown) (unknown) (no (unknown) (unknown) Estimated GFR > 60 (units (unknown) date) (>60) mL/min unknown) (unknown) (no (unknown) (unknown) Estimated GFR (units ( unknown) date) (>60) mL/min unknown) (unknown) (no (unknown) (unknown) Ethanol (ETOH) (units (unknown) date) Stat unknown) (unknown) (no (unknown) (unknown) Ethyl Alcohol < 10 (units (unknown) date) ( - 10) mg/dL unknown) (unknown) (no (unknown) (unknown) Ethyl Alcohol ( - (units (unknown) date) 10) mg/dL unknown) (unknown) (no (unknown) (unknown) Exam Narrative: (units (unknown) date) unknown) (unknown) (no (unknown) (unknown) Exam (units (unkno wn) date) unknown) (unknown) (no (unknown) (unknown) Family History (units (unknown) date) (Reviewed 07/08/22 unknown) @ 23:09 by Logan Mcneal DO) (unknown) (no (unknown) (unknown) Father (units (unkno wn) date) Hypertension unknown) (unknown) (no (unknown) (unknown) Fibromyalgia (units (u nknown) date) unknown) (unknown) (no (unknown) (unknown) GASTROINTESTINAL: (units (unknown) date) Abdomen soft, unknown) tender in the epigastrium, nondistended. (unknown) (no (unknown) (unknown) GASTROINTESTINAL: (units (unknown) date) See HPI unknown) (unknown) (no (unknown) (unknown) GENERAL: See HPI (units (unknown) date) unknown) (unknown) (no (unknown) (unknown) GENERAL: [36] year (units (unknown) date) old patient appears unknown) stated age. Well-developed patient, in (unknown) (no (unknown) (unknown) : Denies (units (unk nown) date) dysuria, frequency, unknown) incontinence, hematuria, urinary retention. (unknown) (no (unknown) (unknown) General (units (unkno wn) date) unknown) (unknown) (no (unknown) (unknown) Globulin (1.7-4.1) (units (unknown) date) g/dL unknown) (unknown) (no (unknown) (unknown) Globulin 3.4 (units (u nknown) date) (1.7-4.1) g/dL unknown) (unknown) (no (unknown) (unknown) Glucose (70-100) (units (unknown) date) mg/dL unknown) (unknown) (no (unknown) (unknown) Glucose 123 H (units ( unknown) date) (70-100) mg/dL unknown) (unknown) (no (unknown) (unknown) Glucose 136 H (units ( unknown) date) (70-100) mg/dL unknown) (unknown) (no (unknown) (unknown) HEAD: Atraumatic. (units (unknown) date) Normocephalic. unknown) (unknown) (no (unknown) (unknown) HEENT: Denies (units ( unknown) date) sinus pain, ear unknown) pain, sore throat, difficulty swallowing, (unknown) (no (unknown) (unknown) HH [Hemoglobin and (units (unknown) date) Hematocrit] Stat unknown) (unknown) (no (unknown) (unknown) HPI - GI Bleed (units (unknown) date) unknown) (unknown) (no (unknown) (unknown) HPI Narrative: (units (unknown) date) unknown) (unknown) (no (unknown) (unknown) Haloperidol (units (un known) date) (Haloperidol 5 unknown) Mg/Ml Vial) 5 mg IV NOW ONE (unknown) (no (unknown) (unknown) Hct 22.9 L (36-46) (units (unknown) date) % unknown) (unknown) (no (unknown) (unknown) Hct 23.0 L (36-46) (units (unknown) date) % unknown) (unknown) (no (unknown) (unknown) Hct 27.2 L (36-46) (units (unknown) date) % unknown) (unknown) (no (unknown) (unknown) Hgb 7.7 L (units (unkn own) date) (12.0-16.0) g/dL unknown) (unknown) (no (unknown) (unknown) Hgb 9.2 L (units (unkn own) date) (12.0-16.0) g/dL unknown) (unknown) (no (unknown) (unknown) History of Present (units (unknown) date) Illness unknown) (unknown) (no (unknown) (unknown) History of (units (unk nown) date) tonsillectomy and unknown) adenoidectomy (unknown) (no (unknown) (unknown) Hydromorphone HCl (units (unknown) date) (Hydromorphone 1 Mg unknown) Inj) 1 mg IV NOW ONE (unknown) (no (unknown) (unknown) Hydromorphone HCl (units (unknown) date) (Hydromorphone 1 Mg unknown) Inj) 1 mg IV Q2HR PRN (unknown) (no (unknown) (unknown) Hypercoagulable (units (unknown) date) state unknown) (unknown) (no (unknown) (unknown) Hypertension (units (u nknown) date) unknown) (unknown) (no (unknown) (unknown) INPUTS: (units (unkno wn) date) unknown) (unknown) (no (unknown) (unknown) INR (0.9-1.3) (units ( unknown) date) unknown) (unknown) (no (unknown) (unknown) INR 2.0 H (units (unkn own) date) (0.9-1.3) unknown) (unknown) (no (unknown) (unknown) INR ?> 2.0 (units (unk nown) date) unknown) (unknown) (no (unknown) (unknown) IUD (intrauterine (units (unknown) date) device) in place unknown) (unknown) (no (unknown) (unknown) Infusion: 07/09/22 (units (unknown) date) 01:05 Dose: 0 unknown) mls/hr (unknown) (no (unknown) (unknown) Infusion: 07/09/22 (units (unknown) date) 02:15 Dose: 0 unknown) mls/hr (unknown) (no (unknown) (unknown) Initial Vital (units ( unknown) date) Signs unknown) (unknown) (no (unknown) (unknown) Initial Vital (units ( unknown) date) Signs: unknown) (unknown) (no (unknown) (unknown) [facility] (units (unknown) date) [address] unknown) [place] [address] (unknown) (no (unknown) (unknown) Lab Data (units (unkno wn) date) unknown) (unknown) (no (unknown) (unknown) Lab Results (units (un known) date) unknown) (unknown) (no (unknown) (unknown) Labs: (units (unkno wn) date) unknown) (unknown) (no (unknown) (unknown) Last Admin: (units (un known) date) 07/08/22 21:46 unknown) Dose: 40 mg (unknown) (no (unknown) (unknown) Last Admin: (units (un known) date) 07/08/22 22:38 unknown) Dose: 5 mg (unknown) (no (unknown) (unknown) Last Admin: (units (un known) date) 07/08/22 23:09 unknown) Dose: 1 mg (unknown) (no (unknown) (unknown) Last Admin: (units (un known) date) 07/08/22 23:09 unknown) Dose: 10 mg (unknown) (no (unknown) (unknown) Last Admin: (units (un known) date) 07/08/22 23:47 unknown) Dose: 1,000 mls/hr (unknown) (no (unknown) (unknown) Last Admin: (units (un known) date) 07/09/22 00:33 unknown) Dose: 1 mg (unknown) (no (unknown) (unknown) Last Admin: (units (un known) date) 07/09/22 00:33 unknown) Dose: 50 mcg (unknown) (no (unknown) (unknown) Last Admin: (units (un known) date) 07/09/22 00:34 unknown) Dose: 25 mcg/hr, 5.05 mls/hr (unknown) (no (unknown) (unknown) Last Admin: (units (un known) date) 07/09/22 02:16 unknown) Dose: 100 mls/hr (unknown) (no (unknown) (unknown) Last Admin: (units (un known) date) 07/09/22 02:28 unknown) Dose: 1 mg (unknown) (no (unknown) (unknown) Last Infusion: (units (unknown) date) 07/09/22 00:30 unknown) Dose: 0 mls/hr (unknown) (no (unknown) (unknown) Lipase (23-300) (units (unknown) date) U/L unknown) (unknown) (no (unknown) (unknown) Lipase 160 (units (unk nown) date) (23-300) U/L unknown) (unknown) (no (unknown) (unknown) Lipase Stat (units (un known) date) unknown) (unknown) (no (unknown) (unknown) Lymph # (Auto) (units (unknown) date) (7580-8016) /uL unknown) (unknown) (no (unknown) (unknown) Lymph # (Auto) (units (unknown) date) 1200 (6981-8828) unknown) /uL (unknown) (no (unknown) (unknown) Lymph % (Auto) (units (unknown) date) (25-40) % unknown) (unknown) (no (unknown) (unknown) Lymph % (Auto) (units (unknown) date) 14.4 L (25-40) % unknown) (unknown) (no (unknown) (unknown) MCH (26-34) PG (units (unknown) date) unknown) (unknown) (no (unknown) (unknown) MCH 32.0 (26-34) (units (unknown) date) PG unknown) (unknown) (no (unknown) (unknown) MCHC (30-36) % (units (unknown) date) unknown) (unknown) (no (unknown) (unknown) MCHC 33.7 (30-36) (units (unknown) date) % unknown) (unknown) (no (unknown) (unknown) MCV (80-100) fL (units (unknown) date) unknown) (unknown) (no (unknown) (unknown) MCV 94.8 (80-100) (units (unknown) date) fL unknown) (unknown) (no (unknown) (unknown) MDM - GI Bleed (units (unknown) date) unknown) (unknown) (no (unknown) (unknown) MELD Score (2016)* (units (unknown) date) unknown) (unknown) (no (unknown) (unknown) MELD Score (Model (units (unknown) date) For End-Stage Liver unknown) Disease) (12 and older) from [place] (unknown) (no (unknown) (unknown) MUSCULOSKELETAL: (units (unknown) date) denies weakness, unknown) joint pain, or bony pain (unknown) (no (unknown) (unknown) Medical History (units (unknown) date) (Reviewed 07/08/22 unknown) @ 23:09 by Logan Mcneal DO) (unknown) (no (unknown) (unknown) Medication (units (unk nown) date) Instructions unknown) Recorded (unknown) (no (unknown) (unknown) Metoclopramide HCl (units (unknown) date) (Metoclopramide 10 unknown) Mg/2 Ml Inj) 10 mg IV NOW ONE (unknown) (no (unknown) (unknown) Mode of arrival: (units (unknown) date) Ambulatory unknown) (unknown) (no (unknown) (unknown) Pope # (Auto) (units ( unknown) date) (0-900) /uL unknown) (unknown) (no (unknown) (unknown) Pope # (Auto) 1500 (units (unknown) date) H (0-900) /uL unknown) (unknown) (no (unknown) (unknown) Pope % (Auto) (units ( unknown) date) (3-14) % unknown) (unknown) (no (unknown) (unknown) Pope % (Auto) 18.4 (units (unknown) date) H (3-14) % unknown) (unknown) (no (unknown) (unknown) Mother Hepatic (units (unknown) date) disease unknown) (unknown) (no (unknown) (unknown) NECK: Trachea (units ( unknown) date) midline. Non tender unknown) (unknown) (no (unknown) (unknown) NEURO: AOx3. (units (u nknown) date) unknown) (unknown) (no (unknown) (unknown) NEUROLOGIC: Denies (units (unknown) date) weakness, headache, unknown) numbness, change in speech, confusion, (unknown) (no (unknown) (unknown) Narrative (units (unkn own) date) unknown) (unknown) (no (unknown) (unknown) Narrative: (units (unk nown) date) unknown) (unknown) (no (unknown) (unknown) Neut # (Auto) (units ( unknown) date) (0104-2151) /uL unknown) (unknown) (no (unknown) (unknown) Neut # (Auto) 5500 (units (unknown) date) (1553-2867) /uL unknown) (unknown) (no (unknown) (unknown) Neut % (Auto) (units ( unknown) date) (50-75) % unknown) (unknown) (no (unknown) (unknown) Neut % (Auto) 66.3 (units (unknown) date) (50-75) % unknown) (unknown) (no (unknown) (unknown) No Action (units (unkn own) date) unknown) (unknown) (no (unknown) (unknown) Octreotide Acetate (units (unknown) date) (Octreotide 100 unknown) Mcg/Ml Vial) 50 mcg IV NOW ONE (unknown) (no (unknown) (unknown) Octreotide Acetate (units (unknown) date) 500 mcg/ (Sodium unknown) Chloride) 101 mls @ 5.05 mls/hr IV CONT (unknown) (no (unknown) (unknown) Ordered: (units (unkno wn) date) unknown) (unknown) (no (unknown) (unknown) Orders (units (unkno wn) date) unknown) (unknown) (no (unknown) (unknown) Oxygen Delivery (units (unknown) date) Method 07/08/22 unknown) 20:33 (unknown) (no (unknown) (unknown) Oxygen Delivery (units (unknown) date) Method Room Air unknown) Room Air Room Air (unknown) (no (unknown) (unknown) Oxygen Delivery (units (unknown) date) Method Room Air unknown) Room Air (unknown) (no (unknown) (unknown) Oxygen Delivery (units (unknown) date) Method unknown) (unknown) (no (unknown) (unknown) POTASSIUM CHLORIDE (units (unknown) date) IN WATER (Potassium unknown) Cl 10 Meq/100 Ml Evangelina) 10 meq in 100 mls (unknown) (no (unknown) (unknown) PRN Reason: Pain, (units (unknown) date) Severe (7-10) unknown) (unknown) (no (unknown) (unknown) PSYCHIATRIC: No (units (unknown) date) concerning unknown) psychosocial issues. (unknown) (no (unknown) (unknown) PT (10.1-12.7) (units (unknown) date) SECONDS unknown) (unknown) (no (unknown) (unknown) PT 22.8 H (units (unkn own) date) (10.1-12.7) SECONDS unknown) (unknown) (no (unknown) (unknown) Pancreatitis (units (u nknown) date) unknown) (unknown) (no (unknown) (unknown) Pantoprazole (units (u nknown) date) Sodium unknown) (Pantoprazole 40 Mg Vial) 40 mg IV NOW ONE (unknown) (no (unknown) (unknown) Patient History (units (unknown) date) unknown) (unknown) (no (unknown) (unknown) Patient reporting (units (unknown) date) little improvement unknown) in symptoms after above-stated therapies, (unknown) (no (unknown) (unknown) Patient: (units (unkno wn) date) Rosaura Witt unknown) MR#: M (unknown) (no (unknown) (unknown) Plt Count (units (unkn own) date) (150-400) X103/uL unknown) (unknown) (no (unknown) (unknown) Plt Count 145 L (units (unknown) date) (150-400) X103/uL unknown) (unknown) (no (unknown) (unknown) Potassium (units (unkn own) date) (3.4-5.1) mmol/L unknown) (unknown) (no (unknown) (unknown) Potassium 3.0 L (units (unknown) date) (3.4-5.1) mmol/L unknown) (unknown) (no (unknown) (unknown) Potassium 4.0 (units ( unknown) date) (3.4-5.1) mmol/L unknown) (unknown) (no (unknown) (unknown) Prescriptions: (units (unknown) date) unknown) (unknown) (no (unknown) (unknown) Previous Rx's (units ( unknown) date) unknown) (unknown) (no (unknown) (unknown) Primary biliary (units (unknown) date) cirrhosis unknown) (unknown) (no (unknown) (unknown) Prothrombin Time (units (unknown) date) INR Stat unknown) (unknown) (no (unknown) (unknown) Pulse Oximetry 96 (units (unknown) date) 98 99 unknown) (unknown) (no (unknown) (unknown) Pulse Oximetry 97 (units (unknown) date) 07/08/22 20:33 unknown) (unknown) (no (unknown) (unknown) Pulse Oximetry 97 (units (unknown) date) 100 99 unknown) (unknown) (no (unknown) (unknown) Pulse Oximetry 98 (units (unknown) date) unknown) (unknown) (no (unknown) (unknown) Pulse Oximetry 99 (units (unknown) date) 100 99 unknown) (unknown) (no (unknown) (unknown) Pulse Rate 70 (units ( unknown) date) unknown) (unknown) (no (unknown) (unknown) Pulse Rate 71 (units ( unknown) date) 07/08/22 20:33 unknown) (unknown) (no (unknown) (unknown) Pulse Rate 71 71 (units (unknown) date) 96 H unknown) (unknown) (no (unknown) (unknown) Pulse Rate 73 74 (units (unknown) date) 81 unknown) (unknown) (no (unknown) (unknown) Pulse Rate 76 88 (units (unknown) date) 55 L unknown) (unknown) (no (unknown) (unknown) RBC (4.0-5.2) (units ( unknown) date) X106/uL unknown) (unknown) (no (unknown) (unknown) RBC 2.87 L (units (unk nown) date) (4.0-5.2) X106/uL unknown) (unknown) (no (unknown) (unknown) RBC Morphology See (units (unknown) date) below unknown) (unknown) (no (unknown) (unknown) RBC Morphology (units (unknown) date) unknown) (unknown) (no (unknown) (unknown) RDW (11.6-14.8) % (units (unknown) date) unknown) (unknown) (no (unknown) (unknown) RDW 18.7 H (units (unk nown) date) (11.6-14.8) % unknown) (unknown) (no (unknown) (unknown) RESPIRATORY: Clear (units (unknown) date) to auscultation. unknown) Breath sounds equal bilaterally. No wheezes, (unknown) (no (unknown) (unknown) RESPIRATORY: (units (u nknown) date) Denies dyspnea, unknown) cough, wheezing, hemoptysis, sputum. (unknown) (no (unknown) (unknown) RESULT SUMMARY: (units (unknown) date) unknown) (unknown) (no (unknown) (unknown) Reevaluation #1: (units (unknown) date) unknown) (unknown) (no (unknown) (unknown) Reevaluation #2: (units (unknown) date) unknown) (unknown) (no (unknown) (unknown) Reevaluation #3: (units (unknown) date) unknown) (unknown) (no (unknown) (unknown) Reevaluation(s) (units (unknown) date) unknown) (unknown) (no (unknown) (unknown) Reglan as well as (units (unknown) date) another L of fluid unknown) and a CT of her abdomen and pelvis. Still (unknown) (no (unknown) (unknown) Related Data (units (u nknown) date) unknown) (unknown) (no (unknown) (unknown) Respiratory Rate (units (unknown) date) 18 07/08/22 20:33 unknown) (unknown) (no (unknown) (unknown) Respiratory Rate (units (unknown) date) 18 18 18 unknown) (unknown) (no (unknown) (unknown) Respiratory Rate (units (unknown) date) 18 18 unknown) (unknown) (no (unknown) (unknown) Respiratory Rate (units (unknown) date) unknown) (unknown) (no (unknown) (unknown) Result diagrams: (units (unknown) date) unknown) (unknown) (no (unknown) (unknown) Review of Systems (units (unknown) date) unknown) (unknown) (no (unknown) (unknown) Rheumatoid (units (unk nown) date) arthritis unknown) (unknown) (no (unknown) (unknown) Rx Instructions: (units (unknown) date) unknown) (unknown) (no (unknown) (unknown) SILVINA; Protocol (units ( unknown) date) unknown) (unknown) (no (unknown) (unknown) SKIN: Denies rash, (units (unknown) date) skin lesions, or unknown) other (unknown) (no (unknown) (unknown) SKIN: Mild (units (unk nown) date) jaundice unknown) (unknown) (no (unknown) (unknown) June 29 that (units (unknown) date) noted trace unknown) esophageal varices and type 1 gastroesophageal (unknown) (no (unknown) (unknown) Signed By: (units (unk nown) date) unknown) (unknown) (no (unknown) (unknown) Smoking Status: (units (unknown) date) Current every day unknown) smoker (unknown) (no (unknown) (unknown) Social History (units (unknown) date) (Reviewed 07/08/22 unknown) @ 23:09 by Logan Mcneal DO) (unknown) (no (unknown) (unknown) Sodium (137-145) (units (unknown) date) mmol/L unknown) (unknown) (no (unknown) (unknown) Sodium 138 (units (unk nown) date) (137-145) mmol/L unknown) (unknown) (no (unknown) (unknown) Sodium 140 (units (unk nown) date) (137-145) mmol/L unknown) (unknown) (no (unknown) (unknown) Sodium ?> 138 (units ( unknown) date) mEq/L unknown) (unknown) (no (unknown) (unknown) Sodium Chloride (units (unknown) date) (Normal Saline unknown) 0.9%) 1,000 mls @ 1,000 mls/hr IV BOLUS ONE (unknown) (no (unknown) (unknown) Source: patient (units (unknown) date) unknown) (unknown) (no (unknown) (unknown) Stated complaint: (units (unknown) date) Blood in vomit, unknown) Pain (unknown) (no (unknown) (unknown) Stop: 07/08/22 (units (unknown) date) 21:12 unknown) (unknown) (no (unknown) (unknown) Stop: 07/08/22 (units (unknown) date) 22:31 unknown) (unknown) (no (unknown) (unknown) Stop: 07/08/22 (units (unknown) date) 23:05 unknown) (unknown) (no (unknown) (unknown) Stop: 07/08/22 (units (unknown) date) 23:29 unknown) (unknown) (no (unknown) (unknown) Stop: 07/09/22 (units (unknown) date) 00:03 unknown) (unknown) (no (unknown) (unknown) Stop: 07/09/22 (units (unknown) date) 00:17 unknown) (unknown) (no (unknown) (unknown) Stop: 07/09/22 (units (unknown) date) 03:14 unknown) (unknown) (no (unknown) (unknown) Stop: 07/09/22 (units (unknown) date) 03:26 unknown) (unknown) (no (unknown) (unknown) Substance Use (units ( unknown) date) Type: marijuana unknown) (unknown) (no (unknown) (unknown) Sulfa (Sulfonamide (units (unknown) date) Allergy unknown) Intermediate Hives Verified 06/28/22 09:21 (unknown) (no (unknown) (unknown) Surgical History (units (unknown) date) (Reviewed 07/08/22 unknown) @ 23:09 by Logan Mcneal DO) (unknown) (no (unknown) (unknown) Temperature 97.8 F (units (unknown) date) 07/08/22 20:33 unknown) (unknown) (no (unknown) (unknown) Temperature 97.8 F (units (unknown) date) unknown) (unknown) (no (unknown) (unknown) Temperature (units (un known) date) unknown) (unknown) (no (unknown) (unknown) Time Seen by (units (u nknown) date) Provider: 07/08/22 unknown) 21:05 (unknown) (no (unknown) (unknown) Time: 23:06 (units (un known) date) unknown) (unknown) (no (unknown) (unknown) Total Bilirubin (units (unknown) date) (0.2-1.3) mg/dL unknown) (unknown) (no (unknown) (unknown) Total Bilirubin (units (unknown) date) 7.3 H (0.2-1.3) unknown) mg/dL (unknown) (no (unknown) (unknown) Total Protein (units ( unknown) date) (6.3-8.2) g/dL unknown) (unknown) (no (unknown) (unknown) Total Protein 7.1 (units (unknown) date) (6.3-8.2) g/dL unknown) (unknown) (no (unknown) (unknown) Vital Signs - 8 hr (units (unknown) date) unknown) (unknown) (no (unknown) (unknown) Vital Signs (units (un known) date) unknown) (unknown) (no (unknown) (unknown) Vital signs: (units (u nknown) date) unknown) (unknown) (no (unknown) (unknown) WBC (4.5-11.0) (units (unknown) date) X103/uL unknown) (unknown) (no (unknown) (unknown) WBC 8.3 (4.5-11.0) (units (unknown) date) X103/uL unknown) (unknown) (no (unknown) (unknown) [Embedded Image (units (unknown) date) Not Available] unknown) (unknown) (no (unknown) (unknown) acetaminophen 500 (units (unknown) date) mg tablet 500 mg PO unknown) Q8HR PRN fever or pain 06/28/22 (unknown) (no (unknown) (unknown) acetaminophen (units ( unknown) date) [Tylenol Extra unknown) Strength] 500 mg tablet (unknown) (no (unknown) (unknown) alcohol intake (units (unknown) date) frequency: 0-2 unknown) drinks per day (unknown) (no (unknown) (unknown) alcohol intake: (units (unknown) date) current unknown) (unknown) (no (unknown) (unknown) and received 1 (units (unknown) date) transfusing unknown) including 2 units of packed red cells. On the date (unknown) (no (unknown) (unknown) anxiety/nausea/vom (units (unknown) date) iting #20 tabs unknown) (unknown) (no (unknown) (unknown) appearance. She (units (unknown) date) was just discharged unknown) from [facility] on Sunday after having (unknown) (no (unknown) (unknown) been admitted for (units (unknown) date) the prior 5 days. unknown) Her admission diagnosis includes alcoholic (unknown) (no (unknown) (unknown) bupropion [From (units (unknown) date) Wellbutrin] AdvReac unknown) Severe Seizure Verified 07/08/22 20:37 (unknown) (no (unknown) (unknown) call to [facility] (units (unknown[facility] date[facility] unknown) hospitalist. No ability to keep UGI bleed with known (unknown) (no (unknown) (unknown) complaint (units (unkn own) date) increasing upper unknown) abdominal pain with persistent nausea and vomiting (unknown) (no (unknown) (unknown) continues, patient (units (unknown) date) to receive 3rd unknown) round of dilaudid (unknown) (no (unknown) (unknown) denies any chest (units (unknown) date) pain or shortness unknown) of breath (unknown) (no (unknown) (unknown) diazepam 10 mg (units (unknown) date) tablet 10 mg PO unknown) BEDTIME PRN anxiety/sleep 06/28/22 (unknown) (no (unknown) (unknown) diazepam 10 mg (units (unknown) date) tablet unknown) (unknown) (no (unknown) (unknown) dizziness. (units (unk nown) date) unknown) (unknown) (no (unknown) (unknown) ea (units (unkno wn) date) unknown) (unknown) (no (unknown) (unknown) eating and (units (unk nown) date) drinking. She had a unknown) small amount of blood and a few of the episodes (unknown) (no (unknown) (unknown) folic acid 1 mg (units (unknown) date) Tablet unknown) (unknown) (no (unknown) (unknown) folic acid 1 mg (units (unknown) date) tablet 1 mg PO unknown) DAILY #30 tabs 02/17/22 (unknown) (no (unknown) (unknown) for the past few (units (unknown) date) days. She states unknown) that her pain is worsened by motion and (unknown) (no (unknown) (unknown) hepatitis, (units (unk nown) date) hematemesis with unknown) persistent nausea, coagulopathy. She had an EEG on (unknown) (no (unknown) (unknown) household members: (units (unknown) date) spouse and children unknown) (unknown) (no (unknown) (unknown) hydrocodone (units (un known) date) Allergy Severe unknown) Hives Verified 07/08/22 20:37 (unknown) (no (unknown) (unknown) hydroxyzine HCl 25 (units (unknown) date) mg tablet 25 mg PO unknown) TID PRN 06/28/22 (unknown) (no (unknown) (unknown) hydroxyzine HCl 25 (units (unknown) date) mg tablet unknown) (unknown) (no (unknown) (unknown) icterus is noted, (units (unknown) date) she states this has unknown) been present for quite some time and is no (unknown) (no (unknown) (unknown) ketorolac [From (units (unknown) date) Toradol] Allergy unknown) Severe Hives Verified 07/08/22 20:37 (unknown) (no (unknown) (unknown) leave on most (units ( unknown) date) painful area for up unknown) to 12 hrs (unknown) (no (unknown) (unknown) lidocaine 5 % (units ( unknown) date) adhesive unknown) patch,medicated (unknown) (no (unknown) (unknown) lidocaine 5 % (units ( unknown) date) topical patch 1 unknown) patch topical DAILY PRN pain #15 03/23/22 (unknown) (no (unknown) (unknown) mcg tablet (units (unk nown) date) (Tab-A-Erendira) unknown) (unknown) (no (unknown) (unknown) melatonin 5 mg (units (unknown) date) tablet 5 mg PO unknown) BEDTIME sleep #30 tabs 02/17/22 (unknown) (no (unknown) (unknown) melatonin 5 mg (units (unknown) date) tablet unknown) (unknown) (no (unknown) (unknown) mg tablet (units (unkn own) date) unknown) (unknown) (no (unknown) (unknown) mild distress. (units (unknown) date) Tearful, holding an unknown) emesis bag (unknown) (no (unknown) (unknown) morphine Allergy (units (unknown) date) Intermediate Rash unknown) Verified 07/08/22 20:37 (unknown) (no (unknown) (unknown) multivitamin with (units (unknown) date) folic acid 400 1 unknown) tab PO DAILY #30 tabs 02/17/22 (unknown) (no (unknown) (unknown) multivitamin with (units (unknown) date) folic acid unknown) [Tab-A-Erendira] 400 mcg Tablet (unknown) (no (unknown) (unknown) no records from (units (unknown) date) [place] unknown) (unknown) (no (unknown) (unknown) of her discharge (units (unknown) date) lab abnormalities, unknown) which had improved, include alk-phos 142, (unknown) (no (unknown) (unknown) of her emesis but (units (unknown) date) denies any unknown) significant bright red emesis or coffee-ground (unknown) (no (unknown) (unknown) on 07/09/2022 (units (u nknown) date) unknown) (unknown) (no (unknown) (unknown) ondansetron 4 mg (units (unknown) date) disintegrating 4 mg unknown) PO Q8H PRN nausea and 06/28/22 (unknown) (no (unknown) (unknown) ondansetron 4 mg (units (unknown) date) tablet,disintegrati unknown) ng (unknown) (no (unknown) (unknown) pantoprazole 40 mg (units (unknown) date) Tablet,Delayed unknown) Release (Dr/Ec) (unknown) (no (unknown) (unknown) pantoprazole 40 mg (units (unknown) date) tablet,delayed 40 unknown) mg PO 0700,2100 #60 tabs 02/17/22 (unknown) (no (unknown) (unknown) patient has had (units (unknown) date) multiple episodes unknown) of emesis but not bloody at this time. Pain (unknown) (no (unknown) (unknown) rales, or rhonchi. (units (unknown) date) unknown) (unknown) (no (unknown) (unknown) release (units (unkno wn) date) unknown) (unknown) (no (unknown) (unknown) repeated H/H drops (units (unknown) date) to 7.7 unknown) (unknown) (no (unknown) (unknown) requesting (units (unk nown) date) something else for unknown) pain and nausea. 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 unknown) (unknown) (no (unknown) (unknown) sucralfate 1 gram (units (unknown) date) Tablet unknown) (unknown) (no (unknown) (unknown) sucralfate 1 gram (units (unknown) date) tablet 1 g PO ACHS unknown) #120 tabs 02/17/22 (unknown) (no (unknown) (unknown) tablet vomiting (units (unknown) date) #14 tabs unknown) (unknown) (no (unknown) (unknown) thiamine (units (unkno wn) date) mononitrate (vit unknown) B1) 100 100 mg PO DAILY #30 tabs 02/17/22 (unknown) (no (unknown) (unknown) thiamine (units (unkno wn) date) mononitrate (vit unknown) B1) 100 mg Tablet (unknown) (no (unknown) (unknown) tobacco type: (units ( unknown) date) cigarettes unknown) (unknown) (no (unknown) (unknown) tonsillar (units (unkn own) date) hypertrophy or unknown) exudate. Airway patent. 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 She had been on Cipro empirically (unknown) (no (unknown) (unknown) varices. (units (unkno wn) date) unknown) (unknown) (no (unknown) (unknown) worse than normal. (units (unknown) date) No injection or unknown) drainage. Result panel 16 (unknown) (no date) (unknown) (unknown) Negative (units (unkn own) unknown) Result panel 17 (unknown) (no date) (unknown) (unknown) 1-5/HPF (units (unkn own) unknown) (unknown) (no date) (unknown) (unknown) 5-10 /HPF (units (unk nown) unknown) (unknown) (no date) (unknown) (unknown) Few (2-10) (units (un known) unknown) (unknown) (no date) (unknown) (unknown) None Seen (units (unk nown) unknown) (unknown) (no date) (unknown) (unknown) None Seen (units (unk nown) unknown) (unknown) (no date) (unknown) (unknown) Specimen (units (unkn own) Cultured unknown) Result panel 18 (unknown) (no (unknown) (unknown) (no value) (units (unk nown) date) unknown) (unknown) (no (unknown) (unknown) #14 tabs (units (unkno wn) date) unknown) (unknown) (no (unknown) (unknown) (Tylenol Extra (units (unknown) date) Strength) #30 tabs unknown) (unknown) (no (unknown) (unknown) All (units (unkno wn) date) calculations should unknown) be rechecked by clinician prior to use (unknown) (no (unknown) (unknown) [id number] (units (unkn own) date) unknown) (unknown) (no (unknown) (unknown) 00:47 (units (unkno wn) date) unknown) (unknown) (no (unknown) (unknown) 01:00 07/09/22 (units (unknown) date) unknown) (unknown) (no (unknown) (unknown) 01:30 07/09/22 (units (unknown) date) unknown) (unknown) (no (unknown) (unknown) 02:00 (units (unkno wn) date) unknown) (unknown) (no (unknown) (unknown) 02:16 07/09/22 (units (unknown) date) unknown) (unknown) (no (unknown) (unknown) 02:16 (units (unkno wn) date) unknown) (unknown) (no (unknown) (unknown) 02:55 02:55 02:59 (units (unknown) date) unknown) (unknown) (no (unknown) (unknown) 02:59 (units (unkno wn) date) unknown) (unknown) (no (unknown) (unknown) 0330 - call to (units (unknown) date) Prov. Images unknown) pushed. GI paged. Faxed facesheet. (unknown) (no (unknown) (unknown) 0400 - discussed (units (unknown) date) with Dr. Rossi unknown) (GI at Prov) no additional recommendations, (unknown) (no (unknown) (unknown) [id number] - [facility] – [place], [address] (units (unknown) date) [place] on list. unknown) (unknown) (no (unknown) (unknown) 1 g PO ACHS Qty: (units (unknown) date) 120 2RF unknown) (unknown) (no (unknown) (unknown) 1 mg PO DAILY Qty: (units (unknown) date) 30 2RF unknown) (unknown) (no (unknown) (unknown) 1 patch topical (units (unknown) date) DAILY PRN (Reason: unknown) pain) Qty: 15 0RF (unknown) (no (unknown) (unknown) 1 tab PO DAILY (units (unknown) date) Qty: 30 2RF unknown) (unknown) (no (unknown) (unknown) 10 mg PO BEDTIME (units (unknown) date) PRN (Reason: unknown) anxiety/sleep) Qty: 14 0RF (unknown) (no (unknown) (unknown) 07/08/22 07/08/22 (units (unknown) date) 07/08/22 unknown) Range/Units (unknown) (no (unknown) (unknown) 07/08/22 20:38 (units (unknown) date) unknown) (unknown) (no (unknown) (unknown) 07/08/22 20:45 (units (unknown) date) unknown) (unknown) (no (unknown) (unknown) 07/08/22 23:04 (units (unknown) date) unknown) (unknown) (no (unknown) (unknown) 07/08/22 23:54 (units (unknown) date) unknown) (unknown) (no (unknown) (unknown) 07/08/22 (units (unkno wn) date) unknown) (unknown) (no (unknown) (unknown) 07/09/22 02:55 (units (unknown) date) unknown) (unknown) (no (unknown) (unknown) 07/09/22 02:59 (units (unknown) date) unknown) (unknown) (no (unknown) (unknown) 07/09/22 07/09/22 (units (unknown) date) 07/09/22 unknown) Range/Units (unknown) (no (unknown) (unknown) 07/09/22 (units (unkno wn) date) Range/Units unknown) (unknown) (no (unknown) (unknown) 07/09/22 (units (unkno wn) date) unknown) (unknown) (no (unknown) (unknown) 100 mg PO DAILY (units (unknown) date) Qty: 30 2RF unknown) (unknown) (no (unknown) (unknown) 12 point review of (units (unknown) date) systems is negative unknown) except for those stated above (unknown) (no (unknown) (unknown) 19.6% (units (unkno wn) date) unknown) (unknown) (no (unknown) (unknown) 20:33 07/08/22 (units (unknown) date) unknown) (unknown) (no (unknown) (unknown) 20:45 20:45 20:45 (units (unknown) date) unknown) (unknown) (no (unknown) (unknown) 21:45 07/08/22 (units (unknown) date) unknown) (unknown) (no (unknown) (unknown) 22 points (units (unkn own) date) unknown) (unknown) (no (unknown) (unknown) 22:00 (units (unkno wn) date) unknown) (unknown) (no (unknown) (unknown) 22:30 07/08/22 (units (unknown) date) unknown) (unknown) (no (unknown) (unknown) 23:00 07/09/22 (units (unknown) date) unknown) (unknown) (no (unknown) (unknown) 23:54 23:54 23:54 (units (unknown) date) unknown) (unknown) (no (unknown) (unknown) 25 mg PO TID PRN (units (unknown) date) (Reason: unknown) anxiety/nausea/vomi ting) Qty: 20 0RF (unknown) (no (unknown) (unknown) 36-year-old female (units (unknown) date) daily smoker with unknown) history of significant alcohol abuse (unknown) (no (unknown) (unknown) 4 mg PO Q8H PRN (units (unknown) date) (Reason: nausea and unknown) vomiting) Qty: 14 0RF (unknown) (no (unknown) (unknown) 40 mg PO 0700,2100 (units (unknown) date) Qty: 60 2RF unknown) (unknown) (no (unknown) (unknown) 5 mg PO BEDTIME (units (unknown) date) Qty: 30 2RF unknown) (unknown) (no (unknown) (unknown) 500 mg PO Q8HR PRN (units (unknown) date) (Reason: fever or unknown) pain) Qty: 30 0RF (unknown) (no (unknown) (unknown) @ 100 mls/hr IV (units (unknown) date) Q1H SILVINA unknown) (unknown) (no (unknown) (unknown) ALT (<35) IU/L (units (unknown) date) unknown) (unknown) (no (unknown) (unknown) ALT 42 H (<35) (units (unknown) date) IU/L unknown) (unknown) (no (unknown) (unknown) AST (14-36) IU/L (units (unknown) date) unknown) (unknown) (no (unknown) (unknown) AST 52, ALT 23, (units (unknown) date) bilirubin 8.5, INR unknown) 2.1. She is had no fever or chills. She (unknown) (no (unknown) (unknown) AST 69 H (14-36) (units (unknown) date) IU/L unknown) (unknown) (no (unknown) (unknown) Acanthocytes (units (u nknown) date) (Spur) 2+ H unknown) (unknown) (no (unknown) (unknown) Acanthocytes (units (u nknown) date) (Spur) unknown) (unknown) (no (unknown) (unknown) Admin: 07/08/22 (units (unknown) date) 22:38 Dose: 1,000 unknown) mls/hr (unknown) (no (unknown) (unknown) Admin: 07/08/22 (units (unknown) date) 23:47 Dose: 100 unknown) mls/hr (unknown) (no (unknown) (unknown) Admin: 07/09/22 (units (unknown) date) 01:10 Dose: 100 unknown) mls/hr (unknown) (no (unknown) (unknown) Age/Sex: 36 / F (units (unknown) date) unknown) (unknown) (no (unknown) (unknown) Albumin (3.5-5.0) (units (unknown) date) g/dL unknown) (unknown) (no (unknown) (unknown) Albumin 3.7 (units (un known) date) (3.5-5.0) g/dL unknown) (unknown) (no (unknown) (unknown) Albumin/Globulin (units (unknown) date) Ratio (1.0-2.8) unknown) (unknown) (no (unknown) (unknown) Albumin/Globulin (units (unknown) date) Ratio 1.1 (1.0-2.8) unknown) (unknown) (no (unknown) (unknown) Alcohol abuse (units ( unknown) date) unknown) (unknown) (no (unknown) (unknown) Alcohol type: beer (units (unknown) date) and wine unknown) (unknown) (no (unknown) (unknown) Alcoholic liver (units (unknown) date) disease unknown) (unknown) (no (unknown) (unknown) Alkaline (units (unkno wn) date) Phosphatase unknown) (38-126) U/L (unknown) (no (unknown) (unknown) Alkaline (units (unkno wn) date) Phosphatase 150 H unknown) (38-126) U/L (unknown) (no (unknown) (unknown) Allergies (units (unkn own) date) unknown) (unknown) (no (unknown) (unknown) Allergy/AdvReac (units (unknown) date) Type Severity unknown) Reaction Status Date / Time (unknown) (no (unknown) (unknown) Ammonia (9-30) (units (unknown) date) umol/L unknown) (unknown) (no (unknown) (unknown) Ammonia (NH3) Stat (units (unknown) date) unknown) (unknown) (no (unknown) (unknown) Ammonia 15 (9-30) (units (unknown) date) umol/L unknown) (unknown) (no (unknown) (unknown) Anisocytosis 2+ H (units (unknown) date) unknown) (unknown) (no (unknown) (unknown) Anisocytosis (units (u nknown) date) unknown) (unknown) (no (unknown) (unknown) Antibiotics) (units (u nknown) date) unknown) (unknown) (no (unknown) (unknown) BACK: Nontender (units (unknown) date) without deformity unknown) or crepitance. No flank tenderness. (unknown) (no (unknown) (unknown) BMP [Basic (units (unk nown) date) Metabolic Panel] unknown) Stat (unknown) (no (unknown) (unknown) BUN (7-17) mg/dL (units (unknown) date) unknown) (unknown) (no (unknown) (unknown) BUN 8 (7-17) mg/dL (units (unknown) date) unknown) (unknown) (no (unknown) (unknown) BUN 9 (7-17) mg/dL (units (unknown) date) unknown) (unknown) (no (unknown) (unknown) BUN/Creatinine (units (unknown) date) Ratio (6-22) unknown) (unknown) (no (unknown) (unknown) BUN/Creatinine (units (unknown) date) Ratio 15.1 (6-22) unknown) (unknown) (no (unknown) (unknown) BUN/Creatinine (units (unknown) date) Ratio 16.7 (6-22) unknown) (unknown) (no (unknown) (unknown) Baso # (Auto) (units ( unknown) date) (0-100) /uL unknown) (unknown) (no (unknown) (unknown) Baso # (Auto) 0 (units (unknown) date) (0-100) /uL unknown) (unknown) (no (unknown) (unknown) Baso % (Auto) (units ( unknown) date) (0-2) % unknown) (unknown) (no (unknown) (unknown) Baso % (Auto) 0.2 (units (unknown) date) (0-2) % unknown) (unknown) (no (unknown) (unknown) Bilirubin ?> 7.3 (units (unknown) date) mg/dL unknown) (unknown) (no (unknown) (unknown) Blood Pressure (units (unknown) date) 135/60 unknown) (unknown) (no (unknown) (unknown) Blood Pressure (units (unknown) date) 158/79 H 156/91 H unknown) (unknown) (no (unknown) (unknown) Blood Pressure (units (unknown) date) 163/84 H 07/08/22 unknown) 20:33 (unknown) (no (unknown) (unknown) Blood Pressure (units (unknown) date) 163/84 H 169/103 H unknown) 150/82 H (unknown) (no (unknown) (unknown) Blood Pressure (units (unknown) date) unknown) (unknown) (no (unknown) (unknown) CARDIOVASCULAR: (units (unknown) date) Denies chest pain, unknown) palpitations, orthopnea, edema, (unknown) (no (unknown) (unknown) CARDIOVASCULAR: (units (unknown) date) Regular rate and unknown) rhythm without murmurs, gallops, or rubs. (unknown) (no (unknown) (unknown) CT abdomen pelvis (units (unknown) date) w con Stat unknown) (unknown) (no (unknown) (unknown) Calcium (8.4-10.2) (units (unknown) date) mg/dL unknown) (unknown) (no (unknown) (unknown) Calcium 8.0 L (units ( unknown) date) (8.4-10.2) mg/dL unknown) (unknown) (no (unknown) (unknown) Calcium 8.9 (units (un known) date) (8.4-10.2) mg/dL unknown) (unknown) (no (unknown) (unknown) Carbon Dioxide (units (unknown) date) (22-32) mmol/L unknown) (unknown) (no (unknown) (unknown) Carbon Dioxide 23 (units (unknown) date) (22-32) mmol/L unknown) (unknown) (no (unknown) (unknown) Carbon Dioxide 24 (units (unknown) date) (22-32) mmol/L unknown) (unknown) (no (unknown) (unknown) Ceftriaxone Sodium (units (unknown) date) 2,000 mg/ (Sodium unknown) Chloride) 100 mls @ 200 mls/hr IV NOW ONE (unknown) (no (unknown) (unknown) Chief complaint: (units (unknown) date) Abdominal Pain unknown) (unknown) (no (unknown) (unknown) Chloride (98-107) (units (unknown) date) mmol/L unknown) (unknown) (no (unknown) (unknown) Chloride 106 (units (u nknown) date) (98-107) mmol/L unknown) (unknown) (no (unknown) (unknown) Chloride 107 (units (u nknown) date) (98-107) mmol/L unknown) (unknown) (no (unknown) (unknown) Cholecystitis (units ( unknown) date) unknown) (unknown) (no (unknown) (unknown) Chronic low back (units (unknown) date) pain unknown) (unknown) (no (unknown) (unknown) Complete Blood (units (unknown) date) Count AUTO DIFF unknown) Stat (unknown) (no (unknown) (unknown) Comprehensive (units ( unknown) date) Metabolic Panel unknown) Stat (unknown) (no (unknown) (unknown) Consultation #1: (units (unknown) date) unknown) (unknown) (no (unknown) (unknown) Consultations (units ( unknown) date) unknown) (unknown) (no (unknown) (unknown) Course Narrative: (units (unknown) date) unknown) (unknown) (no (unknown) (unknown) Course (units (unkno wn) date) unknown) (unknown) (no (unknown) (unknown) Creatinine (units (unk nown) date) (0.52-1.04) mg/dL unknown) (unknown) (no (unknown) (unknown) Creatinine 0.53 (units (unknown) date) (0.52-1.04) mg/dL unknown) (unknown) (no (unknown) (unknown) Creatinine 0.54 (units (unknown) date) (0.52-1.04) mg/dL unknown) (unknown) (no (unknown) (unknown) Creatinine ?> 0.53 (units (unknown) date) mg/dL unknown) (unknown) (no (unknown) (unknown) : 1985 (units (unknown) date) Acct:[id number] unknown) (unknown) (no (unknown) (unknown) Date of Service: (units (unknown) date) 07/08/22 unknown) (unknown) (no (unknown) (unknown) Departure (units (unkn own) date) unknown) (unknown) (no (unknown) (unknown) Diabetes mellitus (units (unknown) date) unknown) (unknown) (no (unknown) (unknown) Dialysis at least (units (unknown) date) twice in the past unknown) week ?> 0 = No (unknown) (no (unknown) (unknown) Discharge Plan (units (unknown) date) unknown) (unknown) (no (unknown) (unknown) Discontinued (units (u nknown) date) Medications unknown) (unknown) (no (unknown) (unknown) Documented By: AT (units (unknown) date) unknown) (unknown) (no (unknown) (unknown) Documented By: EB (units (unknown) date) unknown) (unknown) (no (unknown) (unknown) Documented By: RL (units (unknown) date) unknown) (unknown) (no (unknown) (unknown) ED Orders (units (unkn own) date) unknown) (unknown) (no (unknown) (unknown) EKG-12 Lead Stat (units (unknown) date) unknown) (unknown) (no (unknown) (unknown) ENT: Nose without (units (unknown) date) bleeding, purulent unknown) drainage. Throat without erythema, (unknown) (no (unknown) (unknown) ER Physician: (units ( unknown) date) Logan Mcneal D.O. unknown) (unknown) (no (unknown) (unknown) EXTREMITIES: No (units (unknown) date) edema or joint unknown) tenderness. (unknown) (no (unknown) (unknown) EYES: Pupils equal (units (unknown) date) round and reactive. unknown) Extraocular motions intact. Scleral (unknown) (no (unknown) (unknown) Emergency Report (units (unknown) date) unknown) (unknown) (no (unknown) (unknown) Eos # (Auto) (units (u nknown) date) (0-450) /uL unknown) (unknown) (no (unknown) (unknown) Eos # (Auto) 100 (units (unknown) date) (0-450) /uL unknown) (unknown) (no (unknown) (unknown) Eos % (Auto) (2-4) (units (unknown) date) % unknown) (unknown) (no (unknown) (unknown) Eos % (Auto) 0.7 L (units (unknown) date) (2-4) % unknown) (unknown) (no (unknown) (unknown) Estimated 3-Month (units (unknown) date) Mortality unknown) (unknown) (no (unknown) (unknown) Estimated GFR > 60 (units (unknown) date) (>60) mL/min unknown) (unknown) (no (unknown) (unknown) Estimated GFR (units ( unknown) date) (>60) mL/min unknown) (unknown) (no (unknown) (unknown) Ethanol (ETOH) (units (unknown) date) Stat unknown) (unknown) (no (unknown) (unknown) Ethyl Alcohol < 10 (units (unknown) date) ( - 10) mg/dL unknown) (unknown) (no (unknown) (unknown) Ethyl Alcohol ( - (units (unknown) date) 10) mg/dL unknown) (unknown) (no (unknown) (unknown) Exam Narrative: (units (unknown) date) unknown) (unknown) (no (unknown) (unknown) Exam (units (unkno wn) date) unknown) (unknown) (no (unknown) (unknown) Family History (units (unknown) date) (Reviewed 07/08/22 unknown) @ 23:09 by Logan Venedocia, DO) (unknown) (no (unknown) (unknown) Father (units (unkno wn) date) Hypertension unknown) (unknown) (no (unknown) (unknown) Fibromyalgia (units (u nknown) date) unknown) (unknown) (no (unknown) (unknown) GASTROINTESTINAL: (units (unknown) date) Abdomen soft, unknown) tender in the epigastrium, nondistended. (unknown) (no (unknown) (unknown) GASTROINTESTINAL: (units (unknown) date) See HPI unknown) (unknown) (no (unknown) (unknown) GENERAL: See HPI (units (unknown) date) unknown) (unknown) (no (unknown) (unknown) GENERAL: [36] year (units (unknown) date) old patient appears unknown) stated age. Well-developed patient, in (unknown) (no (unknown) (unknown) : Denies (units (unk nown) date) dysuria, frequency, unknown) incontinence, hematuria, urinary retention. (unknown) (no (unknown) (unknown) General (units (unkno wn) date) unknown) (unknown) (no (unknown) (unknown) Globulin (1.7-4.1) (units (unknown) date) g/dL unknown) (unknown) (no (unknown) (unknown) Globulin 3.4 (units (u nknown) date) (1.7-4.1) g/dL unknown) (unknown) (no (unknown) (unknown) Glucose (70-100) (units (unknown) date) mg/dL unknown) (unknown) (no (unknown) (unknown) Glucose 123 H (units ( unknown) date) (70-100) mg/dL unknown) (unknown) (no (unknown) (unknown) Glucose 136 H (units ( unknown) date) (70-100) mg/dL unknown) (unknown) (no (unknown) (unknown) HEAD: Atraumatic. (units (unknown) date) Normocephalic. unknown) (unknown) (no (unknown) (unknown) HEENT: Denies (units ( unknown) date) sinus pain, ear unknown) pain, sore throat, difficulty swallowing, (unknown) (no (unknown) (unknown) HH [Hemoglobin and (units (unknown) date) Hematocrit] Stat unknown) (unknown) (no (unknown) (unknown) HPI - GI Bleed (units (unknown) date) unknown) (unknown) (no (unknown) (unknown) HPI Narrative: (units (unknown) date) unknown) (unknown) (no (unknown) (unknown) Haloperidol (units (un known) date) (Haloperidol 5 unknown) Mg/Ml Vial) 5 mg IV NOW ONE (unknown) (no (unknown) (unknown) Hct (36-46) % (units ( unknown) date) unknown) (unknown) (no (unknown) (unknown) Hct 22.9 L (36-46) (units (unknown) date) % unknown) (unknown) (no (unknown) (unknown) Hct 23.0 L (36-46) (units (unknown) date) % unknown) (unknown) (no (unknown) (unknown) Hct 27.2 L (36-46) (units (unknown) date) % unknown) (unknown) (no (unknown) (unknown) Hgb (12.0-16.0) (units (unknown) date) g/dL unknown) (unknown) (no (unknown) (unknown) Hgb 7.7 L (units (unkn own) date) (12.0-16.0) g/dL unknown) (unknown) (no (unknown) (unknown) Hgb 9.2 L (units (unkn own) date) (12.0-16.0) g/dL unknown) (unknown) (no (unknown) (unknown) History of Present (units (unknown) date) Illness unknown) (unknown) (no (unknown) (unknown) History of (units (unk nown) date) tonsillectomy and unknown) adenoidectomy (unknown) (no (unknown) (unknown) Hydromorphone HCl (units (unknown) date) (Hydromorphone 1 Mg unknown) Inj) 1 mg IV NOW ONE (unknown) (no (unknown) (unknown) Hydromorphone HCl (units (unknown) date) (Hydromorphone 1 Mg unknown) Inj) 1 mg IV Q2HR PRN (unknown) (no (unknown) (unknown) Hypercoagulable (units (unknown) date) state unknown) (unknown) (no (unknown) (unknown) Hypertension (units (u nknown) date) unknown) (unknown) (no (unknown) (unknown) INPUTS: (units (unkno wn) date) unknown) (unknown) (no (unknown) (unknown) INR (0.9-1.3) (units ( unknown) date) unknown) (unknown) (no (unknown) (unknown) INR 2.0 H (units (unkn own) date) (0.9-1.3) unknown) (unknown) (no (unknown) (unknown) INR ?> 2.0 (units (unk nown) date) unknown) (unknown) (no (unknown) (unknown) IUD (intrauterine (units (unknown) date) device) in place unknown) (unknown) (no (unknown) (unknown) Infusion: 07/09/22 (units (unknown) date) 01:05 Dose: 0 unknown) mls/hr (unknown) (no (unknown) (unknown) Infusion: 07/09/22 (units (unknown) date) 02:15 Dose: 0 unknown) mls/hr (unknown) (no (unknown) (unknown) Initial Vital (units ( unknown) date) Signs unknown) (unknown) (no (unknown) (unknown) Initial Vital (units ( unknown) date) Signs: unknown) (unknown) (no (unknown) (unknown) [facility] (units (unknown) date) [address] unknown) [place] [address] (unknown) (no (unknown) (unknown) Lab Data (units (unkno wn) date) unknown) (unknown) (no (unknown) (unknown) Lab Results (units (un known) date) unknown) (unknown) (no (unknown) (unknown) Labs: (units (unkno wn) date) unknown) (unknown) (no (unknown) (unknown) Last Admin: (units (un known) date) 07/08/22 21:46 unknown) Dose: 40 mg (unknown) (no (unknown) (unknown) Last Admin: (units (un known) date) 07/08/22 22:38 unknown) Dose: 5 mg (unknown) (no (unknown) (unknown) Last Admin: (units (un known) date) 07/08/22 23:09 unknown) Dose: 1 mg (unknown) (no (unknown) (unknown) Last Admin: (units (un known) date) 07/08/22 23:09 unknown) Dose: 10 mg (unknown) (no (unknown) (unknown) Last Admin: (units (un known) date) 07/08/22 23:47 unknown) Dose: 1,000 mls/hr (unknown) (no (unknown) (unknown) Last Admin: (units (un known) date) 07/09/22 00:33 unknown) Dose: 1 mg (unknown) (no (unknown) (unknown) Last Admin: (units (un known) date) 07/09/22 00:33 unknown) Dose: 50 mcg (unknown) (no (unknown) (unknown) Last Admin: (units (un known) date) 07/09/22 00:34 unknown) Dose: 25 mcg/hr, 5.05 mls/hr (unknown) (no (unknown) (unknown) Last Admin: (units (un known) date) 07/09/22 02:16 unknown) Dose: 100 mls/hr (unknown) (no (unknown) (unknown) Last Admin: (units (un known) date) 07/09/22 02:28 unknown) Dose: 1 mg (unknown) (no (unknown) (unknown) Last Admin: (units (un known) date) 07/09/22 03:56 unknown) Dose: 200 mls/hr (unknown) (no (unknown) (unknown) Last Infusion: (units (unknown) date) 07/09/22 00:30 unknown) Dose: 0 mls/hr (unknown) (no (unknown) (unknown) Lipase (23-300) (units (unknown) date) U/L unknown) (unknown) (no (unknown) (unknown) Lipase 160 (units (unk nown) date) (23-300) U/L unknown) (unknown) (no (unknown) (unknown) Lipase Stat (units (un known) date) unknown) (unknown) (no (unknown) (unknown) Lymph # (Auto) (units (unknown) date) (9253-2094) /uL unknown) (unknown) (no (unknown) (unknown) Lymph # (Auto) (units (unknown) date) 1200 (0002-7014) unknown) /uL (unknown) (no (unknown) (unknown) Lymph % (Auto) (units (unknown) date) (25-40) % unknown) (unknown) (no (unknown) (unknown) Lymph % (Auto) (units (unknown) date) 14.4 L (25-40) % unknown) (unknown) (no (unknown) (unknown) MCH (26-34) PG (units (unknown) date) unknown) (unknown) (no (unknown) (unknown) MCH 32.0 (26-34) (units (unknown) date) PG unknown) (unknown) (no (unknown) (unknown) MCHC (30-36) % (units (unknown) date) unknown) (unknown) (no (unknown) (unknown) MCHC 33.7 (30-36) (units (unknown) date) % unknown) (unknown) (no (unknown) (unknown) MCV (80-100) fL (units (unknown) date) unknown) (unknown) (no (unknown) (unknown) MCV 94.8 (80-100) (units (unknown) date) fL unknown) (unknown) (no (unknown) (unknown) MDM - GI Bleed (units (unknown) date) unknown) (unknown) (no (unknown) (unknown) MELD Score (2016)* (units (unknown) date) unknown) (unknown) (no (unknown) (unknown) MELD Score (Model (units (unknown) date) For End-Stage Liver unknown) Disease) (12 and older) from [place] (unknown) (no (unknown) (unknown) MUSCULOSKELETAL: (units (unknown) date) denies weakness, unknown) joint pain, or bony pain (unknown) (no (unknown) (unknown) Medical History (units (unknown) date) (Reviewed 07/08/22 unknown) @ 23:09 by Logan Mcneal DO) (unknown) (no (unknown) (unknown) Medication (units (unk nown) date) Instructions unknown) Recorded (unknown) (no (unknown) (unknown) Metoclopramide HCl (units (unknown) date) (Metoclopramide 10 unknown) Mg/2 Ml Inj) 10 mg IV NOW ONE (unknown) (no (unknown) (unknown) Mode of arrival: (units (unknown) date) Ambulatory unknown) (unknown) (no (unknown) (unknown) Pope # (Auto) (units ( unknown) date) (0-900) /uL unknown) (unknown) (no (unknown) (unknown) Pope # (Auto) 1500 (units (unknown) date) H (0-900) /uL unknown) (unknown) (no (unknown) (unknown) Pope % (Auto) (units ( unknown) date) (3-14) % unknown) (unknown) (no (unknown) (unknown) Pope % (Auto) 18.4 (units (unknown) date) H (3-14) % unknown) (unknown) (no (unknown) (unknown) Mother Hepatic (units (unknown) date) disease unknown) (unknown) (no (unknown) (unknown) NECK: Trachea (units ( unknown) date) midline. Non tender unknown) (unknown) (no (unknown) (unknown) NEURO: AOx3. (units (u nknown) date) unknown) (unknown) (no (unknown) (unknown) NEUROLOGIC: Denies (units (unknown) date) weakness, headache, unknown) numbness, change in speech, confusion, (unknown) (no (unknown) (unknown) Narrative (units (unkn own) date) unknown) (unknown) (no (unknown) (unknown) Narrative: (units (unk nown) date) unknown) (unknown) (no (unknown) (unknown) Neut # (Auto) (units ( unknown) date) (2399-5776) /uL unknown) (unknown) (no (unknown) (unknown) Neut # (Auto) 5500 (units (unknown) date) (1566-4788) /uL unknown) (unknown) (no (unknown) (unknown) Neut % (Auto) (units ( unknown) date) (50-75) % unknown) (unknown) (no (unknown) (unknown) Neut % (Auto) 66.3 (units (unknown) date) (50-75) % unknown) (unknown) (no (unknown) (unknown) No Action (units (unkn own) date) unknown) (unknown) (no (unknown) (unknown) Octreotide Acetate (units (unknown) date) (Octreotide 100 unknown) Mcg/Ml Vial) 50 mcg IV NOW ONE (unknown) (no (unknown) (unknown) Octreotide Acetate (units (unknown) date) 500 mcg/ (Sodium unknown) Chloride) 101 mls @ 5.05 mls/hr IV CONT (unknown) (no (unknown) (unknown) Ordered: (units (unkno wn) date) unknown) (unknown) (no (unknown) (unknown) Orders (units (unkno wn) date) unknown) (unknown) (no (unknown) (unknown) Oxygen Delivery (units (unknown) date) Method 07/08/22 unknown) 20:33 (unknown) (no (unknown) (unknown) Oxygen Delivery (units (unknown) date) Method Room Air unknown) Room Air Room Air (unknown) (no (unknown) (unknown) Oxygen Delivery (units (unknown) date) Method Room Air unknown) Room Air (unknown) (no (unknown) (unknown) Oxygen Delivery (units (unknown) date) Method unknown) (unknown) (no (unknown) (unknown) POTASSIUM CHLORIDE (units (unknown) date) IN WATER (Potassium unknown) Cl 10 Meq/100 Ml Evangelina) 10 meq in 100 mls (unknown) (no (unknown) (unknown) PRN Reason: Pain, (units (unknown) date) Severe (7-10) unknown) (unknown) (no (unknown) (unknown) PSYCHIATRIC: No (units (unknown) date) concerning unknown) psychosocial issues. (unknown) (no (unknown) (unknown) PT (10.1-12.7) (units (unknown) date) SECONDS unknown) (unknown) (no (unknown) (unknown) PT 22.8 H (units (unkn own) date) (10.1-12.7) SECONDS unknown) (unknown) (no (unknown) (unknown) Pancreatitis (units (u nknown) date) unknown) (unknown) (no (unknown) (unknown) Pantoprazole (units (u nknown) date) Sodium unknown) (Pantoprazole 40 Mg Vial) 40 mg IV NOW ONE (unknown) (no (unknown) (unknown) Patient History (units (unknown) date) unknown) (unknown) (no (unknown) (unknown) Patient reporting (units (unknown) date) little improvement unknown) in symptoms after above-stated therapies, (unknown) (no (unknown) (unknown) Patient: (units (unkno wn) date) Rosaura Witt unknown) MR#: M (unknown) (no (unknown) (unknown) Plt Count (units (unkn own) date) (150-400) X103/uL unknown) (unknown) (no (unknown) (unknown) Plt Count 145 L (units (unknown) date) (150-400) X103/uL unknown) (unknown) (no (unknown) (unknown) Potassium (units (unkn own) date) (3.4-5.1) mmol/L unknown) (unknown) (no (unknown) (unknown) Potassium 3.0 L (units (unknown) date) (3.4-5.1) mmol/L unknown) (unknown) (no (unknown) (unknown) Potassium 4.0 (units ( unknown) date) (3.4-5.1) mmol/L unknown) (unknown) (no (unknown) (unknown) Test (units (unknown) date) Urine Stat unknown) (unknown) (no (unknown) (unknown) Prescriptions: (units (unknown) date) unknown) (unknown) (no (unknown) (unknown) Previous Rx's (units ( unknown) date) unknown) (unknown) (no (unknown) (unknown) Primary biliary (units (unknown) date) cirrhosis unknown) (unknown) (no (unknown) (unknown) Prothrombin Time (units (unknown) date) INR Stat unknown) (unknown) (no (unknown) (unknown) Pulse Oximetry 96 (units (unknown) date) 98 99 unknown) (unknown) (no (unknown) (unknown) Pulse Oximetry 97 (units (unknown) date) 07/08/22 20:33 unknown) (unknown) (no (unknown) (unknown) Pulse Oximetry 97 (units (unknown) date) 100 99 unknown) (unknown) (no (unknown) (unknown) Pulse Oximetry 98 (units (unknown) date) unknown) (unknown) (no (unknown) (unknown) Pulse Oximetry 99 (units (unknown) date) 100 99 unknown) (unknown) (no (unknown) (unknown) Pulse Rate 70 (units ( unknown) date) unknown) (unknown) (no (unknown) (unknown) Pulse Rate 71 (units ( unknown) date) 07/08/22 20:33 unknown) (unknown) (no (unknown) (unknown) Pulse Rate 71 71 (units (unknown) date) 96 H unknown) (unknown) (no (unknown) (unknown) Pulse Rate 73 74 (units (unknown) date) 81 unknown) (unknown) (no (unknown) (unknown) Pulse Rate 76 88 (units (unknown) date) 55 L unknown) (unknown) (no (unknown) (unknown) RBC (4.0-5.2) (units ( unknown) date) X106/uL unknown) (unknown) (no (unknown) (unknown) RBC 2.87 L (units (unk nown) date) (4.0-5.2) X106/uL unknown) (unknown) (no (unknown) (unknown) RBC Morphology See (units (unknown) date) below unknown) (unknown) (no (unknown) (unknown) RBC Morphology (units (unknown) date) unknown) (unknown) (no (unknown) (unknown) RDW (11.6-14.8) % (units (unknown) date) unknown) (unknown) (no (unknown) (unknown) RDW 18.7 H (units (unk nown) date) (11.6-14.8) % unknown) (unknown) (no (unknown) (unknown) RESPIRATORY: Clear (units (unknown) date) to auscultation. unknown) Breath sounds equal bilaterally. No wheezes, (unknown) (no (unknown) (unknown) RESPIRATORY: (units (u nknown) date) Denies dyspnea, unknown) cough, wheezing, hemoptysis, sputum. (unknown) (no (unknown) (unknown) RESULT SUMMARY: (units (unknown) date) unknown) (unknown) (no (unknown) (unknown) Reevaluation #1: (units (unknown) date) unknown) (unknown) (no (unknown) (unknown) Reevaluation #2: (units (unknown) date) unknown) (unknown) (no (unknown) (unknown) Reevaluation #3: (units (unknown) date) unknown) (unknown) (no (unknown) (unknown) Reevaluation(s) (units (unknown) date) unknown) (unknown) (no (unknown) (unknown) Reglan as well as (units (unknown) date) another L of fluid unknown) and a CT of her abdomen and pelvis. Still (unknown) (no (unknown) (unknown) Related Data (units (u nknown) date) unknown) (unknown) (no (unknown) (unknown) Respiratory Rate (units (unknown) date) 18 07/08/22 20:33 unknown) (unknown) (no (unknown) (unknown) Respiratory Rate (units (unknown) date) 18 18 18 unknown) (unknown) (no (unknown) (unknown) Respiratory Rate (units (unknown) date) 18 18 unknown) (unknown) (no (unknown) (unknown) Respiratory Rate (units (unknown) date) unknown) (unknown) (no (unknown) (unknown) Result diagrams: (units (unknown) date) unknown) (unknown) (no (unknown) (unknown) Review of Systems (units (unknown) date) unknown) (unknown) (no (unknown) (unknown) Rheumatoid (units (unk nown) date) arthritis unknown) (unknown) (no (unknown) (unknown) Rx Instructions: (units (unknown) date) unknown) (unknown) (no (unknown) (unknown) SILVINA; Protocol (units ( unknown) date) unknown) (unknown) (no (unknown) (unknown) SKIN: Denies rash, (units (unknown) date) skin lesions, or unknown) other (unknown) (no (unknown) (unknown) SKIN: Mild (units (unk nown) date) jaundice unknown) (unknown) (no (unknown) (unknown) June 29 that (units (unknown) date) noted trace unknown) esophageal varices and type 1 gastroesophageal (unknown) (no (unknown) (unknown) Signed By: (units (unk nown) date) unknown) (unknown) (no (unknown) (unknown) Smoking Status: (units (unknown) date) Current every day unknown) smoker (unknown) (no (unknown) (unknown) Social History (units (unknown) date) (Reviewed 07/08/22 unknown) @ 23:09 by Logan Mcneal DO) (unknown) (no (unknown) (unknown) Sodium (137-145) (units (unknown) date) mmol/L unknown) (unknown) (no (unknown) (unknown) Sodium 138 (units (unk nown) date) (137-145) mmol/L unknown) (unknown) (no (unknown) (unknown) Sodium 140 (units (unk nown) date) (137-145) mmol/L unknown) (unknown) (no (unknown) (unknown) Sodium ?> 138 (units ( unknown) date) mEq/L unknown) (unknown) (no (unknown) (unknown) Sodium Chloride (units (unknown) date) (Normal Saline unknown) 0.9%) 1,000 mls @ 1,000 mls/hr IV BOLUS ONE (unknown) (no (unknown) (unknown) Source: patient (units (unknown) date) unknown) (unknown) (no (unknown) (unknown) Stated complaint: (units (unknown) date) Blood in vomit, unknown) Pain (unknown) (no (unknown) (unknown) Stop: 07/08/22 (units (unknown) date) 21:12 unknown) (unknown) (no (unknown) (unknown) Stop: 07/08/22 (units (unknown) date) 22:31 unknown) (unknown) (no (unknown) (unknown) Stop: 07/08/22 (units (unknown) date) 23:05 unknown) (unknown) (no (unknown) (unknown) Stop: 07/08/22 (units (unknown) date) 23:29 unknown) (unknown) (no (unknown) (unknown) Stop: 07/09/22 (units (unknown) date) 00:03 unknown) (unknown) (no (unknown) (unknown) Stop: 07/09/22 (units (unknown) date) 00:17 unknown) (unknown) (no (unknown) (unknown) Stop: 07/09/22 (units (unknown) date) 03:14 unknown) (unknown) (no (unknown) (unknown) Stop: 07/09/22 (units (unknown) date) 03:26 unknown) (unknown) (no (unknown) (unknown) Substance Use (units ( unknown) date) Type: marijuana unknown) (unknown) (no (unknown) (unknown) Sulfa (Sulfonamide (units (unknown) date) Allergy unknown) Intermediate Hives Verified 06/28/22 09:21 (unknown) (no (unknown) (unknown) Surgical History (units (unknown) date) (Reviewed 07/08/22 unknown) @ 23:09 by Logan Mcneal DO) (unknown) (no (unknown) (unknown) Temperature 97.8 F (units (unknown) date) 07/08/22 20:33 unknown) (unknown) (no (unknown) (unknown) Temperature 97.8 F (units (unknown) date) unknown) (unknown) (no (unknown) (unknown) Temperature (units (un known) date) unknown) (unknown) (no (unknown) (unknown) Time Seen by (units (u nknown) date) Provider: 07/08/22 unknown) 21:05 (unknown) (no (unknown) (unknown) Time: 23:06 (units (un known) date) unknown) (unknown) (no (unknown) (unknown) Total Bilirubin (units (unknown) date) (0.2-1.3) mg/dL unknown) (unknown) (no (unknown) (unknown) Total Bilirubin (units (unknown) date) 7.3 H (0.2-1.3) unknown) mg/dL (unknown) (no (unknown) (unknown) Total Protein (units ( unknown) date) (6.3-8.2) g/dL unknown) (unknown) (no (unknown) (unknown) Total Protein 7.1 (units (unknown) date) (6.3-8.2) g/dL unknown) (unknown) (no (unknown) (unknown) Ur Culture (units (unk nown) date) Indicated? Specimen unknown) cultured (unknown) (no (unknown) (unknown) Ur Culture (units (unk nown) date) Indicated? unknown) (unknown) (no (unknown) (unknown) Ur Squamous Epith (units (unknown) date) Cells (0-5/HPF) unknown) (unknown) (no (unknown) (unknown) Ur Squamous Epith (units (unknown) date) Cells 5-10 /hpf H unknown) (0-5/HPF) (unknown) (no (unknown) (unknown) Urine Bacteria (units (unknown) date) (None) unknown) (unknown) (no (unknown) (unknown) Urine Bacteria Few (units (unknown) date) (2-10) H (None) unknown) (unknown) (no (unknown) (unknown) Urine Culture Stat (units (unknown) date) unknown) (unknown) (no (unknown) (unknown) Urine Microscopic (units (unknown) date) Stat unknown) (unknown) (no (unknown) (unknown) Urine (units (unknown) date) Test (Negative) unknown) (unknown) (no (unknown) (unknown) Urine (units (unknown) date) Test Negative unknown) (Negative) (unknown) (no (unknown) (unknown) Urine RBC (units (unkn own) date) (0-5/HPF) unknown) (unknown) (no (unknown) (unknown) Urine RBC None (units (unknown) date) seen (0-5/HPF) unknown) (unknown) (no (unknown) (unknown) Urine WBC (units (unkn own) date) (0-5/HPF) unknown) (unknown) (no (unknown) (unknown) Urine WBC 1-5/hpf (units (unknown) date) (0-5/HPF) unknown) (unknown) (no (unknown) (unknown) Vital Signs - 8 hr (units (unknown) date) unknown) (unknown) (no (unknown) (unknown) Vital Signs (units (un known) date) unknown) (unknown) (no (unknown) (unknown) Vital signs: (units (u nknown) date) unknown) (unknown) (no (unknown) (unknown) WBC (4.5-11.0) (units (unknown) date) X103/uL unknown) (unknown) (no (unknown) (unknown) WBC 8.3 (4.5-11.0) (units (unknown) date) X103/uL unknown) (unknown) (no (unknown) (unknown) [Embedded Image (units (unknown) date) Not Available] unknown) (unknown) (no (unknown) (unknown) acetaminophen 500 (units (unknown) date) mg tablet 500 mg PO unknown) Q8HR PRN fever or pain 06/28/22 (unknown) (no (unknown) (unknown) acetaminophen (units ( unknown) date) [Tylenol Extra unknown) Strength] 500 mg tablet (unknown) (no (unknown) (unknown) alcohol intake (units (unknown) date) frequency: 0-2 unknown) drinks per day (unknown) (no (unknown) (unknown) alcohol intake: (units (unknown) date) current unknown) (unknown) (no (unknown) (unknown) and received 1 (units (unknown) date) transfusing unknown) including 2 units of packed red cells. On the date (unknown) (no (unknown) (unknown) anxiety/nausea/vom (units (unknown) date) iting #20 tabs unknown) (unknown) (no (unknown) (unknown) appearance. She (units (unknown) date) was just discharged unknown) from [facility] on Sunday after having (unknown) (no (unknown) (unknown) been admitted for (units (unknown) date) the prior 5 days. unknown) Her admission diagnosis includes alcoholic (unknown) (no (unknown) (unknown) bupropion [From (units (unknown) date) Wellbutrin] AdvReac unknown) Severe Seizure Verified 07/08/22 20:37 (unknown) (no (unknown) (unknown) but agrees with (units (unknown) date) need for unknown) hospitalization and need for scope. (unknown) (no (unknown) (unknown) call to [facility] (units (unknown[facility] date[facility] unknown) hospitalist. No ability to keep UGI bleed with known (unknown) (no (unknown) (unknown) complaint (units (unkn own) date) increasing upper unknown) abdominal pain with persistent nausea and vomiting (unknown) (no (unknown) (unknown) continues, patient (units (unknown) date) to receive 3rd unknown) round of dilaudid (unknown) (no (unknown) (unknown) denies any chest (units (unknown) date) pain or shortness unknown) of breath (unknown) (no (unknown) (unknown) diazepam 10 mg (units (unknown) date) tablet 10 mg PO unknown) BEDTIME PRN anxiety/sleep 06/28/22 (unknown) (no (unknown) (unknown) diazepam 10 mg (units (unknown) date) tablet unknown) (unknown) (no (unknown) (unknown) dizziness. (units (unk nown) date) unknown) (unknown) (no (unknown) (unknown) ea (units (unkno wn) date) unknown) (unknown) (no (unknown) (unknown) eating and (units (unk nown) date) drinking. She had a unknown) small amount of blood and a few of the episodes (unknown) (no (unknown) (unknown) folic acid 1 mg (units (unknown) date) Tablet unknown) (unknown) (no (unknown) (unknown) folic acid 1 mg (units (unknown) date) tablet 1 mg PO unknown) DAILY #30 tabs 05/20/22 (unknown) (no (unknown) (unknown) for the past few (units (unknown) date) days. She states unknown) that her pain is worsened by motion and (unknown) (no (unknown) (unknown) hepatitis, (units (unk nown) date) hematemesis with unknown) persistent nausea, coagulopathy. She had an EEG on (unknown) (no (unknown) (unknown) household members: (units (unknown) date) spouse and children unknown) (unknown) (no (unknown) (unknown) hydrocodone (units (un known) date) Allergy Severe unknown) Hives Verified 07/08/22 20:37 (unknown) (no (unknown) (unknown) hydroxyzine HCl 25 (units (unknown) date) mg tablet 25 mg PO unknown) TID PRN 06/28/22 (unknown) (no (unknown) (unknown) hydroxyzine HCl 25 (units (unknown) date) mg tablet unknown) (unknown) (no (unknown) (unknown) icterus is noted, (units (unknown) date) she states this has unknown) been present for quite some time and is no (unknown) (no (unknown) (unknown) ketorolac [From (units (unknown) date) Toradol] Allergy unknown) Severe Hives Verified 07/08/22 20:37 (unknown) (no (unknown) (unknown) leave on most (units ( unknown) date) painful area for up unknown) to 12 hrs (unknown) (no (unknown) (unknown) lidocaine 5 % (units ( unknown) date) adhesive unknown) patch,medicated (unknown) (no (unknown) (unknown) lidocaine 5 % (units ( unknown) date) topical patch 1 unknown) patch topical DAILY PRN pain #15 03/23/22 (unknown) (no (unknown) (unknown) mcg tablet (units (unk nown) date) (Tab-A-Erendira) unknown) (unknown) (no (unknown) (unknown) melatonin 5 mg (units (unknown) date) tablet 5 mg PO unknown) BEDTIME sleep #30 tabs 02/17/22 (unknown) (no (unknown) (unknown) melatonin 5 mg (units (unknown) date) tablet unknown) (unknown) (no (unknown) (unknown) mg tablet (units (unkn own) date) unknown) (unknown) (no (unknown) (unknown) mild distress. (units (unknown) date) Tearful, holding an unknown) emesis bag (unknown) (no (unknown) (unknown) morphine Allergy (units (unknown) date) Intermediate Rash unknown) Verified 07/08/22 20:37 (unknown) (no (unknown) (unknown) multivitamin with (units (unknown) date) folic acid 400 1 unknown) tab PO DAILY #30 tabs 02/17/22 (unknown) (no (unknown) (unknown) multivitamin with (units (unknown) date) folic acid unknown) [Tab-A-Erendira] 400 mcg Tablet (unknown) (no (unknown) (unknown) no records from (units (unknown) date) [facility] unknown) (unknown) (no (unknown) (unknown) of her discharge (units (unknown) date) lab abnormalities, unknown) which had improved, include alk-phos 142, (unknown) (no (unknown) (unknown) of her emesis but (units (unknown) date) denies any unknown) significant bright red emesis or coffee-ground (unknown) (no (unknown) (unknown) on 07/09/2022 (units (u nknown) date) unknown) (unknown) (no (unknown) (unknown) ondansetron 4 mg (units (unknown) date) disintegrating 4 mg unknown) PO Q8H PRN nausea and 06/28/22 (unknown) (no (unknown) (unknown) ondansetron 4 mg (units (unknown) date) tablet,disintegrati unknown) ng (unknown) (no (unknown) (unknown) pantoprazole 40 mg (units (unknown) date) Tablet,Delayed unknown) Release (Dr/Ec) (unknown) (no (unknown) (unknown) pantoprazole 40 mg (units (unknown) date) tablet,delayed 40 unknown) mg PO 0700,2100 #60 tabs 02/17/22 (unknown) (no (unknown) (unknown) patient has had (units (unknown) date) multiple episodes unknown) of emesis but not bloody at this time. Pain (unknown) (no (unknown) (unknown) rales, or rhonchi. (units (unknown) date) unknown) (unknown) (no (unknown) (unknown) release (units (unkno wn) date) unknown) (unknown) (no (unknown) (unknown) repeated H/H drops (units (unknown) date) to 7.7 unknown) (unknown) (no (unknown) (unknown) requesting (units (unk nown) date) something else for unknown) pain and nausea. 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 unknown) (unknown) (no (unknown) (unknown) sucralfate 1 gram (units (unknown) date) Tablet unknown) (unknown) (no (unknown) (unknown) sucralfate 1 gram (units (unknown) date) tablet 1 g PO ACHS unknown) #120 tabs 02/17/22 (unknown) (no (unknown) (unknown) tablet vomiting (units (unknown) date) #14 tabs unknown) (unknown) (no (unknown) (unknown) thiamine (units (unkno wn) date) mononitrate (vit unknown) B1) 100 100 mg PO DAILY #30 tabs 02/17/22 (unknown) (no (unknown) (unknown) thiamine (units (unkno wn) date) mononitrate (vit unknown) B1) 100 mg Tablet (unknown) (no (unknown) (unknown) tobacco type: (units ( unknown) date) cigarettes unknown) (unknown) (no (unknown) (unknown) tonsillar (units (unkn own) date) hypertrophy or unknown) exudate. Airway patent. 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 She had been on Cipro empirically (unknown) (no (unknown) (unknown) varices. (units (unkno wn) date) unknown) (unknown) (no (unknown) (unknown) worse than normal. (units (unknown) date) No injection or unknown) drainage. Result panel 19 (unknown) (no (unknown) (unknown) (no value) (units (unk nown) date) unknown) (unknown) (no (unknown) (unknown) #14 tabs (units (unkno wn) date) unknown) (unknown) (no (unknown) (unknown) (Tylenol Extra (units (unknown) date) Strength) #30 tabs unknown) (unknown) (no (unknown) (unknown) All (units (unkno wn) date) calculations should unknown) be rechecked by clinician prior to use (unknown) (no (unknown) (unknown) [phone] (units (unkn own) date) unknown) (unknown) (no (unknown) (unknown) 00:47 (units (unkno wn) date) unknown) (unknown) (no (unknown) (unknown) 01:00 07/09/22 (units (unknown) date) unknown) (unknown) (no (unknown) (unknown) 01:30 07/09/22 (units (unknown) date) unknown) (unknown) (no (unknown) (unknown) 02:00 (units (unkno wn) date) unknown) (unknown) (no (unknown) (unknown) 02:16 07/09/22 (units (unknown) date) unknown) (unknown) (no (unknown) (unknown) 02:16 (units (unkno wn) date) unknown) (unknown) (no (unknown) (unknown) 02:55 02:55 02:59 (units (unknown) date) unknown) (unknown) (no (unknown) (unknown) 02:59 (units (unkno wn) date) unknown) (unknown) (no (unknown) (unknown) 0330 - call to (units (unknown) date) Prov. Images unknown) pushed. GI paged. Faxed facesheet. (unknown) (no (unknown) (unknown) 0400 - discussed (units (unknown) date) with Dr. Rossi unknown) (GI at Prov) no additional recommendations, (unknown) (no (unknown) (unknown) 0405 - [facility] – [place], [place] (units (unknown) date) [place] on list. unknown) (unknown) (no (unknown) (unknown) 1 g PO ACHS Qty: (units (unknown) date) 120 2RF unknown) (unknown) (no (unknown) (unknown) 1 mg PO DAILY Qty: (units (unknown) date) 30 2RF unknown) (unknown) (no (unknown) (unknown) 1 patch topical (units (unknown) date) DAILY PRN (Reason: unknown) pain) Qty: 15 0RF (unknown) (no (unknown) (unknown) 1 tab PO DAILY (units (unknown) date) Qty: 30 2RF unknown) (unknown) (no (unknown) (unknown) 10 mg PO BEDTIME (units (unknown) date) PRN (Reason: unknown) anxiety/sleep) Qty: 14 0RF (unknown) (no (unknown) (unknown) 07/08/22 07/08/22 (units (unknown) date) 07/08/22 unknown) Range/Units (unknown) (no (unknown) (unknown) 07/08/22 20:38 (units (unknown) date) unknown) (unknown) (no (unknown) (unknown) 07/08/22 20:45 (units (unknown) date) unknown) (unknown) (no (unknown) (unknown) 07/08/22 23:04 (units (unknown) date) unknown) (unknown) (no (unknown) (unknown) 07/08/22 23:54 (units (unknown) date) unknown) (unknown) (no (unknown) (unknown) 07/08/22 (units (unkno wn) date) unknown) (unknown) (no (unknown) (unknown) 07/09/22 02:55 (units (unknown) date) unknown) (unknown) (no (unknown) (unknown) 07/09/22 02:59 (units (unknown) date) unknown) (unknown) (no (unknown) (unknown) 07/09/22 04:16 (units (unknown) date) unknown) (unknown) (no (unknown) (unknown) 07/09/22 07/09/22 (units (unknown) date) 07/09/22 unknown) Range/Units (unknown) (no (unknown) (unknown) 07/09/22 (units (unkno wn) date) Range/Units unknown) (unknown) (no (unknown) (unknown) 07/09/22 (units (unkno wn) date) unknown) (unknown) (no (unknown) (unknown) 100 mg PO DAILY (units (unknown) date) Qty: 30 2RF unknown) (unknown) (no (unknown) (unknown) 12 point review of (units (unknown) date) systems is negative unknown) except for those stated above (unknown) (no (unknown) (unknown) 19.6% (units (unkno wn) date) unknown) (unknown) (no (unknown) (unknown) 20:33 07/08/22 (units (unknown) date) unknown) (unknown) (no (unknown) (unknown) 20:45 20:45 20:45 (units (unknown) date) unknown) (unknown) (no (unknown) (unknown) 21:45 07/08/22 (units (unknown) date) unknown) (unknown) (no (unknown) (unknown) 22 points (units (unkn own) date) unknown) (unknown) (no (unknown) (unknown) 22:00 (units (unkno wn) date) unknown) (unknown) (no (unknown) (unknown) 22:30 07/08/22 (units (unknown) date) unknown) (unknown) (no (unknown) (unknown) 23:00 07/09/22 (units (unknown) date) unknown) (unknown) (no (unknown) (unknown) 23:54 23:54 23:54 (units (unknown) date) unknown) (unknown) (no (unknown) (unknown) 25 mg PO TID PRN (units (unknown) date) (Reason: unknown) anxiety/nausea/vomi ting) Qty: 20 0RF (unknown) (no (unknown) (unknown) 36-year-old female (units (unknown) date) daily smoker with unknown) history of significant alcohol abuse (unknown) (no (unknown) (unknown) 4 mg PO Q8H PRN (units (unknown) date) (Reason: nausea and unknown) vomiting) Qty: 14 0RF (unknown) (no (unknown) (unknown) 40 mg PO 0700,2100 (units (unknown) date) Qty: 60 2RF unknown) (unknown) (no (unknown) (unknown) 5 mg PO BEDTIME (units (unknown) date) Qty: 30 2RF unknown) (unknown) (no (unknown) (unknown) 500 mg PO Q8HR PRN (units (unknown) date) (Reason: fever or unknown) pain) Qty: 30 0RF (unknown) (no (unknown) (unknown) @ 100 mls/hr IV (units (unknown) date) Q1H SILVINA unknown) (unknown) (no (unknown) (unknown) ALT (<35) IU/L (units (unknown) date) unknown) (unknown) (no (unknown) (unknown) ALT 42 H (<35) (units (unknown) date) IU/L unknown) (unknown) (no (unknown) (unknown) AST (14-36) IU/L (units (unknown) date) unknown) (unknown) (no (unknown) (unknown) AST 52, ALT 23, (units (unknown) date) bilirubin 8.5, INR unknown) 2.1. She is had no fever or chills. She (unknown) (no (unknown) (unknown) AST 69 H (14-36) (units (unknown) date) IU/L unknown) (unknown) (no (unknown) (unknown) Acanthocytes (units (u nknown) date) (Spur) 2+ H unknown) (unknown) (no (unknown) (unknown) Acanthocytes (units (u nknown) date) (Spur) unknown) (unknown) (no (unknown) (unknown) Admin: 07/08/22 (units (unknown) date) 22:38 Dose: 1,000 unknown) mls/hr (unknown) (no (unknown) (unknown) Admin: 07/08/22 (units (unknown) date) 23:47 Dose: 100 unknown) mls/hr (unknown) (no (unknown) (unknown) Admin: 07/09/22 (units (unknown) date) 01:10 Dose: 100 unknown) mls/hr (unknown) (no (unknown) (unknown) Age/Sex: 36 / F (units (unknown) date) unknown) (unknown) (no (unknown) (unknown) Albumin (3.5-5.0) (units (unknown) date) g/dL unknown) (unknown) (no (unknown) (unknown) Albumin 3.7 (units (un known) date) (3.5-5.0) g/dL unknown) (unknown) (no (unknown) (unknown) Albumin/Globulin (units (unknown) date) Ratio (1.0-2.8) unknown) (unknown) (no (unknown) (unknown) Albumin/Globulin (units (unknown) date) Ratio 1.1 (1.0-2.8) unknown) (unknown) (no (unknown) (unknown) Alcohol abuse (units ( unknown) date) unknown) (unknown) (no (unknown) (unknown) Alcohol type: beer (units (unknown) date) and wine unknown) (unknown) (no (unknown) (unknown) Alcoholic liver (units (unknown) date) disease unknown) (unknown) (no (unknown) (unknown) Alkaline (units (unkno wn) date) Phosphatase unknown) (38-126) U/L (unknown) (no (unknown) (unknown) Alkaline (units (unkno wn) date) Phosphatase 150 H unknown) (38-126) U/L (unknown) (no (unknown) (unknown) Allergies (units (unkn own) date) unknown) (unknown) (no (unknown) (unknown) Allergy/AdvReac (units (unknown) date) Type Severity unknown) Reaction Status Date / Time (unknown) (no (unknown) (unknown) Ammonia (9-30) (units (unknown) date) umol/L unknown) (unknown) (no (unknown) (unknown) Ammonia (NH3) Stat (units (unknown) date) unknown) (unknown) (no (unknown) (unknown) Ammonia 15 (9-30) (units (unknown) date) umol/L unknown) (unknown) (no (unknown) (unknown) Anisocytosis 2+ H (units (unknown) date) unknown) (unknown) (no (unknown) (unknown) Anisocytosis (units (u nknown) date) unknown) (unknown) (no (unknown) (unknown) Antibiotics) (units (u nknown) date) unknown) (unknown) (no (unknown) (unknown) BACK: Nontender (units (unknown) date) without deformity unknown) or crepitance. No flank tenderness. (unknown) (no (unknown) (unknown) BMP [Basic (units (unk nown) date) Metabolic Panel] unknown) Stat (unknown) (no (unknown) (unknown) BUN (7-17) mg/dL (units (unknown) date) unknown) (unknown) (no (unknown) (unknown) BUN 8 (7-17) mg/dL (units (unknown) date) unknown) (unknown) (no (unknown) (unknown) BUN 9 (7-17) mg/dL (units (unknown) date) unknown) (unknown) (no (unknown) (unknown) BUN/Creatinine (units (unknown) date) Ratio (-22) unknown) (unknown) (no (unknown) (unknown) BUN/Creatinine (units (unknown) date) Ratio 15.1 (6-22) unknown) (unknown) (no (unknown) (unknown) BUN/Creatinine (units (unknown) date) Ratio 16.7 (-) unknown) (unknown) (no (unknown) (unknown) Baso # (Auto) (units ( unknown) date) (0-100) /uL unknown) (unknown) (no (unknown) (unknown) Baso # (Auto) 0 (units (unknown) date) (0-100) /uL unknown) (unknown) (no (unknown) (unknown) Baso % (Auto) (units ( unknown) date) (0-2) % unknown) (unknown) (no (unknown) (unknown) Baso % (Auto) 0.2 (units (unknown) date) (0-2) % unknown) (unknown) (no (unknown) (unknown) Bilirubin ?> 7.3 (units (unknown) date) mg/dL unknown) (unknown) (no (unknown) (unknown) Blood Pressure (units (unknown) date) 135/60 unknown) (unknown) (no (unknown) (unknown) Blood Pressure (units (unknown) date) 158/79 H 156/91 H unknown) (unknown) (no (unknown) (unknown) Blood Pressure (units (unknown) date) 163/84 H 07/08/22 unknown) 20:33 (unknown) (no (unknown) (unknown) Blood Pressure (units (unknown) date) 163/84 H 169/103 H unknown) 150/82 H (unknown) (no (unknown) (unknown) Blood Pressure (units (unknown) date) unknown) (unknown) (no (unknown) (unknown) CARDIOVASCULAR: (units (unknown) date) Denies chest pain, unknown) palpitations, orthopnea, edema, (unknown) (no (unknown) (unknown) CARDIOVASCULAR: (units (unknown) date) Regular rate and unknown) rhythm without murmurs, gallops, or rubs. (unknown) (no (unknown) (unknown) COVID19 -Nasal (units (unknown) date) RAPID/Pre-Proc Stat unknown) (unknown) (no (unknown) (unknown) CT abdomen pelvis (units (unknown) date) w con Stat unknown) (unknown) (no (unknown) (unknown) Calcium (8.4-10.2) (units (unknown) date) mg/dL unknown) (unknown) (no (unknown) (unknown) Calcium 8.0 L (units ( unknown) date) (8.4-10.2) mg/dL unknown) (unknown) (no (unknown) (unknown) Calcium 8.9 (units (un known) date) (8.4-10.2) mg/dL unknown) (unknown) (no (unknown) (unknown) Carbon Dioxide (units (unknown) date) (22-32) mmol/L unknown) (unknown) (no (unknown) (unknown) Carbon Dioxide 23 (units (unknown) date) (22-32) mmol/L unknown) (unknown) (no (unknown) (unknown) Carbon Dioxide 24 (units (unknown) date) (22-32) mmol/L unknown) (unknown) (no (unknown) (unknown) Ceftriaxone Sodium (units (unknown) date) 2,000 mg/ (Sodium unknown) Chloride) 100 mls @ 200 mls/hr IV NOW ONE (unknown) (no (unknown) (unknown) Chief complaint: (units (unknown) date) Abdominal Pain unknown) (unknown) (no (unknown) (unknown) Chloride (98-107) (units (unknown) date) mmol/L unknown) (unknown) (no (unknown) (unknown) Chloride 106 (units (u nknown) date) (98-107) mmol/L unknown) (unknown) (no (unknown) (unknown) Chloride 107 (units (u nknown) date) (98-107) mmol/L unknown) (unknown) (no (unknown) (unknown) Cholecystitis (units ( unknown) date) unknown) (unknown) (no (unknown) (unknown) Chronic low back (units (unknown) date) pain unknown) (unknown) (no (unknown) (unknown) Complete Blood (units (unknown) date) Count AUTO DIFF unknown) Stat (unknown) (no (unknown) (unknown) Comprehensive (units ( unknown) date) Metabolic Panel unknown) Stat (unknown) (no (unknown) (unknown) Consultation #1: (units (unknown) date) unknown) (unknown) (no (unknown) (unknown) Consultations (units ( unknown) date) unknown) (unknown) (no (unknown) (unknown) Course Narrative: (units (unknown) date) unknown) (unknown) (no (unknown) (unknown) Course (units (unkno wn) date) unknown) (unknown) (no (unknown) (unknown) Creatinine (units (unk nown) date) (0.52-1.04) mg/dL unknown) (unknown) (no (unknown) (unknown) Creatinine 0.53 (units (unknown) date) (0.52-1.04) mg/dL unknown) (unknown) (no (unknown) (unknown) Creatinine 0.54 (units (unknown) date) (0.52-1.04) mg/dL unknown) (unknown) (no (unknown) (unknown) Creatinine ?> 0.53 (units (unknown) date) mg/dL unknown) (unknown) (no (unknown) (unknown) : 1985 (units (unknown) date) Acct:[id number] unknown) (unknown) (no (unknown) (unknown) Date of Service: (units (unknown) date) 07/08/22 unknown) (unknown) (no (unknown) (unknown) Departure (units (unkn own) date) unknown) (unknown) (no (unknown) (unknown) Diabetes mellitus (units (unknown) date) unknown) (unknown) (no (unknown) (unknown) Dialysis at least (units (unknown) date) twice in the past unknown) week ?> 0 = No (unknown) (no (unknown) (unknown) Discharge Plan (units (unknown) date) unknown) (unknown) (no (unknown) (unknown) Discontinued (units (u nknown) date) Medications unknown) (unknown) (no (unknown) (unknown) Documented By: AT (units (unknown) date) unknown) (unknown) (no (unknown) (unknown) Documented By: EB (units (unknown) date) unknown) (unknown) (no (unknown) (unknown) Documented By: RL (units (unknown) date) unknown) (unknown) (no (unknown) (unknown) ED Orders (units (unkn own) date) unknown) (unknown) (no (unknown) (unknown) EKG-12 Lead Stat (units (unknown) date) unknown) (unknown) (no (unknown) (unknown) ENT: Nose without (units (unknown) date) bleeding, purulent unknown) drainage. Throat without erythema, (unknown) (no (unknown) (unknown) ER Physician: (units ( unknown) date) Logan Mcneal D.O. unknown) (unknown) (no (unknown) (unknown) EXTREMITIES: No (units (unknown) date) edema or joint unknown) tenderness. (unknown) (no (unknown) (unknown) EYES: Pupils equal (units (unknown) date) round and reactive. unknown) Extraocular motions intact. Scleral (unknown) (no (unknown) (unknown) Emergency Report (units (unknown) date) unknown) (unknown) (no (unknown) (unknown) Eos # (Auto) (units (u nknown) date) (0-450) /uL unknown) (unknown) (no (unknown) (unknown) Eos # (Auto) 100 (units (unknown) date) (0-450) /uL unknown) (unknown) (no (unknown) (unknown) Eos % (Auto) (2-4) (units (unknown) date) % unknown) (unknown) (no (unknown) (unknown) Eos % (Auto) 0.7 L (units (unknown) date) (2-4) % unknown) (unknown) (no (unknown) (unknown) Estimated 3-Month (units (unknown) date) Mortality unknown) (unknown) (no (unknown) (unknown) Estimated GFR > 60 (units (unknown) date) (>60) mL/min unknown) (unknown) (no (unknown) (unknown) Estimated GFR (units ( unknown) date) (>60) mL/min unknown) (unknown) (no (unknown) (unknown) Ethanol (ETOH) (units (unknown) date) Stat unknown) (unknown) (no (unknown) (unknown) Ethyl Alcohol < 10 (units (unknown) date) ( - 10) mg/dL unknown) (unknown) (no (unknown) (unknown) Ethyl Alcohol ( - (units (unknown) date) 10) mg/dL unknown) (unknown) (no (unknown) (unknown) Exam Narrative: (units (unknown) date) unknown) (unknown) (no (unknown) (unknown) Exam (units (unkno wn) date) unknown) (unknown) (no (unknown) (unknown) Family History (units (unknown) date) (Reviewed 07/08/22 unknown) @ 23:09 by Logan Mcneal DO) (unknown) (no (unknown) (unknown) Father (units (unkno wn) date) Hypertension unknown) (unknown) (no (unknown) (unknown) Fibromyalgia (units (u nknown) date) unknown) (unknown) (no (unknown) (unknown) GASTROINTESTINAL: (units (unknown) date) Abdomen soft, unknown) tender in the epigastrium, nondistended. (unknown) (no (unknown) (unknown) GASTROINTESTINAL: (units (unknown) date) See HPI unknown) (unknown) (no (unknown) (unknown) GENERAL: See HPI (units (unknown) date) unknown) (unknown) (no (unknown) (unknown) GENERAL: [36] year (units (unknown) date) old patient appears unknown) stated age. Well-developed patient, in (unknown) (no (unknown) (unknown) : Denies (units (unk nown) date) dysuria, frequency, unknown) incontinence, hematuria, urinary retention. (unknown) (no (unknown) (unknown) General (units (unkno wn) date) unknown) (unknown) (no (unknown) (unknown) Globulin (1.7-4.1) (units (unknown) date) g/dL unknown) (unknown) (no (unknown) (unknown) Globulin 3.4 (units (u nknown) date) (1.7-4.1) g/dL unknown) (unknown) (no (unknown) (unknown) Glucose (70-100) (units (unknown) date) mg/dL unknown) (unknown) (no (unknown) (unknown) Glucose 123 H (units ( unknown) date) (70-100) mg/dL unknown) (unknown) (no (unknown) (unknown) Glucose 136 H (units ( unknown) date) (70-100) mg/dL unknown) (unknown) (no (unknown) (unknown) HEAD: Atraumatic. (units (unknown) date) Normocephalic. unknown) (unknown) (no (unknown) (unknown) HEENT: Denies (units ( unknown) date) sinus pain, ear unknown) pain, sore throat, difficulty swallowing, (unknown) (no (unknown) (unknown) HH [Hemoglobin and (units (unknown) date) Hematocrit] Stat unknown) (unknown) (no (unknown) (unknown) HPI - GI Bleed (units (unknown) date) unknown) (unknown) (no (unknown) (unknown) HPI Narrative: (units (unknown) date) unknown) (unknown) (no (unknown) (unknown) Haloperidol (units (un known) date) (Haloperidol 5 unknown) Mg/Ml Vial) 5 mg IV NOW ONE (unknown) (no (unknown) (unknown) Hct (36-46) % (units ( unknown) date) unknown) (unknown) (no (unknown) (unknown) Hct 22.9 L (36-46) (units (unknown) date) % unknown) (unknown) (no (unknown) (unknown) Hct 23.0 L (36-46) (units (unknown) date) % unknown) (unknown) (no (unknown) (unknown) Hct 27.2 L (36-46) (units (unknown) date) % unknown) (unknown) (no (unknown) (unknown) Hgb (12.0-16.0) (units (unknown) date) g/dL unknown) (unknown) (no (unknown) (unknown) Hgb 7.7 L (units (unkn own) date) (12.0-16.0) g/dL unknown) (unknown) (no (unknown) (unknown) Hgb 9.2 L (units (unkn own) date) (12.0-16.0) g/dL unknown) (unknown) (no (unknown) (unknown) History of Present (units (unknown) date) Illness unknown) (unknown) (no (unknown) (unknown) History of (units (unk nown) date) tonsillectomy and unknown) adenoidectomy (unknown) (no (unknown) (unknown) Hydromorphone HCl (units (unknown) date) (Hydromorphone 1 Mg unknown) Inj) 1 mg IV NOW ONE (unknown) (no (unknown) (unknown) Hydromorphone HCl (units (unknown) date) (Hydromorphone 1 Mg unknown) Inj) 1 mg IV Q2HR PRN (unknown) (no (unknown) (unknown) Hypercoagulable (units (unknown) date) state unknown) (unknown) (no (unknown) (unknown) Hypertension (units (u nknown) date) unknown) (unknown) (no (unknown) (unknown) INPUTS: (units (unkno wn) date) unknown) (unknown) (no (unknown) (unknown) INR (0.9-1.3) (units ( unknown) date) unknown) (unknown) (no (unknown) (unknown) INR 2.0 H (units (unkn own) date) (0.9-1.3) unknown) (unknown) (no (unknown) (unknown) INR ?> 2.0 (units (unk nown) date) unknown) (unknown) (no (unknown) (unknown) IUD (intrauterine (units (unknown) date) device) in place unknown) (unknown) (no (unknown) (unknown) Infusion: 07/09/22 (units (unknown) date) 01:05 Dose: 0 unknown) mls/hr (unknown) (no (unknown) (unknown) Infusion: 07/09/22 (units (unknown) date) 02:15 Dose: 0 unknown) mls/hr (unknown) (no (unknown) (unknown) Initial Vital (units ( unknown) date) Signs unknown) (unknown) (no (unknown) (unknown) Initial Vital (units ( unknown) date) Signs: unknown) (unknown) (no (unknown) (unknown) [facility] (units (unknown) date) [address] unknown) [place] [address] (unknown) (no (unknown) (unknown) Lab Data (units (unkno wn) date) unknown) (unknown) (no (unknown) (unknown) Lab Results (units (un known) date) unknown) (unknown) (no (unknown) (unknown) Labs: (units (unkno wn) date) unknown) (unknown) (no (unknown) (unknown) Last Admin: (units (un known) date) 07/08/22 21:46 unknown) Dose: 40 mg (unknown) (no (unknown) (unknown) Last Admin: (units (un known) date) 07/08/22 22:38 unknown) Dose: 5 mg (unknown) (no (unknown) (unknown) Last Admin: (units (un known) date) 07/08/22 23:09 unknown) Dose: 1 mg (unknown) (no (unknown) (unknown) Last Admin: (units (un known) date) 07/08/22 23:09 unknown) Dose: 10 mg (unknown) (no (unknown) (unknown) Last Admin: (units (un known) date) 07/08/22 23:47 unknown) Dose: 1,000 mls/hr (unknown) (no (unknown) (unknown) Last Admin: (units (un known) date) 07/09/22 00:33 unknown) Dose: 1 mg (unknown) (no (unknown) (unknown) Last Admin: (units (un known) date) 07/09/22 00:33 unknown) Dose: 50 mcg (unknown) (no (unknown) (unknown) Last Admin: (units (un known) date) 07/09/22 00:34 unknown) Dose: 25 mcg/hr, 5.05 mls/hr (unknown) (no (unknown) (unknown) Last Admin: (units (un known) date) 07/09/22 02:16 unknown) Dose: 100 mls/hr (unknown) (no (unknown) (unknown) Last Admin: (units (un known) date) 07/09/22 02:28 unknown) Dose: 1 mg (unknown) (no (unknown) (unknown) Last Admin: (units (un known) date) 07/09/22 03:56 unknown) Dose: 200 mls/hr (unknown) (no (unknown) (unknown) Last Infusion: (units (unknown) date) 07/09/22 00:30 unknown) Dose: 0 mls/hr (unknown) (no (unknown) (unknown) Lipase (23-300) (units (unknown) date) U/L unknown) (unknown) (no (unknown) (unknown) Lipase 160 (units (unk nown) date) (23-300) U/L unknown) (unknown) (no (unknown) (unknown) Lipase Stat (units (un known) date) unknown) (unknown) (no (unknown) (unknown) Lymph # (Auto) (units (unknown) date) ([id number]) /uL unknown) (unknown) (no (unknown) (unknown) Lymph # (Auto) (units (unknown) date) 1200 ([id number]) unknown) /uL (unknown) (no (unknown) (unknown) Lymph % (Auto) (units (unknown) date) (25-40) % unknown) (unknown) (no (unknown) (unknown) Lymph % (Auto) (units (unknown) date) 14.4 L (25-40) % unknown) (unknown) (no (unknown) (unknown) MCH (26-34) PG (units (unknown) date) unknown) (unknown) (no (unknown) (unknown) MCH 32.0 (26-34) (units (unknown) date) PG unknown) (unknown) (no (unknown) (unknown) MCHC (30-36) % (units (unknown) date) unknown) (unknown) (no (unknown) (unknown) MCHC 33.7 (30-36) (units (unknown) date) % unknown) (unknown) (no (unknown) (unknown) MCV (80-100) fL (units (unknown) date) unknown) (unknown) (no (unknown) (unknown) MCV 94.8 (80-100) (units (unknown) date) fL unknown) (unknown) (no (unknown) (unknown) MDM - GI Bleed (units (unknown) date) unknown) (unknown) (no (unknown) (unknown) MELD Score (2016)* (units (unknown) date) unknown) (unknown) (no (unknown) (unknown) MELD Score (Model (units (unknown) date) For End-Stage Liver unknown) Disease) (12 and older) from [place] (unknown) (no (unknown) (unknown) MUSCULOSKELETAL: (units (unknown) date) denies weakness, unknown) joint pain, or bony pain (unknown) (no (unknown) (unknown) Medical History (units (unknown) date) (Reviewed 07/08/22 unknown) @ 23:09 by Logan Mcneal DO) (unknown) (no (unknown) (unknown) Medication (units (unk nown) date) Instructions unknown) Recorded (unknown) (no (unknown) (unknown) Metoclopramide HCl (units (unknown) date) (Metoclopramide 10 unknown) Mg/2 Ml Inj) 10 mg IV NOW ONE (unknown) (no (unknown) (unknown) Mode of arrival: (units (unknown) date) Ambulatory unknown) (unknown) (no (unknown) (unknown) Pope # (Auto) (units ( unknown) date) (0-900) /uL unknown) (unknown) (no (unknown) (unknown) Pope # (Auto) 1500 (units (unknown) date) H (0-900) /uL unknown) (unknown) (no (unknown) (unknown) [place] % (Auto) (units ( unknown) date) (3-14) % unknown) (unknown) (no (unknown) (unknown) Pope % (Auto) 18.4 (units (unknown) date) H (3-14) % unknown) (unknown) (no (unknown) (unknown) Mother Hepatic (units (unknown) date) disease unknown) (unknown) (no (unknown) (unknown) NECK: Trachea (units ( unknown) date) midline. Non tender unknown) (unknown) (no (unknown) (unknown) NEURO: AOx3. (units (u nknown) date) unknown) (unknown) (no (unknown) (unknown) NEUROLOGIC: Denies (units (unknown) date) weakness, headache, unknown) numbness, change in speech, confusion, (unknown) (no (unknown) (unknown) Narrative (units (unkn own) date) unknown) (unknown) (no (unknown) (unknown) Narrative: (units (unk nown) date) unknown) (unknown) (no (unknown) (unknown) Neut # (Auto) (units ( unknown) date) ([id number]) /uL unknown) (unknown) (no (unknown) (unknown) Neut # (Auto) 5500 (units (unknown) date) ([id number]) /uL unknown) (unknown) (no (unknown) (unknown) Neut % (Auto) (units ( unknown) date) (50-75) % unknown) (unknown) (no (unknown) (unknown) Neut % (Auto) 66.3 (units (unknown) date) (50-75) % unknown) (unknown) (no (unknown) (unknown) No Action (units (unkn own) date) unknown) (unknown) (no (unknown) (unknown) Octreotide Acetate (units (unknown) date) (Octreotide 100 unknown) Mcg/Ml Vial) 50 mcg IV NOW ONE (unknown) (no (unknown) (unknown) Octreotide Acetate (units (unknown) date) 500 mcg/ (Sodium unknown) Chloride) 101 mls @ 5.05 mls/hr IV CONT (unknown) (no (unknown) (unknown) Ordered: (units (unkno wn) date) unknown) (unknown) (no (unknown) (unknown) Orders (units (unkno wn) date) unknown) (unknown) (no (unknown) (unknown) Oxygen Delivery (units (unknown) date) Method 07/08/22 unknown) 20:33 (unknown) (no (unknown) (unknown) Oxygen Delivery (units (unknown) date) Method Room Air unknown) Room Air Room Air (unknown) (no (unknown) (unknown) Oxygen Delivery (units (unknown) date) Method Room Air unknown) Room Air (unknown) (no (unknown) (unknown) Oxygen Delivery (units (unknown) date) Method unknown) (unknown) (no (unknown) (unknown) POTASSIUM CHLORIDE (units (unknown) date) IN WATER (Potassium unknown) Cl 10 Meq/100 Ml Evangelina) 10 meq in 100 mls (unknown) (no (unknown) (unknown) PRN Reason: Pain, (units (unknown) date) Severe (7-10) unknown) (unknown) (no (unknown) (unknown) PSYCHIATRIC: No (units (unknown) date) concerning unknown) psychosocial issues. (unknown) (no (unknown) (unknown) PT (10.1-12.7) (units (unknown) date) SECONDS unknown) (unknown) (no (unknown) (unknown) PT 22.8 H (units (unkn own) date) (10.1-12.7) SECONDS unknown) (unknown) (no (unknown) (unknown) Pancreatitis (units (u nknown) date) unknown) (unknown) (no (unknown) (unknown) Pantoprazole (units (u nknown) date) Sodium unknown) (Pantoprazole 40 Mg Vial) 40 mg IV NOW ONE (unknown) (no (unknown) (unknown) Patient History (units (unknown) date) unknown) (unknown) (no (unknown) (unknown) Patient reporting (units (unknown) date) little improvement unknown) in symptoms after above-stated therapies, (unknown) (no (unknown) (unknown) Patient: (units (unkno wn) date) Rosaura Witt unknown) MR#: M (unknown) (no (unknown) (unknown) Plt Count (units (unkn own) date) (150-400) X103/uL unknown) (unknown) (no (unknown) (unknown) Plt Count 145 L (units (unknown) date) (150-400) X103/uL unknown) (unknown) (no (unknown) (unknown) Potassium (units (unkn own) date) (3.4-5.1) mmol/L unknown) (unknown) (no (unknown) (unknown) Potassium 3.0 L (units (unknown) date) (3.4-5.1) mmol/L unknown) (unknown) (no (unknown) (unknown) Potassium 4.0 (units ( unknown) date) (3.4-5.1) mmol/L unknown) (unknown) (no (unknown) (unknown) Test (units (unknown) date) Urine Stat unknown) (unknown) (no (unknown) (unknown) Prescriptions: (units (unknown) date) unknown) (unknown) (no (unknown) (unknown) Previous Rx's (units ( unknown) date) unknown) (unknown) (no (unknown) (unknown) Primary biliary (units (unknown) date) cirrhosis unknown) (unknown) (no (unknown) (unknown) Prothrombin Time (units (unknown) date) INR Stat unknown) (unknown) (no (unknown) (unknown) Pulse Oximetry 96 (units (unknown) date) 98 99 unknown) (unknown) (no (unknown) (unknown) Pulse Oximetry 97 (units (unknown) date) 07/08/22 20:33 unknown) (unknown) (no (unknown) (unknown) Pulse Oximetry 97 (units (unknown) date) 100 99 unknown) (unknown) (no (unknown) (unknown) Pulse Oximetry 98 (units (unknown) date) unknown) (unknown) (no (unknown) (unknown) Pulse Oximetry 99 (units (unknown) date) 100 99 unknown) (unknown) (no (unknown) (unknown) Pulse Rate 70 (units ( unknown) date) unknown) (unknown) (no (unknown) (unknown) Pulse Rate 71 (units ( unknown) date) 07/08/22 20:33 unknown) (unknown) (no (unknown) (unknown) Pulse Rate 71 71 (units (unknown) date) 96 H unknown) (unknown) (no (unknown) (unknown) Pulse Rate 73 74 (units (unknown) date) 81 unknown) (unknown) (no (unknown) (unknown) Pulse Rate 76 88 (units (unknown) date) 55 L unknown) (unknown) (no (unknown) (unknown) RBC (4.0-5.2) (units ( unknown) date) X106/uL unknown) (unknown) (no (unknown) (unknown) RBC 2.87 L (units (unk nown) date) (4.0-5.2) X106/uL unknown) (unknown) (no (unknown) (unknown) RBC Morphology See (units (unknown) date) below unknown) (unknown) (no (unknown) (unknown) RBC Morphology (units (unknown) date) unknown) (unknown) (no (unknown) (unknown) RDW (11.6-14.8) % (units (unknown) date) unknown) (unknown) (no (unknown) (unknown) RDW 18.7 H (units (unk nown) date) (11.6-14.8) % unknown) (unknown) (no (unknown) (unknown) RESPIRATORY: Clear (units (unknown) date) to auscultation. unknown) Breath sounds equal bilaterally. No wheezes, (unknown) (no (unknown) (unknown) RESPIRATORY: (units (u nknown) date) Denies dyspnea, unknown) cough, wheezing, hemoptysis, sputum. (unknown) (no (unknown) (unknown) RESULT SUMMARY: (units (unknown) date) unknown) (unknown) (no (unknown) (unknown) Reevaluation #1: (units (unknown) date) unknown) (unknown) (no (unknown) (unknown) Reevaluation #2: (units (unknown) date) unknown) (unknown) (no (unknown) (unknown) Reevaluation #3: (units (unknown) date) unknown) (unknown) (no (unknown) (unknown) Reevaluation(s) (units (unknown) date) unknown) (unknown) (no (unknown) (unknown) Reglan as well as (units (unknown) date) another L of fluid unknown) and a CT of her abdomen and pelvis. Still (unknown) (no (unknown) (unknown) Related Data (units (u nknown) date) unknown) (unknown) (no (unknown) (unknown) Respiratory Rate (units (unknown) date) 18 07/08/22 20:33 unknown) (unknown) (no (unknown) (unknown) Respiratory Rate (units (unknown) date) 18 18 18 unknown) (unknown) (no (unknown) (unknown) Respiratory Rate (units (unknown) date) 18 18 unknown) (unknown) (no (unknown) (unknown) Respiratory Rate (units (unknown) date) unknown) (unknown) (no (unknown) (unknown) Result diagrams: (units (unknown) date) unknown) (unknown) (no (unknown) (unknown) Review of Systems (units (unknown) date) unknown) (unknown) (no (unknown) (unknown) Rheumatoid (units (unk nown) date) arthritis unknown) (unknown) (no (unknown) (unknown) Rx Instructions: (units (unknown) date) unknown) (unknown) (no (unknown) (unknown) SILVINA; Protocol (units ( unknown) date) unknown) (unknown) (no (unknown) (unknown) SKIN: Denies rash, (units (unknown) date) skin lesions, or unknown) other (unknown) (no (unknown) (unknown) SKIN: Mild (units (unk nown) date) jaundice unknown) (unknown) (no (unknown) (unknown) June 29 that (units (unknown) date) noted trace unknown) esophageal varices and type 1 gastroesophageal (unknown) (no (unknown) (unknown) Signed By: (units (unk nown) date) unknown) (unknown) (no (unknown) (unknown) Smoking Status: (units (unknown) date) Current every day unknown) smoker (unknown) (no (unknown) (unknown) Social History (units (unknown) date) (Reviewed 07/08/22 unknown) @ 23:09 by Logan Mcneal DO) (unknown) (no (unknown) (unknown) Sodium (137-145) (units (unknown) date) mmol/L unknown) (unknown) (no (unknown) (unknown) Sodium 138 (units (unk nown) date) (137-145) mmol/L unknown) (unknown) (no (unknown) (unknown) Sodium 140 (units (unk nown) date) (137-145) mmol/L unknown) (unknown) (no (unknown) (unknown) Sodium ?> 138 (units ( unknown) date) mEq/L unknown) (unknown) (no (unknown) (unknown) Sodium Chloride (units (unknown) date) (Normal Saline unknown) 0.9%) 1,000 mls @ 1,000 mls/hr IV BOLUS ONE (unknown) (no (unknown) (unknown) Source: patient (units (unknown) date) unknown) (unknown) (no (unknown) (unknown) Stated complaint: (units (unknown) date) Blood in vomit, unknown) Pain (unknown) (no (unknown) (unknown) Stop: 07/08/22 (units (unknown) date) 21:12 unknown) (unknown) (no (unknown) (unknown) Stop: 07/08/22 (units (unknown) date) 22:31 unknown) (unknown) (no (unknown) (unknown) Stop: 07/08/22 (units (unknown) date) 23:05 unknown) (unknown) (no (unknown) (unknown) Stop: 07/08/22 (units (unknown) date) 23:29 unknown) (unknown) (no (unknown) (unknown) Stop: 07/09/22 (units (unknown) date) 00:03 unknown) (unknown) (no (unknown) (unknown) Stop: 07/09/22 (units (unknown) date) 00:17 unknown) (unknown) (no (unknown) (unknown) Stop: 07/09/22 (units (unknown) date) 03:14 unknown) (unknown) (no (unknown) (unknown) Stop: 07/09/22 (units (unknown) date) 03:26 unknown) (unknown) (no (unknown) (unknown) Substance Use (units ( unknown) date) Type: marijuana unknown) (unknown) (no (unknown) (unknown) Sulfa (Sulfonamide (units (unknown) date) Allergy unknown) Intermediate Hives Verified 06/28/22 09:21 (unknown) (no (unknown) (unknown) Surgical History (units (unknown) date) (Reviewed 07/08/22 unknown) @ 23:09 by Logan Mcneal DO) (unknown) (no (unknown) (unknown) Temperature 97.8 F (units (unknown) date) 07/08/22 20:33 unknown) (unknown) (no (unknown) (unknown) Temperature 97.8 F (units (unknown) date) unknown) (unknown) (no (unknown) (unknown) Temperature (units (un known) date) unknown) (unknown) (no (unknown) (unknown) Time Seen by (units (u nknown) date) Provider: 07/08/22 unknown) 21:05 (unknown) (no (unknown) (unknown) Time: 23:06 (units (un known) date) unknown) (unknown) (no (unknown) (unknown) Total Bilirubin (units (unknown) date) (0.2-1.3) mg/dL unknown) (unknown) (no (unknown) (unknown) Total Bilirubin (units (unknown) date) 7.3 H (0.2-1.3) unknown) mg/dL (unknown) (no (unknown) (unknown) Total Protein (units ( unknown) date) (6.3-8.2) g/dL unknown) (unknown) (no (unknown) (unknown) Total Protein 7.1 (units (unknown) date) (6.3-8.2) g/dL unknown) (unknown) (no (unknown) (unknown) Ur Culture (units (unk nown) date) Indicated? Specimen unknown) cultured (unknown) (no (unknown) (unknown) Ur Culture (units (unk nown) date) Indicated? unknown) (unknown) (no (unknown) (unknown) Ur Squamous Epith (units (unknown) date) Cells (0-5/HPF) unknown) (unknown) (no (unknown) (unknown) Ur Squamous Epith (units (unknown) date) Cells 5-10 /hpf H unknown) (0-5/HPF) (unknown) (no (unknown) (unknown) Urine Bacteria (units (unknown) date) (None) unknown) (unknown) (no (unknown) (unknown) Urine Bacteria Few (units (unknown) date) (2-10) H (None) unknown) (unknown) (no (unknown) (unknown) Urine Culture Stat (units (unknown) date) unknown) (unknown) (no (unknown) (unknown) Urine Microscopic (units (unknown) date) Stat unknown) (unknown) (no (unknown) (unknown) Urine (units (unknown) date) Test (Negative) unknown) (unknown) (no (unknown) (unknown) Urine (units (unknown) date) Test Negative unknown) (Negative) (unknown) (no (unknown) (unknown) Urine RBC (units (unkn own) date) (0-5/HPF) unknown) (unknown) (no (unknown) (unknown) Urine RBC None (units (unknown) date) seen (0-5/HPF) unknown) (unknown) (no (unknown) (unknown) Urine WBC (units (unkn own) date) (0-5/HPF) unknown) (unknown) (no (unknown) (unknown) Urine WBC 1-5/hpf (units (unknown) date) (0-5/HPF) unknown) (unknown) (no (unknown) (unknown) Vital Signs - 8 hr (units (unknown) date) unknown) (unknown) (no (unknown) (unknown) Vital Signs (units (un known) date) unknown) (unknown) (no (unknown) (unknown) Vital signs: (units (u nknown) date) unknown) (unknown) (no (unknown) (unknown) WBC (4.5-11.0) (units (unknown) date) X103/uL unknown) (unknown) (no (unknown) (unknown) WBC 8.3 (4.5-11.0) (units (unknown) date) X103/uL unknown) (unknown) (no (unknown) (unknown) [Embedded Image (units (unknown) date) Not Available] unknown) (unknown) (no (unknown) (unknown) acetaminophen 500 (units (unknown) date) mg tablet 500 mg PO unknown) Q8HR PRN fever or pain 06/28/22 (unknown) (no (unknown) (unknown) acetaminophen (units ( unknown) date) [Tylenol Extra unknown) Strength] 500 mg tablet (unknown) (no (unknown) (unknown) alcohol intake (units (unknown) date) frequency: 0-2 unknown) drinks per day (unknown) (no (unknown) (unknown) alcohol intake: (units (unknown) date) current unknown) (unknown) (no (unknown) (unknown) and received 1 (units (unknown) date) transfusing unknown) including 2 units of packed red cells. On the date (unknown) (no (unknown) (unknown) anxiety/nausea/vom (units (unknown) date) iting #20 tabs unknown) (unknown) (no (unknown) (unknown) appearance. She (units (unknown) date) was just discharged unknown) from [facility] on Sunday after having (unknown) (no (unknown) (unknown) been admitted for (units (unknown) date) the prior 5 days. unknown) Her admission diagnosis includes alcoholic (unknown) (no (unknown) (unknown) bupropion [From (units (unknown) date) Wellbutrin] AdvReac unknown) Severe Seizure Verified 07/08/22 20:37 (unknown) (no (unknown) (unknown) but agrees with (units (unknown) date) need for unknown) hospitalization and need for scope. (unknown) (no (unknown) (unknown) call to [facility] (units ([facility] date[facility] unknown) hospitalist. No ability to keep UGI bleed with known (unknown) (no (unknown) (unknown) complaint (units (unkn own) date) increasing upper unknown) abdominal pain with persistent nausea and vomiting (unknown) (no (unknown) (unknown) continues, patient (units (unknown) date) to receive 3rd unknown) round of dilaudid (unknown) (no (unknown) (unknown) denies any chest (units (unknown) date) pain or shortness unknown) of breath (unknown) (no (unknown) (unknown) diazepam 10 mg (units (unknown) date) tablet 10 mg PO unknown) BEDTIME PRN anxiety/sleep 06/28/22 (unknown) (no (unknown) (unknown) diazepam 10 mg (units (unknown) date) tablet unknown) (unknown) (no (unknown) (unknown) dizziness. (units (unk nown) date) unknown) (unknown) (no (unknown) (unknown) ea (units (unkno wn) date) unknown) (unknown) (no (unknown) (unknown) eating and (units (unk nown) date) drinking. She had a unknown) small amount of blood and a few of the episodes (unknown) (no (unknown) (unknown) folic acid 1 mg (units (unknown) date) Tablet unknown) (unknown) (no (unknown) (unknown) folic acid 1 mg (units (unknown) date) tablet 1 mg PO unknown) DAILY #30 tabs 02/17/22 (unknown) (no (unknown) (unknown) for the past few (units (unknown) date) days. She states unknown) that her pain is worsened by motion and (unknown) (no (unknown) (unknown) hepatitis, (units (unk nown) date) hematemesis with unknown) persistent nausea, coagulopathy. She had an EEG on (unknown) (no (unknown) (unknown) household members: (units (unknown) date) spouse and children unknown) (unknown) (no (unknown) (unknown) hydrocodone (units (un known) date) Allergy Severe unknown) Hives Verified 07/08/22 20:37 (unknown) (no (unknown) (unknown) hydroxyzine HCl 25 (units (unknown) date) mg tablet 25 mg PO unknown) TID PRN 06/28/22 (unknown) (no (unknown) (unknown) hydroxyzine HCl 25 (units (unknown) date) mg tablet unknown) (unknown) (no (unknown) (unknown) icterus is noted, (units (unknown) date) she states this has unknown) been present for quite some time and is no (unknown) (no (unknown) (unknown) ketorolac [From (units (unknown) date) Toradol] Allergy unknown) Severe Hives Verified 07/08/22 20:37 (unknown) (no (unknown) (unknown) leave on most (units ( unknown) date) painful area for up unknown) to 12 hrs (unknown) (no (unknown) (unknown) lidocaine 5 % (units ( unknown) date) adhesive unknown) patch,medicated (unknown) (no (unknown) (unknown) lidocaine 5 % (units ( unknown) date) topical patch 1 unknown) patch topical DAILY PRN pain #15 03/23/22 (unknown) (no (unknown) (unknown) mcg tablet (units (unk nown) date) (Tab-A-Erendira) unknown) (unknown) (no (unknown) (unknown) melatonin 5 mg (units (unknown) date) tablet 5 mg PO unknown) BEDTIME sleep #30 tabs 02/17/22 (unknown) (no (unknown) (unknown) melatonin 5 mg (units (unknown) date) tablet unknown) (unknown) (no (unknown) (unknown) mg tablet (units (unkn own) date) unknown) (unknown) (no (unknown) (unknown) mild distress. (units (unknown) date) Tearful, holding an unknown) emesis bag (unknown) (no (unknown) (unknown) morphine Allergy (units (unknown) date) Intermediate Rash unknown) Verified 07/08/22 20:37 (unknown) (no (unknown) (unknown) multivitamin with (units (unknown) date) folic acid 400 1 unknown) tab PO DAILY #30 tabs 02/17/22 (unknown) (no (unknown) (unknown) multivitamin with (units (unknown) date) folic acid unknown) [Tab-A-Erendira] 400 mcg Tablet (unknown) (no (unknown) (unknown) no records from (units (unknown) date) [facility] unknown) (unknown) (no (unknown) (unknown) of her discharge (units (unknown) date) lab abnormalities, unknown) which had improved, include alk-phos 142, (unknown) (no (unknown) (unknown) of her emesis but (units (unknown) date) denies any unknown) significant bright red emesis or coffee-ground (unknown) (no (unknown) (unknown) on 07/09/2022 (units (u nknown) date) unknown) (unknown) (no (unknown) (unknown) ondansetron 4 mg (units (unknown) date) disintegrating 4 mg unknown) PO Q8H PRN nausea and 06/28/22 (unknown) (no (unknown) (unknown) ondansetron 4 mg (units (unknown) date) tablet,disintegrati unknown) ng (unknown) (no (unknown) (unknown) pantoprazole 40 mg (units (unknown) date) Tablet,Delayed unknown) Release (Dr/Ec) (unknown) (no (unknown) (unknown) pantoprazole 40 mg (units (unknown) date) tablet,delayed 40 unknown) mg PO 0700,2100 #60 tabs 02/17/22 (unknown) (no (unknown) (unknown) patient has had (units (unknown) date) multiple episodes unknown) of emesis but not bloody at this time. Pain (unknown) (no (unknown) (unknown) rales, or rhonchi. (units (unknown) date) unknown) (unknown) (no (unknown) (unknown) release (units (unkno wn) date) unknown) (unknown) (no (unknown) (unknown) repeated H/H drops (units (unknown) date) to 7.7 unknown) (unknown) (no (unknown) (unknown) requesting (units (unk nown) date) something else for unknown) pain and nausea. 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 unknown) (unknown) (no (unknown) (unknown) sucralfate 1 gram (units (unknown) date) Tablet unknown) (unknown) (no (unknown) (unknown) sucralfate 1 gram (units (unknown) date) tablet 1 g PO ACHS unknown) #120 tabs 02/17/22 (unknown) (no (unknown) (unknown) tablet vomiting (units (unknown) date) #14 tabs unknown) (unknown) (no (unknown) (unknown) thiamine (units (unkno wn) date) mononitrate (vit unknown) B1) 100 100 mg PO DAILY #30 tabs 02/17/22 (unknown) (no (unknown) (unknown) thiamine (units (unkno wn) date) mononitrate (vit unknown) B1) 100 mg Tablet (unknown) (no (unknown) (unknown) tobacco type: (units ( unknown) date) cigarettes unknown) (unknown) (no (unknown) (unknown) tonsillar (units (unkn own) date) hypertrophy or unknown) exudate. Airway patent. 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 She had been on Cipro empirically (unknown) (no (unknown) (unknown) varices. (units (unkno wn) date) unknown) (unknown) (no (unknown) (unknown) worse than normal. (units (unknown) date) No injection or unknown) drainage. Result panel 20 (unknown) (no date) (unknown) (unknown) Negative (units (unkn own) unknown) (unknown) (no date) (unknown) (unknown) Negative (units (unkn own) unknown) Result panel 21 (unknown) (no (unknown) (unknown) (no value) (units (unk nown) date) unknown) (unknown) (no (unknown) (unknown) #14 tabs (units (unkno wn) date) unknown) (unknown) (no (unknown) (unknown) (Tylenol Extra (units (unknown) date) Strength) #30 tabs unknown) (unknown) (no (unknown) (unknown) All (units (unkno wn) date) calculations should unknown) be rechecked by clinician prior to use (unknown) (no (unknown) (unknown) [id number] (units (unkn own) date) unknown) (unknown) (no (unknown) (unknown) 00:47 (units (unkno wn) date) unknown) (unknown) (no (unknown) (unknown) 01:00 07/09/22 (units (unknown) date) unknown) (unknown) (no (unknown) (unknown) 01:30 07/09/22 (units (unknown) date) unknown) (unknown) (no (unknown) (unknown) 02:00 (units (unkno wn) date) unknown) (unknown) (no (unknown) (unknown) 02:16 07/09/22 (units (unknown) date) unknown) (unknown) (no (unknown) (unknown) 02:16 (units (unkno wn) date) unknown) (unknown) (no (unknown) (unknown) 02:55 02:55 02:59 (units (unknown) date) unknown) (unknown) (no (unknown) (unknown) 02:59 (units (unkno wn) date) unknown) (unknown) (no (unknown) (unknown) 0330 - call to (units (unknown) date) Prov. Images unknown) pushed. GI paged. Faxed facesheet. (unknown) (no (unknown) (unknown) 0400 - discussed (units (unknown) date) with Dr. Rossi unknown) (GI at Prov) no additional recommendations, (unknown) (no (unknown) (unknown) [phone] - [facility] – [place], [address] (units (unknown) date) [place] on list. unknown) (unknown) (no (unknown) (unknown) 1 g PO ACHS Qty: (units (unknown) date) 120 2RF unknown) (unknown) (no (unknown) (unknown) 1 mg PO DAILY Qty: (units (unknown) date) 30 2RF unknown) (unknown) (no (unknown) (unknown) 1 patch topical (units (unknown) date) DAILY PRN (Reason: unknown) pain) Qty: 15 0RF (unknown) (no (unknown) (unknown) 1 tab PO DAILY (units (unknown) date) Qty: 30 2RF unknown) (unknown) (no (unknown) (unknown) 10 mg PO BEDTIME (units (unknown) date) PRN (Reason: unknown) anxiety/sleep) Qty: 14 0RF (unknown) (no (unknown) (unknown) 07/08/22 07/08/22 (units (unknown) date) 07/08/22 unknown) Range/Units (unknown) (no (unknown) (unknown) 07/08/22 20:38 (units (unknown) date) unknown) (unknown) (no (unknown) (unknown) 07/08/22 20:45 (units (unknown) date) unknown) (unknown) (no (unknown) (unknown) 07/08/22 23:04 (units (unknown) date) unknown) (unknown) (no (unknown) (unknown) 07/08/22 23:54 (units (unknown) date) unknown) (unknown) (no (unknown) (unknown) 07/08/22 (units (unkno wn) date) unknown) (unknown) (no (unknown) (unknown) 07/09/22 02:55 (units (unknown) date) unknown) (unknown) (no (unknown) (unknown) 07/09/22 02:59 (units (unknown) date) unknown) (unknown) (no (unknown) (unknown) 07/09/22 04:16 (units (unknown) date) unknown) (unknown) (no (unknown) (unknown) 07/09/22 07/09/22 (units (unknown) date) 07/09/22 unknown) Range/Units (unknown) (no (unknown) (unknown) 07/09/22 (units (unkno wn) date) Range/Units unknown) (unknown) (no (unknown) (unknown) 07/09/22 (units (unkno wn) date) unknown) (unknown) (no (unknown) (unknown) 100 mg PO DAILY (units (unknown) date) Qty: 30 2RF unknown) (unknown) (no (unknown) (unknown) 12 point review of (units (unknown) date) systems is negative unknown) except for those stated above (unknown) (no (unknown) (unknown) 19.6% (units (unkno wn) date) unknown) (unknown) (no (unknown) (unknown) 20:33 07/08/22 (units (unknown) date) unknown) (unknown) (no (unknown) (unknown) 20:45 20:45 20:45 (units (unknown) date) unknown) (unknown) (no (unknown) (unknown) 21:45 07/08/22 (units (unknown) date) unknown) (unknown) (no (unknown) (unknown) 22 points (units (unkn own) date) unknown) (unknown) (no (unknown) (unknown) 22:00 (units (unkno wn) date) unknown) (unknown) (no (unknown) (unknown) 22:30 07/08/22 (units (unknown) date) unknown) (unknown) (no (unknown) (unknown) 23:00 07/09/22 (units (unknown) date) unknown) (unknown) (no (unknown) (unknown) 23:54 23:54 23:54 (units (unknown) date) unknown) (unknown) (no (unknown) (unknown) 25 mg PO TID PRN (units (unknown) date) (Reason: unknown) anxiety/nausea/vomi ting) Qty: 20 0RF (unknown) (no (unknown) (unknown) 36-year-old female (units (unknown) date) daily smoker with unknown) history of significant alcohol abuse (unknown) (no (unknown) (unknown) 4 mg PO Q8H PRN (units (unknown) date) (Reason: nausea and unknown) vomiting) Qty: 14 0RF (unknown) (no (unknown) (unknown) 40 mg PO 0700,2100 (units (unknown) date) Qty: 60 2RF unknown) (unknown) (no (unknown) (unknown) 5 mg PO BEDTIME (units (unknown) date) Qty: 30 2RF unknown) (unknown) (no (unknown) (unknown) 500 mg PO Q8HR PRN (units (unknown) date) (Reason: fever or unknown) pain) Qty: 30 0RF (unknown) (no (unknown) (unknown) @ 100 mls/hr IV (units (unknown) date) Q1H SILVINA unknown) (unknown) (no (unknown) (unknown) ALT (<35) IU/L (units (unknown) date) unknown) (unknown) (no (unknown) (unknown) ALT 42 H (<35) (units (unknown) date) IU/L unknown) (unknown) (no (unknown) (unknown) AST (14-36) IU/L (units (unknown) date) unknown) (unknown) (no (unknown) (unknown) AST 52, ALT 23, (units (unknown) date) bilirubin 8.5, INR unknown) 2.1. She is had no fever or chills. She (unknown) (no (unknown) (unknown) AST 69 H (14-36) (units (unknown) date) IU/L unknown) (unknown) (no (unknown) (unknown) Acanthocytes (units (u nknown) date) (Spur) 2+ H unknown) (unknown) (no (unknown) (unknown) Acanthocytes (units (u nknown) date) (Spur) unknown) (unknown) (no (unknown) (unknown) Admin: 07/08/22 (units (unknown) date) 22:38 Dose: 1,000 unknown) mls/hr (unknown) (no (unknown) (unknown) Admin: 07/08/22 (units (unknown) date) 23:47 Dose: 100 unknown) mls/hr (unknown) (no (unknown) (unknown) Admin: 07/09/22 (units (unknown) date) 01:10 Dose: 100 unknown) mls/hr (unknown) (no (unknown) (unknown) Age/Sex: 36 / F (units (unknown) date) unknown) (unknown) (no (unknown) (unknown) Albumin (3.5-5.0) (units (unknown) date) g/dL unknown) (unknown) (no (unknown) (unknown) Albumin 3.7 (units (un known) date) (3.5-5.0) g/dL unknown) (unknown) (no (unknown) (unknown) Albumin/Globulin (units (unknown) date) Ratio (1.0-2.8) unknown) (unknown) (no (unknown) (unknown) Albumin/Globulin (units (unknown) date) Ratio 1.1 (1.0-2.8) unknown) (unknown) (no (unknown) (unknown) Alcohol abuse (units ( unknown) date) unknown) (unknown) (no (unknown) (unknown) Alcohol type: beer (units (unknown) date) and wine unknown) (unknown) (no (unknown) (unknown) Alcoholic liver (units (unknown) date) disease unknown) (unknown) (no (unknown) (unknown) Alkaline (units (unkno wn) date) Phosphatase unknown) (38-126) U/L (unknown) (no (unknown) (unknown) Alkaline (units (unkno wn) date) Phosphatase 150 H unknown) (38-126) U/L (unknown) (no (unknown) (unknown) Allergies (units (unkn own) date) unknown) (unknown) (no (unknown) (unknown) Allergy/AdvReac (units (unknown) date) Type Severity unknown) Reaction Status Date / Time (unknown) (no (unknown) (unknown) Ammonia (9-30) (units (unknown) date) umol/L unknown) (unknown) (no (unknown) (unknown) Ammonia (NH3) Stat (units (unknown) date) unknown) (unknown) (no (unknown) (unknown) Ammonia 15 (9-30) (units (unknown) date) umol/L unknown) (unknown) (no (unknown) (unknown) Anisocytosis 2+ H (units (unknown) date) unknown) (unknown) (no (unknown) (unknown) Anisocytosis (units (u nknown) date) unknown) (unknown) (no (unknown) (unknown) Antibiotics) (units (u nknown) date) unknown) (unknown) (no (unknown) (unknown) BACK: Nontender (units (unknown) date) without deformity unknown) or crepitance. No flank tenderness. (unknown) (no (unknown) (unknown) BMP [Basic (units (unk nown) date) Metabolic Panel] unknown) Stat (unknown) (no (unknown) (unknown) BUN (7-17) mg/dL (units (unknown) date) unknown) (unknown) (no (unknown) (unknown) BUN 8 (7-17) mg/dL (units (unknown) date) unknown) (unknown) (no (unknown) (unknown) BUN 9 (7-17) mg/dL (units (unknown) date) unknown) (unknown) (no (unknown) (unknown) BUN/Creatinine (units (unknown) date) Ratio (6-22) unknown) (unknown) (no (unknown) (unknown) BUN/Creatinine (units (unknown) date) Ratio 15.1 (6-22) unknown) (unknown) (no (unknown) (unknown) BUN/Creatinine (units (unknown) date) Ratio 16.7 (6-22) unknown) (unknown) (no (unknown) (unknown) Baso # (Auto) (units ( unknown) date) (0-100) /uL unknown) (unknown) (no (unknown) (unknown) Baso # (Auto) 0 (units (unknown) date) (0-100) /uL unknown) (unknown) (no (unknown) (unknown) Baso % (Auto) (units ( unknown) date) (0-2) % unknown) (unknown) (no (unknown) (unknown) Baso % (Auto) 0.2 (units (unknown) date) (0-2) % unknown) (unknown) (no (unknown) (unknown) Bilirubin ?> 7.3 (units (unknown) date) mg/dL unknown) (unknown) (no (unknown) (unknown) Blood Pressure (units (unknown) date) 135/60 unknown) (unknown) (no (unknown) (unknown) Blood Pressure (units (unknown) date) 158/79 H 156/91 H unknown) (unknown) (no (unknown) (unknown) Blood Pressure (units (unknown) date) 163/84 H 07/08/22 unknown) 20:33 (unknown) (no (unknown) (unknown) Blood Pressure (units (unknown) date) 163/84 H 169/103 H unknown) 150/82 H (unknown) (no (unknown) (unknown) Blood Pressure (units (unknown) date) unknown) (unknown) (no (unknown) (unknown) CARDIOVASCULAR: (units (unknown) date) Denies chest pain, unknown) palpitations, orthopnea, edema, (unknown) (no (unknown) (unknown) CARDIOVASCULAR: (units (unknown) date) Regular rate and unknown) rhythm without murmurs, gallops, or rubs. (unknown) (no (unknown) (unknown) COVID19 -Nasal (units (unknown) date) RAPID/Pre-Proc Stat unknown) (unknown) (no (unknown) (unknown) CT abdomen pelvis (units (unknown) date) w con Stat unknown) (unknown) (no (unknown) (unknown) Calcium (8.4-10.2) (units (unknown) date) mg/dL unknown) (unknown) (no (unknown) (unknown) Calcium 8.0 L (units ( unknown) date) (8.4-10.2) mg/dL unknown) (unknown) (no (unknown) (unknown) Calcium 8.9 (units (un known) date) (8.4-10.2) mg/dL unknown) (unknown) (no (unknown) (unknown) Carbon Dioxide (units (unknown) date) (22-32) mmol/L unknown) (unknown) (no (unknown) (unknown) Carbon Dioxide 23 (units (unknown) date) (22-32) mmol/L unknown) (unknown) (no (unknown) (unknown) Carbon Dioxide 24 (units (unknown) date) (22-32) mmol/L unknown) (unknown) (no (unknown) (unknown) Ceftriaxone Sodium (units (unknown) date) 2,000 mg/ (Sodium unknown) Chloride) 100 mls @ 200 mls/hr IV NOW ONE (unknown) (no (unknown) (unknown) Chief complaint: (units (unknown) date) Abdominal Pain unknown) (unknown) (no (unknown) (unknown) Chloride (98-107) (units (unknown) date) mmol/L unknown) (unknown) (no (unknown) (unknown) Chloride 106 (units (u nknown) date) (98-107) mmol/L unknown) (unknown) (no (unknown) (unknown) Chloride 107 (units (u nknown) date) (98-107) mmol/L unknown) (unknown) (no (unknown) (unknown) Cholecystitis (units ( unknown) date) unknown) (unknown) (no (unknown) (unknown) Chronic low back (units (unknown) date) pain unknown) (unknown) (no (unknown) (unknown) Complete Blood (units (unknown) date) Count AUTO DIFF unknown) Stat (unknown) (no (unknown) (unknown) Comprehensive (units ( unknown) date) Metabolic Panel unknown) Stat (unknown) (no (unknown) (unknown) Consultation #1: (units (unknown) date) unknown) (unknown) (no (unknown) (unknown) Consultations (units ( unknown) date) unknown) (unknown) (no (unknown) (unknown) Course Narrative: (units (unknown) date) unknown) (unknown) (no (unknown) (unknown) Course (units (unkno wn) date) unknown) (unknown) (no (unknown) (unknown) Creatinine (units (unk nown) date) (0.52-1.04) mg/dL unknown) (unknown) (no (unknown) (unknown) Creatinine 0.53 (units (unknown) date) (0.52-1.04) mg/dL unknown) (unknown) (no (unknown) (unknown) Creatinine 0.54 (units (unknown) date) (0.52-1.04) mg/dL unknown) (unknown) (no (unknown) (unknown) Creatinine ?> 0.53 (units (unknown) date) mg/dL unknown) (unknown) (no (unknown) (unknown) : 1985 (units (unknown) date) Acct:[id number] unknown) (unknown) (no (unknown) (unknown) Date of Service: (units (unknown) date) 07/08/22 unknown) (unknown) (no (unknown) (unknown) Departure (units (unkn own) date) unknown) (unknown) (no (unknown) (unknown) Diabetes mellitus (units (unknown) date) unknown) (unknown) (no (unknown) (unknown) Dialysis at least (units (unknown) date) twice in the past unknown) week ?> 0 = No (unknown) (no (unknown) (unknown) Discharge Plan (units (unknown) date) unknown) (unknown) (no (unknown) (unknown) Discontinued (units (u nknown) date) Medications unknown) (unknown) (no (unknown) (unknown) Documented By: AT (units (unknown) date) unknown) (unknown) (no (unknown) (unknown) Documented By: EB (units (unknown) date) unknown) (unknown) (no (unknown) (unknown) Documented By: RL (units (unknown) date) unknown) (unknown) (no (unknown) (unknown) ED Orders (units (unkn own) date) unknown) (unknown) (no (unknown) (unknown) EKG-12 Lead Stat (units (unknown) date) unknown) (unknown) (no (unknown) (unknown) ENT: Nose without (units (unknown) date) bleeding, purulent unknown) drainage. Throat without erythema, (unknown) (no (unknown) (unknown) ER Physician: (units ( unknown) date) Logan Mcneal D.O. unknown) (unknown) (no (unknown) (unknown) EXTREMITIES: No (units (unknown) date) edema or joint unknown) tenderness. (unknown) (no (unknown) (unknown) EYES: Pupils equal (units (unknown) date) round and reactive. unknown) Extraocular motions intact. Scleral (unknown) (no (unknown) (unknown) Emergency Report (units (unknown) date) unknown) (unknown) (no (unknown) (unknown) Eos # (Auto) (units (u nknown) date) (0-450) /uL unknown) (unknown) (no (unknown) (unknown) Eos # (Auto) 100 (units (unknown) date) (0-450) /uL unknown) (unknown) (no (unknown) (unknown) Eos % (Auto) (2-4) (units (unknown) date) % unknown) (unknown) (no (unknown) (unknown) Eos % (Auto) 0.7 L (units (unknown) date) (2-4) % unknown) (unknown) (no (unknown) (unknown) Estimated 3-Month (units (unknown) date) Mortality unknown) (unknown) (no (unknown) (unknown) Estimated GFR > 60 (units (unknown) date) (>60) mL/min unknown) (unknown) (no (unknown) (unknown) Estimated GFR (units ( unknown) date) (>60) mL/min unknown) (unknown) (no (unknown) (unknown) Ethanol (ETOH) (units (unknown) date) Stat unknown) (unknown) (no (unknown) (unknown) Ethyl Alcohol < 10 (units (unknown) date) ( - 10) mg/dL unknown) (unknown) (no (unknown) (unknown) Ethyl Alcohol ( - (units (unknown) date) 10) mg/dL unknown) (unknown) (no (unknown) (unknown) Exam Narrative: (units (unknown) date) unknown) (unknown) (no (unknown) (unknown) Exam (units (unkno wn) date) unknown) (unknown) (no (unknown) (unknown) Family History (units (unknown) date) (Reviewed 07/08/22 unknown) @ 23:09 by Logan Mcneal DO) (unknown) (no (unknown) (unknown) Father (units (unkno wn) date) Hypertension unknown) (unknown) (no (unknown) (unknown) Fibromyalgia (units (u nknown) date) unknown) (unknown) (no (unknown) (unknown) GASTROINTESTINAL: (units (unknown) date) Abdomen soft, unknown) tender in the epigastrium, nondistended. (unknown) (no (unknown) (unknown) GASTROINTESTINAL: (units (unknown) date) See HPI unknown) (unknown) (no (unknown) (unknown) GENERAL: See HPI (units (unknown) date) unknown) (unknown) (no (unknown) (unknown) GENERAL: [36] year (units (unknown) date) old patient appears unknown) stated age. Well-developed patient, in (unknown) (no (unknown) (unknown) : Denies (units (unk nown) date) dysuria, frequency, unknown) incontinence, hematuria, urinary retention. (unknown) (no (unknown) (unknown) General (units (unkno wn) date) unknown) (unknown) (no (unknown) (unknown) Globulin (1.7-4.1) (units (unknown) date) g/dL unknown) (unknown) (no (unknown) (unknown) Globulin 3.4 (units (u nknown) date) (1.7-4.1) g/dL unknown) (unknown) (no (unknown) (unknown) Glucose (70-100) (units (unknown) date) mg/dL unknown) (unknown) (no (unknown) (unknown) Glucose 123 H (units ( unknown) date) (70-100) mg/dL unknown) (unknown) (no (unknown) (unknown) Glucose 136 H (units ( unknown) date) (70-100) mg/dL unknown) (unknown) (no (unknown) (unknown) HEAD: Atraumatic. (units (unknown) date) Normocephalic. unknown) (unknown) (no (unknown) (unknown) HEENT: Denies (units ( unknown) date) sinus pain, ear unknown) pain, sore throat, difficulty swallowing, (unknown) (no (unknown) (unknown) HH [Hemoglobin and (units (unknown) date) Hematocrit] Stat unknown) (unknown) (no (unknown) (unknown) HPI - GI Bleed (units (unknown) date) unknown) (unknown) (no (unknown) (unknown) HPI Narrative: (units (unknown) date) unknown) (unknown) (no (unknown) (unknown) Haloperidol (units (un known) date) (Haloperidol 5 unknown) Mg/Ml Vial) 5 mg IV NOW ONE (unknown) (no (unknown) (unknown) Hct (36-46) % (units ( unknown) date) unknown) (unknown) (no (unknown) (unknown) Hct 22.9 L (36-46) (units (unknown) date) % unknown) (unknown) (no (unknown) (unknown) Hct 23.0 L (36-46) (units (unknown) date) % unknown) (unknown) (no (unknown) (unknown) Hct 27.2 L (36-46) (units (unknown) date) % unknown) (unknown) (no (unknown) (unknown) Hgb (12.0-16.0) (units (unknown) date) g/dL unknown) (unknown) (no (unknown) (unknown) Hgb 7.7 L (units (unkn own) date) (12.0-16.0) g/dL unknown) (unknown) (no (unknown) (unknown) Hgb 9.2 L (units (unkn own) date) (12.0-16.0) g/dL unknown) (unknown) (no (unknown) (unknown) History of Present (units (unknown) date) Illness unknown) (unknown) (no (unknown) (unknown) History of (units (unk nown) date) tonsillectomy and unknown) adenoidectomy (unknown) (no (unknown) (unknown) Hydromorphone HCl (units (unknown) date) (Hydromorphone 1 Mg unknown) Inj) 1 mg IV NOW ONE (unknown) (no (unknown) (unknown) Hydromorphone HCl (units (unknown) date) (Hydromorphone 1 Mg unknown) Inj) 1 mg IV Q2HR PRN (unknown) (no (unknown) (unknown) Hypercoagulable (units (unknown) date) state unknown) (unknown) (no (unknown) (unknown) Hypertension (units (u nknown) date) unknown) (unknown) (no (unknown) (unknown) INPUTS: (units (unkno wn) date) unknown) (unknown) (no (unknown) (unknown) INR (0.9-1.3) (units ( unknown) date) unknown) (unknown) (no (unknown) (unknown) INR 2.0 H (units (unkn own) date) (0.9-1.3) unknown) (unknown) (no (unknown) (unknown) INR ?> 2.0 (units (unk nown) date) unknown) (unknown) (no (unknown) (unknown) IUD (intrauterine (units (unknown) date) device) in place unknown) (unknown) (no (unknown) (unknown) Infusion: 07/09/22 (units (unknown) date) 01:05 Dose: 0 unknown) mls/hr (unknown) (no (unknown) (unknown) Infusion: 07/09/22 (units (unknown) date) 02:15 Dose: 0 unknown) mls/hr (unknown) (no (unknown) (unknown) Initial Vital (units ( unknown) date) Signs unknown) (unknown) (no (unknown) (unknown) Initial Vital (units ( unknown) date) Signs: unknown) (unknown) (no (unknown) (unknown) [facility] (units (unknown) date) [address] unknown) [place] [address] (unknown) (no (unknown) (unknown) Lab Data (units (unkno wn) date) unknown) (unknown) (no (unknown) (unknown) Lab Results (units (un known) date) unknown) (unknown) (no (unknown) (unknown) Labs: (units (unkno wn) date) unknown) (unknown) (no (unknown) (unknown) Last Admin: (units (un known) date) 07/08/22 21:46 unknown) Dose: 40 mg (unknown) (no (unknown) (unknown) Last Admin: (units (un known) date) 07/08/22 22:38 unknown) Dose: 5 mg (unknown) (no (unknown) (unknown) Last Admin: (units (un known) date) 07/08/22 23:09 unknown) Dose: 1 mg (unknown) (no (unknown) (unknown) Last Admin: (units (un known) date) 07/08/22 23:09 unknown) Dose: 10 mg (unknown) (no (unknown) (unknown) Last Admin: (units (un known) date) 07/08/22 23:47 unknown) Dose: 1,000 mls/hr (unknown) (no (unknown) (unknown) Last Admin: (units (un known) date) 07/09/22 00:33 unknown) Dose: 1 mg (unknown) (no (unknown) (unknown) Last Admin: (units (un known) date) 07/09/22 00:33 unknown) Dose: 50 mcg (unknown) (no (unknown) (unknown) Last Admin: (units (un known) date) 07/09/22 00:34 unknown) Dose: 25 mcg/hr, 5.05 mls/hr (unknown) (no (unknown) (unknown) Last Admin: (units (un known) date) 07/09/22 02:16 unknown) Dose: 100 mls/hr (unknown) (no (unknown) (unknown) Last Admin: (units (un known) date) 07/09/22 02:28 unknown) Dose: 1 mg (unknown) (no (unknown) (unknown) Last Admin: (units (un known) date) 07/09/22 03:56 unknown) Dose: 200 mls/hr (unknown) (no (unknown) (unknown) Last Infusion: (units (unknown) date) 07/09/22 00:30 unknown) Dose: 0 mls/hr (unknown) (no (unknown) (unknown) Lipase (23-300) (units (unknown) date) U/L unknown) (unknown) (no (unknown) (unknown) Lipase 160 (units (unk nown) date) (23-300) U/L unknown) (unknown) (no (unknown) (unknown) Lipase Stat (units (un known) date) unknown) (unknown) (no (unknown) (unknown) Lymph # (Auto) (units (unknown) date) (1718-9493) /uL unknown) (unknown) (no (unknown) (unknown) Lymph # (Auto) (units (unknown) date) 1200 (2314-5217) unknown) /uL (unknown) (no (unknown) (unknown) Lymph % (Auto) (units (unknown) date) (25-40) % unknown) (unknown) (no (unknown) (unknown) Lymph % (Auto) (units (unknown) date) 14.4 L (25-40) % unknown) (unknown) (no (unknown) (unknown) MCH (26-34) PG (units (unknown) date) unknown) (unknown) (no (unknown) (unknown) MCH 32.0 (26-34) (units (unknown) date) PG unknown) (unknown) (no (unknown) (unknown) MCHC (30-36) % (units (unknown) date) unknown) (unknown) (no (unknown) (unknown) MCHC 33.7 (30-36) (units (unknown) date) % unknown) (unknown) (no (unknown) (unknown) MCV (80-100) fL (units (unknown) date) unknown) (unknown) (no (unknown) (unknown) MCV 94.8 (80-100) (units (unknown) date) fL unknown) (unknown) (no (unknown) (unknown) MDM - GI Bleed (units (unknown) date) unknown) (unknown) (no (unknown) (unknown) MELD Score (2016)* (units (unknown) date) unknown) (unknown) (no (unknown) (unknown) MELD Score (Model (units (unknown) date) For End-Stage Liver unknown) Disease) (12 and older) from [place] (unknown) (no (unknown) (unknown) MUSCULOSKELETAL: (units (unknown) date) denies weakness, unknown) joint pain, or bony pain (unknown) (no (unknown) (unknown) Medical History (units (unknown) date) (Reviewed 07/08/22 unknown) @ 23:09 by Logan Mcneal DO) (unknown) (no (unknown) (unknown) Medication (units (unk nown) date) Instructions unknown) Recorded (unknown) (no (unknown) (unknown) Metoclopramide HCl (units (unknown) date) (Metoclopramide 10 unknown) Mg/2 Ml Inj) 10 mg IV NOW ONE (unknown) (no (unknown) (unknown) Mode of arrival: (units (unknown) date) Ambulatory unknown) (unknown) (no (unknown) (unknown) Pope # (Auto) (units ( unknown) date) (0-900) /uL unknown) (unknown) (no (unknown) (unknown) Pope # (Auto) 1500 (units (unknown) date) H (0-900) /uL unknown) (unknown) (no (unknown) (unknown) Pope % (Auto) (units ( unknown) date) (3-14) % unknown) (unknown) (no (unknown) (unknown) Pope % (Auto) 18.4 (units (unknown) date) H (3-14) % unknown) (unknown) (no (unknown) (unknown) Mother Hepatic (units (unknown) date) disease unknown) (unknown) (no (unknown) (unknown) NECK: Trachea (units ( unknown) date) midline. Non tender unknown) (unknown) (no (unknown) (unknown) NEURO: AOx3. (units (u nknown) date) unknown) (unknown) (no (unknown) (unknown) NEUROLOGIC: Denies (units (unknown) date) weakness, headache, unknown) numbness, change in speech, confusion, (unknown) (no (unknown) (unknown) Narrative (units (unkn own) date) unknown) (unknown) (no (unknown) (unknown) Narrative: (units (unk nown) date) unknown) (unknown) (no (unknown) (unknown) Neut # (Auto) (units ( unknown) date) (9167-6297) /uL unknown) (unknown) (no (unknown) (unknown) Neut # (Auto) 5500 (units (unknown) date) (7845-5459) /uL unknown) (unknown) (no (unknown) (unknown) Neut % (Auto) (units ( unknown) date) (50-75) % unknown) (unknown) (no (unknown) (unknown) Neut % (Auto) 66.3 (units (unknown) date) (50-75) % unknown) (unknown) (no (unknown) (unknown) No Action (units (unkn own) date) unknown) (unknown) (no (unknown) (unknown) Octreotide Acetate (units (unknown) date) (Octreotide 100 unknown) Mcg/Ml Vial) 50 mcg IV NOW ONE (unknown) (no (unknown) (unknown) Octreotide Acetate (units (unknown) date) 500 mcg/ (Sodium unknown) Chloride) 101 mls @ 5.05 mls/hr IV CONT (unknown) (no (unknown) (unknown) Ordered: (units (unkno wn) date) unknown) (unknown) (no (unknown) (unknown) Orders (units (unkno wn) date) unknown) (unknown) (no (unknown) (unknown) Oxygen Delivery (units (unknown) date) Method 07/08/22 unknown) 20:33 (unknown) (no (unknown) (unknown) Oxygen Delivery (units (unknown) date) Method Room Air unknown) Room Air Room Air (unknown) (no (unknown) (unknown) Oxygen Delivery (units (unknown) date) Method Room Air unknown) Room Air (unknown) (no (unknown) (unknown) Oxygen Delivery (units (unknown) date) Method unknown) (unknown) (no (unknown) (unknown) POTASSIUM CHLORIDE (units (unknown) date) IN WATER (Potassium unknown) Cl 10 Meq/100 Ml [facility]) 10 meq in 100 mls (unknown) (no (unknown) (unknown) PRN Reason: Pain, (units (unknown) date) Severe (7-10) unknown) (unknown) (no (unknown) (unknown) PSYCHIATRIC: No (units (unknown) date) concerning unknown) psychosocial issues. (unknown) (no (unknown) (unknown) PT (10.1-12.7) (units (unknown) date) SECONDS unknown) (unknown) (no (unknown) (unknown) PT 22.8 H (units (unkn own) date) (10.1-12.7) SECONDS unknown) (unknown) (no (unknown) (unknown) Pancreatitis (units (u nknown) date) unknown) (unknown) (no (unknown) (unknown) Pantoprazole (units (u nknown) date) Sodium unknown) (Pantoprazole 40 Mg Vial) 40 mg IV NOW ONE (unknown) (no (unknown) (unknown) Patient History (units (unknown) date) unknown) (unknown) (no (unknown) (unknown) Patient reporting (units (unknown) date) little improvement unknown) in symptoms after above-stated therapies, (unknown) (no (unknown) (unknown) Patient: (units (unkno wn) date) Rosaura Witt unknown) MR#: M (unknown) (no (unknown) (unknown) Plt Count (units (unkn own) date) (150-400) X103/uL unknown) (unknown) (no (unknown) (unknown) Plt Count 145 L (units (unknown) date) (150-400) X103/uL unknown) (unknown) (no (unknown) (unknown) Potassium (units (unkn own) date) (3.4-5.1) mmol/L unknown) (unknown) (no (unknown) (unknown) Potassium 3.0 L (units (unknown) date) (3.4-5.1) mmol/L unknown) (unknown) (no (unknown) (unknown) Potassium 4.0 (units ( unknown) date) (3.4-5.1) mmol/L unknown) (unknown) (no (unknown) (unknown) Test (units (unknown) date) Urine Stat unknown) (unknown) (no (unknown) (unknown) Prescriptions: (units (unknown) date) unknown) (unknown) (no (unknown) (unknown) Previous Rx's (units ( unknown) date) unknown) (unknown) (no (unknown) (unknown) Primary biliary (units (unknown) date) cirrhosis unknown) (unknown) (no (unknown) (unknown) Prothrombin Time (units (unknown) date) INR Stat unknown) (unknown) (no (unknown) (unknown) Pulse Oximetry 96 (units (unknown) date) 98 99 unknown) (unknown) (no (unknown) (unknown) Pulse Oximetry 97 (units (unknown) date) 07/08/22 20:33 unknown) (unknown) (no (unknown) (unknown) Pulse Oximetry 97 (units (unknown) date) 100 99 unknown) (unknown) (no (unknown) (unknown) Pulse Oximetry 98 (units (unknown) date) unknown) (unknown) (no (unknown) (unknown) Pulse Oximetry 99 (units (unknown) date) 100 99 unknown) (unknown) (no (unknown) (unknown) Pulse Rate 70 (units ( unknown) date) unknown) (unknown) (no (unknown) (unknown) Pulse Rate 71 (units ( unknown) date) 07/08/22 20:33 unknown) (unknown) (no (unknown) (unknown) Pulse Rate 71 71 (units (unknown) date) 96 H unknown) (unknown) (no (unknown) (unknown) Pulse Rate 73 74 (units (unknown) date) 81 unknown) (unknown) (no (unknown) (unknown) Pulse Rate 76 88 (units (unknown) date) 55 L unknown) (unknown) (no (unknown) (unknown) RBC (4.0-5.2) (units ( unknown) date) X106/uL unknown) (unknown) (no (unknown) (unknown) RBC 2.87 L (units (unk nown) date) (4.0-5.2) X106/uL unknown) (unknown) (no (unknown) (unknown) RBC Morphology See (units (unknown) date) below unknown) (unknown) (no (unknown) (unknown) RBC Morphology (units (unknown) date) unknown) (unknown) (no (unknown) (unknown) RDW (11.6-14.8) % (units (unknown) date) unknown) (unknown) (no (unknown) (unknown) RDW 18.7 H (units (unk nown) date) (11.6-14.8) % unknown) (unknown) (no (unknown) (unknown) RESPIRATORY: Clear (units (unknown) date) to auscultation. unknown) Breath sounds equal bilaterally. No wheezes, (unknown) (no (unknown) (unknown) RESPIRATORY: (units (u nknown) date) Denies dyspnea, unknown) cough, wheezing, hemoptysis, sputum. (unknown) (no (unknown) (unknown) RESULT SUMMARY: (units (unknown) date) unknown) (unknown) (no (unknown) (unknown) Reevaluation #1: (units (unknown) date) unknown) (unknown) (no (unknown) (unknown) Reevaluation #2: (units (unknown) date) unknown) (unknown) (no (unknown) (unknown) Reevaluation #3: (units (unknown) date) unknown) (unknown) (no (unknown) (unknown) Reevaluation(s) (units (unknown) date) unknown) (unknown) (no (unknown) (unknown) Reglan as well as (units (unknown) date) another L of fluid unknown) and a CT of her abdomen and pelvis. Still (unknown) (no (unknown) (unknown) Related Data (units (u nknown) date) unknown) (unknown) (no (unknown) (unknown) Respiratory Rate (units (unknown) date) 18 07/08/22 20:33 unknown) (unknown) (no (unknown) (unknown) Respiratory Rate (units (unknown) date) 18 18 18 unknown) (unknown) (no (unknown) (unknown) Respiratory Rate (units (unknown) date) 18 18 unknown) (unknown) (no (unknown) (unknown) Respiratory Rate (units (unknown) date) unknown) (unknown) (no (unknown) (unknown) Result diagrams: (units (unknown) date) unknown) (unknown) (no (unknown) (unknown) Review of Systems (units (unknown) date) unknown) (unknown) (no (unknown) (unknown) Rheumatoid (units (unk nown) date) arthritis unknown) (unknown) (no (unknown) (unknown) Rx Instructions: (units (unknown) date) unknown) (unknown) (no (unknown) (unknown) SILVINA; Protocol (units ( unknown) date) unknown) (unknown) (no (unknown) (unknown) SKIN: Denies rash, (units (unknown) date) skin lesions, or unknown) other (unknown) (no (unknown) (unknown) SKIN: Mild (units (unk nown) date) jaundice unknown) (unknown) (no (unknown) (unknown) June 29 that (units (unknown) date) noted trace unknown) esophageal varices and type 1 gastroesophageal (unknown) (no (unknown) (unknown) Signed By: (units (unk nown) date) unknown) (unknown) (no (unknown) (unknown) Smoking Status: (units (unknown) date) Current every day unknown) smoker (unknown) (no (unknown) (unknown) Social History (units (unknown) date) (Reviewed 07/08/22 unknown) @ 23:09 by Logan Mcneal DO) (unknown) (no (unknown) (unknown) Sodium (137-145) (units (unknown) date) mmol/L unknown) (unknown) (no (unknown) (unknown) Sodium 138 (units (unk nown) date) (137-145) mmol/L unknown) (unknown) (no (unknown) (unknown) Sodium 140 (units (unk nown) date) (137-145) mmol/L unknown) (unknown) (no (unknown) (unknown) Sodium ?> 138 (units ( unknown) date) mEq/L unknown) (unknown) (no (unknown) (unknown) Sodium Chloride (units (unknown) date) (Normal Saline unknown) 0.9%) 1,000 mls @ 1,000 mls/hr IV BOLUS ONE (unknown) (no (unknown) (unknown) Source: patient (units (unknown) date) unknown) (unknown) (no (unknown) (unknown) Stated complaint: (units (unknown) date) Blood in vomit, unknown) Pain (unknown) (no (unknown) (unknown) Stop: 07/08/22 (units (unknown) date) 21:12 unknown) (unknown) (no (unknown) (unknown) Stop: 07/08/22 (units (unknown) date) 22:31 unknown) (unknown) (no (unknown) (unknown) Stop: 07/08/22 (units (unknown) date) 23:05 unknown) (unknown) (no (unknown) (unknown) Stop: 07/08/22 (units (unknown) date) 23:29 unknown) (unknown) (no (unknown) (unknown) Stop: 07/09/22 (units (unknown) date) 00:03 unknown) (unknown) (no (unknown) (unknown) Stop: 07/09/22 (units (unknown) date) 00:17 unknown) (unknown) (no (unknown) (unknown) Stop: 07/09/22 (units (unknown) date) 03:14 unknown) (unknown) (no (unknown) (unknown) Stop: 07/09/22 (units (unknown) date) 03:26 unknown) (unknown) (no (unknown) (unknown) Substance Use (units ( unknown) date) Type: marijuana unknown) (unknown) (no (unknown) (unknown) Sulfa (Sulfonamide (units (unknown) date) Allergy unknown) Intermediate Hives Verified 06/28/22 09:21 (unknown) (no (unknown) (unknown) Surgical History (units (unknown) date) (Reviewed 07/08/22 unknown) @ 23:09 by Logan Mcneal DO) (unknown) (no (unknown) (unknown) Temperature 97.8 F (units (unknown) date) 07/08/22 20:33 unknown) (unknown) (no (unknown) (unknown) Temperature 97.8 F (units (unknown) date) unknown) (unknown) (no (unknown) (unknown) Temperature (units (un known) date) unknown) (unknown) (no (unknown) (unknown) Time Seen by (units (u nknown) date) Provider: 07/08/22 unknown) 21:05 (unknown) (no (unknown) (unknown) Time: 23:06 (units (un known) date) unknown) (unknown) (no (unknown) (unknown) Total Bilirubin (units (unknown) date) (0.2-1.3) mg/dL unknown) (unknown) (no (unknown) (unknown) Total Bilirubin (units (unknown) date) 7.3 H (0.2-1.3) unknown) mg/dL (unknown) (no (unknown) (unknown) Total Protein (units ( unknown) date) (6.3-8.2) g/dL unknown) (unknown) (no (unknown) (unknown) Total Protein 7.1 (units (unknown) date) (6.3-8.2) g/dL unknown) (unknown) (no (unknown) (unknown) Ur Culture (units (unk nown) date) Indicated? Specimen unknown) cultured (unknown) (no (unknown) (unknown) Ur Culture (units (unk nown) date) Indicated? unknown) (unknown) (no (unknown) (unknown) Ur Squamous Epith (units (unknown) date) Cells (0-5/HPF) unknown) (unknown) (no (unknown) (unknown) Ur Squamous Epith (units (unknown) date) Cells 5-10 /hpf H unknown) (0-5/HPF) (unknown) (no (unknown) (unknown) Urine Bacteria (units (unknown) date) (None) unknown) (unknown) (no (unknown) (unknown) Urine Bacteria Few (units (unknown) date) (2-10) H (None) unknown) (unknown) (no (unknown) (unknown) Urine Culture Stat (units (unknown) date) unknown) (unknown) (no (unknown) (unknown) Urine Microscopic (units (unknown) date) Stat unknown) (unknown) (no (unknown) (unknown) Urine (units (unknown) date) Test (Negative) unknown) (unknown) (no (unknown) (unknown) Urine (units (unknown) date) Test Negative unknown) (Negative) (unknown) (no (unknown) (unknown) Urine RBC (units (unkn own) date) (0-5/HPF) unknown) (unknown) (no (unknown) (unknown) Urine RBC None (units (unknown) date) seen (0-5/HPF) unknown) (unknown) (no (unknown) (unknown) Urine WBC (units (unkn own) date) (0-5/HPF) unknown) (unknown) (no (unknown) (unknown) Urine WBC 1-5/hpf (units (unknown) date) (0-5/HPF) unknown) (unknown) (no (unknown) (unknown) Vital Signs - 8 hr (units (unknown) date) unknown) (unknown) (no (unknown) (unknown) Vital Signs (units (un known) date) unknown) (unknown) (no (unknown) (unknown) Vital signs: (units (u nknown) date) unknown) (unknown) (no (unknown) (unknown) WBC (4.5-11.0) (units (unknown) date) X103/uL unknown) (unknown) (no (unknown) (unknown) WBC 8.3 (4.5-11.0) (units (unknown) date) X103/uL unknown) (unknown) (no (unknown) (unknown) [Embedded Image (units (unknown) date) Not Available] unknown) (unknown) (no (unknown) (unknown) acetaminophen 500 (units (unknown) date) mg tablet 500 mg PO unknown) Q8HR PRN fever or pain 06/28/22 (unknown) (no (unknown) (unknown) acetaminophen (units ( unknown) date) [Tylenol Extra unknown) Strength] 500 mg tablet (unknown) (no (unknown) (unknown) alcohol intake (units (unknown) date) frequency: 0-2 unknown) drinks per day (unknown) (no (unknown) (unknown) alcohol intake: (units (unknown) date) current unknown) (unknown) (no (unknown) (unknown) and received 1 (units (unknown) date) transfusing unknown) including 2 units of packed red cells. On the date (unknown) (no (unknown) (unknown) anxiety/nausea/vom (units (unknown) date) iting #20 tabs unknown) (unknown) (no (unknown) (unknown) appearance. She (units (unknown) date) was just discharged unknown) from [facility] on Sunday after having (unknown) (no (unknown) (unknown) been admitted for (units (unknown) date) the prior 5 days. unknown) Her admission diagnosis includes alcoholic (unknown) (no (unknown) (unknown) bupropion [From (units (unknown) date) Wellbutrin] AdvReac unknown) Severe Seizure Verified 07/08/22 20:37 (unknown) (no (unknown) (unknown) but agrees with (units (unknown) date) need for unknown) hospitalization and need for scope. (unknown) (no (unknown) (unknown) call to [facility] (units ([facility] date[facility] unknown) hospitalist. No ability to keep UGI bleed with known (unknown) (no (unknown) (unknown) complaint (units (unkn own) date) increasing upper unknown) abdominal pain with persistent nausea and vomiting (unknown) (no (unknown) (unknown) continues, patient (units (unknown) date) to receive 3rd unknown) round of dilaudid (unknown) (no (unknown) (unknown) denies any chest (units (unknown) date) pain or shortness unknown) of breath (unknown) (no (unknown) (unknown) diazepam 10 mg (units (unknown) date) tablet 10 mg PO unknown) BEDTIME PRN anxiety/sleep 06/28/22 (unknown) (no (unknown) (unknown) diazepam 10 mg (units (unknown) date) tablet unknown) (unknown) (no (unknown) (unknown) dizziness. (units (unk nown) date) unknown) (unknown) (no (unknown) (unknown) ea (units (unkno wn) date) unknown) (unknown) (no (unknown) (unknown) eating and (units (unk nown) date) drinking. She had a unknown) small amount of blood and a few of the episodes (unknown) (no (unknown) (unknown) folic acid 1 mg (units (unknown) date) Tablet unknown) (unknown) (no (unknown) (unknown) folic acid 1 mg (units (unknown) date) tablet 1 mg PO unknown) DAILY #30 tabs 02/17/22 (unknown) (no (unknown) (unknown) for the past few (units (unknown) date) days. She states unknown) that her pain is worsened by motion and (unknown) (no (unknown) (unknown) hepatitis, (units (unk nown) date) hematemesis with unknown) persistent nausea, coagulopathy. She had an EEG on (unknown) (no (unknown) (unknown) household members: (units (unknown) date) spouse and children unknown) (unknown) (no (unknown) (unknown) hydrocodone (units (un known) date) Allergy Severe unknown) Hives Verified 07/08/22 20:37 (unknown) (no (unknown) (unknown) hydroxyzine HCl 25 (units (unknown) date) mg tablet 25 mg PO unknown) TID PRN 06/28/22 (unknown) (no (unknown) (unknown) hydroxyzine HCl 25 (units (unknown) date) mg tablet unknown) (unknown) (no (unknown) (unknown) icterus is noted, (units (unknown) date) she states this has unknown) been present for quite some time and is no (unknown) (no (unknown) (unknown) ketorolac [From (units (unknown) date) Toradol] Allergy unknown) Severe Hives Verified 07/08/22 20:37 (unknown) (no (unknown) (unknown) leave on most (units ( unknown) date) painful area for up unknown) to 12 hrs (unknown) (no (unknown) (unknown) lidocaine 5 % (units ( unknown) date) adhesive unknown) patch,medicated (unknown) (no (unknown) (unknown) lidocaine 5 % (units ( unknown) date) topical patch 1 unknown) patch topical DAILY PRN pain #15 03/23/22 (unknown) (no (unknown) (unknown) mcg tablet (units (unk nown) date) (Tab-A-Erendira) unknown) (unknown) (no (unknown) (unknown) melatonin 5 mg (units (unknown) date) tablet 5 mg PO unknown) BEDTIME sleep #30 tabs 02/17/22 (unknown) (no (unknown) (unknown) melatonin 5 mg (units (unknown) date) tablet unknown) (unknown) (no (unknown) (unknown) mg tablet (units (unkn own) date) unknown) (unknown) (no (unknown) (unknown) mild distress. (units (unknown) date) Tearful, holding an unknown) emesis bag (unknown) (no (unknown) (unknown) morphine Allergy (units (unknown) date) Intermediate Rash unknown) Verified 07/08/22 20:37 (unknown) (no (unknown) (unknown) multivitamin with (units (unknown) date) folic acid 400 1 unknown) tab PO DAILY #30 tabs 02/17/22 (unknown) (no (unknown) (unknown) multivitamin with (units (unknown) date) folic acid unknown) [Tab-A-Erendira] 400 mcg Tablet (unknown) (no (unknown) (unknown) no records from (units (unknown) date) [facility] unknown) (unknown) (no (unknown) (unknown) of her discharge (units (unknown) date) lab abnormalities, unknown) which had improved, include alk-phos 142, (unknown) (no (unknown) (unknown) of her emesis but (units (unknown) date) denies any unknown) significant bright red emesis or coffee-ground (unknown) (no (unknown) (unknown) on 07/09/2022 (units (u nknown) date) unknown) (unknown) (no (unknown) (unknown) ondansetron 4 mg (units (unknown) date) disintegrating 4 mg unknown) PO Q8H PRN nausea and 06/28/22 (unknown) (no (unknown) (unknown) ondansetron 4 mg (units (unknown) date) tablet,disintegrati unknown) ng (unknown) (no (unknown) (unknown) pantoprazole 40 mg (units (unknown) date) Tablet,Delayed unknown) Release (Dr/Ec) (unknown) (no (unknown) (unknown) pantoprazole 40 mg (units (unknown) date) tablet,delayed 40 unknown) mg PO 0700,2100 #60 tabs 02/17/22 (unknown) (no (unknown) (unknown) patient has had (units (unknown) date) multiple episodes unknown) of emesis but not bloody at this time. Pain (unknown) (no (unknown) (unknown) rales, or rhonchi. (units (unknown) date) unknown) (unknown) (no (unknown) (unknown) release (units (unkno wn) date) unknown) (unknown) (no (unknown) (unknown) repeated H/H drops (units (unknown) date) to 7.7 unknown) (unknown) (no (unknown) (unknown) requesting (units (unk nown) date) something else for unknown) pain and nausea. 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 unknown) (unknown) (no (unknown) (unknown) sucralfate 1 gram (units (unknown) date) Tablet unknown) (unknown) (no (unknown) (unknown) sucralfate 1 gram (units (unknown) date) tablet 1 g PO ACHS unknown) #120 tabs 02/17/22 (unknown) (no (unknown) (unknown) tablet vomiting (units (unknown) date) #14 tabs unknown) (unknown) (no (unknown) (unknown) thiamine (units (unkno wn) date) mononitrate (vit unknown) B1) 100 100 mg PO DAILY #30 tabs 02/17/22 (unknown) (no (unknown) (unknown) thiamine (units (unkno wn) date) mononitrate (vit unknown) B1) 100 mg Tablet (unknown) (no (unknown) (unknown) tobacco type: (units ( unknown) date) cigarettes unknown) (unknown) (no (unknown) (unknown) tonsillar (units (unkn own) date) hypertrophy or unknown) exudate. Airway patent. 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 She had been on Cipro empirically (unknown) (no (unknown) (unknown) varices. (units (unkno wn) date) unknown) (unknown) (no (unknown) (unknown) worse than normal. (units (unknown) date) No injection or unknown) drainage. Result panel 22 (unknown) (no (unknown) (unknown) (no value) (units (unk nown) date) unknown) (unknown) (no (unknown) (unknown) #14 tabs (units (unkno wn) date) unknown) (unknown) (no (unknown) (unknown) (Tylenol Extra (units (unknown) date) Strength) #30 tabs unknown) (unknown) (no (unknown) (unknown) All (units (unkno wn) date) calculations should unknown) be rechecked by clinician prior to use (unknown) (no (unknown) (unknown) [phone] (units (unkn own) date) unknown) (unknown) (no (unknown) (unknown) 00:47 07/09/22 (units (unknown) date) unknown) (unknown) (no (unknown) (unknown) 01:00 07/09/22 (units (unknown) date) unknown) (unknown) (no (unknown) (unknown) 01:30 (units (unkno wn) date) unknown) (unknown) (no (unknown) (unknown) 02:00 07/09/22 (units (unknown) date) unknown) (unknown) (no (unknown) (unknown) 02:16 07/09/22 (units (unknown) date) unknown) (unknown) (no (unknown) (unknown) 02:16 (units (unkno wn) date) unknown) (unknown) (no (unknown) (unknown) 02:30 07/09/22 (units (unknown) date) unknown) (unknown) (no (unknown) (unknown) 02:55 02:55 02:59 (units (unknown) date) unknown) (unknown) (no (unknown) (unknown) 02:59 04:44 (units (un known) date) unknown) (unknown) (no (unknown) (unknown) 0330 - call to (units (unknown) date) Prov. Images unknown) pushed. GI paged. Faxed facesheet. (unknown) (no (unknown) (unknown) 0400 - discussed (units (unknown) date) with Dr. Rossi unknown) (GI at Prov) no additional recommendations, (unknown) (no (unknown) (unknown) [id number] - [facility] – [place], [address] (units (unknown) date) [place] on list. unknown) (unknown) (no (unknown) (unknown) 04:00 07/09/22 (units (unknown) date) unknown) (unknown) (no (unknown) (unknown) 06:17 (units (unkno wn) date) unknown) (unknown) (no (unknown) (unknown) 06:19 07/09/22 (units (unknown) date) unknown) (unknown) (no (unknown) (unknown) 06:20 07/09/22 (units (unknown) date) unknown) (unknown) (no (unknown) (unknown) 06:20 (units (unkno wn) date) unknown) (unknown) (no (unknown) (unknown) 06:30 (units (unkno wn) date) unknown) (unknown) (no (unknown) (unknown) 1 g PO ACHS Qty: (units (unknown) date) 120 2RF unknown) (unknown) (no (unknown) (unknown) 1 mg PO DAILY Qty: (units (unknown) date) 30 2RF unknown) (unknown) (no (unknown) (unknown) 1 patch topical (units (unknown) date) DAILY PRN (Reason: unknown) pain) Qty: 15 0RF (unknown) (no (unknown) (unknown) 1 tab PO DAILY (units (unknown) date) Qty: 30 2RF unknown) (unknown) (no (unknown) (unknown) 10 mg PO BEDTIME (units (unknown) date) PRN (Reason: unknown) anxiety/sleep) Qty: 14 0RF (unknown) (no (unknown) (unknown) 07/08/22 07/08/22 (units (unknown) date) 07/08/22 unknown) Range/Units (unknown) (no (unknown) (unknown) 07/08/22 23:04 (units (unknown) date) unknown) (unknown) (no (unknown) (unknown) 07/08/22 23:54 (units (unknown) date) unknown) (unknown) (no (unknown) (unknown) 07/09/22 02:55 (units (unknown) date) unknown) (unknown) (no (unknown) (unknown) 07/09/22 02:59 (units (unknown) date) unknown) (unknown) (no (unknown) (unknown) 07/09/22 04:44 (units (unknown) date) unknown) (unknown) (no (unknown) (unknown) 07/09/22 07:08 (units (unknown) date) unknown) (unknown) (no (unknown) (unknown) 07/09/22 09:00 (units (unknown) date) unknown) (unknown) (no (unknown) (unknown) 07/09/22 07/09/22 (units (unknown) date) 07/09/22 unknown) Range/Units (unknown) (no (unknown) (unknown) 07/09/22 07/09/22 (units (unknown) date) Range/Units unknown) (unknown) (no (unknown) (unknown) 07/09/22 (units (unkno wn) date) unknown) (unknown) (no (unknown) (unknown) 100 mg PO DAILY (units (unknown) date) Qty: 30 2RF unknown) (unknown) (no (unknown) (unknown) 12 point review of (units (unknown) date) systems is negative unknown) except for those stated above (unknown) (no (unknown) (unknown) 19.6% (units (unkno wn) date) unknown) (unknown) (no (unknown) (unknown) 20:45 20:45 20:45 (units (unknown) date) unknown) (unknown) (no (unknown) (unknown) 22 points (units (unkn own) date) unknown) (unknown) (no (unknown) (unknown) 23:54 23:54 23:54 (units (unknown) date) unknown) (unknown) (no (unknown) (unknown) 25 mg PO TID PRN (units (unknown) date) (Reason: unknown) anxiety/nausea/vomi ting) Qty: 20 0RF (unknown) (no (unknown) (unknown) 36-year-old female (units (unknown) date) daily smoker with unknown) history of significant alcohol abuse (unknown) (no (unknown) (unknown) 4 mg PO Q8H PRN (units (unknown) date) (Reason: nausea and unknown) vomiting) Qty: 14 0RF (unknown) (no (unknown) (unknown) 40 mg PO 0700,2100 (units (unknown) date) Qty: 60 2RF unknown) (unknown) (no (unknown) (unknown) 5 mg PO BEDTIME (units (unknown) date) Qty: 30 2RF unknown) (unknown) (no (unknown) (unknown) 500 mg PO Q8HR PRN (units (unknown) date) (Reason: fever or unknown) pain) Qty: 30 0RF (unknown) (no (unknown) (unknown) @ 100 mls/hr IV (units (unknown) date) Q1H SILVINA unknown) (unknown) (no (unknown) (unknown) ALT (<35) IU/L (units (unknown) date) unknown) (unknown) (no (unknown) (unknown) ALT 42 H (<35) (units (unknown) date) IU/L unknown) (unknown) (no (unknown) (unknown) AST (14-36) IU/L (units (unknown) date) unknown) (unknown) (no (unknown) (unknown) AST 52, ALT 23, (units (unknown) date) bilirubin 8.5, INR unknown) 2.1. She is had no fever or chills. She (unknown) (no (unknown) (unknown) AST 69 H (14-36) (units (unknown) date) IU/L unknown) (unknown) (no (unknown) (unknown) Acanthocytes (units (u nknown) date) (Spur) 2+ H unknown) (unknown) (no (unknown) (unknown) Acanthocytes (units (u nknown) date) (Spur) unknown) (unknown) (no (unknown) (unknown) Admin: 07/08/22 (units (unknown) date) 22:38 Dose: 1,000 unknown) mls/hr (unknown) (no (unknown) (unknown) Admin: 07/08/22 (units (unknown) date) 23:47 Dose: 1,000 unknown) mls/hr (unknown) (no (unknown) (unknown) Admin: 07/08/22 (units (unknown) date) 23:47 Dose: 100 unknown) mls/hr (unknown) (no (unknown) (unknown) Admin: 07/09/22 (units (unknown) date) 01:10 Dose: 100 unknown) mls/hr (unknown) (no (unknown) (unknown) Admin: 07/09/22 (units (unknown) date) 02:16 Dose: 100 unknown) mls/hr (unknown) (no (unknown) (unknown) Admin: 07/09/22 (units (unknown) date) 02:28 Dose: 1 mg unknown) (unknown) (no (unknown) (unknown) Admin: 07/09/22 (units (unknown) date) 03:56 Dose: 200 unknown) mls/hr (unknown) (no (unknown) (unknown) Admin: 07/09/22 (units (unknown) date) 04:00 Dose: 100 unknown) mls/hr (unknown) (no (unknown) (unknown) Admin: 07/09/22 (units (unknown) date) 04:48 Dose: 1 mg unknown) (unknown) (no (unknown) (unknown) Age/Sex: 36 / F (units (unknown) date) unknown) (unknown) (no (unknown) (unknown) Albumin (3.5-5.0) (units (unknown) date) g/dL unknown) (unknown) (no (unknown) (unknown) Albumin 3.7 (units (un known) date) (3.5-5.0) g/dL unknown) (unknown) (no (unknown) (unknown) Albumin/Globulin (units (unknown) date) Ratio (1.0-2.8) unknown) (unknown) (no (unknown) (unknown) Albumin/Globulin (units (unknown) date) Ratio 1.1 (1.0-2.8) unknown) (unknown) (no (unknown) (unknown) Alcohol abuse (units ( unknown) date) unknown) (unknown) (no (unknown) (unknown) Alcohol type: beer (units (unknown) date) and wine unknown) (unknown) (no (unknown) (unknown) Alcoholic liver (units (unknown) date) disease unknown) (unknown) (no (unknown) (unknown) Alkaline (units (unkno wn) date) Phosphatase unknown) (38-126) U/L (unknown) (no (unknown) (unknown) Alkaline (units (unkno wn) date) Phosphatase 150 H unknown) (38-126) U/L (unknown) (no (unknown) (unknown) Allergies (units (unkn own) date) unknown) (unknown) (no (unknown) (unknown) Allergy/AdvReac (units (unknown) date) Type Severity unknown) Reaction Status Date / Time (unknown) (no (unknown) (unknown) Ammonia (9-30) (units (unknown) date) umol/L unknown) (unknown) (no (unknown) (unknown) Ammonia (NH3) Stat (units (unknown) date) unknown) (unknown) (no (unknown) (unknown) Ammonia 15 (9-30) (units (unknown) date) umol/L unknown) (unknown) (no (unknown) (unknown) Anisocytosis 2+ H (units (unknown) date) unknown) (unknown) (no (unknown) (unknown) Anisocytosis (units (u nknown) date) unknown) (unknown) (no (unknown) (unknown) Antibiotics) (units (u nknown) date) unknown) (unknown) (no (unknown) (unknown) BACK: Nontender (units (unknown) date) without deformity unknown) or crepitance. No flank tenderness. (unknown) (no (unknown) (unknown) BMP [Basic (units (unk nown) date) Metabolic Panel] unknown) Stat (unknown) (no (unknown) (unknown) BUN (7-17) mg/dL (units (unknown) date) unknown) (unknown) (no (unknown) (unknown) BUN 8 (7-17) mg/dL (units (unknown) date) unknown) (unknown) (no (unknown) (unknown) BUN 9 (7-17) mg/dL (units (unknown) date) unknown) (unknown) (no (unknown) (unknown) BUN/Creatinine (units (unknown) date) Ratio (6-22) unknown) (unknown) (no (unknown) (unknown) BUN/Creatinine (units (unknown) date) Ratio 15.1 (6-22) unknown) (unknown) (no (unknown) (unknown) BUN/Creatinine (units (unknown) date) Ratio 16.7 (6-22) unknown) (unknown) (no (unknown) (unknown) Baso # (Auto) (units ( unknown) date) (0-100) /uL unknown) (unknown) (no (unknown) (unknown) Baso # (Auto) 0 (units (unknown) date) (0-100) /uL unknown) (unknown) (no (unknown) (unknown) Baso % (Auto) (units ( unknown) date) (0-2) % unknown) (unknown) (no (unknown) (unknown) Baso % (Auto) 0.2 (units (unknown) date) (0-2) % unknown) (unknown) (no (unknown) (unknown) Bilirubin ?> 7.3 (units (unknown) date) mg/dL unknown) (unknown) (no (unknown) (unknown) Blood Pressure (units (unknown) date) 132/75 unknown) (unknown) (no (unknown) (unknown) Blood Pressure (units (unknown) date) 135/60 unknown) (unknown) (no (unknown) (unknown) Blood Pressure (units (unknown) date) 163/84 H 07/08/22 unknown) 20:33 (unknown) (no (unknown) (unknown) Blood Pressure (units (unknown) date) 90/50 L 98/56 L unknown) (unknown) (no (unknown) (unknown) Blood Pressure (units (unknown) date) unknown) (unknown) (no (unknown) (unknown) CARDIOVASCULAR: (units (unknown) date) Denies chest pain, unknown) palpitations, orthopnea, edema, (unknown) (no (unknown) (unknown) CARDIOVASCULAR: (units (unknown) date) Regular rate and unknown) rhythm without murmurs, gallops, or rubs. (unknown) (no (unknown) (unknown) COVID19 -Nasal (units (unknown) date) RAPID/Pre-Proc Stat unknown) (unknown) (no (unknown) (unknown) CT abdomen pelvis (units (unknown) date) w con Stat unknown) (unknown) (no (unknown) (unknown) Calcium (8.4-10.2) (units (unknown) date) mg/dL unknown) (unknown) (no (unknown) (unknown) Calcium 8.0 L (units ( unknown) date) (8.4-10.2) mg/dL unknown) (unknown) (no (unknown) (unknown) Calcium 8.9 (units (un known) date) (8.4-10.2) mg/dL unknown) (unknown) (no (unknown) (unknown) Carbon Dioxide (units (unknown) date) (22-32) mmol/L unknown) (unknown) (no (unknown) (unknown) Carbon Dioxide 23 (units (unknown) date) (22-32) mmol/L unknown) (unknown) (no (unknown) (unknown) Carbon Dioxide 24 (units (unknown) date) (22-32) mmol/L unknown) (unknown) (no (unknown) (unknown) Ceftriaxone Sodium (units (unknown) date) 2,000 mg/ (Sodium unknown) Chloride) 100 mls @ 200 mls/hr IV NOW ONE (unknown) (no (unknown) (unknown) Chief complaint: (units (unknown) date) Abdominal Pain unknown) (unknown) (no (unknown) (unknown) Chloride (98-107) (units (unknown) date) mmol/L unknown) (unknown) (no (unknown) (unknown) Chloride 106 (units (u nknown) date) (98-107) mmol/L unknown) (unknown) (no (unknown) (unknown) Chloride 107 (units (u nknown) date) (98-107) mmol/L unknown) (unknown) (no (unknown) (unknown) Cholecystitis (units ( unknown) date) unknown) (unknown) (no (unknown) (unknown) Chronic low back (units (unknown) date) pain unknown) (unknown) (no (unknown) (unknown) Consultation #1: (units (unknown) date) unknown) (unknown) (no (unknown) (unknown) Consultations (units ( unknown) date) unknown) (unknown) (no (unknown) (unknown) Course Narrative: (units (unknown) date) unknown) (unknown) (no (unknown) (unknown) Course (units (unkno wn) date) unknown) (unknown) (no (unknown) (unknown) Creatinine (units (unk nown) date) (0.52-1.04) mg/dL unknown) (unknown) (no (unknown) (unknown) Creatinine 0.53 (units (unknown) date) (0.52-1.04) mg/dL unknown) (unknown) (no (unknown) (unknown) Creatinine 0.54 (units (unknown) date) (0.52-1.04) mg/dL unknown) (unknown) (no (unknown) (unknown) Creatinine ?> 0.53 (units (unknown) date) mg/dL unknown) (unknown) (no (unknown) (unknown) : 1985 (units (unknown) date) Acct:[id number] unknown) (unknown) (no (unknown) (unknown) Date of Service: (units (unknown) date) 07/08/22 unknown) (unknown) (no (unknown) (unknown) Departure (units (unkn own) date) unknown) (unknown) (no (unknown) (unknown) Diabetes mellitus (units (unknown) date) unknown) (unknown) (no (unknown) (unknown) Dialysis at least (units (unknown) date) twice in the past unknown) week ?> 0 = No (unknown) (no (unknown) (unknown) Discharge Plan (units (unknown) date) unknown) (unknown) (no (unknown) (unknown) Discontinued (units (u nknown) date) Medications unknown) (unknown) (no (unknown) (unknown) Documented By: AT (units (unknown) date) unknown) (unknown) (no (unknown) (unknown) Documented By: EB (units (unknown) date) unknown) (unknown) (no (unknown) (unknown) Documented By: KH (units (unknown) date) unknown) (unknown) (no (unknown) (unknown) Documented By: RL (units (unknown) date) unknown) (unknown) (no (unknown) (unknown) ED Orders (units (unkn own) date) unknown) (unknown) (no (unknown) (unknown) ENT: Nose without (units (unknown) date) bleeding, purulent unknown) drainage. Throat without erythema, (unknown) (no (unknown) (unknown) ER Physician: (units ( unknown) date) Neil Read D.O. unknown) (unknown) (no (unknown) (unknown) EXTREMITIES: No (units (unknown) date) edema or joint unknown) tenderness. (unknown) (no (unknown) (unknown) EYES: Pupils equal (units (unknown) date) round and reactive. unknown) Extraocular motions intact. Scleral (unknown) (no (unknown) (unknown) Emergency Report (units (unknown) date) unknown) (unknown) (no (unknown) (unknown) Eos # (Auto) (units (u nknown) date) (0-450) /uL unknown) (unknown) (no (unknown) (unknown) Eos # (Auto) 100 (units (unknown) date) (0-450) /uL unknown) (unknown) (no (unknown) (unknown) Eos % (Auto) (2-4) (units (unknown) date) % unknown) (unknown) (no (unknown) (unknown) Eos % (Auto) 0.7 L (units (unknown) date) (2-4) % unknown) (unknown) (no (unknown) (unknown) Estimated 3-Month (units (unknown) date) Mortality unknown) (unknown) (no (unknown) (unknown) Estimated GFR > 60 (units (unknown) date) (>60) mL/min unknown) (unknown) (no (unknown) (unknown) Estimated GFR (units ( unknown) date) (>60) mL/min unknown) (unknown) (no (unknown) (unknown) Ethanol (ETOH) (units (unknown) date) Stat unknown) (unknown) (no (unknown) (unknown) Ethyl Alcohol < 10 (units (unknown) date) ( - 10) mg/dL unknown) (unknown) (no (unknown) (unknown) Ethyl Alcohol ( - (units (unknown) date) 10) mg/dL unknown) (unknown) (no (unknown) (unknown) Exam Narrative: (units (unknown) date) unknown) (unknown) (no (unknown) (unknown) Exam (units (unkno wn) date) unknown) (unknown) (no (unknown) (unknown) Family History (units (unknown) date) (Reviewed 07/08/22 unknown) @ 23:09 by Logan Mcneal DO) (unknown) (no (unknown) (unknown) Father (units (unkno wn) date) Hypertension unknown) (unknown) (no (unknown) (unknown) Fibromyalgia (units (u nknown) date) unknown) (unknown) (no (unknown) (unknown) GASTROINTESTINAL: (units (unknown) date) Abdomen soft, unknown) tender in the epigastrium, nondistended. (unknown) (no (unknown) (unknown) GASTROINTESTINAL: (units (unknown) date) See HPI unknown) (unknown) (no (unknown) (unknown) GENERAL: See HPI (units (unknown) date) unknown) (unknown) (no (unknown) (unknown) GENERAL: [36] year (units (unknown) date) old patient appears unknown) stated age. Well-developed patient, in (unknown) (no (unknown) (unknown) : Denies (units (unk nown) date) dysuria, frequency, unknown) incontinence, hematuria, urinary retention. (unknown) (no (unknown) (unknown) General (units (unkno wn) date) unknown) (unknown) (no (unknown) (unknown) Globulin (1.7-4.1) (units (unknown) date) g/dL unknown) (unknown) (no (unknown) (unknown) Globulin 3.4 (units (u nknown) date) (1.7-4.1) g/dL unknown) (unknown) (no (unknown) (unknown) Glucose (70-100) (units (unknown) date) mg/dL unknown) (unknown) (no (unknown) (unknown) Glucose 123 H (units ( unknown) date) (70-100) mg/dL unknown) (unknown) (no (unknown) (unknown) Glucose 136 H (units ( unknown) date) (70-100) mg/dL unknown) (unknown) (no (unknown) (unknown) HEAD: Atraumatic. (units (unknown) date) Normocephalic. unknown) (unknown) (no (unknown) (unknown) HEENT: Denies (units ( unknown) date) sinus pain, ear unknown) pain, sore throat, difficulty swallowing, (unknown) (no (unknown) (unknown) HH [Hemoglobin and (units (unknown) date) Hematocrit] Stat unknown) (unknown) (no (unknown) (unknown) HPI - GI Bleed (units (unknown) date) unknown) (unknown) (no (unknown) (unknown) HPI Narrative: (units (unknown) date) unknown) (unknown) (no (unknown) (unknown) Haloperidol (units (un known) date) (Haloperidol 5 unknown) Mg/Ml Vial) 5 mg IV NOW ONE (unknown) (no (unknown) (unknown) Hct (36-46) % (units ( unknown) date) unknown) (unknown) (no (unknown) (unknown) Hct 22.9 L (36-46) (units (unknown) date) % unknown) (unknown) (no (unknown) (unknown) Hct 23.0 L (36-46) (units (unknown) date) % unknown) (unknown) (no (unknown) (unknown) Hct 27.2 L (36-46) (units (unknown) date) % unknown) (unknown) (no (unknown) (unknown) Hemoglobin and (units (unknown) date) Hematocrit Stat unknown) (unknown) (no (unknown) (unknown) Hgb (12.0-16.0) (units (unknown) date) g/dL unknown) (unknown) (no (unknown) (unknown) Hgb 7.7 L (units (unkn own) date) (12.0-16.0) g/dL unknown) (unknown) (no (unknown) (unknown) Hgb 9.2 L (units (unkn own) date) (12.0-16.0) g/dL unknown) (unknown) (no (unknown) (unknown) History of Present (units (unknown) date) Illness unknown) (unknown) (no (unknown) (unknown) History of (units (unk nown) date) tonsillectomy and unknown) adenoidectomy (unknown) (no (unknown) (unknown) Hydromorphone HCl (units (unknown) date) (Hydromorphone 1 Mg unknown) Inj) 1 mg IV NOW ONE (unknown) (no (unknown) (unknown) Hydromorphone HCl (units (unknown) date) (Hydromorphone 1 Mg unknown) Inj) 1 mg IV Q2HR PRN (unknown) (no (unknown) (unknown) Hypercoagulable (units (unknown) date) state unknown) (unknown) (no (unknown) (unknown) Hypertension (units (u nknown) date) unknown) (unknown) (no (unknown) (unknown) INPUTS: (units (unkno wn) date) unknown) (unknown) (no (unknown) (unknown) INR (0.9-1.3) (units ( unknown) date) unknown) (unknown) (no (unknown) (unknown) INR 2.0 H (units (unkn own) date) (0.9-1.3) unknown) (unknown) (no (unknown) (unknown) INR ?> 2.0 (units (unk nown) date) unknown) (unknown) (no (unknown) (unknown) IUD (intrauterine (units (unknown) date) device) in place unknown) (unknown) (no (unknown) (unknown) Infusion: 07/09/22 (units (unknown) date) 01:05 Dose: 0 unknown) mls/hr (unknown) (no (unknown) (unknown) Infusion: 07/09/22 (units (unknown) date) 02:15 Dose: 0 unknown) mls/hr (unknown) (no (unknown) (unknown) Infusion: 07/09/22 (units (unknown) date) 03:45 Dose: 0 unknown) mls/hr (unknown) (no (unknown) (unknown) Initial Vital (units ( unknown) date) Signs unknown) (unknown) (no (unknown) (unknown) Initial Vital (units ( unknown) date) Signs: unknown) (unknown) (no (unknown) (unknown) [facility] (units (unknown) date) [address] unknown) [place] [address] (unknown) (no (unknown) (unknown) Lab Data (units (unkno wn) date) unknown) (unknown) (no (unknown) (unknown) Lab Results (units (un known) date) unknown) (unknown) (no (unknown) (unknown) Labs: (units (unkno wn) date) unknown) (unknown) (no (unknown) (unknown) Last Admin: (units (un known) date) 07/08/22 21:46 unknown) Dose: 40 mg (unknown) (no (unknown) (unknown) Last Admin: (units (un known) date) 07/08/22 22:38 unknown) Dose: 5 mg (unknown) (no (unknown) (unknown) Last Admin: (units (un known) date) 07/08/22 23:09 unknown) Dose: 1 mg (unknown) (no (unknown) (unknown) Last Admin: (units (un known) date) 07/08/22 23:09 unknown) Dose: 10 mg (unknown) (no (unknown) (unknown) Last Admin: (units (un known) date) 07/09/22 00:33 unknown) Dose: 1 mg (unknown) (no (unknown) (unknown) Last Admin: (units (un known) date) 07/09/22 00:33 unknown) Dose: 50 mcg (unknown) (no (unknown) (unknown) Last Admin: (units (un known) date) 07/09/22 00:34 unknown) Dose: 25 mcg/hr, 5.05 mls/hr (unknown) (no (unknown) (unknown) Last Admin: (units (un known) date) 07/09/22 06:48 unknown) Dose: 1 mg (unknown) (no (unknown) (unknown) Last Infusion: (units (unknown) date) 07/09/22 00:30 unknown) Dose: 0 mls/hr (unknown) (no (unknown) (unknown) Last Infusion: (units (unknown) date) 07/09/22 04:26 unknown) Dose: 0 mls/hr (unknown) (no (unknown) (unknown) Last Infusion: (units (unknown) date) 07/09/22 04:27 unknown) Dose: 0 mls/hr (unknown) (no (unknown) (unknown) Last Infusion: (units (unknown) date) 07/09/22 05:06 unknown) Dose: 0 mls/hr (unknown) (no (unknown) (unknown) Lipase (23-300) (units (unknown) date) U/L unknown) (unknown) (no (unknown) (unknown) Lipase 160 (units (unk nown) date) (23-300) U/L unknown) (unknown) (no (unknown) (unknown) Lymph # (Auto) (units (unknown) date) ([id number]) /uL unknown) (unknown) (no (unknown) (unknown) Lymph # (Auto) (units (unknown) date) 1200 ([id number]) unknown) /uL (unknown) (no (unknown) (unknown) Lymph % (Auto) (units (unknown) date) (25-40) % unknown) (unknown) (no (unknown) (unknown) Lymph % (Auto) (units (unknown) date) 14.4 L (25-40) % unknown) (unknown) (no (unknown) (unknown) MCH (26-34) PG (units (unknown) date) unknown) (unknown) (no (unknown) (unknown) MCH 32.0 (26-34) (units (unknown) date) PG unknown) (unknown) (no (unknown) (unknown) MCHC (30-36) % (units (unknown) date) unknown) (unknown) (no (unknown) (unknown) MCHC 33.7 (30-36) (units (unknown) date) % unknown) (unknown) (no (unknown) (unknown) MCV (80-100) fL (units (unknown) date) unknown) (unknown) (no (unknown) (unknown) MCV 94.8 (80-100) (units (unknown) date) fL unknown) (unknown) (no (unknown) (unknown) MDM - GI Bleed (units (unknown) date) unknown) (unknown) (no (unknown) (unknown) MELD Score (2016)* (units (unknown) date) unknown) (unknown) (no (unknown) (unknown) MELD Score (Model (units (unknown) date) For End-Stage Liver unknown) Disease) (12 and older) from [place] (unknown) (no (unknown) (unknown) MUSCULOSKELETAL: (units (unknown) date) denies weakness, unknown) joint pain, or bony pain (unknown) (no (unknown) (unknown) Medical History (units (unknown) date) (Reviewed 07/08/22 unknown) @ 23:09 by Logan Mcneal DO) (unknown) (no (unknown) (unknown) Medication (units (unk nown) date) Instructions unknown) Recorded (unknown) (no (unknown) (unknown) Metoclopramide HCl (units (unknown) date) (Metoclopramide 10 unknown) Mg/2 Ml Inj) 10 mg IV NOW ONE (unknown) (no (unknown) (unknown) Mode of arrival: (units (unknown) date) Ambulatory unknown) (unknown) (no (unknown) (unknown) Pope # (Auto) (units ( unknown) date) (0-900) /uL unknown) (unknown) (no (unknown) (unknown) Pope # (Auto) 1500 (units (unknown) date) H (0-900) /uL unknown) (unknown) (no (unknown) (unknown) Pope % (Auto) (units ( unknown) date) (3-14) % unknown) (unknown) (no (unknown) (unknown) Pope % (Auto) 18.4 (units (unknown) date) H (3-14) % unknown) (unknown) (no (unknown) (unknown) Mother Hepatic (units (unknown) date) disease unknown) (unknown) (no (unknown) (unknown) NECK: Trachea (units ( unknown) date) midline. Non tender unknown) (unknown) (no (unknown) (unknown) NEURO: AOx3. (units (u nknown) date) unknown) (unknown) (no (unknown) (unknown) NEUROLOGIC: Denies (units (unknown) date) weakness, headache, unknown) numbness, change in speech, confusion, (unknown) (no (unknown) (unknown) Narrative (units (unkn own) date) unknown) (unknown) (no (unknown) (unknown) Narrative: (units (unk nown) date) unknown) (unknown) (no (unknown) (unknown) Neut # (Auto) (units ( unknown) date) (8288-8760) /uL unknown) (unknown) (no (unknown) (unknown) Neut # (Auto) 5500 (units (unknown) date) (5497-6508) /uL unknown) (unknown) (no (unknown) (unknown) Neut % (Auto) (units ( unknown) date) (50-75) % unknown) (unknown) (no (unknown) (unknown) Neut % (Auto) 66.3 (units (unknown) date) (50-75) % unknown) (unknown) (no (unknown) (unknown) No Action (units (unkn own) date) unknown) (unknown) (no (unknown) (unknown) Octreotide Acetate (units (unknown) date) (Octreotide 100 unknown) Mcg/Ml Vial) 50 mcg IV NOW ONE (unknown) (no (unknown) (unknown) Octreotide Acetate (units (unknown) date) 500 mcg/ (Sodium unknown) Chloride) 101 mls @ 5.05 mls/hr IV CONT (unknown) (no (unknown) (unknown) Ordered: (units (unkno wn) date) unknown) (unknown) (no (unknown) (unknown) Orders (units (unkno wn) date) unknown) (unknown) (no (unknown) (unknown) Oxygen Delivery (units (unknown) date) Method 07/08/22 unknown) 20:33 (unknown) (no (unknown) (unknown) Oxygen Delivery (units (unknown) date) Method Room Air unknown) (unknown) (no (unknown) (unknown) Oxygen Delivery (units (unknown) date) Method unknown) (unknown) (no (unknown) (unknown) POTASSIUM CHLORIDE (units (unknown) date) IN WATER (Potassium unknown) Cl 10 Meq/100 Ml Evangelina) 10 meq in 100 mls (unknown) (no (unknown) (unknown) PRN Reason: Pain, (units (unknown) date) Severe (7-10) unknown) (unknown) (no (unknown) (unknown) PSYCHIATRIC: No (units (unknown) date) concerning unknown) psychosocial issues. (unknown) (no (unknown) (unknown) PT (10.1-12.7) (units (unknown) date) SECONDS unknown) (unknown) (no (unknown) (unknown) PT 22.8 H (units (unkn own) date) (10.1-12.7) SECONDS unknown) (unknown) (no (unknown) (unknown) Pancreatitis (units (u nknown) date) unknown) (unknown) (no (unknown) (unknown) Pantoprazole (units (u nknown) date) Sodium unknown) (Pantoprazole 40 Mg Vial) 40 mg IV NOW ONE (unknown) (no (unknown) (unknown) Patient History (units (unknown) date) unknown) (unknown) (no (unknown) (unknown) Patient reporting (units (unknown) date) little improvement unknown) in symptoms after above-stated therapies, (unknown) (no (unknown) (unknown) Patient: (units (unkno wn) date) Rosaura Witt unknown) MR#: M (unknown) (no (unknown) (unknown) Plt Count (units (unkn own) date) (150-400) X103/uL unknown) (unknown) (no (unknown) (unknown) Plt Count 145 L (units (unknown) date) (150-400) X103/uL unknown) (unknown) (no (unknown) (unknown) Potassium (units (unkn own) date) (3.4-5.1) mmol/L unknown) (unknown) (no (unknown) (unknown) Potassium 3.0 L (units (unknown) date) (3.4-5.1) mmol/L unknown) (unknown) (no (unknown) (unknown) Potassium 4.0 (units ( unknown) date) (3.4-5.1) mmol/L unknown) (unknown) (no (unknown) (unknown) Test (units (unknown) date) Urine Stat unknown) (unknown) (no (unknown) (unknown) Prescriptions: (units (unknown) date) unknown) (unknown) (no (unknown) (unknown) Previous Rx's (units ( unknown) date) unknown) (unknown) (no (unknown) (unknown) Primary biliary (units (unknown) date) cirrhosis unknown) (unknown) (no (unknown) (unknown) Pulse Oximetry 97 (units (unknown) date) 07/08/22 20:33 unknown) (unknown) (no (unknown) (unknown) Pulse Oximetry 97 (units (unknown) date) 100 98 unknown) (unknown) (no (unknown) (unknown) Pulse Oximetry 98 (units (unknown) date) 98 unknown) (unknown) (no (unknown) (unknown) Pulse Oximetry 98 (units (unknown) date) unknown) (unknown) (no (unknown) (unknown) Pulse Oximetry 99 (units (unknown) date) 96 98 unknown) (unknown) (no (unknown) (unknown) Pulse Oximetry 99 (units (unknown) date) 98 unknown) (unknown) (no (unknown) (unknown) Pulse Rate 55 L 73 (units (unknown) date) 74 unknown) (unknown) (no (unknown) (unknown) Pulse Rate 66 (units ( unknown) date) unknown) (unknown) (no (unknown) (unknown) Pulse Rate 67 57 L (units (unknown) date) unknown) (unknown) (no (unknown) (unknown) Pulse Rate 71 (units ( unknown) date) 07/08/22 20:33 unknown) (unknown) (no (unknown) (unknown) Pulse Rate 76 78 (units (unknown) date) 69 unknown) (unknown) (no (unknown) (unknown) Pulse Rate 81 70 (units (unknown) date) unknown) (unknown) (no (unknown) (unknown) RBC (4.0-5.2) (units ( unknown) date) X106/uL unknown) (unknown) (no (unknown) (unknown) RBC 2.87 L (units (unk nown) date) (4.0-5.2) X106/uL unknown) (unknown) (no (unknown) (unknown) RBC Morphology See (units (unknown) date) below unknown) (unknown) (no (unknown) (unknown) RBC Morphology (units (unknown) date) unknown) (unknown) (no (unknown) (unknown) RDW (11.6-14.8) % (units (unknown) date) unknown) (unknown) (no (unknown) (unknown) RDW 18.7 H (units (unk nown) date) (11.6-14.8) % unknown) (unknown) (no (unknown) (unknown) RESPIRATORY: Clear (units (unknown) date) to auscultation. unknown) Breath sounds equal bilaterally. No wheezes, (unknown) (no (unknown) (unknown) RESPIRATORY: (units (u nknown) date) Denies dyspnea, unknown) cough, wheezing, hemoptysis, sputum. (unknown) (no (unknown) (unknown) RESULT SUMMARY: (units (unknown) date) unknown) (unknown) (no (unknown) (unknown) Reevaluation #1: (units (unknown) date) unknown) (unknown) (no (unknown) (unknown) Reevaluation #2: (units (unknown) date) unknown) (unknown) (no (unknown) (unknown) Reevaluation #3: (units (unknown) date) unknown) (unknown) (no (unknown) (unknown) Reevaluation(s) (units (unknown) date) unknown) (unknown) (no (unknown) (unknown) Reglan as well as (units (unknown) date) another L of fluid unknown) and a CT of her abdomen and pelvis. Still (unknown) (no (unknown) (unknown) Related Data (units (u nknown) date) unknown) (unknown) (no (unknown) (unknown) Respiratory Rate (units (unknown) date) 18 07/08/22 20:33 unknown) (unknown) (no (unknown) (unknown) Respiratory Rate (units (unknown) date) 18 unknown) (unknown) (no (unknown) (unknown) Respiratory Rate (units (unknown) date) unknown) (unknown) (no (unknown) (unknown) Result diagrams: (units (unknown) date) unknown) (unknown) (no (unknown) (unknown) Review of Systems (units (unknown) date) unknown) (unknown) (no (unknown) (unknown) Rheumatoid (units (unk nown) date) arthritis unknown) (unknown) (no (unknown) (unknown) Rx Instructions: (units (unknown) date) unknown) (unknown) (no (unknown) (unknown) SARS-CoV-2 (PCR) (units (unknown) date) (Negative) unknown) (unknown) (no (unknown) (unknown) SARS-CoV-2 (PCR) (units (unknown) date) Negative (Negative) unknown) (unknown) (no (unknown) (unknown) SILVINA; Protocol (units ( unknown) date) unknown) (unknown) (no (unknown) (unknown) SKIN: Denies rash, (units (unknown) date) skin lesions, or unknown) other (unknown) (no (unknown) (unknown) SKIN: Mild (units (unk nown) date) jaundice unknown) (unknown) (no (unknown) (unknown) June 29 that (units (unknown) date) noted trace unknown) esophageal varices and type 1 gastroesophageal (unknown) (no (unknown) (unknown) Signed By: (units (unk nown) date) unknown) (unknown) (no (unknown) (unknown) Smoking Status: (units (unknown) date) Current every day unknown) smoker (unknown) (no (unknown) (unknown) Social History (units (unknown) date) (Reviewed 07/08/22 unknown) @ 23:09 by Logan Mcneal DO) (unknown) (no (unknown) (unknown) Sodium (137-145) (units (unknown) date) mmol/L unknown) (unknown) (no (unknown) (unknown) Sodium 138 (units (unk nown) date) (137-145) mmol/L unknown) (unknown) (no (unknown) (unknown) Sodium 140 (units (unk nown) date) (137-145) mmol/L unknown) (unknown) (no (unknown) (unknown) Sodium ?> 138 (units ( unknown) date) mEq/L unknown) (unknown) (no (unknown) (unknown) Sodium Chloride (units (unknown) date) (Normal Saline unknown) 0.9%) 1,000 mls @ 1,000 mls/hr IV BOLUS ONE (unknown) (no (unknown) (unknown) Source: patient (units (unknown) date) unknown) (unknown) (no (unknown) (unknown) Stated complaint: (units (unknown) date) Blood in vomit, unknown) Pain (unknown) (no (unknown) (unknown) Stop: 07/08/22 (units (unknown) date) 21:12 unknown) (unknown) (no (unknown) (unknown) Stop: 07/08/22 (units (unknown) date) 22:31 unknown) (unknown) (no (unknown) (unknown) Stop: 07/08/22 (units (unknown) date) 23:05 unknown) (unknown) (no (unknown) (unknown) Stop: 07/08/22 (units (unknown) date) 23:29 unknown) (unknown) (no (unknown) (unknown) Stop: 07/09/22 (units (unknown) date) 00:03 unknown) (unknown) (no (unknown) (unknown) Stop: 07/09/22 (units (unknown) date) 00:17 unknown) (unknown) (no (unknown) (unknown) Stop: 07/09/22 (units (unknown) date) 03:14 unknown) (unknown) (no (unknown) (unknown) Stop: 07/09/22 (units (unknown) date) 03:26 unknown) (unknown) (no (unknown) (unknown) Stop: 07/09/22 (units (unknown) date) 07:08 unknown) (unknown) (no (unknown) (unknown) Substance Use (units ( unknown) date) Type: marijuana unknown) (unknown) (no (unknown) (unknown) Sulfa (Sulfonamide (units (unknown) date) Allergy unknown) Intermediate Hives Verified 06/28/22 09:21 (unknown) (no (unknown) (unknown) Surgical History (units (unknown) date) (Reviewed 07/08/22 unknown) @ 23:09 by Logan Mcneal DO) (unknown) (no (unknown) (unknown) Temperature 97.8 F (units (unknown) date) 07/08/22 20:33 unknown) (unknown) (no (unknown) (unknown) Time Seen by (units (u nknown) date) Provider: 07/08/22 unknown) 21:05 (unknown) (no (unknown) (unknown) Time: 23:06 (units (un known) date) unknown) (unknown) (no (unknown) (unknown) Total Bilirubin (units (unknown) date) (0.2-1.3) mg/dL unknown) (unknown) (no (unknown) (unknown) Total Bilirubin (units (unknown) date) 7.3 H (0.2-1.3) unknown) mg/dL (unknown) (no (unknown) (unknown) Total Protein (units ( unknown) date) (6.3-8.2) g/dL unknown) (unknown) (no (unknown) (unknown) Total Protein 7.1 (units (unknown) date) (6.3-8.2) g/dL unknown) (unknown) (no (unknown) (unknown) Type and Screen (units (unknown) date) Stat unknown) (unknown) (no (unknown) (unknown) Ur Culture (units (unk nown) date) Indicated? Specimen unknown) cultured (unknown) (no (unknown) (unknown) Ur Culture (units (unk nown) date) Indicated? unknown) (unknown) (no (unknown) (unknown) Ur Squamous Epith (units (unknown) date) Cells (0-5/HPF) unknown) (unknown) (no (unknown) (unknown) Ur Squamous Epith (units (unknown) date) Cells 5-10 /hpf H unknown) (0-5/HPF) (unknown) (no (unknown) (unknown) Urine Bacteria (units (unknown) date) (None) unknown) (unknown) (no (unknown) (unknown) Urine Bacteria Few (units (unknown) date) (2-10) H (None) unknown) (unknown) (no (unknown) (unknown) Urine Culture Stat (units (unknown) date) unknown) (unknown) (no (unknown) (unknown) Urine Microscopic (units (unknown) date) Stat unknown) (unknown) (no (unknown) (unknown) Urine (units (unknown) date) Test (Negative) unknown) (unknown) (no (unknown) (unknown) Urine (units (unknown) date) Test Negative unknown) (Negative) (unknown) (no (unknown) (unknown) Urine RBC (units (unkn own) date) (0-5/HPF) unknown) (unknown) (no (unknown) (unknown) Urine RBC None (units (unknown) date) seen (0-5/HPF) unknown) (unknown) (no (unknown) (unknown) Urine WBC (units (unkn own) date) (0-5/HPF) unknown) (unknown) (no (unknown) (unknown) Urine WBC 1-5/hpf (units (unknown) date) (0-5/HPF) unknown) (unknown) (no (unknown) (unknown) Vital Signs - 8 hr (units (unknown) date) unknown) (unknown) (no (unknown) (unknown) Vital Signs (units (un known) date) unknown) (unknown) (no (unknown) (unknown) Vital signs: (units (u nknown) date) unknown) (unknown) (no (unknown) (unknown) WBC (4.5-11.0) (units (unknown) date) X103/uL unknown) (unknown) (no (unknown) (unknown) WBC 8.3 (4.5-11.0) (units (unknown) date) X103/uL unknown) (unknown) (no (unknown) (unknown) [Embedded Image (units (unknown) date) Not Available] unknown) (unknown) (no (unknown) (unknown) acetaminophen 500 (units (unknown) date) mg tablet 500 mg PO unknown) Q8HR PRN fever or pain 06/28/22 (unknown) (no (unknown) (unknown) acetaminophen (units ( unknown) date) [Tylenol Extra unknown) Strength] 500 mg tablet (unknown) (no (unknown) (unknown) alcohol intake (units (unknown) date) frequency: 0-2 unknown) drinks per day (unknown) (no (unknown) (unknown) alcohol intake: (units (unknown) date) current unknown) (unknown) (no (unknown) (unknown) and received 1 (units (unknown) date) transfusing unknown) including 2 units of packed red cells. On the date (unknown) (no (unknown) (unknown) anxiety/nausea/vom (units (unknown) date) iting #20 tabs unknown) (unknown) (no (unknown) (unknown) appearance. She (units (unknown) date) was just discharged unknown) from [facility] on Sunday after having (unknown) (no (unknown) (unknown) been admitted for (units (unknown) date) the prior 5 days. unknown) Her admission diagnosis includes alcoholic (unknown) (no (unknown) (unknown) bupropion [From (units (unknown) date) Wellbutrin] AdvReac unknown) Severe Seizure Verified 07/08/22 20:37 (unknown) (no (unknown) (unknown) but agrees with (units (unknown) date) need for unknown) hospitalization and need for scope. (unknown) (no (unknown) (unknown) call to [facility] ([facility] ([facility] date[facility] unknown) hospitalist. No ability to keep UGI bleed with known (unknown) (no (unknown) (unknown) complaint (units (unkn own) date) increasing upper unknown) abdominal pain with persistent nausea and vomiting (unknown) (no (unknown) (unknown) continues, patient (units (unknown) date) to receive 3rd unknown) round of dilaudid (unknown) (no (unknown) (unknown) denies any chest (units (unknown) date) pain or shortness unknown) of breath (unknown) (no (unknown) (unknown) diazepam 10 mg (units (unknown) date) tablet 10 mg PO unknown) BEDTIME PRN anxiety/sleep 06/28/22 (unknown) (no (unknown) (unknown) diazepam 10 mg (units (unknown) date) tablet unknown) (unknown) (no (unknown) (unknown) dizziness. (units (unk nown) date) unknown) (unknown) (no (unknown) (unknown) ea (units (unkno wn) date) unknown) (unknown) (no (unknown) (unknown) eating and (units (unk nown) date) drinking. She had a unknown) small amount of blood and a few of the episodes (unknown) (no (unknown) (unknown) folic acid 1 mg (units (unknown) date) Tablet unknown) (unknown) (no (unknown) (unknown) folic acid 1 mg (units (unknown) date) tablet 1 mg PO unknown) DAILY #30 tabs 02/17/22 (unknown) (no (unknown) (unknown) for the past few (units (unknown) date) days. She states unknown) that her pain is worsened by motion and (unknown) (no (unknown) (unknown) hepatitis, (units (unk nown) date) hematemesis with unknown) persistent nausea, coagulopathy. She had an EEG on (unknown) (no (unknown) (unknown) household members: (units (unknown) date) spouse and children unknown) (unknown) (no (unknown) (unknown) hydrocodone (units (un known) date) Allergy Severe unknown) Hives Verified 07/08/22 20:37 (unknown) (no (unknown) (unknown) hydroxyzine HCl 25 (units (unknown) date) mg tablet 25 mg PO unknown) TID PRN 06/28/22 (unknown) (no (unknown) (unknown) hydroxyzine HCl 25 (units (unknown) date) mg tablet unknown) (unknown) (no (unknown) (unknown) icterus is noted, (units (unknown) date) she states this has unknown) been present for quite some time and is no (unknown) (no (unknown) (unknown) ketorolac [From (units (unknown) date) Toradol] Allergy unknown) Severe Hives Verified 07/08/22 20:37 (unknown) (no (unknown) (unknown) leave on most (units ( unknown) date) painful area for up unknown) to 12 hrs (unknown) (no (unknown) (unknown) lidocaine 5 % (units ( unknown) date) adhesive unknown) patch,medicated (unknown) (no (unknown) (unknown) lidocaine 5 % (units ( unknown) date) topical patch 1 unknown) patch topical DAILY PRN pain #15 03/23/22 (unknown) (no (unknown) (unknown) mcg tablet (units (unk nown) date) (Tab-A-Erendira) unknown) (unknown) (no (unknown) (unknown) melatonin 5 mg (units (unknown) date) tablet 5 mg PO unknown) BEDTIME sleep #30 tabs 02/17/22 (unknown) (no (unknown) (unknown) melatonin 5 mg (units (unknown) date) tablet unknown) (unknown) (no (unknown) (unknown) mg tablet (units (unkn own) date) unknown) (unknown) (no (unknown) (unknown) mild distress. (units (unknown) date) Tearful, holding an unknown) emesis bag (unknown) (no (unknown) (unknown) morphine Allergy (units (unknown) date) Intermediate Rash unknown) Verified 07/08/22 20:37 (unknown) (no (unknown) (unknown) multivitamin with (units (unknown) date) folic acid 400 1 unknown) tab PO DAILY #30 tabs 02/17/22 (unknown) (no (unknown) (unknown) multivitamin with (units (unknown) date) folic acid unknown) [Tab-A-Erendira] 400 mcg Tablet (unknown) (no (unknown) (unknown) no records from (units (unknown) date) [facility] unknown) (unknown) (no (unknown) (unknown) of her discharge (units (unknown) date) lab abnormalities, unknown) which had improved, include alk-phos 142, (unknown) (no (unknown) (unknown) of her emesis but (units (unknown) date) denies any unknown) significant bright red emesis or coffee-ground (unknown) (no (unknown) (unknown) on 07/09/2022 (units (u nknown) date) unknown) (unknown) (no (unknown) (unknown) ondansetron 4 mg (units (unknown) date) disintegrating 4 mg unknown) PO Q8H PRN nausea and 06/28/22 (unknown) (no (unknown) (unknown) ondansetron 4 mg (units (unknown) date) tablet,disintegrati unknown) ng (unknown) (no (unknown) (unknown) pantoprazole 40 mg (units (unknown) date) Tablet,Delayed unknown) Release (Dr/Ec) (unknown) (no (unknown) (unknown) pantoprazole 40 mg (units (unknown) date) tablet,delayed 40 unknown) mg PO 0700,2100 #60 tabs 02/17/22 (unknown) (no (unknown) (unknown) patient has had (units (unknown) date) multiple episodes unknown) of emesis but not bloody at this time. Pain (unknown) (no (unknown) (unknown) rales, or rhonchi. (units (unknown) date) unknown) (unknown) (no (unknown) (unknown) release (units (unkno wn) date) unknown) (unknown) (no (unknown) (unknown) repeated H/H drops (units (unknown) date) to 7.7 unknown) (unknown) (no (unknown) (unknown) requesting (units (unk nown) date) something else for unknown) pain and nausea. 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 unknown) (unknown) (no (unknown) (unknown) sucralfate 1 gram (units (unknown) date) Tablet unknown) (unknown) (no (unknown) (unknown) sucralfate 1 gram (units (unknown) date) tablet 1 g PO ACHS unknown) #120 tabs 02/17/22 (unknown) (no (unknown) (unknown) tablet vomiting (units (unknown) date) #14 tabs unknown) (unknown) (no (unknown) (unknown) thiamine (units (unkno wn) date) mononitrate (vit unknown) B1) 100 100 mg PO DAILY #30 tabs 02/17/22 (unknown) (no (unknown) (unknown) thiamine (units (unkno wn) date) mononitrate (vit unknown) B1) 100 mg Tablet (unknown) (no (unknown) (unknown) tobacco type: (units ( unknown) date) cigarettes unknown) (unknown) (no (unknown) (unknown) tonsillar (units (unkn own) date) hypertrophy or unknown) exudate. Airway patent. 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 She had been on Cipro empirically (unknown) (no (unknown) (unknown) varices. (units (unkno wn) date) unknown) (unknown) (no (unknown) (unknown) worse than normal. (units (unknown) date) No injection or unknown) drainage. Result panel 23 (unknown) (no date) (unknown) (unknown) 20.7 % (unkn own) (unknown) (no date) (unknown) (unknown) 20.7 % (unkn own) (unknown) (no date) (unknown) (unknown) 6.8 g/dl (unkn own) (unknown) (no date) (unknown) (unknown) 6.8 g/dl (unkn own) Result panel 24 (unknown) (no date) (unknown) (unknown) NEGATIVE (units (unkn own) unknown) (unknown) (no date) (unknown) (unknown) O Negative (units (un known) unknown) (unknown) (no date) (unknown) (unknown) O Negative (units (un known) unknown) (unknown) (no date) (unknown) (unknown) TRANSFUSED (units (un known) PRODUCT: Packed unknown) Cells COUNT: 1 Result panel 25 (unknown) (no date) (unknown) (unknown) NEGATIVE (units (unkn own) unknown) (unknown) (no date) (unknown) (unknown) O Negative (units (un known) unknown) (unknown) (no date) (unknown) (unknown) O Negative (units (un known) unknown) (unknown) (no date) (unknown) (unknown) TRANSFUSED (units (un known) PRODUCT: Packed unknown) Cells COUNT: 1 Result panel 26 (unknown) (no date) (unknown) (unknown) NEGATIVE (units (unkn own) unknown) (unknown) (no date) (unknown) (unknown) O Negative (units (un known) unknown) (unknown) (no date) (unknown) (unknown) O Negative (units (un known) unknown) (unknown) (no date) (unknown) (unknown) TRANSFUSED (units (un known) PRODUCT: Packed unknown) Cells COUNT: 1 Result panel 27 (unknown) (no date) (unknown) (unknown) 22.3 % (unkn own) (unknown) (no date) (unknown) (unknown) 7.5 g/dl (unkn own) Result panel 28 (unknown) (no date) (unknown) (unknown) 24.7 % (unkn own) (unknown) (no date) (unknown) (unknown) 24.7 % (unkn own) (unknown) (no date) (unknown) (unknown) 8.3 g/dl (unkn own) Result panel 29 (unknown) (no date) (unknown) (unknown) (no value) (units (un known) unknown) (unknown) (no date) (unknown) (unknown) Mixed gram + (units ( unknown) julianne. Deemed unknown) unsuitable for further studies. Result panel 30 (unknown) (no date) (unknown) (unknown) 1.3 % (unkn own) (unknown) (no date) (unknown) (unknown) 1.8 % (unkn own) (unknown) (no date) (unknown) (unknown) 100 /ul (unkn own) (unknown) (no date) (unknown) (unknown) 100 /ul (unkn own) (unknown) (no date) (unknown) (unknown) 113 x10 3/ul (unkn own) (unknown) (no date) (unknown) (unknown) 12.1 % (unkn own) (unknown) (no date) (unknown) (unknown) 18.3 % (unkn own) (unknown) (no date) (unknown) (unknown) 2.61 x10 6/ul (unkn own) (unknown) (no date) (unknown) (unknown) 2200 /ul (unkn own) (unknown) (no date) (unknown) (unknown) 24.6 % (unkn own) (unknown) (no date) (unknown) (unknown) 29.0 % (unkn own) (unknown) (no date) (unknown) (unknown) 32.0 pg (unkn own) (unknown) (no date) (unknown) (unknown) 33.8 % (unkn own) (unknown) (no date) (unknown) (unknown) 4200 /ul (unkn own) (unknown) (no date) (unknown) (unknown) 55.8 % (unkn own) (unknown) (no date) (unknown) (unknown) 7.6 x10 3/ul (unkn own) (unknown) (no date) (unknown) (unknown) 8.3 g/dl (unkn own) (unknown) (no date) (unknown) (unknown) 900 /ul (unkn own) (unknown) (no date) (unknown) (unknown) 94.4 fl (unkn own) Result panel 31 (unknown) (no date) (unknown) (unknown) > 60 ml/min (unkn own) (unknown) (no date) (unknown) (unknown) > 60 ml/min (unkn own) (unknown) (no date) (unknown) (unknown) 0.3 md/dl (unkn own) (unknown) (no date) (unknown) (unknown) 0.67 mg/dl (unkn own) (unknown) (no date) (unknown) (unknown) 1.0 (units unknown) (unknown) (unknown) (no date) (unknown) (unknown) 107 mmol/l (unkn own) (unknown) (no date) (unknown) (unknown) 118 u/l (unkn own) (unknown) (no date) (unknown) (unknown) 141 mmol/l (unkn own) (unknown) (no date) (unknown) (unknown) 25 mmol/l (unkn own) (unknown) (no date) (unknown) (unknown) 3.1 g/dl (unkn own) (unknown) (no date) (unknown) (unknown) 3.1 g/dl (unkn own) (unknown) (no date) (unknown) (unknown) 3.7 mmol/l (unkn own) (unknown) (no date) (unknown) (unknown) 33 iu/l (unkn own) (unknown) (no date) (unknown) (unknown) 4.0 mg/dl (unkn own) (unknown) (no date) (unknown) (unknown) 44 iu/l (unkn own) (unknown) (no date) (unknown) (unknown) 6 mg/dl (unkn own) (unknown) (no date) (unknown) (unknown) 6.2 g/dl (unkn own) (unknown) (no date) (unknown) (unknown) 6.4 mg/dl (unkn own) (unknown) (no date) (unknown) (unknown) 72 mg/dl (unkn own) (unknown) (no date) (unknown) (unknown) 72 mg/dl (unkn own) (unknown) (no date) (unknown) (unknown) 8.3 mg/dl (unkn own) (unknown) (no date) (unknown) (unknown) 87 u/l (unkn own) (unknown) (no date) (unknown) (unknown) 87 u/l (unkn own) (unknown) (no date) (unknown) (unknown) 9.0 (units unknown) (unknown) Result panel 32 (unknown) (no (unknown) (unknown) (no value) (units (unk nown) date) unknown) (unknown) (no (unknown) (unknown) #14 tabs (units (unkno wn) date) unknown) (unknown) (no (unknown) (unknown) (past 8 hours): (units (unknown) date) unknown) (unknown) (no (unknown) (unknown) [id number] (units (unkn own) date) unknown) (unknown) (no (unknown) (unknown) 05:49 13:10 13:10 (units (unknown) date) unknown) (unknown) (no (unknown) (unknown) 1. Upper GI (units (un known) date) bleeding unknown) (unknown) (no (unknown) (unknown) 07/10/22 07/10/22 (units (unknown) date) 07/10/22 unknown) (unknown) (no (unknown) (unknown) 07/10/22 13:10 (units (unknown) date) unknown) (unknown) (no (unknown) (unknown) 07/10/22 (units (unkno wn) date) unknown) (unknown) (no (unknown) (unknown) 13:03 07/10/22 (units (unknown) date) unknown) (unknown) (no (unknown) (unknown) 17:13 (units (unkno wn) date) unknown) (unknown) (no (unknown) (unknown) 2. 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 (units (unknown) date) No CVA tenderness. unknown) (unknown) (no (unknown) (unknown) Age/Sex: 36 / F (units (unknown) date) unknown) (unknown) (no (unknown) (unknown) Albumin 3.1 L (units ( unknown) date) unknown) (unknown) (no (unknown) (unknown) Albumin/Globulin (units (unknown) date) Ratio 1.0 unknown) (unknown) (no (unknown) (unknown) Alcohol abuse (units ( unknown) date) unknown) (unknown) (no (unknown) (unknown) Alcoholic liver (units (unknown) date) disease unknown) (unknown) (no (unknown) (unknown) Alkaline (units (unkno wn) date) Phosphatase 87 D unknown) (unknown) (no (unknown) (unknown) All other systems (units (unknown) date) reviewed with the unknown) patient and are negative unless otherwise (unknown) (no (unknown) (unknown) Allergies (units (unkn own) date) unknown) (unknown) (no (unknown) (unknown) Allergy/AdvReac (units (unknown) date) Type Severity unknown) Reaction Status Date / Time (unknown) (no (unknown) (unknown) Antibiotics) (units (u nknown) date) unknown) (unknown) (no (unknown) (unknown) Assessment + Plan (units (unknown) date) narrative: unknown) (unknown) (no (unknown) (unknown) Assessment + Plan (units (unknown) date) unknown) (unknown) (no (unknown) (unknown) BUN 6 L (units (unkno wn) date) unknown) (unknown) (no (unknown) (unknown) BUN/Creatinine (units (unknown) date) Ratio 9.0 unknown) (unknown) (no (unknown) (unknown) Baso # (Auto) 100 (units (unknown) date) unknown) (unknown) (no (unknown) (unknown) Baso % (Auto) 1.3 (units (unknown) date) unknown) (unknown) (no (unknown) (unknown) Blood Pressure (units (unknown) date) 130/79 138/73 unknown) (unknown) (no (unknown) (unknown) Blood Pressure (units (unknown) date) unknown) (unknown) (no (unknown) (unknown) Calcium 8.3 L (units ( unknown) date) unknown) (unknown) (no (unknown) (unknown) Carbon Dioxide 25 (units (unknown) date) unknown) (unknown) (no (unknown) (unknown) Cardio:?RRR no (units (unknown) date) m/r/g. unknown) (unknown) (no (unknown) (unknown) Chest:? Normal AP (units (unknown) date) diameter and unknown) contour without kyphoscoliosis, no tachypnea, (unknown) (no (unknown) (unknown) Chief complaint: (units (unknown) date) Blood in vomit, unknown) Pain (unknown) (no (unknown) (unknown) Chloride 107 (units (u nknown) date) unknown) (unknown) (no (unknown) (unknown) Cholecystitis (units ( unknown) date) unknown) (unknown) (no (unknown) (unknown) Chronic low back (units (unknown) date) pain unknown) (unknown) (no (unknown) (unknown) Code: Full, (units (un known) date) surrogate is unknown) spouse Hugh (unknown) (no (unknown) (unknown) Conjugated (units (unk nown) date) Bilirubin 0.3 unknown) (unknown) (no (unknown) (unknown) Consult Note (units (u nknown) date) unknown) (unknown) (no (unknown) (unknown) Consult details (units (unknown) date) unknown) (unknown) (no (unknown) (unknown) Creatinine 0.67 (units (unknown) date) unknown) (unknown) (no (unknown) (unknown) Critical Care (units ( unknown) date) time: unknown) (unknown) (no (unknown) (unknown) : 1985 (units (unknown) date) Acct:[id number] unknown) (unknown) (no (unknown) (unknown) DVT: SCD (units (unkno wn) date) unknown) (unknown) (no (unknown) (unknown) Date Patient (units (u nknown) date) Seen: 07/10/22 unknown) (unknown) (no (unknown) (unknown) Date of Service: (units (unknown) date) 07/08/22 unknown) (unknown) (no (unknown) (unknown) Diabetes mellitus (units (unknown) date) unknown) (unknown) (no (unknown) (unknown) Eos # (Auto) 100 (units (unknown) date) unknown) (unknown) (no (unknown) (unknown) Eos % (Auto) 1.8 (units (unknown) date) L unknown) (unknown) (no (unknown) (unknown) Estimated GFR > (units (unknown) date) 60 unknown) (unknown) (no (unknown) (unknown) Exam Narrative: (units (unknown) date) unknown) (unknown) (no (unknown) (unknown) Exam (units (unkno wn) date) unknown) (unknown) (no (unknown) (unknown) Extremities: No (units (unknown) date) edema or joint unknown) effusions. No cyanosis or clubbing. (unknown) (no (unknown) (unknown) Family History (units (unknown) date) (Reviewed 07/08/22 unknown) @ 23:09 by Logan Mcneal DO) (unknown) (no (unknown) (unknown) Father (units (unkno wn) date) Hypertension unknown) (unknown) (no (unknown) (unknown) Fibromyalgia (units (u nknown) date) unknown) (unknown) (no (unknown) (unknown) General:? Patient (units (unknown) date) is well developed unknown) and well nourished, in no distress at this (unknown) (no (unknown) (unknown) Globulin 3.1 (units (u nknown) date) unknown) (unknown) (no (unknown) (unknown) Glucose 72 (units (unk nown) date) unknown) (unknown) (no (unknown) (unknown) HEENT:? (units (unkno wn) date) Normocephalic, unknown) atraumatic, extraocular muscles intact, oral pharynx is (unknown) (no (unknown) (unknown) Hct 24.7 L 24.6 L (units (unknown) date) unknown) (unknown) (no (unknown) (unknown) Hgb 8.3 L 8.3 L (units (unknown) date) unknown) (unknown) (no (unknown) (unknown) History of (units (unk nown) date) Present Illness unknown) (unknown) (no (unknown) (unknown) History of (units (unk nown) date) tonsillectomy and unknown) adenoidectomy (unknown) (no (unknown) (unknown) Home Medications (units (unknown) date) and Allergies unknown) (unknown) (no (unknown) (unknown) Home Medications (units (unknown) date) unknown) (unknown) (no (unknown) (unknown) Hypercoagulable (units (unknown) date) state unknown) (unknown) (no (unknown) (unknown) Hypertension (units (u nknown) date) unknown) (unknown) (no (unknown) (unknown) I have utilized (units (unknown) date) all available unknown) immediate resources to obtain, update, or review (unknown) (no (unknown) (unknown) I spent a total (units (unknown) date) of [] minutes of unknown) critical care time on this patient's care (unknown) (no (unknown) (unknown) IUD (intrauterine (units (unknown) date) device) in place unknown) (unknown) (no (unknown) (unknown) [facility] (units (unknown) date) [address] unknown) [place] [address] (unknown) (no (unknown) (unknown) Laboratory (units (unk nown) date) Results - last 24 unknown) hr (unknown) (no (unknown) (unknown) Labs (units (unkno wn) date) unknown) (unknown) (no (unknown) (unknown) Labs: (units (unkno wn) date) unknown) (unknown) (no (unknown) (unknown) Lipase 118 (units (unk nown) date) unknown) (unknown) (no (unknown) (unknown) Lungs:? CTA b/l (units (unknown) date) no wheezing unknown) rhonchi or rales. (unknown) (no (unknown) (unknown) Lymph # (Auto) (units (unknown) date) 2200 unknown) (unknown) (no (unknown) (unknown) Lymph % (Auto) (units (unknown) date) 29.0 unknown) (unknown) (no (unknown) (unknown) MCH 32.0 (units (unkno wn) date) unknown) (unknown) (no (unknown) (unknown) MCHC 33.8 (units (unkn own) date) unknown) (unknown) (no (unknown) (unknown) MCV 94.4 (units (unkno wn) date) unknown) (unknown) (no (unknown) (unknown) Medical History (units (unknown) date) (Reviewed 07/08/22 unknown) @ 23:09 by Logan Mcneal DO) (unknown) (no (unknown) (unknown) Medication (units (unk nown) date) Instructions unknown) Recorded Confirmed Type (unknown) (no (unknown) (unknown) Meds (units (unkno wn) date) unknown) (unknown) (no (unknown) (unknown) Pope # (Auto) 900 (units (unknown) date) unknown) (unknown) (no (unknown) (unknown) Pope % (Auto) (units ( unknown) date) 12.1 unknown) (unknown) (no (unknown) (unknown) Mother Hepatic (units (unknown) date) disease unknown) (unknown) (no (unknown) (unknown) Musculoskeletal:? (units (unknown) date) Muscle strength unknown) and tone are equal within normal limits, no (unknown) (no (unknown) (unknown) Narrative (units (unkn own) date) unknown) (unknown) (no (unknown) (unknown) Narrative: (units (unk nown) date) unknown) (unknown) (no (unknown) (unknown) Neck: supple and (units (unknown) date) symmetric, trachea unknown) is midline, no cervical adenopathy. Negative (unknown) (no (unknown) (unknown) Neuro:? Alert and (units (unknown) date) orientated x3,? unknown) sensation to touch intact in all extremities, (unknown) (no (unknown) (unknown) Neut # (Auto) (units ( unknown) date) 4200 unknown) (unknown) (no (unknown) (unknown) Neut % (Auto) (units ( unknown) date) 55.8 unknown) (unknown) (no (unknown) (unknown) Objective (units (unkn own) date) unknown) (unknown) (no (unknown) (unknown) Oxygen Delivery (units (unknown) date) Method Room Air unknown) (unknown) (no (unknown) (unknown) PFSH (units (unkno wn) date) unknown) (unknown) (no (unknown) (unknown) Pancreatitis (units (u nknown) date) unknown) (unknown) (no (unknown) (unknown) Patient: (units (unkno wn) date) Rosaura Witt unknown) MR#: M (unknown) (no (unknown) (unknown) Plt Count 113 L (units (unknown) date) unknown) (unknown) (no (unknown) (unknown) Potassium 3.7 (units ( unknown) date) unknown) (unknown) (no (unknown) (unknown) Primary biliary (units (unknown) date) cirrhosis unknown) (unknown) (no (unknown) (unknown) Provider: (units (unkn own) date) Aureliano Low unknown) D.O. (unknown) (no (unknown) (unknown) Psych:? Patient (units (unknown) date) has a well-kept unknown) appearance, appropriate affect, mental status (unknown) (no (unknown) (unknown) Pulse Oximetry 98 (units (unknown) date) unknown) (unknown) (no (unknown) (unknown) Pulse Oximetry 99 (units (unknown) date) 99 unknown) (unknown) (no (unknown) (unknown) Pulse Rate 85 84 (units (unknown) date) unknown) (unknown) (no (unknown) (unknown) Pulse Rate 87 (units ( unknown) date) unknown) (unknown) (no (unknown) (unknown) RBC 2.61 L (units (unk nown) date) unknown) (unknown) (no (unknown) (unknown) RDW 18.3 H (units (unk nown) date) unknown) (unknown) (no (unknown) (unknown) Respiratory Rate (units (unknown) date) 18 unknown) (unknown) (no (unknown) (unknown) Respiratory Rate (units (unknown) date) unknown) (unknown) (no (unknown) (unknown) Result Diagrams: (units (unknown) date) unknown) (unknown) (no (unknown) (unknown) Review of Systems (units (unknown) date) unknown) (unknown) (no (unknown) (unknown) Rheumatoid (units (unk nown) date) arthritis unknown) (unknown) (no (unknown) (unknown) Rx (units (unkno wn) date) unknown) (unknown) (no (unknown) (unknown) Signed By: (units (unk nown) date) unknown) (unknown) (no (unknown) (unknown) Skin:? Pale,? (units ( unknown) date) Warm to touch,dry unknown) and intact without rashes, ulcerations or (unknown) (no (unknown) (unknown) Smoking Status: (units (unknown) date) Current every day unknown) smoker (unknown) (no (unknown) (unknown) Social History (units (unknown) date) unknown) (unknown) (no (unknown) (unknown) Sodium 141 (units (unk nown) date) unknown) (unknown) (no (unknown) (unknown) Sulfa (units (unkno wn) date) (Sulfonamide unknown) Allergy Intermediate Hives Verified 07/10/22 14:57 (unknown) (no (unknown) (unknown) Surgical History (units (unknown) date) (Reviewed 07/08/22 unknown) @ 23:09 by Logan Mcneal DO) (unknown) (no (unknown) (unknown) This is a 36 year (units (unknown) date) old female with unknown) (unknown) (no (unknown) (unknown) Time Patient (units (u nknown) date) Seen: 18:30 unknown) (unknown) (no (unknown) (unknown) Time Spent With (units (unknown) date) Patient unknown) (unknown) (no (unknown) (unknown) Tobacco + (units (unkn own) date) Substance Use unknown) (unknown) (no (unknown) (unknown) Total Bilirubin (units (unknown) date) 6.4 H unknown) (unknown) (no (unknown) (unknown) Total Protein 6.2 (units (unknown) date) L unknown) (unknown) (no (unknown) (unknown) Unconjugated (units (u nknown) date) Bilirubin 4.0 H unknown) (unknown) (no (unknown) (unknown) Vital Signs (units (un known) date) unknown) (unknown) (no (unknown) (unknown) WBC 7.6 (units (unkno wn) date) unknown) (unknown) (no (unknown) (unknown) [Embedded Image (units (unknown) date) Not Available] unknown) (unknown) (no (unknown) (unknown) alcohol intake: (units (unknown) date) current unknown) (unknown) (no (unknown) (unknown) anxiety/nausea/vo (units (unknown) date) miting #20 tabs unknown) (unknown) (no (unknown) (unknown) attitude thought (units (unknown) date) context and unknown) judgment are appropriate for age. (unknown) (no (unknown) (unknown) bupropion [From (units (unknown) date) Wellbutrin] unknown) AdvReac Severe Seizure Verified 07/08/22 20:37 (unknown) (no (unknown) (unknown) clear and mucous (units (unknown) date) membranes are unknown) moist. (unknown) (no (unknown) (unknown) deformity. (units (unk nown) date) unknown) (unknown) (no (unknown) (unknown) diazepam 10 mg (units (unknown) date) tablet 10 mg PO unknown) BEDTIME PRN anxiety/sleep 06/28/22 Rx (unknown) (no (unknown) (unknown) ea (units (unkno wn) date) unknown) (unknown) (no (unknown) (unknown) equal chest rise (units (unknown) date) bilaterally. unknown) (unknown) (no (unknown) (unknown) folic acid 1 mg (units (unknown) date) tablet 1 mg PO unknown) DAILY #30 tabs 02/17/22 04/23/22 Rx (unknown) (no (unknown) (unknown) for JVD (units (unkno wn) date) unknown) (unknown) (no (unknown) (unknown) household (units (unkn own) date) members: spouse unknown) and children (unknown) (no (unknown) (unknown) hydrocodone (units (un known) date) Allergy Severe unknown) Hives Verified 07/08/22 20:37 (unknown) (no (unknown) (unknown) hydroxyzine HCl (units (unknown) date) 25 mg tablet 25 mg unknown) PO TID PRN 06/28/22 Rx (unknown) (no (unknown) (unknown) ketorolac [From (units (unknown) date) Toradol] Allergy unknown) Severe Hives Verified 07/08/22 20:37 (unknown) (no (unknown) (unknown) lidocaine 5 % (units (u nknown) date) topical patch 1 unknown) patch topical DAILY PRN pain #15 03/23/22 04/23/22 (unknown) (no (unknown) (unknown) mcg tablet (units (unk nown) date) (Tab-A-Erendira) unknown) (unknown) (no (unknown) (unknown) melatonin 5 mg (units (unknown) date) tablet 5 mg PO unknown) BEDTIME sleep #30 tabs 02/17/22 07/10/22 Rx (unknown) (no (unknown) (unknown) mg tablet (units (unkn own) date) unknown) (unknown) (no (unknown) (unknown) mirtazapine 15 mg (units (unknown) date) tablet 15 mg PO unknown) DAILY 07/10/22 07/10/22 History (unknown) (no (unknown) (unknown) morphine Allergy (units (unknown) date) Intermediate Rash unknown) Verified 07/08/22 20:37 (unknown) (no (unknown) (unknown) multivitamin with (units (unknown) date) folic acid 400 1 unknown) tab PO DAILY #30 tabs 02/17/22 07/10/22 Rx (unknown) (no (unknown) (unknown) no gross deficits (units (unknown) date) noted of cranial unknown) nerves. (unknown) (no (unknown) (unknown) ondansetron 4 mg (units (unknown) date) disintegrating 4 unknown) mg PO Q8H PRN nausea and 06/28/22 07/10/22 Rx (unknown) (no (unknown) (unknown) pantoprazole 40 (units (unknown) date) mg tablet,delayed unknown) 40 mg PO 0700,2100 #60 tabs 02/17/22 07/10/22 (unknown) (no (unknown) (unknown) petechiae.? (units (un known) date) unknown) (unknown) (no (unknown) (unknown) prednisone 10 mg (units (unknown) date) tablet 10 mg PO unknown) DAILY 07/10/22 07/10/22 History (unknown) (no (unknown) (unknown) release (units (unkno wn) date) unknown) (unknown) (no (unknown) (unknown) stated. (units (unkno wn) date) unknown) (unknown) (no (unknown) (unknown) sucralfate 1 gram (units (unknown) date) tablet 1 g PO ACHS unknown) #120 tabs 02/17/22 07/10/22 Rx (unknown) (no (unknown) (unknown) tablet vomiting (units (unknown) date) #14 tabs unknown) (unknown) (no (unknown) (unknown) the patient's (units ( unknown) date) current unknown) medications. (unknown) (no (unknown) (unknown) thiamine (units (unkno wn) date) mononitrate (vit unknown) B1) 100 100 mg PO DAILY #30 tabs 02/17/22 07/10/22 Rx (unknown) (no (unknown) (unknown) time. (units (unkno wn) date) unknown) (unknown) (no (unknown) (unknown) tizanidine 4 mg (units (unknown) date) tablet 4 mg PO BID unknown) PRN Muscle Spasm 07/10/22 07/10/22 History (unknown) (no (unknown) (unknown) today; this time (units (unknown) date) is exclusive of unknown) procedural time. (unknown) (no (unknown) (unknown) tramadol Allergy (units (unknown) date) Intermediate unknown) Headache Verified 07/08/22 20:37 Result panel 33 (unknown) (no (unknown) (unknown) (no value) (units (unk nown) date) unknown) (unknown) (no (unknown) (unknown) #14 tabs (units (unkno wn) date) unknown) (unknown) (no (unknown) (unknown) (past 8 hours): (units (unknown) date) unknown) (unknown) (no (unknown) (unknown) - Given GI (units (unk nown) date) recommendation for unknown) EGD, continue to recommend transfer as she is (unknown) (no (unknown) (unknown) - Goal Hg >7. (units ( unknown) date) unknown) (unknown) (no (unknown) (unknown) - bedside (units (unkn own) date) abdominal unknown) ultrasound was performed, there is not enough fluid for (unknown) (no (unknown) (unknown) - continue (units (unk nown) date) octreotide unknown) infusion per GI recommendations, PPI increased to 40 mg (unknown) (no (unknown) (unknown) - continue to (units ( unknown) date) follow h/h daily unknown) or as needed (unknown) (no (unknown) (unknown) - have ordered (units (unknown) date) oral pain unknown) medications of dilaudid 2-4 mg prn, and IV for (unknown) (no (unknown) (unknown) - patient has not (units (unknown) date) had alcohol intake unknown) since late june when she was admitted (unknown) (no (unknown) (unknown) - restarted home (units (unknown) date) prednisone 10 mg unknown) which is for recent alcoholic hepatitis. Her (unknown) (no (unknown) (unknown) - resumed home (units (unknown) date) sucralfate. unknown) (unknown) (no (unknown) (unknown) [id number] (units (unkn own) date) unknown) (unknown) (no (unknown) (unknown) 05:49 13:10 13:10 (units (unknown) date) unknown) (unknown) (no (unknown) (unknown) 1. Upper GI (units (un known) date) bleeding with unknown) acute blood loss anemia. (unknown) (no (unknown) (unknown) 07/10/22 07/10/22 (units (unknown) date) 07/10/22 unknown) (unknown) (no (unknown) (unknown) 07/10/22 13:10 (units (unknown) date) unknown) (unknown) (no (unknown) (unknown) 07/10/22 (units (unkno wn) date) unknown) (unknown) (no (unknown) (unknown) 13:03 07/10/22 (units (unknown) date) unknown) (unknown) (no (unknown) (unknown) 17:13 (units (unkno wn) date) unknown) (unknown) (no (unknown) (unknown) 2. 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 (units (unknown) date) lower abdominal unknown) striae. (unknown) (no (unknown) (unknown) Age/Sex: 36 / F (units (unknown) date) unknown) (unknown) (no (unknown) (unknown) Albumin 3.1 L (units ( unknown) date) unknown) (unknown) (no (unknown) (unknown) Albumin/Globulin (units (unknown) date) Ratio 1.0 unknown) (unknown) (no (unknown) (unknown) Alcohol abuse (units ( unknown) date) unknown) (unknown) (no (unknown) (unknown) Alcoholic liver (units (unknown) date) disease unknown) (unknown) (no (unknown) (unknown) Alkaline (units (unkno wn) date) Phosphatase 87 D unknown) (unknown) (no (unknown) (unknown) All other systems (units (unknown) date) reviewed with the unknown) patient and are negative unless otherwise (unknown) (no (unknown) (unknown) Allergies (units (unkn own) date) unknown) (unknown) (no (unknown) (unknown) Allergy/AdvReac (units (unknown) date) Type Severity unknown) Reaction Status Date / Time (unknown) (no (unknown) (unknown) Antibiotics) (units (u nknown) date) unknown) (unknown) (no (unknown) (unknown) Assessment + Plan (units (unknown) date) narrative: unknown) (unknown) (no (unknown) (unknown) Assessment + Plan (units (unknown) date) unknown) (unknown) (no (unknown) (unknown) BUN 6 L (units (unkno wn) date) unknown) (unknown) (no (unknown) (unknown) BUN/Creatinine (units (unknown) date) Ratio 9.0 unknown) (unknown) (no (unknown) (unknown) Baso # (Auto) 100 (units (unknown) date) unknown) (unknown) (no (unknown) (unknown) Baso % (Auto) 1.3 (units (unknown) date) unknown) (unknown) (no (unknown) (unknown) Blood Pressure (units (unknown) date) 130/79 138/73 unknown) (unknown) (no (unknown) (unknown) Blood Pressure (units (unknown) date) unknown) (unknown) (no (unknown) (unknown) Calcium 8.3 L (units ( unknown) date) unknown) (unknown) (no (unknown) (unknown) Carbon Dioxide 25 (units (unknown) date) unknown) (unknown) (no (unknown) (unknown) Cardio:?RRR no (units (unknown) date) m/r/g. unknown) (unknown) (no (unknown) (unknown) Chest:? Normal AP (units (unknown) date) diameter and unknown) contour without kyphoscoliosis, no tachypnea, (unknown) (no (unknown) (unknown) Chief complaint: (units (unknown) date) Blood in vomit, unknown) Pain (unknown) (no (unknown) (unknown) Chloride 107 (units (u nknown) date) unknown) (unknown) (no (unknown) (unknown) Cholecystitis (units ( unknown) date) unknown) (unknown) (no (unknown) (unknown) Chronic low back (units (unknown) date) pain unknown) (unknown) (no (unknown) (unknown) Code: Full, (units (un known) date) surrogate is unknown) spouse Hugh (unknown) (no (unknown) (unknown) Conjugated (units (unk nown) date) Bilirubin 0.3 unknown) (unknown) (no (unknown) (unknown) Consult Note (units (u nknown) date) unknown) (unknown) (no (unknown) (unknown) Consult details (units (unknown) date) unknown) (unknown) (no (unknown) (unknown) Creatinine 0.67 (units (unknown) date) unknown) (unknown) (no (unknown) (unknown) Critical Care (units ( unknown) date) time: unknown) (unknown) (no (unknown) (unknown) : 1985 (units (unknown) date) Acct:[id number] unknown) (unknown) (no (unknown) (unknown) DVT: SCD (units (unkno wn) date) unknown) (unknown) (no (unknown) (unknown) Date Patient (units (u nknown) date) Seen: 07/10/22 unknown) (unknown) (no (unknown) (unknown) Date of Service: (units (unknown) date) 07/08/22 unknown) (unknown) (no (unknown) (unknown) Diabetes mellitus (units (unknown) date) unknown) (unknown) (no (unknown) (unknown) ER as she has been (units (unknown) date) boarding for a few unknown) days awaiting transfer. H/h dropped to 6.8 (unknown) (no (unknown) (unknown) Eos # (Auto) 100 (units (unknown) date) unknown) (unknown) (no (unknown) (unknown) Eos % (Auto) 1.8 (units (unknown) date) L unknown) (unknown) (no (unknown) (unknown) Estimated GFR > (units (unknown) date) 60 unknown) (unknown) (no (unknown) (unknown) Exam Narrative: (units (unknown) date) unknown) (unknown) (no (unknown) (unknown) Exam (units (unkno wn) date) unknown) (unknown) (no (unknown) (unknown) Extremities: No (units (unknown) date) edema or joint unknown) effusions. No cyanosis or clubbing. (unknown) (no (unknown) (unknown) Family History (units (unknown) date) (Reviewed 07/10/22 unknown) @ 21:50 by Aureliano Low DO) (unknown) (no (unknown) (unknown) Father (units (unkno wn) date) Hypertension unknown) (unknown) (no (unknown) (unknown) Fibromyalgia (units (u nknown) date) unknown) (unknown) (no (unknown) (unknown) General:? Patient (units (unknown) date) is well developed unknown) and well nourished, in no distress at this (unknown) (no (unknown) (unknown) Globulin 3.1 (units (u nknown) date) unknown) (unknown) (no (unknown) (unknown) Glucose 72 (units (unk nown) date) unknown) (unknown) (no (unknown) (unknown) HEENT:? (units (unkno wn) date) Normocephalic, unknown) atraumatic, extraocular muscles intact, oral pharynx is (unknown) (no (unknown) (unknown) Hct 24.7 L 24.6 L (units (unknown) date) unknown) (unknown) (no (unknown) (unknown) Hgb 8.3 L 8.3 L (units (unknown) date) unknown) (unknown) (no (unknown) (unknown) History of (units (unk nown) date) Present Illness unknown) (unknown) (no (unknown) (unknown) History of (units (unk nown) date) tonsillectomy and unknown) adenoidectomy (unknown) (no (unknown) (unknown) Home Medications (units (unknown) date) and Allergies unknown) (unknown) (no (unknown) (unknown) Home Medications (units (unknown) date) unknown) (unknown) (no (unknown) (unknown) Hypercoagulable (units (unknown) date) state unknown) (unknown) (no (unknown) (unknown) Hypertension (units (u nknown) date) unknown) (unknown) (no (unknown) (unknown) I have utilized (units (unknown) date) all available unknown) immediate resources to obtain, update, or review (unknown) (no (unknown) (unknown) I spent a total (units (unknown) date) of [] minutes of unknown) critical care time on this patient's care (unknown) (no (unknown) (unknown) IUD (intrauterine (units (unknown) date) device) in place unknown) (unknown) (no (unknown) (unknown) IV BID (units (unkno wn) date) unknown) (unknown) (no (unknown) (unknown) [facility] (units (unknown) date) [address] unknown) [place] [address] (unknown) (no (unknown) (unknown) Laboratory (units (unk nown) date) Results - last 24 unknown) hr (unknown) (no (unknown) (unknown) Labs (units (unkno wn) date) unknown) (unknown) (no (unknown) (unknown) Labs: (units (unkno wn) date) unknown) (unknown) (no (unknown) (unknown) Lipase 118 (units (unk nown) date) unknown) (unknown) (no (unknown) (unknown) Lungs:? CTA b/l (units (unknown) date) no wheezing unknown) rhonchi or rales. (unknown) (no (unknown) (unknown) Lymph # (Auto) (units (unknown) date) 2200 unknown) (unknown) (no (unknown) (unknown) Lymph % (Auto) (units (unknown) date) 29.0 unknown) (unknown) (no (unknown) (unknown) MCH 32.0 (units (unkno wn) date) unknown) (unknown) (no (unknown) (unknown) MCHC 33.8 (units (unkn own) date) unknown) (unknown) (no (unknown) (unknown) MCV 94.4 (units (unkno wn) date) unknown) (unknown) (no (unknown) (unknown) Medical History (units (unknown) date) (Reviewed 07/10/22 unknown) @ 21:50 by Aureliano Low DO) (unknown) (no (unknown) (unknown) Medication (units (unk nown) date) Instructions unknown) Recorded Confirmed Type (unknown) (no (unknown) (unknown) Meds (units (unkno wn) date) unknown) (unknown) (no (unknown) (unknown) Pope # (Auto) 900 (units (unknown) date) unknown) (unknown) (no (unknown) (unknown) Pope % (Auto) (units ( unknown) date) 12.1 unknown) (unknown) (no (unknown) (unknown) Mother Hepatic (units (unknown) date) disease unknown) (unknown) (no (unknown) (unknown) Musculoskeletal:? (units (unknown) date) Muscle strength unknown) and tone are equal within normal limits, no (unknown) (no (unknown) (unknown) Narrative (units (unkn own) date) unknown) (unknown) (no (unknown) (unknown) Narrative: (units (unk nown) date) unknown) (unknown) (no (unknown) (unknown) Neck: supple and (units (unknown) date) symmetric, trachea unknown) is midline, no cervical adenopathy. Negative (unknown) (no (unknown) (unknown) Neuro:? Alert and (units (unknown) date) orientated x3,? unknown) sensation to touch intact in all extremities, (unknown) (no (unknown) (unknown) Neut # (Auto) (units ( unknown) date) 4200 unknown) (unknown) (no (unknown) (unknown) Neut % (Auto) (units ( unknown) date) 55.8 unknown) (unknown) (no (unknown) (unknown) Objective (units (unkn own) date) unknown) (unknown) (no (unknown) (unknown) Oxygen Delivery (units (unknown) date) Method Room Air unknown) (unknown) (no (unknown) (unknown) PFSH (units (unkno wn) date) unknown) (unknown) (no (unknown) (unknown) Pancreatitis (units (u nknown) date) unknown) (unknown) (no (unknown) (unknown) Patient: (units (unkno wn) date) Rosaura Witt unknown) MR#: M (unknown) (no (unknown) (unknown) Plt Count 113 L (units (unknown) date) unknown) (unknown) (no (unknown) (unknown) Potassium 3.7 (units ( unknown) date) unknown) (unknown) (no (unknown) (unknown) Primary biliary (units (unknown) date) cirrhosis unknown) (unknown) (no (unknown) (unknown) 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 She has had (unknown) (no (unknown) (unknown) Provider: (units (unkn own) date) Aureliano Low unknown) D.O. (unknown) (no (unknown) (unknown) Psych:? Patient (units (unknown) date) has a well-kept unknown) appearance, appropriate affect, mental status (unknown) (no (unknown) (unknown) Pulse Oximetry 98 (units (unknown) date) unknown) (unknown) (no (unknown) (unknown) Pulse Oximetry 99 (units (unknown) date) 99 unknown) (unknown) (no (unknown) (unknown) Pulse Rate 85 84 (units (unknown) date) unknown) (unknown) (no (unknown) (unknown) Pulse Rate 87 (units ( unknown) date) unknown) (unknown) (no (unknown) (unknown) RBC 2.61 L (units (unk nown) date) unknown) (unknown) (no (unknown) (unknown) RDW 18.3 H (units (unk nown) date) unknown) (unknown) (no (unknown) (unknown) Respiratory Rate (units (unknown) date) 18 unknown) (unknown) (no (unknown) (unknown) Respiratory Rate (units (unknown) date) unknown) (unknown) (no (unknown) (unknown) Result Diagrams: (units (unknown) date) unknown) (unknown) (no (unknown) (unknown) Review of Systems (units (unknown) date) unknown) (unknown) (no (unknown) (unknown) Rheumatoid (units (unk nown) date) arthritis unknown) (unknown) (no (unknown) (unknown) Rx (units (unkno wn) date) unknown) (unknown) (no (unknown) (unknown) Signed By: (units (unk nown) date) unknown) (unknown) (no (unknown) (unknown) Skin:? Pale,? (units ( unknown) date) Warm to touch,dry unknown) and intact without rashes, ulcerations or (unknown) (no (unknown) (unknown) Smoking Status: (units (unknown) date) Current every day unknown) smoker (unknown) (no (unknown) (unknown) Social History (units (unknown) date) unknown) (unknown) (no (unknown) (unknown) Sodium 141 (units (unk nown) date) unknown) (unknown) (no (unknown) (unknown) Sulfa (units (unkno wn) date) (Sulfonamide unknown) Allergy Intermediate Hives Verified 07/10/22 14:57 (unknown) (no (unknown) (unknown) Surgical History (units (unknown) date) (Reviewed 07/10/22 unknown) @ 21:50 by Aureliano Low DO) (unknown) (no (unknown) (unknown) This is a 36 year (units (unknown) date) old female with unknown) PMH of EtOH cirrhosis and recent EtOH (unknown) (no (unknown) (unknown) Time Patient (units (u nknown) date) Seen: 18:30 unknown) (unknown) (no (unknown) (unknown) Time Spent With (units (unknown) date) Patient unknown) (unknown) (no (unknown) (unknown) Tobacco + (units (unkn own) date) Substance Use unknown) (unknown) (no (unknown) (unknown) Total Bilirubin (units (unknown) date) 6.4 H unknown) (unknown) (no (unknown) (unknown) Total Protein 6.2 (units (unknown) date) L unknown) (unknown) (no (unknown) (unknown) Unconjugated (units (u nknown) date) Bilirubin 4.0 H unknown) (unknown) (no (unknown) (unknown) Vital Signs (units (un known) date) unknown) (unknown) (no (unknown) (unknown) WBC 7.6 (units (unkno wn) date) unknown) (unknown) (no (unknown) (unknown) [Embedded Image (units (unknown) date) Not Available] unknown) (unknown) (no (unknown) (unknown) admission to (units (u nknown) date) [facility] unknown) (discharged 07/04/22). (unknown) (no (unknown) (unknown) alcohol intake: (units (unknown) date) current unknown) (unknown) (no (unknown) (unknown) anxiety/nausea/vo (units (unknown) date) miting #20 tabs unknown) (unknown) (no (unknown) (unknown) attitude thought (units (unknown) date) context and unknown) judgment are appropriate for age. (unknown) (no (unknown) (unknown) been awaiting (units (u nknown) date) transfer for EGD unknown) as patient requires GI intervention given history (unknown) (no (unknown) (unknown) breakthrough. (units ( unknown) date) Continue to wean unknown) opiates as tolerated. (unknown) (no (unknown) (unknown) bupropion [From (units (unknown) date) Wellbutrin] unknown) AdvReac Severe Seizure Verified 07/08/22 20:37 (unknown) (no (unknown) (unknown) clear and mucous (units (unknown) date) membranes are unknown) moist. (unknown) (no (unknown) (unknown) deformity. (units (unk nown) date) unknown) (unknown) (no (unknown) (unknown) diagnostic (units (unk nown) date) paracentesis for unknown) SBP rule out, making the diagnosis less likely. (unknown) (no (unknown) (unknown) diazepam 10 mg (units (unknown) date) tablet 10 mg PO unknown) BEDTIME PRN anxiety/sleep 06/28/22 Rx (unknown) (no (unknown) (unknown) ea (units (unkno wn) date) unknown) (unknown) (no (unknown) (unknown) equal chest rise (units (unknown) date) bilaterally. unknown) (unknown) (no (unknown) (unknown) fever, chills, (units ( unknown) date) chest pain, unknown) shortness of breath. She has some intermittent nausea (unknown) (no (unknown) (unknown) folic acid 1 mg (units (unknown) date) tablet 1 mg PO unknown) DAILY #30 tabs 02/17/22 04/23/22 Rx (unknown) (no (unknown) (unknown) for JVD (units (unkno wn) date) unknown) (unknown) (no (unknown) (unknown) has been slowly (units (unknown) date) uptrending. She unknown) had not had any more alcohol after recent (unknown) (no (unknown) (unknown) hematemesis to (units (unknown) date) the ER a few days unknown) ago now (07/08). Patient states she had a (unknown) (no (unknown) (unknown) hepatitis on (units (u nknown) date) prednisone therapy unknown) who presented with abdominal pain and (unknown) (no (unknown) (unknown) household (units (unkn own) date) members: spouse unknown) and children (unknown) (no (unknown) (unknown) hydrocodone (units (un known) date) Allergy Severe unknown) Hives Verified 07/08/22 20:37 (unknown) (no (unknown) (unknown) hydroxyzine HCl (units (unknown) date) 25 mg tablet 25 mg unknown) PO TID PRN 06/28/22 Rx (unknown) (no (unknown) (unknown) in [facility]. (units (un known) date) unknown) (unknown) (no (unknown) (unknown) ketorolac [From (units (unknown) date) Toradol] Allergy unknown) Severe Hives Verified 07/08/22 20:37 (unknown) (no (unknown) (unknown) labs appear (units (un known) date) improved here thus unknown) far. (unknown) (no (unknown) (unknown) lidocaine 5 % (units (u nknown) date) topical patch 1 unknown) patch topical DAILY PRN pain #15 03/23/22 04/23/22 (unknown) (no (unknown) (unknown) mcg tablet (units (unk nown) date) (Tab-A-Erendira) unknown) (unknown) (no (unknown) (unknown) melatonin 5 mg (units (unknown) date) tablet 5 mg PO unknown) BEDTIME sleep #30 tabs 02/17/22 07/10/22 Rx (unknown) (no (unknown) (unknown) mg tablet (units (unkn own) date) unknown) (unknown) (no (unknown) (unknown) mirtazapine 15 mg (units (unknown) date) tablet 15 mg PO unknown) DAILY 07/10/22 07/10/22 History (unknown) (no (unknown) (unknown) morphine Allergy (units (unknown) date) Intermediate Rash unknown) Verified 07/08/22 20:37 (unknown) (no (unknown) (unknown) multivitamin with (units (unknown) date) folic acid 400 1 unknown) tab PO DAILY #30 tabs 02/17/22 07/10/22 Rx (unknown) (no (unknown) (unknown) no further (units (unkn own) date) episodes since ER unknown) arrival. She denies melena or BRBPR. She denies any (unknown) (no (unknown) (unknown) no gross deficits (units (unknown) date) noted of cranial unknown) nerves. (unknown) (no (unknown) (unknown) of varices. (units (un known) date) Medicine was asked unknown) to consult for assistance with management in the (unknown) (no (unknown) (unknown) ondansetron 4 mg (units (unknown) date) disintegrating 4 unknown) mg PO Q8H PRN nausea and 06/28/22 07/10/22 Rx (unknown) (no (unknown) (unknown) pantoprazole 40 (units (unknown) date) mg tablet,delayed unknown) 40 mg PO 0700,2100 #60 tabs 02/17/22 07/10/22 (unknown) (no (unknown) (unknown) petechiae.? (units (un known) date) unknown) (unknown) (no (unknown) (unknown) prednisone 10 mg (units (unknown) date) tablet 10 mg PO unknown) DAILY 07/10/22 07/10/22 History (unknown) (no (unknown) (unknown) release (units (unkno wn) date) unknown) (unknown) (no (unknown) (unknown) smaller amount of (units (unknown) date) hematemesis than unknown) previous episode where she was transferred to (unknown) (no (unknown) (unknown) stated. (units (unkno wn) date) unknown) (unknown) (no (unknown) (unknown) substance use (units ( unknown) date) type: does not use unknown) (unknown) (no (unknown) (unknown) sucralfate 1 gram (units (unknown) date) tablet 1 g PO ACHS unknown) #120 tabs 02/17/22 07/10/22 Rx (unknown) (no (unknown) (unknown) tablet vomiting (units (unknown) date) #14 tabs unknown) (unknown) (no (unknown) (unknown) the patient's (units ( unknown) date) current unknown) medications. (unknown) (no (unknown) (unknown) thiamine (units (unkno wn) date) mononitrate (vit unknown) B1) 100 100 mg PO DAILY #30 tabs 02/17/22 07/10/22 Rx (unknown) (no (unknown) (unknown) time. (units (unkno wn) date) unknown) (unknown) (no (unknown) (unknown) tizanidine 4 mg (units (unknown) date) tablet 4 mg PO BID unknown) PRN Muscle Spasm 07/10/22 07/10/22 History (unknown) (no (unknown) (unknown) today; this time (units (unknown) date) is exclusive of unknown) procedural time. (unknown) (no (unknown) (unknown) tramadol Allergy (units (unknown) date) Intermediate unknown) Headache Verified 07/08/22 20:37 (unknown) (no (unknown) (unknown) unable to undergo (units (unknown) date) endoscopy here unknown) with general surgery given her previous known (unknown) (no (unknown) (unknown) varices with (units (u nknown) date) recent bleeding. unknown) (unknown) (no (unknown) (unknown) when she was (units (u nknown) date) given transfusion unknown) of 2 U PRBC. She has since improved to 8.3 and (unknown) (no (unknown) (unknown) with food. She (units (unknown) date) was finally able unknown) to tolerate some clear liquids today. She has (unknown) (no (unknown) (unknown) with pain. (units (unk nown) date) Epigastric pain is unknown) burning in nature, non-radiating, and worsened Result panel 34 (unknown) (no (unknown) (unknown) (no value) (units (unk nown) date) unknown) (unknown) (no (unknown) (unknown) #14 tabs (units (unkno wn) date) unknown) (unknown) (no (unknown) (unknown) (past 8 hours): (units (unknown) date) unknown) (unknown) (no (unknown) (unknown) - Given GI (units (unk nown) date) recommendation for unknown) EGD, continue to recommend transfer as she is (unknown) (no (unknown) (unknown) - Goal Hg >7. (units ( unknown) date) unknown) (unknown) (no (unknown) (unknown) - bedside (units (unkn own) date) abdominal unknown) ultrasound was performed, there is not enough fluid for (unknown) (no (unknown) (unknown) - continue (units (unk nown) date) octreotide unknown) infusion per GI recommendations, PPI increased to 40 mg (unknown) (no (unknown) (unknown) - continue to (units ( unknown) date) follow h/h daily unknown) or as needed (unknown) (no (unknown) (unknown) - have ordered (units (unknown) date) oral pain unknown) medications of dilaudid 2-4 mg prn, and IV for (unknown) (no (unknown) (unknown) - if confusion (units (unknown) date) develops, she has unknown) history of encephalopathy and would recommend (unknown) (no (unknown) (unknown) - patient has not (units (unknown) date) had alcohol intake unknown) since late june when she was admitted (unknown) (no (unknown) (unknown) - restarted home (units (unknown) date) prednisone 10 mg unknown) which is for recent alcoholic hepatitis. Her (unknown) (no (unknown) (unknown) - resumed home (units (unknown) date) sucralfate. unknown) (unknown) (no (unknown) (unknown) [id number] (units (unkn own) date) unknown) (unknown) (no (unknown) (unknown) 05:49 13:10 13:10 (units (unknown) date) unknown) (unknown) (no (unknown) (unknown) 1. Upper GI (units (un known) date) bleeding with unknown) acute blood loss anemia. (unknown) (no (unknown) (unknown) 07/10/22 07/10/22 (units (unknown) date) 07/10/22 unknown) (unknown) (no (unknown) (unknown) 07/10/22 13:10 (units (unknown) date) unknown) (unknown) (no (unknown) (unknown) 07/10/22 (units (unkno wn) date) unknown) (unknown) (no (unknown) (unknown) 13:03 07/10/22 (units (unknown) date) unknown) (unknown) (no (unknown) (unknown) 17:13 (units (unkno wn) date) unknown) (unknown) (no (unknown) (unknown) 2. 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 (units (unknown) date) lower abdominal unknown) striae. (unknown) (no (unknown) (unknown) Age/Sex: 36 / F (units (unknown) date) unknown) (unknown) (no (unknown) (unknown) Albumin 3.1 L (units ( unknown) date) unknown) (unknown) (no (unknown) (unknown) Albumin/Globulin (units (unknown) date) Ratio 1.0 unknown) (unknown) (no (unknown) (unknown) Alcohol abuse (units ( unknown) date) unknown) (unknown) (no (unknown) (unknown) Alcoholic liver (units (unknown) date) disease unknown) (unknown) (no (unknown) (unknown) Alkaline (units (unkno wn) date) Phosphatase 87 D unknown) (unknown) (no (unknown) (unknown) All other systems (units (unknown) date) reviewed with the unknown) patient and are negative unless otherwise (unknown) (no (unknown) (unknown) Allergies (units (unkn own) date) unknown) (unknown) (no (unknown) (unknown) Allergy/AdvReac (units (unknown) date) Type Severity unknown) Reaction Status Date / Time (unknown) (no (unknown) (unknown) Antibiotics) (units (u nknown) date) unknown) (unknown) (no (unknown) (unknown) Assessment + Plan (units (unknown) date) narrative: unknown) (unknown) (no (unknown) (unknown) Assessment + Plan (units (unknown) date) unknown) (unknown) (no (unknown) (unknown) At this time, (units ( unknown) date) continue to unknown) recommend transfer to facility (unknown) (no (unknown) (unknown) BUN 6 L (units (unkno wn) date) unknown) (unknown) (no (unknown) (unknown) BUN/Creatinine (units (unknown) date) Ratio 9.0 unknown) (unknown) (no (unknown) (unknown) Baso # (Auto) 100 (units (unknown) date) unknown) (unknown) (no (unknown) (unknown) Baso % (Auto) 1.3 (units (unknown) date) unknown) (unknown) (no (unknown) (unknown) Blood Pressure (units (unknown) date) 130/79 138/73 unknown) (unknown) (no (unknown) (unknown) Blood Pressure (units (unknown) date) unknown) (unknown) (no (unknown) (unknown) Calcium 8.3 L (units ( unknown) date) unknown) (unknown) (no (unknown) (unknown) Carbon Dioxide 25 (units (unknown) date) unknown) (unknown) (no (unknown) (unknown) Cardio:?RRR no (units (unknown) date) m/r/g. unknown) (unknown) (no (unknown) (unknown) Chest:? Normal AP (units (unknown) date) diameter and unknown) contour without kyphoscoliosis, no tachypnea, (unknown) (no (unknown) (unknown) Chief complaint: (units (unknown) date) Blood in vomit, unknown) Pain (unknown) (no (unknown) (unknown) Chloride 107 (units (u nknown) date) unknown) (unknown) (no (unknown) (unknown) Cholecystitis (units ( unknown) date) unknown) (unknown) (no (unknown) (unknown) Chronic low back (units (unknown) date) pain unknown) (unknown) (no (unknown) (unknown) Code: Full, (units (un known) date) surrogate is unknown) spouse Hugh (unknown) (no (unknown) (unknown) Conjugated (units (unk nown) date) Bilirubin 0.3 unknown) (unknown) (no (unknown) (unknown) Consult Note (units (u nknown) date) unknown) (unknown) (no (unknown) (unknown) Consult details (units (unknown) date) unknown) (unknown) (no (unknown) (unknown) Creatinine 0.67 (units (unknown) date) unknown) (unknown) (no (unknown) (unknown) Critical Care (units ( unknown) date) time: unknown) (unknown) (no (unknown) (unknown) : 1985 (units (unknown) date) Acct:[id number] unknown) (unknown) (no (unknown) (unknown) DVT: SCD (units (unkno wn) date) unknown) (unknown) (no (unknown) (unknown) Date Patient (units (u nknown) date) Seen: 07/10/22 unknown) (unknown) (no (unknown) (unknown) Date of Service: (units (unknown) date) 07/08/22 unknown) (unknown) (no (unknown) (unknown) Diabetes mellitus (units (unknown) date) unknown) (unknown) (no (unknown) (unknown) ER as she has been (units (unknown) date) boarding for a few unknown) days awaiting transfer. H/h dropped to 6.8 (unknown) (no (unknown) (unknown) Eos # (Auto) 100 (units (unknown) date) unknown) (unknown) (no (unknown) (unknown) Eos % (Auto) 1.8 (units (unknown) date) L unknown) (unknown) (no (unknown) (unknown) Estimated GFR > (units (unknown) date) 60 unknown) (unknown) (no (unknown) (unknown) Exam Narrative: (units (unknown) date) unknown) (unknown) (no (unknown) (unknown) Exam (units (unkno wn) date) unknown) (unknown) (no (unknown) (unknown) Extremities: No (units (unknown) date) edema or joint unknown) effusions. No cyanosis or clubbing. (unknown) (no (unknown) (unknown) Family History (units (unknown) date) (Reviewed 07/10/22 unknown) @ 21:50 by Aureliano Low DO) (unknown) (no (unknown) (unknown) Father (units (unkno wn) date) Hypertension unknown) (unknown) (no (unknown) (unknown) Fibromyalgia (units (u nknown) date) unknown) (unknown) (no (unknown) (unknown) General:? Patient (units (unknown) date) is well developed unknown) and well nourished, in no distress at this (unknown) (no (unknown) (unknown) Globulin 3.1 (units (u nknown) date) unknown) (unknown) (no (unknown) (unknown) Glucose 72 (units (unk nown) date) unknown) (unknown) (no (unknown) (unknown) HEENT:? (units (unkno wn) date) Normocephalic, unknown) atraumatic, extraocular muscles intact, oral pharynx is (unknown) (no (unknown) (unknown) Hct 24.7 L 24.6 L (units (unknown) date) unknown) (unknown) (no (unknown) (unknown) Hgb 8.3 L 8.3 L (units (unknown) date) unknown) (unknown) (no (unknown) (unknown) History of (units (unk nown) date) Present Illness unknown) (unknown) (no (unknown) (unknown) History of (units (unk nown) date) tonsillectomy and unknown) adenoidectomy (unknown) (no (unknown) (unknown) Home Medications (units (unknown) date) and Allergies unknown) (unknown) (no (unknown) (unknown) Home Medications (units (unknown) date) unknown) (unknown) (no (unknown) (unknown) Hypercoagulable (units (unknown) date) state unknown) (unknown) (no (unknown) (unknown) Hypertension (units (u nknown) date) unknown) (unknown) (no (unknown) (unknown) I have utilized (units (unknown) date) all available unknown) immediate resources to obtain, update, or review (unknown) (no (unknown) (unknown) I spent a total (units (unknown) date) of [] minutes of unknown) critical care time on this patient's care (unknown) (no (unknown) (unknown) IUD (intrauterine (units (unknown) date) device) in place unknown) (unknown) (no (unknown) (unknown) IV BID (units (unkno wn) date) unknown) (unknown) (no (unknown) (unknown) [facility] (units (unknown) date) [address] [place] [address] unknown) [place] [address] (unknown) (no (unknown) (unknown) Laboratory (units (unk nown) date) Results - last unknown) hr (unknown) (no (unknown) (unknown) Labs (units (unkno wn) date) unknown) (unknown) (no (unknown) (unknown) Labs: (units (unkno wn) date) unknown) (unknown) (no (unknown) (unknown) Lipase 118 (units (unk nown) date) unknown) (unknown) (no (unknown) (unknown) Lungs:? CTA b/l (units (unknown) date) no wheezing unknown) rhonchi or rales. (unknown) (no (unknown) (unknown) Lymph # (Auto) (units (unknown) date) 2200 unknown) (unknown) (no (unknown) (unknown) Lymph % (Auto) (units (unknown) date) 29.0 unknown) (unknown) (no (unknown) (unknown) MCH 32.0 (units (unkno wn) date) unknown) (unknown) (no (unknown) (unknown) MCHC 33.8 (units (unkn own) date) unknown) (unknown) (no (unknown) (unknown) MCV 94.4 (units (unkno wn) date) unknown) (unknown) (no (unknown) (unknown) Medical History (units (unknown) date) (Reviewed 07/10/22 unknown) @ 21:50 by Aureliano Low DO) (unknown) (no (unknown) (unknown) Medication (units (unk nown) date) Instructions unknown) Recorded Confirmed Type (unknown) (no (unknown) (unknown) Meds (units (unkno wn) date) unknown) (unknown) (no (unknown) (unknown) Pope # (Auto) 900 (units (unknown) date) unknown) (unknown) (no (unknown) (unknown) Pope % (Auto) (units ( unknown) date) 12.1 unknown) (unknown) (no (unknown) (unknown) Mother Hepatic (units (unknown) date) disease unknown) (unknown) (no (unknown) (unknown) Musculoskeletal:? (units (unknown) date) Muscle strength unknown) and tone are equal within normal limits, no (unknown) (no (unknown) (unknown) Narrative (units (unkn own) date) unknown) (unknown) (no (unknown) (unknown) Narrative: (units (unk nown) date) unknown) (unknown) (no (unknown) (unknown) Neck: supple and (units (unknown) date) symmetric, trachea unknown) is midline, no cervical adenopathy. Negative (unknown) (no (unknown) (unknown) Neuro:? Alert and (units (unknown) date) orientated x3,? unknown) sensation to touch intact in all extremities, (unknown) (no (unknown) (unknown) Neut # (Auto) (units ( unknown) date) 4200 unknown) (unknown) (no (unknown) (unknown) Neut % (Auto) (units ( unknown) date) 55.8 unknown) (unknown) (no (unknown) (unknown) Objective (units (unkn own) date) unknown) (unknown) (no (unknown) (unknown) Oxygen Delivery (units (unknown) date) Method Room Air unknown) (unknown) (no (unknown) (unknown) PFSH (units (unkno wn) date) unknown) (unknown) (no (unknown) (unknown) Pancreatitis (units (u nknown) date) unknown) (unknown) (no (unknown) (unknown) Patient: (units (unkno wn) date) Rosaura Witt unknown) MR#: M (unknown) (no (unknown) (unknown) Plt Count 113 L (units (unknown) date) unknown) (unknown) (no (unknown) (unknown) Potassium 3.7 (units ( unknown) date) unknown) (unknown) (no (unknown) (unknown) Primary biliary (units (unknown) date) cirrhosis unknown) (unknown) (no (unknown) (unknown) 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 She has had (unknown) (no (unknown) (unknown) Provider: (units (unkn own) date) Aureliano Low unknown) D.O. (unknown) (no (unknown) (unknown) Psych:? Patient (units (unknown) date) has a well-kept unknown) appearance, appropriate affect, mental status (unknown) (no (unknown) (unknown) Pulse Oximetry 98 (units (unknown) date) unknown) (unknown) (no (unknown) (unknown) Pulse Oximetry 99 (units (unknown) date) 99 unknown) (unknown) (no (unknown) (unknown) Pulse Rate 85 84 (units (unknown) date) unknown) (unknown) (no (unknown) (unknown) Pulse Rate 87 (units ( unknown) date) unknown) (unknown) (no (unknown) (unknown) RBC 2.61 L (units (unk nown) date) unknown) (unknown) (no (unknown) (unknown) RDW 18.3 H (units (unk nown) date) unknown) (unknown) (no (unknown) (unknown) Respiratory Rate (units (unknown) date) 18 unknown) (unknown) (no (unknown) (unknown) Respiratory Rate (units (unknown) date) unknown) (unknown) (no (unknown) (unknown) Result Diagrams: (units (unknown) date) unknown) (unknown) (no (unknown) (unknown) Review of Systems (units (unknown) date) unknown) (unknown) (no (unknown) (unknown) Rheumatoid (units (unk nown) date) arthritis unknown) (unknown) (no (unknown) (unknown) Rx (units (unkno wn) date) unknown) (unknown) (no (unknown) (unknown) Signed By: (units (unk nown) date) unknown) (unknown) (no (unknown) (unknown) Skin:? Pale,? (units ( unknown) date) Warm to touch,dry unknown) and intact without rashes, ulcerations or (unknown) (no (unknown) (unknown) Smoking Status: (units (unknown) date) Current every day unknown) smoker (unknown) (no (unknown) (unknown) Social History (units (unknown) date) unknown) (unknown) (no (unknown) (unknown) Sodium 141 (units (unk nown) date) unknown) (unknown) (no (unknown) (unknown) Sulfa (units (unkno wn) date) (Sulfonamide unknown) Allergy Intermediate Hives Verified 07/10/22 14:57 (unknown) (no (unknown) (unknown) Surgical History (units (unknown) date) (Reviewed 07/10/22 unknown) @ 21:50 by Aureliano Low DO) (unknown) (no (unknown) (unknown) This is a 36 year (units (unknown) date) old female with unknown) PMH of EtOH cirrhosis and recent EtOH (unknown) (no (unknown) (unknown) Time Patient (units (u nknown) date) Seen: 18:30 unknown) (unknown) (no (unknown) (unknown) Time Spent With (units (unknown) date) Patient unknown) (unknown) (no (unknown) (unknown) Tobacco + (units (unkn own) date) Substance Use unknown) (unknown) (no (unknown) (unknown) Total Bilirubin (units (unknown) date) 6.4 H unknown) (unknown) (no (unknown) (unknown) Total Protein 6.2 (units (unknown) date) L unknown) (unknown) (no (unknown) (unknown) Unconjugated (units (u nknown) date) Bilirubin 4.0 H unknown) (unknown) (no (unknown) (unknown) Vital Signs (units (un known) date) unknown) (unknown) (no (unknown) (unknown) WBC 7.6 (units (unkno wn) date) unknown) (unknown) (no (unknown) (unknown) [Embedded Image (units (unknown) date) Not Available] unknown) (unknown) (no (unknown) (unknown) admission to (units (u nknown) date) [facility] unknown) (discharged 07/04/22). (unknown) (no (unknown) (unknown) alcohol intake: (units (unknown) date) current unknown) (unknown) (no (unknown) (unknown) anxiety/nausea/vo (units (unknown) date) miting #20 tabs unknown) (unknown) (no (unknown) (unknown) attitude thought (units (unknown) date) context and unknown) judgment are appropriate for age. (unknown) (no (unknown) (unknown) been awaiting (units (u nknown) date) transfer for EGD unknown) as patient requires GI intervention given history (unknown) (no (unknown) (unknown) breakthrough. (units ( unknown) date) Continue to wean unknown) opiates as tolerated. (unknown) (no (unknown) (unknown) bupropion [From (units (unknown) date) Wellbutrin] unknown) AdvReac Severe Seizure Verified 07/08/22 20:37 (unknown) (no (unknown) (unknown) clear and mucous (units (unknown) date) membranes are unknown) moist. (unknown) (no (unknown) (unknown) deformity. (units (unk nown) date) unknown) (unknown) (no (unknown) (unknown) diagnostic (units (unk nown) date) paracentesis for unknown) SBP rule out, making the diagnosis less likely. (unknown) (no (unknown) (unknown) diazepam 10 mg (units (unknown) date) tablet 10 mg PO unknown) BEDTIME PRN anxiety/sleep 06/28/22 Rx (unknown) (no (unknown) (unknown) ea (units (unkno wn) date) unknown) (unknown) (no (unknown) (unknown) equal chest rise (units (unknown) date) bilaterally. unknown) (unknown) (no (unknown) (unknown) fever, chills, (units ( unknown) date) chest pain, unknown) shortness of breath. She has some intermittent nausea (unknown) (no (unknown) (unknown) folic acid 1 mg (units (unknown) date) tablet 1 mg PO unknown) DAILY #30 tabs 02/17/22 04/23/22 Rx (unknown) (no (unknown) (unknown) for JVD (units (unkno wn) date) unknown) (unknown) (no (unknown) (unknown) has been slowly (units (unknown) date) uptrending. She unknown) had not had any more alcohol after recent (unknown) (no (unknown) (unknown) hematemesis to (units (unknown) date) the ER a few days unknown) ago now (07/08). Patient states she had a (unknown) (no (unknown) (unknown) hepatitis on (units (u nknown) date) prednisone therapy unknown) who presented with abdominal pain and (unknown) (no (unknown) (unknown) household (units (unkn own) date) members: spouse unknown) and children (unknown) (no (unknown) (unknown) hydrocodone (units (un known) date) Allergy Severe unknown) Hives Verified 07/08/22 20:37 (unknown) (no (unknown) (unknown) hydroxyzine HCl (units (unknown) date) 25 mg tablet 25 mg unknown) PO TID PRN 06/28/22 Rx (unknown) (no (unknown) (unknown) in [facility]. (units (un known) date) unknown) (unknown) (no (unknown) (unknown) ketorolac [From (units (unknown) date) Toradol] Allergy unknown) Severe Hives Verified 07/08/22 20:37 (unknown) (no (unknown) (unknown) labs appear (units (un known) date) improved here thus unknown) far. (unknown) (no (unknown) (unknown) lactulose. (units (unk nown) date) unknown) (unknown) (no (unknown) (unknown) lidocaine 5 % (units (u nknown) date) topical patch 1 unknown) patch topical DAILY PRN pain #15 03/23/22 04/23/22 (unknown) (no (unknown) (unknown) mcg tablet (units (unk nown) date) (Tab-A-Erendira) unknown) (unknown) (no (unknown) (unknown) melatonin 5 mg (units (unknown) date) tablet 5 mg PO unknown) BEDTIME sleep #30 tabs 02/17/22 07/10/22 Rx (unknown) (no (unknown) (unknown) mg tablet (units (unkn own) date) unknown) (unknown) (no (unknown) (unknown) mirtazapine 15 mg (units (unknown) date) tablet 15 mg PO unknown) DAILY 07/10/22 07/10/22 History (unknown) (no (unknown) (unknown) morphine Allergy (units (unknown) date) Intermediate Rash unknown) Verified 07/08/22 20:37 (unknown) (no (unknown) (unknown) multivitamin with (units (unknown) date) folic acid 400 1 unknown) tab PO DAILY #30 tabs 02/17/22 07/10/22 Rx (unknown) (no (unknown) (unknown) no further (units (unkn own) date) episodes since ER unknown) arrival. She denies melena or BRBPR. She denies any (unknown) (no (unknown) (unknown) no gross deficits (units (unknown) date) noted of cranial unknown) nerves. (unknown) (no (unknown) (unknown) of varices. (units (un known) date) Medicine was asked unknown) to consult for assistance with management in the (unknown) (no (unknown) (unknown) ondansetron 4 mg (units (unknown) date) disintegrating 4 unknown) mg PO Q8H PRN nausea and 06/28/22 07/10/22 Rx (unknown) (no (unknown) (unknown) pantoprazole 40 (units (unknown) date) mg tablet,delayed unknown) 40 mg PO 0700,2100 #60 tabs 02/17/22 07/10/22 (unknown) (no (unknown) (unknown) petechiae.? (units (un known) date) unknown) (unknown) (no (unknown) (unknown) prednisone 10 mg (units (unknown) date) tablet 10 mg PO unknown) DAILY 07/10/22 07/10/22 History (unknown) (no (unknown) (unknown) release (units (unkno wn) date) unknown) (unknown) (no (unknown) (unknown) smaller amount of (units (unknown) date) hematemesis than unknown) previous episode where she was transferred to (unknown) (no (unknown) (unknown) stated. (units (unkno wn) date) unknown) (unknown) (no (unknown) (unknown) substance use (units ( unknown) date) type: does not use unknown) (unknown) (no (unknown) (unknown) sucralfate 1 gram (units (unknown) date) tablet 1 g PO ACHS unknown) #120 tabs 02/17/22 07/10/22 Rx (unknown) (no (unknown) (unknown) tablet vomiting (units (unknown) date) #14 tabs unknown) (unknown) (no (unknown) (unknown) the patient's (units ( unknown) date) current unknown) medications. (unknown) (no (unknown) (unknown) thiamine (units (unkno wn) date) mononitrate (vit unknown) B1) 100 100 mg PO DAILY #30 tabs 02/17/22 07/10/22 Rx (unknown) (no (unknown) (unknown) time. (units (unkno wn) date) unknown) (unknown) (no (unknown) (unknown) tizanidine 4 mg (units (unknown) date) tablet 4 mg PO BID unknown) PRN Muscle Spasm 07/10/22 07/10/22 History (unknown) (no (unknown) (unknown) today; this time (units (unknown) date) is exclusive of unknown) procedural time. (unknown) (no (unknown) (unknown) tramadol Allergy (units (unknown) date) Intermediate unknown) Headache Verified 07/08/22 20:37 (unknown) (no (unknown) (unknown) unable to undergo (units (unknown) date) endoscopy here unknown) with general surgery given her previous known (unknown) (no (unknown) (unknown) varices with (units (u nknown) date) recent bleeding. unknown) (unknown) (no (unknown) (unknown) when she was (units (u nknown) date) given transfusion unknown) of 2 U PRBC. She has since improved to 8.3 and (unknown) (no (unknown) (unknown) with food. She (units (unknown) date) was finally able unknown) to tolerate some clear liquids today. She has (unknown) (no (unknown) (unknown) with pain. (units (unk nown) date) Epigastric pain is unknown) burning in nature, non-radiating, and worsened Result panel 35 (unknown) (no (unknown) (unknown) (no value) (units (unk nown) date) unknown) (unknown) (no (unknown) (unknown) #14 tabs (units (unkno wn) date) unknown) (unknown) (no (unknown) (unknown) (past 8 hours): (units (unknown) date) unknown) (unknown) (no (unknown) (unknown) - Given GI (units (unk nown) date) recommendation for unknown) EGD, continue to recommend transfer as she is (unknown) (no (unknown) (unknown) - Goal Hg >7. (units ( unknown) date) unknown) (unknown) (no (unknown) (unknown) - bedside (units (unkn own) date) abdominal unknown) ultrasound was performed, there is not enough fluid for (unknown) (no (unknown) (unknown) - continue (units (unk nown) date) octreotide unknown) infusion per GI recommendations, PPI increased to 40 mg (unknown) (no (unknown) (unknown) - continue to (units ( unknown) date) follow h/h daily unknown) or as needed (unknown) (no (unknown) (unknown) - have ordered (units (unknown) date) oral pain unknown) medications of dilaudid 2-4 mg prn, and IV for (unknown) (no (unknown) (unknown) - if confusion (units (unknown) date) develops, she has unknown) history of encephalopathy and would recommend (unknown) (no (unknown) (unknown) - patient has not (units (unknown) date) had alcohol intake unknown) since late june when she was admitted (unknown) (no (unknown) (unknown) - restarted home (units (unknown) date) prednisone 10 mg unknown) which is for recent alcoholic hepatitis. Her (unknown) (no (unknown) (unknown) - resumed home (units (unknown) date) sucralfate. unknown) (unknown) (no (unknown) (unknown) [phone] (units (unkn own) date) unknown) (unknown) (no (unknown) (unknown) 05:49 13:10 13:10 (units (unknown) date) unknown) (unknown) (no (unknown) (unknown) 1. Upper GI (units (un known) date) bleeding with unknown) acute blood loss anemia. (unknown) (no (unknown) (unknown) 07/10/22 07/10/22 (units (unknown) date) 07/10/22 unknown) (unknown) (no (unknown) (unknown) 07/10/22 13:10 (units (unknown) date) unknown) (unknown) (no (unknown) (unknown) 07/10/22 2207 (units ( unknown) date) unknown) (unknown) (no (unknown) (unknown) 07/10/22 (units (unkno wn) date) unknown) (unknown) (no (unknown) (unknown) 13:03 07/10/22 (units (unknown) date) unknown) (unknown) (no (unknown) (unknown) 17:13 (units (unkno wn) date) unknown) (unknown) (no (unknown) (unknown) 2. 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 (units (unknown) date) lower abdominal unknown) striae. (unknown) (no (unknown) (unknown) Age/Sex: 36 / F (units (unknown) date) unknown) (unknown) (no (unknown) (unknown) Albumin 3.1 L (units ( unknown) date) unknown) (unknown) (no (unknown) (unknown) Albumin/Globulin (units (unknown) date) Ratio 1.0 unknown) (unknown) (no (unknown) (unknown) Alcohol abuse (units ( unknown) date) unknown) (unknown) (no (unknown) (unknown) Alcoholic liver (units (unknown) date) disease unknown) (unknown) (no (unknown) (unknown) Alkaline (units (unkno wn) date) Phosphatase 87 D unknown) (unknown) (no (unknown) (unknown) All other systems (units (unknown) date) reviewed with the unknown) patient and are negative unless otherwise (unknown) (no (unknown) (unknown) Allergies (units (unkn own) date) unknown) (unknown) (no (unknown) (unknown) Allergy/AdvReac (units (unknown) date) Type Severity unknown) Reaction Status Date / Time (unknown) (no (unknown) (unknown) Antibiotics) (units (u nknown) date) unknown) (unknown) (no (unknown) (unknown) Assessment + Plan (units (unknown) date) narrative: unknown) (unknown) (no (unknown) (unknown) Assessment + Plan (units (unknown) date) unknown) (unknown) (no (unknown) (unknown) At this time, (units ( unknown) date) continue to unknown) recommend transfer to facility with GI interventions (unknown) (no (unknown) (unknown) BUN 6 L (units (unkno wn) date) unknown) (unknown) (no (unknown) (unknown) BUN/Creatinine (units (unknown) date) Ratio 9.0 unknown) (unknown) (no (unknown) (unknown) Baso # (Auto) 100 (units (unknown) date) unknown) (unknown) (no (unknown) (unknown) Baso % (Auto) 1.3 (units (unknown) date) unknown) (unknown) (no (unknown) (unknown) Blood Pressure (units (unknown) date) 130/79 138/73 unknown) (unknown) (no (unknown) (unknown) Blood Pressure (units (unknown) date) unknown) (unknown) (no (unknown) (unknown) Calcium 8.3 L (units ( unknown) date) unknown) (unknown) (no (unknown) (unknown) Carbon Dioxide 25 (units (unknown) date) unknown) (unknown) (no (unknown) (unknown) Cardio:?RRR no (units (unknown) date) m/r/g. unknown) (unknown) (no (unknown) (unknown) Chest:? Normal AP (units (unknown) date) diameter and unknown) contour without kyphoscoliosis, no tachypnea, (unknown) (no (unknown) (unknown) Chief complaint: (units (unknown) date) Blood in vomit, unknown) Pain (unknown) (no (unknown) (unknown) Chloride 107 (units (u nknown) date) unknown) (unknown) (no (unknown) (unknown) Cholecystitis (units ( unknown) date) unknown) (unknown) (no (unknown) (unknown) Chronic low back (units (unknown) date) pain unknown) (unknown) (no (unknown) (unknown) Code: Full, (units (un known) date) surrogate is unknown) spouse Hugh (unknown) (no (unknown) (unknown) Conjugated (units (unk nown) date) Bilirubin 0.3 unknown) (unknown) (no (unknown) (unknown) Consult Note (units (u nknown) date) unknown) (unknown) (no (unknown) (unknown) Consult details (units (unknown) date) unknown) (unknown) (no (unknown) (unknown) Creatinine 0.67 (units (unknown) date) unknown) (unknown) (no (unknown) (unknown) Critical Care (units ( unknown) date) time: unknown) (unknown) (no (unknown) (unknown) : 1985 (units (unknown) date) Acct:[id number] unknown) (unknown) (no (unknown) (unknown) DVT: SCD (units (unkno wn) date) unknown) (unknown) (no (unknown) (unknown) Date Patient (units (u nknown) date) Seen: 07/10/22 unknown) (unknown) (no (unknown) (unknown) Date of Service: (units (unknown) date) 07/08/22 unknown) (unknown) (no (unknown) (unknown) Diabetes mellitus (units (unknown) date) unknown) (unknown) (no (unknown) (unknown) ER as she has been (units (unknown) date) boarding for a few unknown) days awaiting transfer. H/h dropped to 6.8 (unknown) (no (unknown) (unknown) Eos # (Auto) 100 (units (unknown) date) unknown) (unknown) (no (unknown) (unknown) Eos % (Auto) 1.8 (units (unknown) date) L unknown) (unknown) (no (unknown) (unknown) Estimated GFR > (units (unknown) date) 60 unknown) (unknown) (no (unknown) (unknown) Exam Narrative: (units (unknown) date) unknown) (unknown) (no (unknown) (unknown) Exam (units (unkno wn) date) unknown) (unknown) (no (unknown) (unknown) Extremities: No (units (unknown) date) edema or joint unknown) effusions. No cyanosis or clubbing. (unknown) (no (unknown) (unknown) Family History (units (unknown) date) (Reviewed 07/10/22 unknown) @ 21:50 by Aureliano Low DO) (unknown) (no (unknown) (unknown) Father (units (unkno wn) date) Hypertension unknown) (unknown) (no (unknown) (unknown) Fibromyalgia (units (u nknown) date) unknown) (unknown) (no (unknown) (unknown) General:? Patient (units (unknown) date) is well developed unknown) and well nourished, in no distress at this (unknown) (no (unknown) (unknown) Globulin 3.1 (units (u nknown) date) unknown) (unknown) (no (unknown) (unknown) Glucose 72 (units (unk nown) date) unknown) (unknown) (no (unknown) (unknown) HEENT:? (units (unkno wn) date) Normocephalic, unknown) atraumatic, extraocular muscles intact, oral pharynx is (unknown) (no (unknown) (unknown) Hct 24.7 L 24.6 L (units (unknown) date) unknown) (unknown) (no (unknown) (unknown) Hgb 8.3 L 8.3 L (units (unknown) date) unknown) (unknown) (no (unknown) (unknown) History of (units (unk nown) date) Present Illness unknown) (unknown) (no (unknown) (unknown) History of (units (unk nown) date) tonsillectomy and unknown) adenoidectomy (unknown) (no (unknown) (unknown) Home Medications (units (unknown) date) and Allergies unknown) (unknown) (no (unknown) (unknown) Home Medications (units (unknown) date) unknown) (unknown) (no (unknown) (unknown) Hypercoagulable (units (unknown) date) state unknown) (unknown) (no (unknown) (unknown) Hypertension (units (u nknown) date) unknown) (unknown) (no (unknown) (unknown) I have utilized (units (unknown) date) all available unknown) immediate resources to obtain, update, or review (unknown) (no (unknown) (unknown) I spent a total (units (unknown) date) of [] minutes of unknown) critical care time on this patient's care (unknown) (no (unknown) (unknown) IUD (intrauterine (units (unknown) date) device) in place unknown) (unknown) (no (unknown) (unknown) IV BID (units (unkno wn) date) unknown) (unknown) (no (unknown) (unknown) [facility] (units (unknown) date) [address] unknown) [place] [id number] (unknown) (no (unknown) (unknown) Laboratory (units (unk nown) date) Results - last 24 unknown) hr (unknown) (no (unknown) (unknown) Labs (units (unkno wn) date) unknown) (unknown) (no (unknown) (unknown) Labs: (units (unkno wn) date) unknown) (unknown) (no (unknown) (unknown) Lipase 118 (units (unk nown) date) unknown) (unknown) (no (unknown) (unknown) Lungs:? CTA b/l (units (unknown) date) no wheezing unknown) rhonchi or rales. (unknown) (no (unknown) (unknown) Lymph # (Auto) (units (unknown) date) 2200 unknown) (unknown) (no (unknown) (unknown) Lymph % (Auto) (units (unknown) date) 29.0 unknown) (unknown) (no (unknown) (unknown) MCH 32.0 (units (unkno wn) date) unknown) (unknown) (no (unknown) (unknown) MCHC 33.8 (units (unkn own) date) unknown) (unknown) (no (unknown) (unknown) MCV 94.4 (units (unkno wn) date) unknown) (unknown) (no (unknown) (unknown) Medical History (units (unknown) date) (Reviewed 07/10/22 unknown) @ 21:50 by Aureliano Low DO) (unknown) (no (unknown) (unknown) Medication (units (unk nown) date) Instructions unknown) Recorded Confirmed Type (unknown) (no (unknown) (unknown) Meds (units (unkno wn) date) unknown) (unknown) (no (unknown) (unknown) Pope # (Auto) 900 (units (unknown) date) unknown) (unknown) (no (unknown) (unknown) Pope % (Auto) (units ( unknown) date) 12.1 unknown) (unknown) (no (unknown) (unknown) Mother Hepatic (units (unknown) date) disease unknown) (unknown) (no (unknown) (unknown) Musculoskeletal:? (units (unknown) date) Muscle strength unknown) and tone are equal within normal limits, no (unknown) (no (unknown) (unknown) Narrative (units (unkn own) date) unknown) (unknown) (no (unknown) (unknown) Narrative: (units (unk nown) date) unknown) (unknown) (no (unknown) (unknown) Neck: supple and (units (unknown) date) symmetric, trachea unknown) is midline, no cervical adenopathy. Negative (unknown) (no (unknown) (unknown) Neuro:? Alert and (units (unknown) date) orientated x3,? unknown) sensation to touch intact in all extremities, (unknown) (no (unknown) (unknown) Neut # (Auto) (units ( unknown) date) 4200 unknown) (unknown) (no (unknown) (unknown) Neut % (Auto) (units ( unknown) date) 55.8 unknown) (unknown) (no (unknown) (unknown) Objective (units (unkn own) date) unknown) (unknown) (no (unknown) (unknown) Oxygen Delivery (units (unknown) date) Method Room Air unknown) (unknown) (no (unknown) (unknown) PFSH (units (unkno wn) date) unknown) (unknown) (no (unknown) (unknown) Pancreatitis (units (u nknown) date) unknown) (unknown) (no (unknown) (unknown) Patient: (units (unkno wn) date) Rosaura Witt unknown) MR#: M (unknown) (no (unknown) (unknown) Plt Count 113 L (units (unknown) date) unknown) (unknown) (no (unknown) (unknown) Potassium 3.7 (units ( unknown) date) unknown) (unknown) (no (unknown) (unknown) Primary biliary (units (unknown) date) cirrhosis unknown) (unknown) (no (unknown) (unknown) 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 She has had (unknown) (no (unknown) (unknown) Provider: (units (unkn own) date) Aureliano Low unknown) D.O. (unknown) (no (unknown) (unknown) Psych:? Patient (units (unknown) date) has a well-kept unknown) appearance, appropriate affect, mental status (unknown) (no (unknown) (unknown) Pulse Oximetry 98 (units (unknown) date) unknown) (unknown) (no (unknown) (unknown) Pulse Oximetry 99 (units (unknown) date) 99 unknown) (unknown) (no (unknown) (unknown) Pulse Rate 85 84 (units (unknown) date) unknown) (unknown) (no (unknown) (unknown) Pulse Rate 87 (units ( unknown) date) unknown) (unknown) (no (unknown) (unknown) RBC 2.61 L (units (unk nown) date) unknown) (unknown) (no (unknown) (unknown) RDW 18.3 H (units (unk nown) date) unknown) (unknown) (no (unknown) (unknown) Reason for (units (unk nown) date) consult: unknown) hematemesis (unknown) (no (unknown) (unknown) Requesting (units (unk nown) date) provider: Neil diaz) Roro (unknown) (no (unknown) (unknown) Respiratory Rate (units (unknown) date) 18 unknown) (unknown) (no (unknown) (unknown) Respiratory Rate (units (unknown) date) unknown) (unknown) (no (unknown) (unknown) Result Diagrams: (units (unknown) date) unknown) (unknown) (no (unknown) (unknown) Review of Systems (units (unknown) date) unknown) (unknown) (no (unknown) (unknown) Rheumatoid (units (unk nown) date) arthritis unknown) (unknown) (no (unknown) (unknown) Rx (units (unkno wn) date) unknown) (unknown) (no (unknown) (unknown) Signed (units (unkno wn) date) By:<Electronically unknown) signed by Aureliano Low D.O.> (unknown) (no (unknown) (unknown) Skin:? Pale,? (units ( unknown) date) Warm to touch,dry unknown) and intact without rashes, ulcerations or (unknown) (no (unknown) (unknown) Smoking Status: (units (unknown) date) Current every day unknown) smoker (unknown) (no (unknown) (unknown) Social History (units (unknown) date) unknown) (unknown) (no (unknown) (unknown) Sodium 141 (units (unk nown) date) unknown) (unknown) (no (unknown) (unknown) Sulfa (units (unkno wn) date) (Sulfonamide unknown) Allergy Intermediate Hives Verified 07/10/22 14:57 (unknown) (no (unknown) (unknown) Surgical History (units (unknown) date) (Reviewed 07/10/22 unknown) @ 21:50 by Aureliano Low DO) (unknown) (no (unknown) (unknown) This is a 36 year (units (unknown) date) old female with unknown) PMH of EtOH cirrhosis and recent EtOH (unknown) (no (unknown) (unknown) Time Patient (units (u nknown) date) Seen: 18:30 unknown) (unknown) (no (unknown) (unknown) Time Spent With (units (unknown) date) Patient unknown) (unknown) (no (unknown) (unknown) Tobacco + (units (unkn own) date) Substance Use unknown) (unknown) (no (unknown) (unknown) Total Bilirubin (units (unknown) date) 6.4 H unknown) (unknown) (no (unknown) (unknown) Total Protein 6.2 (units (unknown) date) L unknown) (unknown) (no (unknown) (unknown) Unconjugated (units (u nknown) date) Bilirubin 4.0 H unknown) (unknown) (no (unknown) (unknown) Vital Signs (units (un known) date) unknown) (unknown) (no (unknown) (unknown) WBC 7.6 (units (unkno wn) date) unknown) (unknown) (no (unknown) (unknown) [Embedded Image (units (unknown) date) Not Available] unknown) (unknown) (no (unknown) (unknown) admission to (units (u nknown) date) [facility] unknown) (discharged 07/04/22). (unknown) (no (unknown) (unknown) alcohol intake: (units (unknown) date) current unknown) (unknown) (no (unknown) (unknown) anxiety/nausea/vo (units (unknown) date) miting #20 tabs unknown) (unknown) (no (unknown) (unknown) attitude thought (units (unknown) date) context and unknown) judgment are appropriate for age. (unknown) (no (unknown) (unknown) been awaiting (units (u nknown) date) transfer for EGD unknown) as patient requires GI intervention given history (unknown) (no (unknown) (unknown) breakthrough. (units ( unknown) date) Continue to wean unknown) opiates as tolerated. (unknown) (no (unknown) (unknown) bupropion [From (units (unknown) date) Wellbutrin] unknown) AdvReac Severe Seizure Verified 07/08/22 20:37 (unknown) (no (unknown) (unknown) clear and mucous (units (unknown) date) membranes are unknown) moist. (unknown) (no (unknown) (unknown) deformity. (units (unk nown) date) unknown) (unknown) (no (unknown) (unknown) diagnostic (units (unk nown) date) paracentesis for unknown) SBP rule out, making the diagnosis less likely. (unknown) (no (unknown) (unknown) diazepam 10 mg (units (unknown) date) tablet 10 mg PO unknown) BEDTIME PRN anxiety/sleep 06/28/22 Rx (unknown) (no (unknown) (unknown) ea (units (unkno wn) date) unknown) (unknown) (no (unknown) (unknown) equal chest rise (units (unknown) date) bilaterally. unknown) (unknown) (no (unknown) (unknown) fever, chills, (units ( unknown) date) chest pain, unknown) shortness of breath. She has some intermittent nausea (unknown) (no (unknown) (unknown) folic acid 1 mg (units (unknown) date) tablet 1 mg PO unknown) DAILY #30 tabs 02/17/22 04/23/22 Rx (unknown) (no (unknown) (unknown) for JVD (units (unkno wn) date) unknown) (unknown) (no (unknown) (unknown) for endoscopy. (units (unknown) date) Will continue to unknown) assist with management while in the ER. (unknown) (no (unknown) (unknown) has been slowly (units (unknown) date) uptrending. She unknown) had not had any more alcohol after recent (unknown) (no (unknown) (unknown) hematemesis to (units (unknown) date) the ER a few days unknown) ago now (07/08). Patient states she had a (unknown) (no (unknown) (unknown) hepatitis on (units (u nknown) date) prednisone therapy unknown) who presented with abdominal pain and (unknown) (no (unknown) (unknown) household (units (unkn own) date) members: spouse unknown) and children (unknown) (no (unknown) (unknown) hydrocodone (units (un known) date) Allergy Severe unknown) Hives Verified 07/08/22 20:37 (unknown) (no (unknown) (unknown) hydroxyzine HCl (units (unknown) date) 25 mg tablet 25 mg unknown) PO TID PRN 06/28/22 Rx (unknown) (no (unknown) (unknown) in [facility]. (units (un known) date) unknown) (unknown) (no (unknown) (unknown) ketorolac [From (units (unknown) date) Toradol] Allergy unknown) Severe Hives Verified 07/08/22 20:37 (unknown) (no (unknown) (unknown) labs appear (units (un known) date) improved here thus unknown) far. (unknown) (no (unknown) (unknown) lactulose. (units (unk nown) date) unknown) (unknown) (no (unknown) (unknown) lidocaine 5 % (units (u nknown) date) topical patch 1 unknown) patch topical DAILY PRN pain #15 03/23/04/23/22 (unknown) (no (unknown) (unknown) mcg tablet (units (unk nown) date) (Tab-A-Erendira) unknown) (unknown) (no (unknown) (unknown) melatonin 5 mg (units (unknown) date) tablet 5 mg PO unknown) BEDTIME sleep #30 tabs 02/17/22 07/10/22 Rx (unknown) (no (unknown) (unknown) mg tablet (units (unkn own) date) unknown) (unknown) (no (unknown) (unknown) mirtazapine 15 mg (units (unknown) date) tablet 15 mg PO unknown) DAILY 07/10/22 07/10/22 History (unknown) (no (unknown) (unknown) morphine Allergy (units (unknown) date) Intermediate Rash unknown) Verified 07/08/22 20:37 (unknown) (no (unknown) (unknown) multivitamin with (units (unknown) date) folic acid 400 1 unknown) tab PO DAILY #30 tabs 02/17/22 07/10/22 Rx (unknown) (no (unknown) (unknown) no further (units (unkn own) date) episodes since ER unknown) arrival. She denies melena or BRBPR. She denies any (unknown) (no (unknown) (unknown) no gross deficits (units (unknown) date) noted of cranial unknown) nerves. (unknown) (no (unknown) (unknown) of varices. (units (un known) date) Medicine was asked unknown) to consult for assistance with management in the (unknown) (no (unknown) (unknown) ondansetron 4 mg (units (unknown) date) disintegrating 4 unknown) mg PO Q8H PRN nausea and 06/28/22 07/10/22 Rx (unknown) (no (unknown) (unknown) pantoprazole 40 (units (unknown) date) mg tablet,delayed unknown) 40 mg PO 0700,2100 #60 tabs 02/17/22 07/10/22 (unknown) (no (unknown) (unknown) petechiae.? (units (un known) date) unknown) (unknown) (no (unknown) (unknown) prednisone 10 mg (units (unknown) date) tablet 10 mg PO unknown) DAILY 07/10/22 07/10/22 History (unknown) (no (unknown) (unknown) release (units (unkno wn) date) unknown) (unknown) (no (unknown) (unknown) smaller amount of (units (unknown) date) hematemesis than unknown) previous episode where she was transferred to (unknown) (no (unknown) (unknown) stated. (units (unkno wn) date) unknown) (unknown) (no (unknown) (unknown) substance use (units ( unknown) date) type: does not use unknown) (unknown) (no (unknown) (unknown) sucralfate 1 gram (units (unknown) date) tablet 1 g PO ACHS unknown) #120 tabs 02/17/22 07/10/22 Rx (unknown) (no (unknown) (unknown) tablet vomiting (units (unknown) date) #14 tabs unknown) (unknown) (no (unknown) (unknown) the patient's (units ( unknown) date) current unknown) medications. (unknown) (no (unknown) (unknown) thiamine (units (unkno wn) date) mononitrate (vit unknown) B1) 100 100 mg PO DAILY #30 tabs 02/17/22 07/10/22 Rx (unknown) (no (unknown) (unknown) time. (units (unkno wn) date) unknown) (unknown) (no (unknown) (unknown) tizanidine 4 mg (units (unknown) date) tablet 4 mg PO BID unknown) PRN Muscle Spasm 07/10/22 07/10/22 History (unknown) (no (unknown) (unknown) today; this time (units (unknown) date) is exclusive of unknown) procedural time. (unknown) (no (unknown) (unknown) tramadol Allergy (units (unknown) date) Intermediate unknown) Headache Verified 07/08/22 20:37 (unknown) (no (unknown) (unknown) unable to undergo (units (unknown) date) endoscopy here unknown) with general surgery given her previous known (unknown) (no (unknown) (unknown) varices with (units (u nknown) date) recent bleeding. unknown) (unknown) (no (unknown) (unknown) when she was (units (u nknown) date) given transfusion unknown) of 2 U PRBC. She has since improved to 8.3 and (unknown) (no (unknown) (unknown) with food. She (units (unknown) date) was finally able unknown) to tolerate some clear liquids today. She has (unknown) (no (unknown) (unknown) with pain. (units (unk nown) date) Epigastric pain is unknown) burning in nature, non-radiating, and worsened Result panel 36 (unknown) (no date) (unknown) (unknown) 1.9 (units unknown) (unknown) (unknown) (no date) (unknown) (unknown) 21.5 seconds (unkn own) (unknown) (no date) (unknown) (unknown) 41 seconds (unkn own) (unknown) (no date) (unknown) (unknown) 41 seconds (unkn own) Result panel 37 (unknown) (no date) (unknown) (unknown) 0 /ul (unkn own) (unknown) (no date) (unknown) (unknown) 0.6 % (unkn own) (unknown) (no date) (unknown) (unknown) 1.1 % (unkn own) (unknown) (no date) (unknown) (unknown) 10.8 % (unkn own) (unknown) (no date) (unknown) (unknown) 100 /ul (unkn own) (unknown) (no date) (unknown) (unknown) 123 x10 3/ul (unkn own) (unknown) (no date) (unknown) (unknown) 15.1 % (unkn own) (unknown) (no date) (unknown) (unknown) 17.6 % (unkn own) (unknown) (no date) (unknown) (unknown) 2.79 x10 6/ul (unkn own) (unknown) (no date) (unknown) (unknown) 26.0 % (unkn own) (unknown) (no date) (unknown) (unknown) 31.4 pg (unkn own) (unknown) (no date) (unknown) (unknown) 33.7 % (unkn own) (unknown) (no date) (unknown) (unknown) 4000 /ul (unkn own) (unknown) (no date) (unknown) (unknown) 5.6 x10 3/ul (unkn own) (unknown) (no date) (unknown) (unknown) 600 /ul (unkn own) (unknown) (no date) (unknown) (unknown) 72.4 % (unkn own) (unknown) (no date) (unknown) (unknown) 8.7 g/dl (unkn own) (unknown) (no date) (unknown) (unknown) 800 /ul (unkn own) (unknown) (no date) (unknown) (unknown) 93.2 fl (unkn own) Result panel 38 (unknown) (no date) (unknown) (unknown) > 60 ml/min (unkn own) (unknown) (no date) (unknown) (unknown) > 60 ml/min (unkn own) (unknown) (no date) (unknown) (unknown) 0.65 mg/dl (unkn own) (unknown) (no date) (unknown) (unknown) 1.0 (units unknown) (unknown) (unknown) (no date) (unknown) (unknown) 101 mg/dl (unkn own) (unknown) (no date) (unknown) (unknown) 101 mg/dl (unkn own) (unknown) (no date) (unknown) (unknown) 104 mmol/l (unkn own) (unknown) (no date) (unknown) (unknown) 142 mmol/l (unkn own) (unknown) (no date) (unknown) (unknown) 29 mmol/l (unkn own) (unknown) (no date) (unknown) (unknown) 3.4 g/dl (unkn own) (unknown) (no date) (unknown) (unknown) 3.4 g/dl (unkn own) (unknown) (no date) (unknown) (unknown) 3.8 mmol/l (unkn own) (unknown) (no date) (unknown) (unknown) 31 iu/l (unkn own) (unknown) (no date) (unknown) (unknown) 39 iu/l (unkn own) (unknown) (no date) (unknown) (unknown) 4 mg/dl (unkn own) (unknown) (no date) (unknown) (unknown) 6.2 (units unknown) (unknown) (unknown) (no date) (unknown) (unknown) 6.2 mg/dl (unkn own) (unknown) (no date) (unknown) (unknown) 6.8 g/dl (unkn own) (unknown) (no date) (unknown) (unknown) 8.5 mg/dl (unkn own) (unknown) (no date) (unknown) (unknown) 99 u/l (unkn own) Result panel 39 (unknown) (no (unknown) (unknown) (no value) (units (unk nown) date) unknown) (unknown) (no (unknown) (unknown) #14 tabs (units (unkno wn) date) unknown) (unknown) (no (unknown) (unknown) (past 8 hours): (units (unknown) date) unknown) (unknown) (no (unknown) (unknown) ADDENDUM (units (u nknown) date) unknown) (unknown) (no (unknown) (unknown) - Given GI (units (unk nown) date) recommendation for unknown) EGD, continue to recommend transfer as she is (unknown) (no (unknown) (unknown) - Goal Hg >7. (units ( unknown) date) unknown) (unknown) (no (unknown) (unknown) - bedside (units (unkn own) date) abdominal unknown) ultrasound was performed, there is not enough fluid for (unknown) (no (unknown) (unknown) - continue (units (unk nown) date) octreotide unknown) infusion per GI recommendations, PPI increased to 40 mg (unknown) (no (unknown) (unknown) - continue to (units ( unknown) date) follow h/h daily unknown) or as needed (unknown) (no (unknown) (unknown) - have ordered (units (unknown) date) oral pain unknown) medications of dilaudid 2-4 mg prn, and IV for (unknown) (no (unknown) (unknown) - if confusion (units (unknown) date) develops, she has unknown) history of encephalopathy and would recommend (unknown) (no (unknown) (unknown) - patient has not (units (unknown) date) had alcohol intake unknown) since late june when she was admitted (unknown) (no (unknown) (unknown) - restarted home (units (unknown) date) prednisone 10 mg unknown) which is for recent alcoholic hepatitis. Her (unknown) (no (unknown) (unknown) - resumed home (units (unknown) date) sucralfate. unknown) (unknown) (no (unknown) (unknown) .O.> 07/11/22 (units ( unknown) date) 1457 unknown) (unknown) (no (unknown) (unknown) [id number] (units (unkn own) date) unknown) (unknown) (no (unknown) (unknown) 05:49 13:10 13:10 (units (unknown) date) unknown) (unknown) (no (unknown) (unknown) 1. Upper GI (units (un known) date) bleeding with unknown) acute blood loss anemia. (unknown) (no (unknown) (unknown) 07/10/22 07/10/22 (units (unknown) date) 07/10/22 unknown) (unknown) (no (unknown) (unknown) 07/10/22 13:10 (units (unknown) date) unknown) (unknown) (no (unknown) (unknown) 07/10/22 2207 (units ( unknown) date) unknown) (unknown) (no (unknown) (unknown) 07/10/22 (units (unkno wn) date) unknown) (unknown) (no (unknown) (unknown) 07/11/22 1456 (units ( unknown) date) unknown) (unknown) (no (unknown) (unknown) 13:03 07/10/22 (units (unknown) date) unknown) (unknown) (no (unknown) (unknown) 17:13 (units (unkno wn) date) unknown) (unknown) (no (unknown) (unknown) 2. 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 (units (unknown) date) lower abdominal unknown) striae. (unknown) (no (unknown) (unknown) Addendum (units (unkno wn) date) Documented By: unknown) Aureliano Low D.O. (unknown) (no (unknown) (unknown) Addendum Signed (units (unknown) date) By: unknown) <Electronically signed by Laury Mcnair (unknown) (no (unknown) (unknown) Age/Sex: 36 / F (units (unknown) date) unknown) (unknown) (no (unknown) (unknown) Albumin 3.1 L (units ( unknown) date) unknown) (unknown) (no (unknown) (unknown) Albumin/Globulin (units (unknown) date) Ratio 1.0 unknown) (unknown) (no (unknown) (unknown) Alcohol abuse (units ( unknown) date) unknown) (unknown) (no (unknown) (unknown) Alcoholic liver (units (unknown) date) disease unknown) (unknown) (no (unknown) (unknown) Alkaline (units (unkno wn) date) Phosphatase 87 D unknown) (unknown) (no (unknown) (unknown) All other systems (units (unknown) date) reviewed with the unknown) patient and are negative unless otherwise (unknown) (no (unknown) (unknown) Allergies (units (unkn own) date) unknown) (unknown) (no (unknown) (unknown) Allergy/AdvReac (units (unknown) date) Type Severity unknown) Reaction Status Date / Time (unknown) (no (unknown) (unknown) Antibiotics) (units (u nknown) date) unknown) (unknown) (no (unknown) (unknown) Assessment + Plan (units (unknown) date) narrative: unknown) (unknown) (no (unknown) (unknown) Assessment + Plan (units (unknown) date) unknown) (unknown) (no (unknown) (unknown) At this time, (units ( unknown) date) continue to unknown) recommend transfer to facility with GI interventions (unknown) (no (unknown) (unknown) BUN 6 L (units (unkno wn) date) unknown) (unknown) (no (unknown) (unknown) BUN/Creatinine (units (unknown) date) Ratio 9.0 unknown) (unknown) (no (unknown) (unknown) Baso # (Auto) 100 (units (unknown) date) unknown) (unknown) (no (unknown) (unknown) Baso % (Auto) 1.3 (units (unknown) date) unknown) (unknown) (no (unknown) (unknown) Blood Pressure (units (unknown) date) 130/79 138/73 unknown) (unknown) (no (unknown) (unknown) Blood Pressure (units (unknown) date) unknown) (unknown) (no (unknown) (unknown) Calcium 8.3 L (units ( unknown) date) unknown) (unknown) (no (unknown) (unknown) Carbon Dioxide 25 (units (unknown) date) unknown) (unknown) (no (unknown) (unknown) Cardio:?RRR no (units (unknown) date) m/r/g. unknown) (unknown) (no (unknown) (unknown) Chest:? Normal AP (units (unknown) date) diameter and unknown) contour without kyphoscoliosis, no tachypnea, (unknown) (no (unknown) (unknown) Chief complaint: (units (unknown) date) Blood in vomit, unknown) Pain (unknown) (no (unknown) (unknown) Chloride 107 (units (u nknown) date) unknown) (unknown) (no (unknown) (unknown) Cholecystitis (units ( unknown) date) unknown) (unknown) (no (unknown) (unknown) Chronic low back (units (unknown) date) pain unknown) (unknown) (no (unknown) (unknown) Code: Full, (units (un known) date) surrogate is unknown) spouse Hugh (unknown) (no (unknown) (unknown) Conjugated (units (unk nown) date) Bilirubin 0.3 unknown) (unknown) (no (unknown) (unknown) Consult Note (units (u nknown) date) unknown) (unknown) (no (unknown) (unknown) Consult details (units (unknown) date) unknown) (unknown) (no (unknown) (unknown) Creatinine 0.67 (units (unknown) date) unknown) (unknown) (no (unknown) (unknown) Critical Care (units ( unknown) date) time: unknown) (unknown) (no (unknown) (unknown) : 1985 (units (unknown) date) Acct:[id number] unknown) (unknown) (no (unknown) (unknown) DVT: SCD (units (unkno wn) date) unknown) (unknown) (no (unknown) (unknown) Date Patient (units (u nknown) date) Seen: 07/10/22 unknown) (unknown) (no (unknown) (unknown) Date of Service: (units (unknown) date) 07/08/22 unknown) (unknown) (no (unknown) (unknown) Diabetes mellitus (units (unknown) date) unknown) (unknown) (no (unknown) (unknown) ER as she has been (units (unknown) date) boarding for a few unknown) days awaiting transfer. H/h dropped to 6.8 (unknown) (no (unknown) (unknown) Eos # (Auto) 100 (units (unknown) date) unknown) (unknown) (no (unknown) (unknown) Eos % (Auto) 1.8 (units (unknown) date) L unknown) (unknown) (no (unknown) (unknown) Estimated GFR > (units (unknown) date) 60 unknown) (unknown) (no (unknown) (unknown) Exam Narrative: (units (unknown) date) unknown) (unknown) (no (unknown) (unknown) Exam (units (unkno wn) date) unknown) (unknown) (no (unknown) (unknown) Extremities: No (units (unknown) date) edema or joint unknown) effusions. No cyanosis or clubbing. (unknown) (no (unknown) (unknown) Family History (units (unknown) date) (Reviewed 07/10/22 unknown) @ 21:50 by Aureliano Low DO) (unknown) (no (unknown) (unknown) Father (units (unkno wn) date) Hypertension unknown) (unknown) (no (unknown) (unknown) Fibromyalgia (units (u nknown) date) unknown) (unknown) (no (unknown) (unknown) General:? Patient (units (unknown) date) is well developed unknown) and well nourished, in no distress at this (unknown) (no (unknown) (unknown) Globulin 3.1 (units (u nknown) date) unknown) (unknown) (no (unknown) (unknown) Glucose 72 (units (unk nown) date) unknown) (unknown) (no (unknown) (unknown) HEENT:? (units (unkno wn) date) Normocephalic, unknown) atraumatic, extraocular muscles intact, oral pharynx is (unknown) (no (unknown) (unknown) Hct 24.7 L 24.6 L (units (unknown) date) unknown) (unknown) (no (unknown) (unknown) Hgb 8.3 L 8.3 L (units (unknown) date) unknown) (unknown) (no (unknown) (unknown) History of (units (unk nown) date) Present Illness unknown) (unknown) (no (unknown) (unknown) History of (units (unk nown) date) tonsillectomy and unknown) adenoidectomy (unknown) (no (unknown) (unknown) Home Medications (units (unknown) date) and Allergies unknown) (unknown) (no (unknown) (unknown) Home Medications (units (unknown) date) unknown) (unknown) (no (unknown) (unknown) Hypercoagulable (units (unknown) date) state unknown) (unknown) (no (unknown) (unknown) Hypertension (units (u nknown) date) unknown) (unknown) (no (unknown) (unknown) I have utilized (units (unknown) date) all available unknown) immediate resources to obtain, update, or review (unknown) (no (unknown) (unknown) I spent a total (units (unknown) date) of [] minutes of unknown) critical care time on this patient's care (unknown) (no (unknown) (unknown) IUD (intrauterine (units (unknown) date) device) in place unknown) (unknown) (no (unknown) (unknown) IV BID (units (unkno wn) date) unknown) (unknown) (no (unknown) (unknown) [facility] (units (unknown) date) [address] unknown) [place] [address] (unknown) (no (unknown) (unknown) Laboratory (units (unk nown) date) Results - last 24 unknown) hr (unknown) (no (unknown) (unknown) Labs (units (unkno wn) date) unknown) (unknown) (no (unknown) (unknown) Labs: (units (unkno wn) date) unknown) (unknown) (no (unknown) (unknown) Lipase 118 (units (unk nown) date) unknown) (unknown) (no (unknown) (unknown) Lungs:? CTA b/l (units (unknown) date) no wheezing unknown) rhonchi or rales. (unknown) (no (unknown) (unknown) Lymph # (Auto) (units (unknown) date) 2200 unknown) (unknown) (no (unknown) (unknown) Lymph % (Auto) (units (unknown) date) 29.0 unknown) (unknown) (no (unknown) (unknown) MCH 32.0 (units (unkno wn) date) unknown) (unknown) (no (unknown) (unknown) MCHC 33.8 (units (unkn own) date) unknown) (unknown) (no (unknown) (unknown) MCV 94.4 (units (unkno wn) date) unknown) (unknown) (no (unknown) (unknown) Medical History (units (unknown) date) (Reviewed 07/10/22 unknown) @ 21:50 by Aureliano Low DO) (unknown) (no (unknown) (unknown) Medication (units (unk nown) date) Instructions unknown) Recorded Confirmed Type (unknown) (no (unknown) (unknown) Meds (units (unkno wn) date) unknown) (unknown) (no (unknown) (unknown) Pope # (Auto) 900 (units (unknown) date) unknown) (unknown) (no (unknown) (unknown) Pope % (Auto) (units ( unknown) date) 12.1 unknown) (unknown) (no (unknown) (unknown) Mother Hepatic (units (unknown) date) disease unknown) (unknown) (no (unknown) (unknown) Musculoskeletal:? (units (unknown) date) Muscle strength unknown) and tone are equal within normal limits, no (unknown) (no (unknown) (unknown) Narrative (units (unkn own) date) unknown) (unknown) (no (unknown) (unknown) Narrative: (units (unk nown) date) unknown) (unknown) (no (unknown) (unknown) Neck: supple and (units (unknown) date) symmetric, trachea unknown) is midline, no cervical adenopathy. Negative (unknown) (no (unknown) (unknown) Neuro:? Alert and (units (unknown) date) orientated x3,? unknown) sensation to touch intact in all extremities, (unknown) (no (unknown) (unknown) Neut # (Auto) (units ( unknown) date) 4200 unknown) (unknown) (no (unknown) (unknown) Neut % (Auto) (units ( unknown) date) 55.8 unknown) (unknown) (no (unknown) (unknown) Objective (units (unkn own) date) unknown) (unknown) (no (unknown) (unknown) Oxygen Delivery (units (unknown) date) Method Room Air unknown) (unknown) (no (unknown) (unknown) PFSH (units (unkno wn) date) unknown) (unknown) (no (unknown) (unknown) Pancreatitis (units (u nknown) date) unknown) (unknown) (no (unknown) (unknown) Patient: (units (unkno wn) date) Rosaura Witt unknown) MR#: M (unknown) (no (unknown) (unknown) Plt Count 113 L (units (unknown) date) unknown) (unknown) (no (unknown) (unknown) Potassium 3.7 (units ( unknown) date) unknown) (unknown) (no (unknown) (unknown) Primary biliary (units (unknown) date) cirrhosis unknown) (unknown) (no (unknown) (unknown) 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 She has had (unknown) (no (unknown) (unknown) Provider: (units (unkn own) date) Aureliano Low unknown) D.O. (unknown) (no (unknown) (unknown) Psych:? Patient (units (unknown) date) has a well-kept unknown) appearance, appropriate affect, mental status (unknown) (no (unknown) (unknown) Pulse Oximetry 98 (units (unknown) date) unknown) (unknown) (no (unknown) (unknown) Pulse Oximetry 99 (units (unknown) date) 99 unknown) (unknown) (no (unknown) (unknown) Pulse Rate 85 84 (units (unknown) date) unknown) (unknown) (no (unknown) (unknown) Pulse Rate 87 (units ( unknown) date) unknown) (unknown) (no (unknown) (unknown) RBC 2.61 L (units (unk nown) date) unknown) (unknown) (no (unknown) (unknown) RDW 18.3 H (units (unk nown) date) unknown) (unknown) (no (unknown) (unknown) Reason for (units (unk nown) date) consult: unknown) hematemesis (unknown) (no (unknown) (unknown) Requesting (units (unk nown) date) provider: Neil Read (unknown) (no (unknown) (unknown) Respiratory Rate (units (unknown) date) 18 unknown) (unknown) (no (unknown) (unknown) Respiratory Rate (units (unknown) date) unknown) (unknown) (no (unknown) (unknown) Result Diagrams: (units (unknown) date) unknown) (unknown) (no (unknown) (unknown) Review of Systems (units (unknown) date) unknown) (unknown) (no (unknown) (unknown) Rheumatoid (units (unk nown) date) arthritis unknown) (unknown) (no (unknown) (unknown) Rx (units (unkno wn) date) unknown) (unknown) (no (unknown) (unknown) Signed (units (unkno wn) date) By:<Electronically unknown) signed by Aureliano Low D.O.> (unknown) (no (unknown) (unknown) Skin:? Pale,? (units ( unknown) date) Warm to touch,dry unknown) and intact without rashes, ulcerations or (unknown) (no (unknown) (unknown) Smoking Status: (units (unknown) date) Current every day unknown) smoker (unknown) (no (unknown) (unknown) Social History (units (unknown) date) unknown) (unknown) (no (unknown) (unknown) Sodium 141 (units (unk nown) date) unknown) (unknown) (no (unknown) (unknown) Sulfa (units (unkno wn) date) (Sulfonamide unknown) Allergy Intermediate Hives Verified 07/10/22 14:57 (unknown) (no (unknown) (unknown) Surgical History (units (unknown) date) (Reviewed 07/10/22 unknown) @ 21:50 by Aureliano Low DO) (unknown) (no (unknown) (unknown) This is a 36 year (units (unknown) date) old female with unknown) PMH of EtOH cirrhosis and recent EtOH (unknown) (no (unknown) (unknown) Time Patient (units (u nknown) date) Seen: 18:30 unknown) (unknown) (no (unknown) (unknown) Time Spent With (units (unknown) date) Patient unknown) (unknown) (no (unknown) (unknown) Tobacco + (units (unkn own) date) Substance Use unknown) (unknown) (no (unknown) (unknown) Total Bilirubin (units (unknown) date) 6.4 H unknown) (unknown) (no (unknown) (unknown) Total Protein 6.2 (units (unknown) date) L unknown) (unknown) (no (unknown) (unknown) Unconjugated (units (u nknown) date) Bilirubin 4.0 H unknown) (unknown) (no (unknown) (unknown) Update: patient's (units (unknown) date) h/h continues to unknown) improve the following day. Suspect she could (unknown) (no (unknown) (unknown) Vital Signs (units (un known) date) unknown) (unknown) (no (unknown) (unknown) WBC 7.6 (units (unkno wn) date) unknown) (unknown) (no (unknown) (unknown) [Embedded Image (units (unknown) date) Not Available] unknown) (unknown) (no (unknown) (unknown) admission to (units (u nknown) date) Prov. [facility] unknown) (discharged 07/04/22). (unknown) (no (unknown) (unknown) alcohol intake: (units (unknown) date) current unknown) (unknown) (no (unknown) (unknown) anxiety/nausea/vo (units (unknown) date) miting #20 tabs unknown) (unknown) (no (unknown) (unknown) attitude thought (units (unknown) date) context and unknown) judgment are appropriate for age. (unknown) (no (unknown) (unknown) be discharged (units ( unknown) date) home if GI unknown) agreeable for outpatient follow up. Communicated (unknown) (no (unknown) (unknown) been awaiting (units (u nknown) date) transfer for EGD unknown) as patient requires GI intervention given history (unknown) (no (unknown) (unknown) breakthrough. (units ( unknown) date) Continue to wean unknown) opiates as tolerated. (unknown) (no (unknown) (unknown) bupropion [From (units (unknown) date) Wellbutrin] unknown) AdvReac Severe Seizure Verified 07/08/22 20:37 (unknown) (no (unknown) (unknown) clear and mucous (units (unknown) date) membranes are unknown) moist. (unknown) (no (unknown) (unknown) deformity. (units (unk nown) date) unknown) (unknown) (no (unknown) (unknown) diagnostic (units (unk nown) date) paracentesis for unknown) SBP rule out, making the diagnosis less likely. (unknown) (no (unknown) (unknown) diazepam 10 mg (units (unknown) date) tablet 10 mg PO unknown) BEDTIME PRN anxiety/sleep 06/28/22 Rx (unknown) (no (unknown) (unknown) ea (units (unkno wn) date) unknown) (unknown) (no (unknown) (unknown) equal chest rise (units (unknown) date) bilaterally. unknown) (unknown) (no (unknown) (unknown) fever, chills, (units ( unknown) date) chest pain, unknown) shortness of breath. She has some intermittent nausea (unknown) (no (unknown) (unknown) folic acid 1 mg (units (unknown) date) tablet 1 mg PO unknown) DAILY #30 tabs 02/17/22 04/23/22 Rx (unknown) (no (unknown) (unknown) for JVD (units (unkno wn) date) unknown) (unknown) (no (unknown) (unknown) for endoscopy. (units (unknown) date) Will continue to unknown) assist with management while in the ER. (unknown) (no (unknown) (unknown) has been slowly (units (unknown) date) uptrending. She unknown) had not had any more alcohol after recent (unknown) (no (unknown) (unknown) hematemesis to (units (unknown) date) the ER a few days unknown) ago now (07/08). Patient states she had a (unknown) (no (unknown) (unknown) hepatitis on (units (u nknown) date) prednisone therapy unknown) who presented with abdominal pain and (unknown) (no (unknown) (unknown) household (units (unkn own) date) members: spouse unknown) and children (unknown) (no (unknown) (unknown) hydrocodone (units (un known) date) Allergy Severe unknown) Hives Verified 07/08/22 20:37 (unknown) (no (unknown) (unknown) hydroxyzine HCl (units (unknown) date) 25 mg tablet 25 mg unknown) PO TID PRN 06/28/22 Rx (unknown) (no (unknown) (unknown) in [facility]. (units (un known) date) unknown) (unknown) (no (unknown) (unknown) ketorolac [From (units (unknown) date) Toradol] Allergy unknown) Severe Hives Verified 07/08/22 20:37 (unknown) (no (unknown) (unknown) labs appear (units (un known) date) improved here thus unknown) far. (unknown) (no (unknown) (unknown) lactulose. (units (unk nown) date) unknown) (unknown) (no (unknown) (unknown) lidocaine 5 % (units (u nknown) date) topical patch 1 unknown) patch topical DAILY PRN pain #15 03/23/22 04/23/22 (unknown) (no (unknown) (unknown) mcg tablet (units (unk nown) date) (Tab-A-Erendira) unknown) (unknown) (no (unknown) (unknown) melatonin 5 mg (units (unknown) date) tablet 5 mg PO unknown) BEDTIME sleep #30 tabs 02/17/22 07/10/22 Rx (unknown) (no (unknown) (unknown) mg tablet (units (unkn own) date) unknown) (unknown) (no (unknown) (unknown) mirtazapine 15 mg (units (unknown) date) tablet 15 mg PO unknown) DAILY 07/10/22 07/10/22 History (unknown) (no (unknown) (unknown) morphine Allergy (units (unknown) date) Intermediate Rash unknown) Verified 07/08/22 20:37 (unknown) (no (unknown) (unknown) multivitamin with (units (unknown) date) folic acid 400 1 unknown) tab PO DAILY #30 tabs 02/17/22 07/10/22 Rx (unknown) (no (unknown) (unknown) no further (units (unkn own) date) episodes since ER unknown) arrival. She denies melena or BRBPR. She denies any (unknown) (no (unknown) (unknown) no gross deficits (units (unknown) date) noted of cranial unknown) nerves. (unknown) (no (unknown) (unknown) of varices. (units (un known) date) Medicine was asked unknown) to consult for assistance with management in the (unknown) (no (unknown) (unknown) ondansetron 4 mg (units (unknown) date) disintegrating 4 unknown) mg PO Q8H PRN nausea and 06/28/22 07/10/22 Rx (unknown) (no (unknown) (unknown) pantoprazole 40 (units (unknown) date) mg tablet,delayed unknown) 40 mg PO 0700,2100 #60 tabs 02/17/22 07/10/22 (unknown) (no (unknown) (unknown) petechiae.? (units (un known) date) unknown) (unknown) (no (unknown) (unknown) prednisone 10 mg (units (unknown) date) tablet 10 mg PO unknown) DAILY 07/10/22 07/10/22 History (unknown) (no (unknown) (unknown) recommendations (units (unknown) date) with ER provider. unknown) (unknown) (no (unknown) (unknown) release (units (unkno wn) date) unknown) (unknown) (no (unknown) (unknown) smaller amount of (units (unknown) date) hematemesis than unknown) previous episode where she was transferred to (unknown) (no (unknown) (unknown) stated. (units (unkno wn) date) unknown) (unknown) (no (unknown) (unknown) substance use (units ( unknown) date) type: does not use unknown) (unknown) (no (unknown) (unknown) sucralfate 1 gram (units (unknown) date) tablet 1 g PO ACHS unknown) #120 tabs 02/17/22 07/10/22 Rx (unknown) (no (unknown) (unknown) tablet vomiting (units (unknown) date) #14 tabs unknown) (unknown) (no (unknown) (unknown) the patient's (units ( unknown) date) current unknown) medications. (unknown) (no (unknown) (unknown) thiamine (units (unkno wn) date) mononitrate (vit unknown) B1) 100 100 mg PO DAILY #30 tabs 02/17/22 07/10/22 Rx (unknown) (no (unknown) (unknown) time. (units (unkno wn) date) unknown) (unknown) (no (unknown) (unknown) tizanidine 4 mg (units (unknown) date) tablet 4 mg PO BID unknown) PRN Muscle Spasm 07/10/22 07/10/22 History (unknown) (no (unknown) (unknown) today; this time (units (unknown) date) is exclusive of unknown) procedural time. (unknown) (no (unknown) (unknown) tramadol Allergy (units (unknown) date) Intermediate unknown) Headache Verified 07/08/22 20:37 (unknown) (no (unknown) (unknown) unable to undergo (units (unknown) date) endoscopy here unknown) with general surgery given her previous known (unknown) (no (unknown) (unknown) varices with (units (u nknown) date) recent bleeding. unknown) (unknown) (no (unknown) (unknown) when she was (units (u nknown) date) given transfusion unknown) of 2 U PRBC. She has since improved to 8.3 and (unknown) (no (unknown) (unknown) with food. She (units (unknown) date) was finally able unknown) to tolerate some clear liquids today. She has (unknown) (no (unknown) (unknown) with pain. (units (unk nown) date) Epigastric pain is unknown) burning in nature, non-radiating, and worsened Social History No information. Vital Signs No information.
[2022-10-04] MEDS ORDERED: MORPHINE 10 MG/ML VIAL IVP STA (04:32)
[2022-10-04] MEDS ORDERED: PANTOPRAZOLE 40 MG VIAL IVP STA ×2 (04:35→13:05)
[2022-10-04] MEDS ORDERED: FAMOTIDINE 20 MG/2 ML VIAL IVP STA (04:35)
[2022-10-04] MEDS ORDERED: METOCLOPRAMIDE 10 MG/2 ML VIAL IVP STA ×2 (04:35→11:28)
--- NOTE | 2022-10-04 04:39 | ED Physician Documentation ---
History of Present Illness - Stated complaint Stated Complaint: VOMITING BLOOD - Chief complaint Chief Complaint: Abd Pain - History obtained from History obtained from: Patient - Additonal information Additional information: 37-year-old woman with history of alcohol abuse, early stage cirrhosis, esophageal varices and peptic ulcer disease, chronic pain, presents with 5 episodes of bloody emesis starting today. Currently still with nausea despite 4 mg IV Zofran by EMS.She received about 400 cc IV fluids with EMS as well. Endorsing epigastric abdominal pain radiating upwards that is burning, constant, gradual onset, worse with vomiting.Denies fever. Past surgical history of cholecystectomy. Review of Systems GI: reports: Abdominal Pain, Nausea, Vomiting. 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 HEENT: None Psych: Anxiety, Other Musculoskeletal: Rheumatoid arthritis, Chronic back pain Derm: None - Past Surgical History Past Surgical History: Yes General: Other HEENT: Tonsil/Adenoidectomy - Present Medications Home Medications: Ambulatory Orders Medication Instructions Recorded Confirmed Ondansetron Odt [Zofran] 4 mg TL Q6H PRN #10 tablet 11/01/20 11/07/20 LORazepam [Ativan] 0.5 mg PO Q8HR PRN #8 tablet 11/03/20 11/07/20 Oxycodone HCl/Acetaminophen 1 - 2 each PO Q6H PRN #10 tablet 11/03/20 11/07/20 [Percocet 5-325 mg Tablet] Spironolactone [Aldactone] 50 mg PO DAILY 11/03/20 11/07/20 Lisinopril/Hydrochlorothiazide 1 each PO DAILY 11/07/20 11/07/20 [Zestoretic 20-12.5 mg Tablet] oxyCODONE [Roxicodone] 5 mg PO TID PRN #15 tablet 03/16/22 - Allergies Allergies/Adverse Reactions: Allergies Allergy/AdvReac Type Severity Reaction Status Date / Time Sulfa (Sulfonamide Allergy Severe Edema Verified 10/04/22 04:28 Antibiotics) hydrocodone bitartrate * Allergy Intermediate Hives Verified 10/04/22 04:28 [From Vicodin] ketorolac [From Toradol] Allergy Mild Hives Verified 10/04/22 04:28 bupropion HCl * AdvReac Severe Unknown Verified 10/04/22 04:28 [From Wellbutrin] gabapentin AdvReac Severe seizure Verified 10/04/22 04:28 NSAIDS (Non-Steroidal AdvReac Intermediate Cramps Verified 10/04/22 04:28 Anti-Inflamma acetaminophen [From Tylenol] AdvReac Unknown Verified 10/04/22 04:28 - Social History Does the pt smoke?: No Smoking Status: Never smoker Does the pt drink ETOH?: Yes Does the pt have substance abuse?: No - Immunizations Immunizations are current?: Yes - POLST Patient has POLST: No POLST Status: Full Code PD ED PE NORMAL - Vitals Vital signs reviewed: Yes - General General: Alert and oriented X 3, No acute distress, Well developed/nourished - HEENT HEENT: Atraumatic, PERRL, EOMI - Neck Neck: Supple, no meningeal sign - Cardiac Cardiac: RRR - Respiratory Respiratory: No respiratory distress, Clear bilaterally - Abdomen Abdomen: Non tender, Non distended, Other (Discomfort epigastric palpation) - Derm Derm: Normal color, Warm and dry - Extremities Extremities: No deformity Results - Vitals Vitals: Vital Signs - 24 hr 10/04/22 10/04/22 04:25 04:29 Temperature 37.2 C Heart Rate 109 H Respiratory 17 19 Rate Blood Pressure 119/95 H O2 Saturation 98 Oxygen O2 Source Room air - Labs Labs: Laboratory Tests 10/04/22 10/04/22 05:00 05:00 WBC 4.4 L RBC 1.99 L Hgb 5.5 L* Hct 18.7 L* MCV 94.0 MCH 27.6 MCHC 29.4 L RDW 16.5 H Plt Count 103 L MPV 10.9 H Neut # (Auto) 2.8 Lymph # (Auto) 1.0 L Kane # (Auto) 0.5 Eos # (Auto) 0.1 Baso # (Auto) 0.0 Absolute Nucleated RBC 0.00 Nucleated RBC % 0.0 Sodium 141 Potassium 4.2 Chloride 106 Carbon Dioxide 28 Anion Gap 7.0 BUN 12 Creatinine 0.5 Estimated GFR (MDRD) 139 Glucose 134 H Calcium 8.0 L Total Bilirubin 2.4 H AST 48 H ALT 15 Alkaline Phosphatase 120 Total Protein 5.5 L Albumin 2.4 L Globulin 3.1 Albumin/Globulin Ratio 0.8 L Lipase 43 PD Medical Decision Making - ED course ED course: 37-year-old woman with past medical history of Alcohol abuse presents with bloody emesis x5 starting at 2 AM. We will obtain lab work to evaluate for pancreatitis and for anemia. Symptomatic care provided. patient with profound anemia hb 5.5. d/w Dr. Duarte who will do endoscopy today. plan to admit pending bed availability later today. patient endorsed to Dr Marquis Ortiz, incoming daytime ED MD at 7am shift change. - Critical Care Time(min): 30 Time Includes: Direct patient care, Review records, Reassess patient, Document care, Coordinate care, Medical consult Data interpretation: Labs Procedures included in critical care time: Peripheral IV, Blood draw Departure - Departure Disposition: 66 [facility] DC/Xfer Clinical Impression: Vomiting, Abdominal pain, Hematemesis, Alcohol abuse, UGIB (upper gastrointestinal bleed), Anemia Condition: Stable
[2022-10-04] MEDS ORDERED: SODIUM CHLORIDE 0.9% 1,000 ML IV STA ×2 (04:46→09:03)
[2022-10-04 05:42] LABS: BASOPHILS % (AUTO) 0.5 %; EOSINOPHILS # (AUTO) 0.1 10^3/uL (0.0-0.7); EOSINOPHILS % (AUTO) 1.1 %; LYMPHOCYTES % (AUTO) 22.3 %; MEAN CORPUSCULAR HEMOGLOBIN 27.6 pg (27.0-31.0); MEAN CORPUSCULAR HGB CONC 29.4 g/dL (32.0-36.0); MEAN PLATELET VOLUME 10.9 fL (7.9-10.8); MONOCYTES # (AUTO) 0.5 10^3/uL (0.0-1.0); MONOCYTES % (AUTO) 11.5 %; NEUTROPHILS # (AUTO) 2.8 10^3/uL (1.5-6.6); NEUTROPHILS % (AUTO) 63.9 %; PLT - PLATELET COUNT 103 10^3/uL (130-450); RED BLOOD COUNT 1.99 10^6/uL (4.20-5.40); RED CELL DISTRIBUTION WIDTH 16.5 % (12.0-15.0); WHITE BLOOD COUNT 4.4 x10^3/uL (4.8-10.8)
[2022-10-04 05:51] LABS: ALBUMIN 2.4 g/dL (3.2-5.5); ALBUMIN/GLOBULIN RATIO 0.8 (1.0-2.2); BILIRUBIN,TOTAL 2.4 mg/dL (0.2-1.0); CREATININE 0.5 mg/dL (0.4-1.0); POTASSIUM 4.2 mmol/L (3.5-5.0); TOTAL PROTEIN 5.5 g/dL (6.7-8.2)
[2022-10-04 05:54] LABS: HCT - HEMATOCRIT 18.7 % (37.0-47.0); HGB - HEMOGLOBIN 5.5 g/dL (12.0-16.0)
[2022-10-04] MEDS ORDERED: MORPHINE 2 MG/ML CARPUJECT IVP STA (09:02)
[2022-10-04] MEDS ORDERED: ONDANSETRON 4 MG/2 ML VIAL IVP STA ×2 (09:02→14:26)
--- NOTE | 2022-10-04 09:07 | CONSULTATION NOTE ---
Referring Provider Consult Date: 10/04/22 Chief Complaint - Chief Complaint Chief Complaint: throwing up blood last pm. History of Present Illness - History Obtained From Records Reviewed: yes History obtained from: pt Exam Limitations: none - History of Present Illness HPI Comment/Other: History alcohol use and large fatty liver and abnormal lfts/ low albumin. History pancreatitis and lap connie. no history ascites and by imaging here 1 year ago no esophageal varices. she states she had a bleeding ulcer a year ago and had it clipped at [facility]. she was throwing up blood at that time. she had recurrent epigastric pain and was throwing up blood again around may and had another scope at [facility]. she states ulcer problem again as a cause. she has not had bloody emesis for several hours now. she has mild nausea and epigastric pain. she states she does take an antacid on a regular basis. recently she was taking advil. 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 Social History Notes: visiting from out of town, returning in a week or so - Substance History Use: Uses substance without health or social issues: Cannabis - POLST Patient has POLST: No POLST Status: Full Code Meds/Allgy - Home Medications Home Medications: Ambulatory Orders Medication Instructions Recorded Confirmed Ondansetron Odt [Zofran] 4 mg TL Q6H PRN #10 tablet 11/01/20 11/07/20 LORazepam [Ativan] 0.5 mg PO Q8HR PRN #8 tablet 11/03/20 11/07/20 Oxycodone HCl/Acetaminophen 1 - 2 each PO Q6H PRN #10 tablet 11/03/20 11/07/20 [Percocet 5-325 mg Tablet] Spironolactone [Aldactone] 50 mg PO DAILY 11/03/20 11/07/20 Lisinopril/Hydrochlorothiazide 1 each PO DAILY 11/07/20 11/07/20 [Zestoretic 20-12.5 mg Tablet] oxyCODONE [Roxicodone] 5 mg PO TID PRN #15 tablet 03/16/22 - Allergies Allergies/Adverse Reactions: Allergies Allergy/AdvReac Type Severity Reaction Status Date / Time Sulfa (Sulfonamide Allergy Severe Edema Verified 10/04/22 04:28 Antibiotics) hydrocodone bitartrate * Allergy Intermediate Hives Verified 10/04/22 04:28 [From Vicodin] ketorolac [From Toradol] Allergy Mild Hives Verified 10/04/22 04:28 bupropion HCl * AdvReac Severe Unknown Verified 10/04/22 04:28 [From Wellbutrin] gabapentin AdvReac Severe seizure Verified 10/04/22 04:28 NSAIDS (Non-Steroidal AdvReac Intermediate Cramps Verified 10/04/22 04:28 Anti-Inflamma acetaminophen [From Tylenol] AdvReac Unknown Verified 10/04/22 04:28 Review of Systems - Other Findings Other Findings: 10 pt ros as above otherwise unremarkable Exam - Vital Signs Reviewed Vital Signs: Yes Vital Signs: Vital Signs x48h Temp Pulse Resp BP Pulse Ox 10/04/22 06:28 36.7 C 112 H 16 103/68 96 10/04/22 04:29 19 10/04/22 04:25 37.2 C 109 H 17 119/95 H 98 - Physical Exam General Appearance: positive: No acute distress, Alert Eyes Bilateral: positive: PERRL, EOMI, No scleral icterus ENT: positive: No signs of dehydration Neck: positive: No JVD, Trachea midline Respiratory: positive: No respiratory distress, Breath sounds nml Cardiovascular: positive: Regular rate & rhythm Abdomen: positive: Non-tender, No distention Neurologic/Psychiatric: positive: Oriented x3 Conclusion/Plan - Problem List (1) UGIB (upper gastrointestinal bleed) Conclusion/Plan: she is not having active bleeding at this time. plan egd when room becomes available and after transfusion ie noon today. parq held and verbal consent obtained - Lab Results Fish Bones: 10/04/22 05:00 10/04/22 05:00
--- NOTE | 2022-10-04 10:55 | ANESTHESIA ---
Pre-Anesthesia VS, & Labs - Diagnosis hematemesis - Procedure EGD Vital Signs: Temp Pulse Resp BP Pulse Ox O2 Flow Rate 36.7 C 100 16 112/76 98 10/04/22 06:28 10/04/22 09:35 10/04/22 09:35 10/04/22 09:35 10/04/22 09:35 Height: 5 ft 10 in Weight (kg): 81.7 kg Body Mass Index: 25.8 BMI Classification: Overweight - NPO >8 hours - Is Patient ?: Not Applicable (see note) Comments:: HCG pending at time of pre-op - Lab Results Current Lab Results: Laboratory Tests 10/04/22 06:29: Blood Type O NEGATIVE, Antibody Screen NEGATIVE, Crossmatch IS Only See Detail 10/04/22 05:00: Sodium 141, Potassium 4.2, Chloride 106, Carbon Dioxide 28, Anion Gap 7.0, BUN 12, Creatinine 0.5, Estimated GFR (MDRD) 139, Glucose 134 H, Calcium 8.0 L, Total Bilirubin 2.4 H, AST 48 H, ALT 15, Alkaline Phosphatase 120, Total Protein 5.5 L, Albumin 2.4 L, Globulin 3.1, Albumin/Globulin Ratio 0.8 L, Lipase 43 10/04/22 05:00: WBC 4.4 L, RBC 1.99 L, Hgb 5.5 L*, Hct 18.7 L*, MCV 94.0, MCH 27.6, MCHC 29.4 L, RDW 16.5 H, Plt Count 103 L, MPV 10.9 H, Neut # (Auto) 2.8, Lymph # (Auto) 1.0 L, Rankin # (Auto) 0.5, Eos # (Auto) 0.1, Baso # (Auto) 0.0, Absolute Nucleated RBC 0.00, Nucleated RBC % 0.0 Fish Bones: 10/04/22 05:00 10/04/22 05:00 Home Medications and Allergies Active Medications Sodium Chloride (Normal Saline 0.9%) 1,000 mls @ 125 mls/hr IV .Q8H STA Stop: 10/04/22 17:02 Last Admin: 10/04/22 09:31 Dose: 125 mls/hr Spironolactone [Aldactone] 50 mg PO DAILY 11/03/20 Lisinopril/Hydrochlorothiazide [Zestoretic 20-12.5 mg Tablet] 1 each PO DAILY 11/07/20 Allergies/Adverse Reactions: Allergies Allergy/AdvReac Type Severity Reaction Status Date / Time Sulfa (Sulfonamide Allergy Severe Edema Verified 10/04/22 04:28 Antibiotics) hydrocodone bitartrate * Allergy Intermediate Hives Verified 10/04/22 04:28 [From Vicodin] ketorolac [From Toradol] Allergy Mild Hives Verified 10/04/22 04:28 bupropion HCl * AdvReac Severe Unknown Verified 10/04/22 04:28 [From Wellbutrin] gabapentin AdvReac Severe seizure Verified 10/04/22 04:28 NSAIDS (Non-Steroidal AdvReac Intermediate Cramps Verified 10/04/22 04:28 Anti-Inflamma acetaminophen [From Tylenol] AdvReac Unknown Verified 10/04/22 04:28 Anes History & Medical History - Anesthetic History Anesthesia Complications: reports: No previous complications Family history of Anesthesia Complications: Denies Family history of Malignant Hyperthermia: Denies - Medical History Cardiovascular: reports: Hypertension Pulmonary: reports: None Gastrointestinal: reports: Pancreatitis Urinary: reports: None Neuro: reports: Other Musculoskeletal: reports: Rheumatoid arthritis, Chronic back pain, Other (ankylosing spondylitis) Endocrine/Autoimmune: reports: None Blood Disorders: reports: None Skin: reports: None Smoking Status: Never smoker Psychosocial: reports: Alcohol, Cannabis (Heavy ETOH, approx 1 gallon vodka every 2 days.) - Surgical History General: reports: Other Eyes Ears Nose Throat (EENT): reports: Tonsil/Adenoidectomy Exam General: Alert, Oriented x3, Cooperative Dental: WNL Mouth Openin Fingerbreadth Neck Mobility: Normal Mallampati classification: II Thyromental Distance: 4-6 cm Respiratory: Lungs clear Cardiovascular: Regular rate Plan Anesthesia Type: General Consent for Procedure(s) Verified and Reviewed: Yes Code Status: Attempt Resuscitation ASA classification: 3-Severe systemic disease Is this case an emergency?: Yes
[2022-10-04] MEDS ORDERED: HYDROmorphone 0.5 MG/0.5 ML SYRINGE IVP PRN ×3 (10:56→14:31)
[2022-10-04] MEDS ORDERED: MORPHINE 2 MG/ML CARPUJECT IVP PRN ×3 (10:56→14:31)
[2022-10-04] MEDS ORDERED: ATROPINE ABBOJECT 1 MG/10 ML SYRINGE IVP PRN ×3 (10:56→14:31)
[2022-10-04] MEDS ORDERED: NALOXONE 0.4 MG/ML VIAL IVP PRN ×3 (10:56→14:31)
[2022-10-04] MEDS ORDERED: fentaNYL 100 MCG/2 ML VIAL IVP PRN ×3 (10:56→14:31)
[2022-10-04] MEDS ORDERED: ONDANSETRON 4 MG/2 ML VIAL IVP PRN ×3 (10:56→14:31)
[2022-10-04] MEDS ORDERED: METOCLOPRAMIDE 10 MG/2 ML VIAL IVP PRN ×3 (10:56→14:31)
[2022-10-04] MEDS ORDERED: ePHEDrine 50 MG/ML VIAL IVP PRN ×3 (10:56→14:31)
[2022-10-04] MEDS ORDERED: LACTATED RINGERS 1,000 ML IV SCH ×3 (11:00→14:31)
[2022-10-04 11:20] LABS: HCG,QUALITATIVE BLOOD NEGATIVE
[2022-10-04] MEDS ORDERED: LACTATED RINGERS 150 ML IV ONE (12:52)
--- NOTE | 2022-10-04 13:04 | OPERATIVE REPORT ---
Operative Report - General Procedure Date: 10/04/22 Planned Procedure: egd Pre-Op Diagnosis: upper gi bleed Procedure Performed: egd Post Op Diagnosis: very large gastric varices at the ge junction and cardia. non bleeding - Procedure Note Primary Surgeon: anna rangel Anesthesia Technique: General ET tube Pathology: none Estimated Blood Loss (mL): 0 Indications: upper gi bleed with hematemesis Findings: as above. Complications: none - Other Other Information/Narrative: she should be urgently transferred to facility with higher level of care and IR capability for TIPS
[2022-10-04] MEDS ORDERED: PANTOPRAZOLE 80 MG in SODIUM CHLORIDE 0.9% 100ML 100 ML IV STA (13:05)
[2022-10-04] MEDS ORDERED: OCTREOTIDE 100 MCG/ML VIAL IVP STA (13:05)
[2022-10-04] MEDS ORDERED: OCTREOTIDE 500 MCG in SODIUM CHLORIDE 0.9% 100ML 95 ML IV STA ×2 (13:05→13:12)
[2022-10-04] MEDS ORDERED: cefTRIAXone 1 GM in SODIUM CHLORIDE 0.9% MINIBAG 100 ML IV STA (13:06)
--- NOTE | 2022-10-04 13:15 | ED Physician Documentation ---
ED Addendum - Addendum Addendum: 10/04/22 13:[address] Duarte. He had taken to the OR for an EGD and found significant varices with sequela of recent bleeding and recommends transfer to a tertiary facility for evaluation for TIPS. She is being brought back to the emergency department for transfer. I have ordered octreotide bolus and drip, Protonix bolus and drip, IV Rocephin. I have asked the nursing unit clerk to start calling around for transfer options. Note made that currently bed capacity in [facility] is abysmal. I expect significant delays to transfer unfortunately. 10/04/22 14:06 At this time I spoke with the on-call GI at [facility] to agrees that the patient needs to be transferred and defers to the forge heater for that. She does not feel there is an indication for repeat EGD, feels that this is more of a IR issue. Repeat hemoglobin only went from 5.5 up to 6, more blood ordered. 10/04/22 14:[address] Collier at [facility] ICU pending bed availability. 10/04/22 14:44 Note made of INR of 2.2. Will transfuse plasma as well. 10/04/22 14:55 I am notified at this time that a bed is available at [facility]. [facility] was mobilized. Disposition: Transferred to [facility] for tertiary care Condition: Critical Diagnosis: 1. Upper GI bleed related to gastric varices 2. Alcoholic liver disease 3. Coagulopathy 10/04/22 15:02 We discussed intubation prior to transport. I am worried that if she were to start bleeding on transport that it would be fatal. She does not want to be intubated having been intubated for a prolonged period of time the past. That said she did submit to a central line given the need for large-volume products. 10/04/22 15:27 She had 2 18-gauge IVs but I was worried about her stability and she consented to a central line. Procedure note, central line: Verbal informed consent was obtained, risks including bleeding, infection, pneumothorax, arterial puncture, and need for surgery were discussed with the patient. The patient was prepped twice with ChloraPrep. I wore cap, mask, gown, sterile gloves. Full sterile sheet was utilized. Using real-time ultrasound guidance the right internal jugular vein was accessed and using Seldinger technique An 8.5 [place] Cordis central line was placed in standard fashion And through this a 7 Libyan triple-lumen was threaded while still sterile and sutured into place without immediate complications. Critical care time 50 minutes mostly in consultation and review of lab work and ordering as well as documentation. This is exclusive of central line placement.
[2022-10-04] MEDS ORDERED: OCTREOTIDE IV STA (13:16)
[2022-10-04] MEDS ORDERED: SODIUM CHLORIDE 0.9% IV STA (13:16)
--- NOTE | 2022-10-04 13:34 | ANESTHESIA POST OP EVALUATION ---
Anesthesia Post Eval - Post Anesthesia Eval Vitals: Last Vital Signs Temp 37.4 C 10/04/22 13:27 Pulse 119 H 10/04/22 13:27 Resp 11 L 10/04/22 13:27 BP 110/74 10/04/22 13:27 Pulse Ox 96 10/04/22 13:27 O2 Flow Rate CV Function Including HR & BP: Stable Pain Control: Satisfactory Nausea & Vomiting: Negative Mental Status: Baseline Respiratory Status: Airway Patent Hydration Status: Satisfactory Anesthesia Complications: None
[2022-10-04 13:36] LABS: BASOPHILS % (AUTO) 0.6 %; EOSINOPHILS % (AUTO) 0.2 %; HCT - HEMATOCRIT 20.5 % (37.0-47.0); LYMPHOCYTES # (AUTO) 0.9 10^3/uL (1.5-3.5); LYMPHOCYTES % (AUTO) 18.9 %; MEAN CORPUSCULAR HEMOGLOBIN 27.1 pg (27.0-31.0); MEAN CORPUSCULAR HGB CONC 29.3 g/dL (32.0-36.0); MEAN CORPUSCULAR VOLUME 92.8 fL (81.0-99.0); MEAN PLATELET VOLUME 9.5 fL (7.9-10.8); MONOCYTES # (AUTO) 0.4 10^3/uL (0.0-1.0); MONOCYTES % (AUTO) 9.1 %; NEUTROPHILS # (AUTO) 3.3 10^3/uL (1.5-6.6); NEUTROPHILS % (AUTO) 70.6 %; PLT - PLATELET COUNT 91 10^3/uL (130-450); RED BLOOD COUNT 2.21 10^6/uL (4.20-5.40); RED CELL DISTRIBUTION WIDTH 15.9 % (12.0-15.0); WHITE BLOOD COUNT 4.7 x10^3/uL (4.8-10.8)
[2022-10-04 13:52] LABS: CREATININE 0.5 mg/dL (0.4-1.0)
[2022-10-04 13:57] LABS: CALCIUM 7.7 mg/dL (8.5-10.3); POTASSIUM 4.4 mmol/L (3.5-5.0)
[2022-10-04] MEDS ORDERED: HYDROmorphone 1 MG/ML CARPUJECT IVP STA (14:26)
[2022-10-04 14:33] LABS: INR 2.2 (0.8-1.2); PT - PROTHROMBIN TIME 23.5 secs (9.9-12.6)
[2022-10-04] MEDS ORDERED: HYDROmorphone 1 MG/ML CARPUJECT ONE (14:33)
[2022-10-04] MEDS ORDERED: ONDANSETRON 4 MG/2 ML VIAL ONE (14:33)
[2022-10-04] MEDS ORDERED: LIDOCAINE 1%-EPI 1:100000 20 ML MDV SUBQ STA (15:02)
[2022-10-04 15:07] VITALS: BP 107/76
--- NOTE | 2022-10-04 16:20 | XRAY Report ---
PROCEDURE: Chest for Line Placement INDICATIONS: line placement TECHNIQUE: One view of the chest was acquired. COMPARISON: Chest x-ray, 03/14/2022. FINDINGS: Surgical changes and devices: There is a right IJ central line with the tip projecting to the area o f the SVC. Lungs and pleura: No pleural effusions or pneumothorax. Bilateral interstitial prominence suggesting mild pulmonary edema or volume overload. Mediastinum: Mediastinal contours appear normal. Heart size is normal. Bones and chest wall: No suspicious bony lesions. Overlying soft tissues appear unremarkable. IMPRESSION: 1. Right IJ central line tip projecting to the area of SVC. Reviewed by: Maryana Hugo MD on 10/04/2022 4:18 PM PST Approved by: Maryana Hugo MD on 10/04/2022 4:18 PM PST Station ID: [id number]
--- NOTE | 2022-10-06 21:25 | ED Physician Documentation ---
ED Addendum - Addendum Addendum: 10/05/22 Pt Received in signout from Dr. Woodson. Patient has an upper GI bleed and is awaiting endoscopy by Dr. Duarte.There were no beds available overnight or this morning for admission. 1 unit of blood was ordered and I ordered a second unit. Patient did require few rounds of pain and nausea medications prior to endoscopy. Patient return to the emergency department after upper endoscopy. Please see Dr. Rocha's note for further details.
== END 2022-10-04 15:45 | disposition short-term general hospital (02) ==
LOC: EDUNIT# → ED 04:20 → SDS 13:07 → ED 15:45
DX: K92.2 Gastrointestinal hemorrhage, unspecified (principal); K92.0 Hematemesis; I86.4 Gastric varices; D64.9 Anemia, unspecified; R79.1 Abnormal coagulation profile; R10.13 Epigastric pain; F10.10 Alcohol abuse, uncomplicated; K70.30 Alcoholic cirrhosis of liver without ascites; Z20.822 Contact with and (suspected) exposure to COVID-19
CPT/HCPCS: 36415; 36430; 80048; 80053; 83690; 84703; 85025; 85610; 86850; 86900; 86901; 86920; 87635; 96361; 96365; 96366; 96375; 99291; 99292; J1170; J2765; J7120; P9016; P9017; P9040

== ENCOUNTER 2023-12-25 16:26 | Outpatient (CLI) | payer BC ==
--- NOTE | 2023-12-25 17:28 | XRAY Report ---
PROCEDURE: Lumbar Spine 2-3V INDICATIONS: LOW BACK PX TECHNIQUE: 3 views of the lumbar spine were acquired. COMPARISON: CT of lumbar spine dated 03/14/2022. FINDINGS: Bones: 5 [id number] vertebrae are present. There is normal bony alignment. Mild degenerative e ndplate changes are noted at L5-S1 level. No vertebral body compression fractures. No suspicious bon y lesions. Soft tissues: Overlying bowel gas pattern is normal. No suspicious soft tissue calcifications. Sig nificant fecal stasis throughout the colon is seen. IMPRESSION: Mild degenerative disc disease at L5-S1 level. No acute compression fracture or spondylolisthesis. Reviewed by: Carlos Kline MD on 12/25/2023 5:27 PM PDT Approved by: Carlos Kline MD on 12/25/2023 5:27 PM PDT Station ID: [id number]
== END 2023-12-25 16:27 | disposition home or self-care (01) ==
LOC: DI 16:26
PROVIDERS: ATTEND Internal Medicine
DX: M51.37 Other intervertebral disc degeneration, lumbosacral region (principal)

== ENCOUNTER 2024-02-26 14:46 | Emergency (ER) | payer MEDICAID, OTHER ==
[2024-02-26 15:21] VITALS: BP 169/88; O2SAT 99
--- NOTE | 2024-02-26 15:44 | XRAY Report ---
PROCEDURE: Shoulder 2+V LT INDICATIONS: L shoulder injury TECHNIQUE: 3 views of the shoulder were acquired. COMPARISON: 03/14/2022 FINDINGS: Bones: No fractures or dislocations. No suspicious bony lesions. Visualized ribs appear intact. Soft tissues: No suspicious soft tissue calcifications. The visualized lungs are within normal limi ts. IMPRESSION: No acute bony abnormality. Reviewed by: Fernando Wong MD on 02/26/2024 3:43 PM PDT Approved by: Fernando Wong MD on 02/26/2024 3:43 PM PDT Station ID: [id number]
== END 2024-02-26 18:15 | disposition left against medical advice (07) ==
LOC: ED 14:46
DX: S49.92XA Unspecified injury of left shoulder and upper arm, initial encounter (principal); W19.XXXA Unspecified fall, initial encounter; Y93.67 Activity, basketball; Z53.21 Procedure and treatment not carried out due to patient leaving prior to being seen by health care provider

== ENCOUNTER 2024-02-27 15:04 | Emergency (ER) | payer MEDICAID ==
[2024-02-27 15:15] VITALS: BP 160/90; O2SAT 96
--- NOTE | 2024-02-27 15:41 | ED Physician Documentation ---
PD HPI UPPER EXT INJURY - Stated complaint Stated Complaint: LT SHOULDER INJ - Chief complaint Chief Complaint: Trauma Ext - History obtained from History obtained from: Patient - History of Present Illness Location: Left, Shoulder Type of injury: Fall - Additonal information Additional information: 30-year-old female presents with left shoulder pain. The patient fell a couple of days ago while playing basketball, she was running in her shoe caught on the small lip in the concrete and she fell onto her right knee and then landed onto the lateral aspect of the left shoulder. Since then she has had left shoulder pain difficulty moving her left arm away from her body. She denies any other injuries. She was seen here yesterday and had x-ray done but could not wait for results due to the long wait times. She states she has been unable to sleep well due to the pain. She is not able to take Tylenol or NSAIDs due to allergies. 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 HEENT: None Psych: Anxiety, Other Musculoskeletal: Rheumatoid arthritis, Chronic back pain, Other Derm: None - Past Surgical History Past Surgical History: Yes General: Other HEENT: Tonsil/Adenoidectomy - Present Medications Home Medications: Ambulatory Orders Medication Instructions Recorded Confirmed Ondansetron Odt [Zofran] 4 mg TL Q6H PRN #10 tablet 11/01/20 11/07/20 LORazepam [Ativan] 0.5 mg PO Q8HR PRN #8 tablet 11/03/20 11/07/20 Oxycodone HCl/Acetaminophen 1 - 2 each PO Q6H PRN #10 tablet 11/03/20 11/07/20 [Percocet 5-325 mg Tablet] Spironolactone [Aldactone] 50 mg PO DAILY 11/03/20 11/07/20 Lisinopril/Hydrochlorothiazide 1 each PO DAILY 11/07/20 11/07/20 [Zestoretic 20-12.5 mg Tablet] oxyCODONE [Roxicodone] 5 mg PO TID PRN #15 tablet 03/16/22 oxyCODONE [Roxicodone] 5 mg PO Q8H PRN #10 tablet 02/27/24 - Allergies Allergies/Adverse Reactions: Allergies Allergy/AdvReac Type Severity Reaction Status Date / Time Sulfa (Sulfonamide Allergy Severe Edema Verified 02/27/24 15:12 Antibiotics) hydrocodone bitartrate * Allergy Intermediate Hives Verified 02/27/24 15:12 [From Vicodin] ketorolac [From Toradol] Allergy Mild Hives Verified 02/27/24 15:12 bupropion HCl * AdvReac Severe Unknown Verified 02/27/24 15:12 [From Wellbutrin] gabapentin AdvReac Severe seizure Verified 02/27/24 15:12 NSAIDS (Non-Steroidal AdvReac Intermediate Cramps Verified 02/27/24 15:12 Anti-Inflamma acetaminophen [From Tylenol] AdvReac Unknown Verified 02/27/24 15:12 - Social History Does the pt smoke?: No Smoking Status: Never smoker Does the pt drink ETOH?: Yes Does the pt have substance abuse?: No - Immunizations Immunizations are current?: Yes - POLST Patient has POLST: No POLST Status: Full Code PD ED PE NORMAL - Vitals Vital signs reviewed: Yes - General General: Alert and oriented X 3, No acute distress, Well developed/nourished - HEENT HEENT: Atraumatic, Moist mucous membranes - Cardiac Cardiac: RRR, No murmur - Respiratory Respiratory: No respiratory distress, Clear bilaterally - Derm Derm: Normal color, Warm and dry, Other (Contusion right knee) - Extremities Extremities: No deformity, Other (Normal appearance of the left shoulder and arm, no obvious deformity. Patient has normal sensation extremity, 2+ radial pulses. She has very limited abduction of the left shoulder due to pain pain in the anterior lateral shoulder.) Results - Vitals Vitals: Vital Signs - 24 hr 02/27/24 15:12 Temperature 36.8 C Heart Rate 100 Respiratory 16 Rate Blood Pressure 160/90 H O2 Saturation 96 Oxygen O2 Source Room air - Rads (name of study) No standard instances Relevant Findings:: Final report received (X-ray done yesterday, reviewed) PD Medical Decision Making - ED course Complexity details: reviewed results, considered differential, d/w patient ED course: 30-year-old female presents with left shoulder pain after a fall as described in HPI. She has limited range of motion due to pain but no obvious deformity on exam. She actually had x-ray done yesterday prior to leaving without being seen and I reviewed this x-ray which is negative. Patient does Not have signs of dislocation on exam. I suspect this is contusion and possible rotator cuff injury or strain. At this time she was advised to do supportive measures, light range of motion activity throughout the day, and using a cool compress, unfortunately patient is not able to take Tylenol and ibuprofen therefore she was given a short course of oxycodone to use only at nighttime to help with sleep due to pain. She was advised if no improvement in the next couple of weeks to follow-up with PCP and consider outpatient physical therapy or MRI if no improvement. Departure - Departure Disposition: Home, Self Care Clinical Impression: Left shoulder strain Qualifiers: Encounter type: initial encounter Qualified Code(s): S46.912A - Strain of unspecified muscle, fascia and tendon at shoulder and upper arm level, left arm, initial encounter Condition: Good Instructions: ED Sprain Shoulder Prescriptions: oxyCODONE [Roxicodone] 5 mg PO Q8H PRN #10 tablet PRN Reason: Pain >8 Comments: I am prescribing a short course of narcotic pain medication for you. These are potentially dangerous and addictive medications that should be used carefully. These medications may constipate you. Take an [id number] stool softener (docusate) twice daily with plenty of water while taking these medications. If you go 24 hours without a bowel movement, take [id number] miralax, per package instructions. Do not drink or drive while taking these medications. If you received narcotic or sedating medications while in the emergency department, do not drive for 24 hours. Store this medication in a safe, secure place and out of reach of children. It is a violation of federal law to give or sell this medication to another person or to use in a manner other than prescribed. The ED will not refill narcotic prescriptions, including prescriptions lost or stolen. To dispose of unwanted medications: 1. [facility] provides a drop box for medication in pill form only (no liquids) 8:00 am to 4:30 p.m. Sunday-Sunday in the lobby of the [facility], [address] [place] [address]. Empty pills into ziplock bag before disposal. Call [phone] for information. 2.[employer] is a free service available to all [facility] residents. Go to [email or web address] Note that many narcotic pain relievers also contain Tylenol/acetaminophen. Please ensure that your total dose of acetaminophen from all sources does not exceed 3 g (3000 mg) per day. Please follow-up with your primary doctor in 2 weeks or so if you are not having improvement, they may refer you to physical therapy or get an MRI. Forms: PCP List
== END 2024-02-27 16:01 | disposition home or self-care (01) ==
LOC: ED 15:04
DX: S46.912A Strain of unspecified muscle, fascia and tendon at shoulder and upper arm level, left arm, initial encounter (principal); W01.0XXA Fall on same level from slipping, tripping and stumbling without subsequent striking against object, initial encounter; Y93.67 Activity, basketball; Y92.310 Basketball court as the place of occurrence of the external cause; I10 Essential (primary) hypertension; Z79.899 Other long term (current) drug therapy
CPT/HCPCS: 99282; 99283

== ENCOUNTER 2024-03-21 12:21 | Emergency (ER) | payer MEDICAID ==
[2024-03-21 13:07] LABS: RAPID STREP SCREEN POSITIVE (Negative)
[2024-03-21 15:02] LABS: B. PARAPERTUSSIS- RESP PCR PAN NOT DETECTED; B. PERTUSSIS- RESP PCR PANEL NOT DETECTED; C. PNEUMONIAE- RESP PCR PANEL NOT DETECTED; CORONAVIRUS 229E-RESP PCR NOT DETECTED; CORONAVIRUS HKU1-RESP PCR NOT DETECTED; CORONAVIRUS NL63-RESP PCR NOT DETECTED; CORONAVIRUS OC43-RESP PCR NOT DETECTED; HUMAN METAPNEUMOVIRUS NOT DETECTED; INFLUENZA A- RESP PCR PANEL NOT DETECTED; INFLUENZA B - RESP PCR PANEL NOT DETECTED; M. PNEUMONIAE- RESP PCR PANEL NOT DETECTED; PARAINFLUENZA VIRUS 1 NOT DETECTED; PARAINFLUENZA VIRUS 2 NOT DETECTED; PARAINFLUENZA VIRUS 3 NOT DETECTED; PARAINFLUENZA VIRUS 4 NOT DETECTED; RHINOVIRUS/ENTEROVIRUS NOT DETECTED; RSV- RESP PCR PANEL NOT DETECTED
[2024-03-21 15:04] LABS: SARS-CoV-2 -RESP PCR PANEL DETECTED
--- NOTE | 2024-03-21 16:43 | ED Physician Documentation ---
PD HPI URI - Stated complaint Stated Complaint: SORE THROAT,SINUS PX - Chief complaint Chief Complaint: Heent - Additional information Additional information: 38-year-old female with history of bleeding ulcer, hypertension, pancreatitis, rheumatoid arthritis presents emergency department for sore throat body aches and pain has been going on now for about 7 to 10 days. Unsure if 70 fevers or chills has been taking Tylenol twice a day. Patient complains of sore throat nausea no vomiting.Airway patent able to communicate no low potato voice speaking in full sentences. 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 HEENT: None Psych: Anxiety, Other Musculoskeletal: Rheumatoid arthritis, Chronic back pain, Other Derm: None - Past Surgical History Past Surgical History: Yes General: Other HEENT: Tonsil/Adenoidectomy - Present Medications Home Medications: Ambulatory Orders Medication Instructions Recorded Confirmed Ondansetron Odt [Zofran] 4 mg TL Q6H PRN #10 tablet 11/01/20 11/07/20 LORazepam [Ativan] 0.5 mg PO Q8HR PRN #8 tablet 11/03/20 11/07/20 Oxycodone HCl/Acetaminophen 1 - 2 each PO Q6H PRN #10 tablet 11/03/20 11/07/20 [Percocet 5-325 mg Tablet] Spironolactone [Aldactone] 50 mg PO DAILY 11/03/20 11/07/20 Lisinopril/Hydrochlorothiazide 1 each PO DAILY 11/07/20 11/07/20 [Zestoretic 20-12.5 mg Tablet] oxyCODONE [Roxicodone] 5 mg PO TID PRN #15 tablet 03/16/22 oxyCODONE [Roxicodone] 5 mg PO Q8H PRN #10 tablet 02/27/24 Penicillin Vk 500 mg PO Q12H 10 Days #38 tablet 03/21/24 - Allergies Allergies/Adverse Reactions: Allergies Allergy/AdvReac Type Severity Reaction Status Date / Time Sulfa (Sulfonamide Allergy Severe Edema Verified 03/21/24 12:55 Antibiotics) hydrocodone bitartrate * Allergy Intermediate Hives Verified 03/21/24 12:55 [From Vicodin] ketorolac [From Toradol] Allergy Mild Hives Verified 03/21/24 12:55 bupropion HCl * AdvReac Severe Unknown Verified 03/21/24 12:55 [From Wellbutrin] gabapentin AdvReac Severe seizure Verified 03/21/24 12:55 NSAIDS (Non-Steroidal AdvReac Intermediate Cramps Verified 03/21/24 12:55 Anti-Inflamma acetaminophen [From Tylenol] AdvReac Unknown Verified 03/21/24 12:55 - Social History Does the pt smoke?: No Smoking Status: Never smoker Does the pt drink ETOH?: Yes Does the pt have substance abuse?: No - Immunizations Immunizations are current?: Yes - POLST Patient has POLST: No POLST Status: Full Code PD ED PE NORMAL - Vitals Vital signs reviewed: Yes - General General: Alert and oriented X 3, No acute distress, Well developed/nourished - HEENT HEENT: Moist mucous membranes, Other (Erythema to pharynx) - Neck Neck: Supple, no meningeal sign - Cardiac Cardiac: RRR, No gallop, Strong equal pulses - Respiratory Respiratory: No respiratory distress, Clear bilaterally - Derm Derm: Normal color, Warm and dry, No rash Results - Vitals Vitals: Vital Signs - 24 hr 03/21/24 03/21/24 12:52 17:09 Temperature 37.4 C 37.1 C Heart Rate 103 H 99 Respiratory 18 22 Rate Blood Pressure 164/101 H 145/88 H O2 Saturation 99 98 Oxygen O2 Source Room air - Labs Labs: Laboratory Tests 03/21/24 03/21/24 12:58 13:46 Nasal Adenovirus (PCR) NOT DETECTED Nasal B. parapertussis DNA (PCR) NOT DETECTED Nasal Coronavir 229E PCR NOT DETECTED Nasal Coronavir HKU1 PCR NOT DETECTED Nasal Coronavir NL63 PCR NOT DETECTED Nasal Coronavir OC43 PCR NOT DETECTED Nasal Enterovir/Rhinovir PCR NOT DETECTED Nasal Influenza B PCR NOT DETECTED Nasal Influenza A PCR NOT DETECTED Nasal Parainfluen 1 PCR NOT DETECTED Nasal Parainfluen 2 PCR NOT DETECTED Nasal Parainfluen 3 PCR NOT DETECTED Nasal Parainfluen 4 PCR NOT DETECTED Nasal RSV (PCR) NOT DETECTED Nasal B.pertussis DNA PCR NOT DETECTED Nasal C.pneumoniae (PCR) NOT DETECTED Jose Human Metapneumo PCR NOT DETECTED Nasal M.pneumoniae (PCR) NOT DETECTED Nasal SARS-CoV-2 (PCR) DETECTED A Group A Strep Rapid POSITIVE H PD Medical Decision Making - ED course ED course: 38-year-old female presents emergency department for sore throat, fevers, chills, body aches. Respiratory swab was completed for further evaluation and patient tested positive for COVID 19. Throat swab was also complete and tested positive for group A strep. She was given Tylenol for sore throat as well as 10 mg of dexamethasone to help with her throat pain. She started on penicillin VK oral and this prescription was sent to her preferred pharmacy for her group A strep. Return precautions given all questions answered patient taught how to manage her symptoms at home with supportive care. Departure - Departure Disposition: Home, Self Care Clinical Impression: COVID-19, Group A streptococcal infection Instructions: Strep Throat, ED Viral Syndrome Prescriptions: Penicillin Vk 500 mg PO Q12H 10 Days #38 tablet Comments: Thank you for trusting us with your care. We have given you Tylenol here in the emergency department as well as 10 mg of dexamethasone to help with your throat pain this will work for the next 3 days to help with calming down the inflammation in your body. For your strep throat we have started you on a medication called penicillin you will take 500 mg twice a day for the next 10 days you have already taken the first dose for this evening you will take the second dose starting first thing tomorrow morning. He is come back to the ER if you are not having any improvement of symptoms any worsening symptoms shortness of breath chest pain or any other concerning emergent symptoms. Wishing you a speedy recovery. Forms: PCP List Discharge Date/Time: 03/21/24 17:15
[2024-03-21] MEDS: DEXAMETHASONE 10 MG/ML VIAL PO STA (17:06)
[2024-03-21] MEDS: CHERRY SYRUP 10 ML UDC PO ONE (17:06)
[2024-03-21] MEDS: PENICILLIN VK 250 MG TABLET PO STA (17:06)
[2024-03-21] MEDS: ACETAMINOPHEN 325 MG TABLET PO STA (17:06)
[2024-03-21] MEDS: PENICILLIN G BENZATHINE 1,200,000 UNIT/2 ML SYRINGE IM STA (17:10)
[2024-03-21 17:19] VITALS: BP 145/88; O2SAT 98
--- NOTE | 2024-03-22 13:14 | ED Physician Documentation ---
ED Addendum - Addendum Addendum: 03/22/24 13:14 The patient called and asked that the prescription from yesterday be sent to the [facility] in [place] as opposed to the [place] it has been sent to. I retransmitted it to the family and [facility].
== END 2024-03-21 17:15 | disposition home or self-care (01) ==
LOC: ED 12:21
DX: U07.1 COVID-19 (principal); J02.0 Streptococcal pharyngitis; B95.0 Streptococcus, group A, as the cause of diseases classified elsewhere; I10 Essential (primary) hypertension; M06.9 Rheumatoid arthritis, unspecified
CPT/HCPCS: 87430; 87633; 99283; A9270

== ENCOUNTER 2024-04-12 08:00 | Outpatient (CLI) | payer MEDICAID | END 2024-04-12 23:59 | disposition home or self-care (01) | LOC: LAB.N 08:00 | PROVIDERS: ATTEND Physician Assistant | DX: J06.9 Acute upper respiratory infection, unspecified (principal) | CPT/HCPCS: 87070 ==

== ENCOUNTER 2024-04-12 15:23 | Outpatient (CLI) | payer MEDICAID ==
--- NOTE | 2024-04-12 23:31 | XRAY Report ---
PROCEDURE: Chest 2V INDICATIONS: UPPER RESPIRATORY INFECTION TECHNIQUE: 2 views of the chest were acquired. COMPARISON: 10/04/2022. FINDINGS: Surgical changes and devices: None. Lungs and pleura: No pleural effusions or pneumothorax. Lungs are clear. Mediastinum: Mediastinal contours appear normal. Heart size is normal. Bones and chest wall: No suspicious bony lesions. Overlying soft tissues appear unremarkable. IMPRESSION: No acute cardiopulmonary process. Reviewed by: Carlos Garcia MD on 04/12/2024 11:30 PM PDT Approved by: Carlos Garcia MD on 04/12/2024 11:30 PM PDT Station ID: [id number]
== END 2024-04-12 15:24 | disposition home or self-care (01) ==
LOC: DI 15:23
PROVIDERS: ATTEND Physician Assistant
DX: J06.9 Acute upper respiratory infection, unspecified (principal)